=== PATIENT | male | born 1960 | race Caucasian/White ===

== ENCOUNTER 2017-09-26 13:12 | Inpatient (IN) | payer OTHER ==
--- NOTE | 2017-09-26 13:35 | PDOC ---
History of Present Illness - General Chief Complaint: Weakness Stated Complaint: WEAKNESS Time Seen by Provider: 09/26/17 13:23 - History of Present Illness Initial Comments: 09/26/17 14:32 57 year old male with pmh of recurrent aspiration pneumonitis, history of VATS at [facility] (?) about 7 years ago. S/P VATS here at [facility] In 2012 due to empyema, also pmh of HTN, COPD, essential tremors, severe ataxia, frequent falls sent by clinical nursing coordinator for vomiting and diarrhea this morning after breakfast. Patient claims he lost consciousness as well but homeland security program specialist nurse denies. Patient on narcotic and anticonvulsants daily (Tramadol and primidone) EXPERIENCE PLANNING STRATEGIST: Elizabeth Carvalho Called aide who denies finding any alcohol in patient's home. Patient states history of Parkinson's and Stroke but no evidence of that in chart. 09/26/17 14:37 Past History - Past Medical History Allergies/Adverse Reactions: Allergies Allergy/AdvReac Type Severity Reaction Status Date / Time No Known Allergies Allergy Verified 09/26/17 13:37 Home Medications: Ambulatory Orders Metoprolol Succinate [Toprol XL -] 50 mg PO DAILY #0 tab.sr.24h 09/23/15 Folic Acid 1 mg PO DAILY 06/22/16 Primidone 50 mg PO BID 06/22/16 Ranitidine HCl [Zantac] 150 mg PO DAILY 06/22/16 Thiamine HCl [Vitamin B1 -] 100 mg PO DAILY 06/22/16 Amox-Tr/K Cl [Augmentin 875-125mg Tablet -] 1 tab PO BID #14 tablet 06/29/16 Anemia: Yes Asthma: Yes Cancer: (RT ADRENAL MASS) Cardiac Disorders: No CVA: Yes (11/2013) COPD: Yes CHF: No Dementia: No Diabetes: No GI Disorders: No Disorders: No HTN: Yes Hypercholesterolemia: Yes Liver Disease: No Seizures: No Thyroid Disease: Yes - Surgical History Abdominal Surgery: Yes Appendectomy: Yes Cardiac Surgery: No Cholecystectomy: Yes Lung Surgery: Yes (S/P THRORACOTOMY) Neurologic Surgery: No Orthopedic Surgery: Yes (Hip fx) - Immunization History Td Vaccination: Yes TDAP Vaccination: Yes Immunization Up to Date: Yes - Suicide/Smoking/Psychosocial Hx Smoking Status: Yes Smoking History: Unknown if ever smoked Years of Tobacco Use: 0 Have you smoked in the past 12 months: Yes Number of Cigarettes Smoked Daily: 20 Cigars Per Day: 1 'Breaking Loose' booklet given: 05/30/16 Hx Alcohol Use: Yes Drug/Substance Use Hx: Yes Substance Use Type: Alcohol Hx Substance Use Treatment: No Review of Systems - Review of Systems Able to Perform ROS?: Yes Constitutional: Yes: Weakness HEENTM: No: Symptoms Reported Respiratory: No: Symptoms reported Cardiac (ROS): No: Symptoms Reported ABD/GI: Yes: Diarrhea, Vomiting : No: Symptoms Reported Musculoskeletal: No: Symptoms Reported Integumentary: No: Symptoms Reported Neurological: Yes: Pre-Existing Deficit, Weakness, Unsteady Gait Endocrine: No: Symptoms Reported Hematologic/Lymphatic: No: Symptoms Reported All Other Systems: Reviewed and Negative *Physical Exam - Physical Exam General Appearance: Yes: Disheveled, Alcohol on Breath, Thin HEENT: positive: EOMI, RICKEY Neck: positive: Trachea midline, Normal Thyroid. negative: Tender Respiratory/Chest: positive: Lungs Clear, Normal Breath Sounds. negative: Chest Tender Cardiovascular: positive: Regular Rhythm, Regular Rate, S1, S2 Gastrointestinal/Abdominal: positive: Normal Bowel Sounds, Flat. negative: Tender Neurologic: positive: Confused, Other (positive asterixis) ED Treatment Course - LABORATORY CBC & Chemistry Diagram: 09/26/17 13:39 09/26/17 13:39 Medical Decision Making - Medical Decision Making 09/26/17 17:25 57M with history of etoh abuse and severe ataxia presents with nausea, vomiting and questionable loc. Blood level + for 179 etoh despite patient claiming he hasn't had a drink in 4 days. 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 +asterixis, clonus Tried to determine ataxia baseline by talking to clinical nursing coordinator and PCP. This sounds worse than the patient's baseline Started patient on librium and admitted to observation in case this is alcohol withdrawal. *DC/Admit/Observation/Transfer Diagnosis at time of Disposition: Rib pain - Discharge Dispostion Admit: Yes - Referrals Referrals: Eleni Carvalho MD [Primary Care Provider] - Gualberto Serrato MD [Staff Physician] - - Patient Instructions - Post Discharge Activity
--- NOTE | 2017-09-26 14:01 | PDOC ---
Attending Attestation - Resident Resident Name: Rene Raphael - ED Attending Attestation I have performed the following: I have examined & evaluated the patient, The case was reviewed & discussed with the resident, I agree w/resident's findings & plan, Exceptions are as noted - HPI HPI: The patient is a 57 year old male, with a significant past medical history of recurrent aspiration/pneumonia, alcoholism, hypertension, renal insufficiency, right adrenal mass, empyema s/p VATs procedure who presents to the emergency department via ems for nausea, diarrhea, and vomiting this morning. The patient states he thinks he passed out, however, as per the home health aide, the patient did not pass out. He denies chest pain, shortness of breath, headache and dizziness. He denies fever, chills, diarrhea and constipation. He denies dysuria, frequency, urgency and hematuria. Allergies: NKA Social history: tobacco use (1ppd). Alcohol consumption (daily). No Drugs. Surgical Hx: Cholecystectomy, Thoracotomy - Physicial Exam PE: 09/26/17 14:50 GENERAL: Awake, alert, in no acute distress. +AOB HEAD: No signs of trauma EYES: PERRLA, EOMI, sclera anicteric, conjunctiva clear ENT: Auricles normal inspection, hearing grossly normal, nares patent, oropharynx clear without exudates. Moist mucosa NECK: Normal ROM, supple, no lymphadenopathy, JVD, or masses LUNGS: Breath sounds equal, clear to auscultation bilaterally. No wheezes, and no crackles HEART: Regular rate and rhythm, normal S1 and S2, no murmurs, rubs or gallops ABDOMEN: Soft, nontender, normoactive bowel sounds. No guarding, no rebound. No masses EXTREMITIES: Normal range of motion, no edema. No clubbing or cyanosis. No cords, erythema, or tenderness NEUROLOGICAL: Normal speech, cranial nerves intact, negative pronator drift, 5/ 5 strength in all 4 extremities, normal sensation to light touch in all 4 extremities, normal cerebellar exam, normal reflexes and tone. Gait deferred SKIN: Warm, Dry, normal turgor, no rashes or lesions noted. - Medical Decision Making 09/26/17 16:46 57-year-old male with a history of alcohol abuse presents with an unwitnessed syncopal episode today. History is very limited as patient does not recall the circumstances around his syncopal episode. Will obtain a CT scan of his head as unknown head strike. We'll also check lab work for blood counts, metabolic disarray, and cardiac ischemia. -labs -cth -cxr -admit Heart Score/ECG Review #1 09/26/17 14:00 Twelve-lead EKG was performed and reviewed by me. Normal sinus rhythm, rate 80. Normal axis and intervals. No ST elevations.
[2017-09-26 14:11] LABS: BASOPHIL 0.6 % (0-2.0); EOSINOPHIL 0.2 % (0-4.5); MCH 30.1 pg (25.7-33.7); MCHC 33.2 g/dl (32.0-35.9); MEAN CELL VOLUME 90.6 fl (80-96); MEAN PLT VOLUME 7.5 fl (7.5-11.1); NEUTROPHILS 84.5 % (42.8-82.8); PLATELET COUNT 145 K/MM3 (134-434); RDW 15.4 % (11.9-15.9)
--- NOTE | 2017-09-26 14:38 | EKG ---
Test Reason : Blood Pressure : / mmHG Vent. Rate : 080 BPM Atrial Rate : 080 BPM P-R Int : 154 ms QRS Dur : 080 ms QT Int : 374 ms P-R-T Axes : 075 065 067 degrees QTc Int : 431 ms BASELINE ARTIFACT NORMAL SINUS RHYTHM POSSIBLE LEFT ATRIAL ENLARGEMENT BORDERLINE ECG WHEN COMPARED WITH ECG OF 22-JUN-2016 12:41, T WAVES ARE UPRIGHT IN V3 REPEAT EKG IF CLINICALLY INDICATED Confirmed by KALYANI GREER MD ([id number]) on 09/26/2017 2:38:35 PM Referred By: Confirmed By:KALYANI GREER MD
[2017-09-26 14:44] LABS: ALBUMIN 3.4 g/dl (3.4-5.0); ANION GAP 18 (8-16); CO2 22 mmol/L (21-32); CREATININE 0.6 mg/dL (0.7-1.3); GLUCOSE,RANDOM 99 mg/dL (74-106); PHOSPHOROUS 2.9 mg/dL (2.5-4.9); SGPT/ALT 86 U/L (12-78)
[2017-09-26 14:45] LABS: SGOT/AST 95 U/L (15-37)
[2017-09-26 14:46] LABS: ALK PHOS 110 U/L (45-117); BILIRUBIN,TOTAL 0.7 mg/dL (0.2-1.0); TROPONIN I < 0.02 ng/ml (0.00-0.05)
[2017-09-26 14:47] LABS: MAGNESIUM 1.8 mg/dL (1.8-2.4)
[2017-09-26 14:48] LABS: CPK 163 IU/L (39-308)
[2017-09-26] MEDS ORDERED: FOLIC ACID INJECTION - 1 MG, THIAMINE HCL 100 MG, MULTIVIT INJECTION ADULT 10 ML in SOD... IVPB ONE (14:57)
[2017-09-26] MEDS ORDERED: chlordiazePOXIDE HCL 25 MG CAPSULE PO ONE (15:15)
[2017-09-26] MEDS ORDERED: chlordiazePOXIDE HCL 25 MG CAPSULE ONE (15:25)
--- NOTE | 2017-09-26 16:29 | HP ---
Admitting History and Physical - Primary Care Physician PCP: Eleni Carvalho - Admission Chief Complaint: nausea, vomiting, passing out History of Present Illness: HPI This is a 57 year old male with PMHx of chronic alcohol abuse, HTN, aspiration/ pneumonia, renal insufficiency, right adrenal mass, empyema s/p VATs procedure( at [facility], ~7years ago?) who presents to the emergency department via ems for nausea, diarrhea, and vomiting this morning. The patient states he thinks he passed out, however, as per the home health aide, the patient did not. He smokes a pack of cigarettes/day, he has been drinking for a long time but today he feels something is wrong. He says his upper extremity tremors are new and he cant even hold urinal to urinate. Denies chest pain, sob, abdominal pain, head ache, blurry vision. Patient on narcotic and anticonvulsants daily (Tramadol and primidone) History Source: Patient, Medical Record Limitations to Obtaining History: No Limitations - Past Medical History ADMINISTRATION SPECIALIST: Yes: CVA, Other (ataxia) Cardiovascular: Yes: HTN, Hyperlipdemia Pulmonary: Yes: COPD Renal/: Yes: Renal Inusuff Heme/Onc: Yes: Anemia (RESOLVED) - Past Surgical History Past Surgical History: Yes: Cholecystectomy, Thoracotomy - Smoking History Smoking history: Current every day smoker Have you smoked in the past 12 months: Yes Aproximately how many cigarettes per day: 20 - Alcohol/Substance Use Hx Alcohol Use: Yes (beer is drink of choice ) Number of Drinks Daily: 6 History of Substance Use: reports: None - Social History ADL: Support Services History of Recent Travel: No Home Medications - Allergies Allergies/Adverse Reactions: Allergies Allergy/AdvReac Type Severity Reaction Status Date / Time No Known Allergies Allergy Verified 09/26/17 13:37 - Home Medications Home Medications: Ambulatory Orders Metoprolol Succinate [Toprol XL -] 50 mg PO DAILY #0 tab.sr.24h 09/23/15 Folic Acid 1 mg PO DAILY 06/22/16 Primidone 50 mg PO BID 06/22/16 Ranitidine HCl [Zantac] 150 mg PO DAILY 06/22/16 Thiamine HCl [Vitamin B1 -] 100 mg PO DAILY 06/22/16 Amox-Tr/K Cl [Augmentin 875-125mg Tablet -] 1 tab PO BID #14 tablet 06/29/16 Family Disease History - Family Disease History Family Disease History: Heart Disease: Father (colon cancer), Mother (colon cancer) Review of Systems - Review of Systems Constitutional: reports: No Symptoms Eyes: reports: No Symptoms HENT: reports: No Symptoms Neck: reports: No Symptoms Cardiovascular: reports: No Symptoms Respiratory: reports: No Symptoms Gastrointestinal: reports: Nausea, Vomiting Genitourinary: reports: No Symptoms Musculoskeletal: reports: Muscle Weakness Integumentary: reports: No Symptoms Neurological: reports: Incoordination (severe ataxia), Pre-Existing Deficit, Unsteady Gait, Other Endocrine: reports: No Symptoms Hematology/Lymphatic: reports: No Symptoms Psychiatric: reports: No Symptoms Physical Examination Vital Signs: Vital Signs Temperature 97.3 F L 09/26/17 13:15 Pulse Rate 86 09/26/17 15:07 Respiratory Rate 18 09/26/17 15:07 Blood Pressure 136/84 09/26/17 13:15 O2 Sat by Pulse Oximetry (%) 100 09/26/17 15:07 Constitutional: Yes: Poor Hygeine Eyes: Yes: Conjunctiva Clear HENT: Yes: Atraumatic Neck: Yes: Supple Cardiovascular: Yes: Regular Rate and Rhythm, S1, S2 Respiratory: Yes: Regular, CTA Bilaterally Gastrointestinal: Yes: Normal Bowel Sounds, Soft Renal/: Yes: WNL Extremities: Yes: WNL Edema: No Neurological: Yes: Alert, Oriented, Cran Nerves II-XII Intact, Tremors (severe upper extemity b/l) ...Motor Strength: WNL Psychiatric: Yes: Alert, Oriented Labs: CBC, BMP 09/26/17 13:39 09/26/17 13:39 Imaging - Results Chest X-ray: Image Reviewed Cat Scan: Report Reviewed (No acute intracranial hemorrhage, age related volume loss w/ secondary prominence of the csf spaces) Problem List - Problems (1) Nausea & vomiting Code(s): R11.2 - NAUSEA WITH VOMITING, UNSPECIFIED (2) Alcohol abuse Code(s): F10.10 - ALCOHOL ABUSE, UNCOMPLICATED (3) Alcohol dependence Code(s): F10.20 - ALCOHOL DEPENDENCE, UNCOMPLICATED (4) Alcohol withdrawal Code(s): F10.239 - ALCOHOL DEPENDENCE WITH WITHDRAWAL, UNSPECIFIED Qualifiers: Complication of substance-induced condition: uncomplicated Qualified Code(s ): F10.230 - Alcohol dependence with withdrawal, uncomplicated (5) Cerebellar ataxia Code(s): G11.9 - HEREDITARY ATAXIA, UNSPECIFIED (6) Essential tremor Code(s): G25.0 - ESSENTIAL TREMOR (7) Syncope Code(s): R55 - SYNCOPE AND COLLAPSE Qualifiers: Syncope type: unspecified Qualified Code(s): R55 - Syncope and collapse (8) Hyperlipidemia Code(s): E78.5 - HYPERLIPIDEMIA, UNSPECIFIED Qualifiers: Hyperlipidemia type: Pure hypercholesterolemia (9) Hypertension Code(s): I10 - ESSENTIAL (PRIMARY) HYPERTENSION Qualifiers: Hypertension type: essential hypertension Qualified Code(s): I10 - Essential (primary) hypertension (10) Nicotine dependence Code(s): F17.200 - NICOTINE DEPENDENCE, UNSPECIFIED, UNCOMPLICATED Qualifiers: Nicotine product type: cigarettes Substance use status: uncomplicated Qualified Code(s): F17.210 - Nicotine dependence, cigarettes, uncomplicated Assessment/Plan Assessment: This is a 57 year old male admitted with possible syncope 2/2 nausea , vomiting and ETOH withdrawal Plan: 1. Possible unwitnessed syncope vs ETOH abuse - Likely due to ETOH abuse, volume loss - CT head negative - MRI 06/2016 indicates mod vol loss and ventricular dilation - Echo ordered - Neurology consulted 2. Severe ataxia - Per patient this is new for him, however tremors noted during previous admission - Possible worsening ataxia vs ?machiafava-bingami syndrome as noted per neuro in 06/2016 - Takes primidone BID at home - Neuro evaluation requested 3. ETOH abuse/withdrawal - Start librium detox - Banana bag in ED - Start NS @83cc/hr after bb - Daily folic acid and thiamine - Possible transfer to [facility] to complete detox if NTD per neuro standpoint 4. HTN - Controlled - Continue toprol xl 50mg daily Visit type - Emergency Visit Emergency Visit: Yes Care time: The patient presented to the Emergency Department on the above date and was hospitalized for further evaluation of their emergent condition. - New Patient This patient is new to me today: Yes Date on this admission: 09/26/17 - Critical Care Critical Care patient: No
[2017-09-26] MEDS: SODIUM CHLORIDE 1,000 ML IV SCH ×2 (16:30→20:11)
[2017-09-26] MEDS ORDERED: chlordiazePOXIDE HCL 25 MG CAPSULE PO PRN (16:34)
[2017-09-26 18:37] VITALS: BMI 21.7
[2017-09-26] MEDS: PRIMIDONE 50 MG TABLET PO SCH (21:54)
[2017-09-26] MEDS ORDERED: PRIMIDONE 50 MG PO SCH (22:00)
[2017-09-26 22:45] LABS: URINE APPEARANCE CLEAR; URINE BILIRUBIN NEGATIVE (NEGATIVE); URINE BLOOD NEGATIVE (NEGATIVE); URINE COLOR YELLOW; URINE GLUCOSE (UA) NEGATIVE (NEGATIVE); URINE KETONE 1+ (NEGATIVE); URINE NITRITE NEGATIVE (NEGATIVE); URINE UROBILINOGEN NEGATIVE mg/dL (0.2-1.0)
[2017-09-26 22:55] LABS: URINE PROTEIN 1+ (NEGATIVE)
[2017-09-26 22:56] LABS: URINE MARIJUANA THC NEGATIVE ng/ml (CUTOFF=50)
[2017-09-26 22:58] LABS: URINE MUCUS RARE; URINE RBC 1; URINE WBC 0
[2017-09-26] MEDS: chlordiazePOXIDE HCL 25 MG CAPSULE PO SCH (23:14)
[2017-09-27] MEDS: chlordiazePOXIDE HCL 25 MG CAPSULE PO SCH ×4 (05:37→22:43)
[2017-09-27] MEDS: SODIUM CHLORIDE 1,000 ML IV SCH ×3 (05:39→22:46)
[2017-09-27 07:19] LABS: BASOPHIL 0.5 % (0-2.0); EOSINOPHIL 0.4 % (0-4.5); MCH 30.3 pg (25.7-33.7); MCHC 33.4 g/dl (32.0-35.9); MEAN CELL VOLUME 90.7 fl (80-96); MEAN PLT VOLUME 7.8 fl (7.5-11.1); NEUTROPHILS 72.4 % (42.8-82.8); PLATELET COUNT 107 K/MM3 (134-434); RDW 15.3 % (11.9-15.9); WHITE BLOOD COUNT 5.4 K/mm3 (4.0-10.0)
[2017-09-27 07:39] LABS: INR 1.05 (0.82-1.09); PROTHROMBIN TIME (PATIENT) 11.9 SEC (9.98-11.88)
[2017-09-27 08:00] LABS: CALCIUM 7.7 mg/dL (8.5-10.1)
[2017-09-27 08:09] LABS: ALBUMIN 2.9 g/dl (3.4-5.0); ALK PHOS 95 U/L (45-117); ANION GAP 13 (8-16); BILIRUBIN,TOTAL 1.3 mg/dL (0.2-1.0); CO2 23 mmol/L (21-32); CREATININE 0.5 mg/dL (0.7-1.3); GLUCOSE,RANDOM 85 mg/dL (74-106); MAGNESIUM 1.6 mg/dL (1.8-2.4); PHOSPHOROUS 2.4 mg/dL (2.5-4.9); SGOT/AST 56 U/L (15-37); SGPT/ALT 59 U/L (12-78); TOT PROT 5.8 g/dl (6.4-8.2)
--- NOTE | 2017-09-27 09:41 | CONSULT ---
Consult - text type - Consultation Consultation Note: NEUROLOGY CONSULTATION is greatly appreciated: This 57 yo RH recently man lives alone with BATTERY ENGINEER 9-4:30 x 7 days. H/O Essential Tremor (ET) and Alcoholism. On metoprolol, Primidone (50 mg BID), thiamine and ranitidine. Gives H/O "Stroke" 2-3 years ago and has required a walker since that time. Now admitted for nausea and vomiting, but Pt claims it is for sudden worsening of tremor and gait with new cough. CT of head (reviewed): Moderate, diffuse, cerebral and midline cerebellar atrophy. No evidence of CVA or any acute changes. Labs: Sig for moderate transaminitis, Mg++=1.6 mg%, MZD=834.9. Tox + Benzos and Barbiturates. JANINA: Thin, unkempt. Neck supple. No bruits. Frequent cough NEURO: Mild OMS. Ox3. Recalls 1 of 3. Dysarthric speech. CN II-XII: No nystagmus. Decreased tongue ROEL's. Gag OK Motor: No drift. Coarse, rhythmic sustention tremor, No rest tremor. No cogwheeling. Decreased ROLE's. Brisk reflexes except absent AJ's. Downgoing toes. Coord: Mod FTN dystaxia. Severe HTS dystaxia Sensory: Reduced vibration toes. Gait: Stands only with assistance. Wide-based, ataxic, unsteady, retropulsive. IMP: 1. Midline alcoholic cerebellar degeneration. 2. Essential tremor. 3. Peripheral neuropathy (Probably ETOH-related). 4. Reason for subacute worsening is uncertain but would consider Toxic- metabolic encephalopathy (R/O Pneumonia) SUGGEST: Detox protocol. Give thiamine parenterally- 200 mg IVPB q 8 hrs x 5 days. Check B1, B12, TSH, RPR, follow LFT's, Mg++ R/O Wilsons Disease with Cu++, ceruloplasmin levels. MRI of brain (C-). PT for gait with walker. manager services. Thank you very much, Gualberto Serrato MD
[2017-09-27] MEDS ORDERED: THIAMINE HCL 100 MG TABLET (FP) PO SCH (10:00)
[2017-09-27] MEDS ORDERED: THIAMINE HCL 200 MG/2 ML VIAL IVPB SCH (10:00)
[2017-09-27] MEDS ORDERED: MAGNESIUM SULF 50% (8.12 MEQ/2 ML-1 GM VIAL) IVPB ONE (10:45)
[2017-09-27] MEDS: NAPH,MB-DB/K PH,MBDB POWDER PACKET PO SCH ×2 (10:51→22:43)
[2017-09-27] MEDS: ENOXAPARIN NA (PORCINE) 40 MG/0.4 ML DISP.SYRIN SQ SCH (10:51)
[2017-09-27] MEDS: METOPROLOL SUCCINATE 50 MG TAB.SR.24H (FP) PO SCH (10:52)
[2017-09-27] MEDS: PRIMIDONE 50 MG TABLET PO SCH ×2 (10:52→22:43)
[2017-09-27] MEDS: FOLIC ACID 1 MG TABLET (FP) PO SCH (10:52)
[2017-09-27] MEDS: THIAMINE HCL 200 MG/2 ML VIAL IVPB SCH ×2 (10:54→18:16)
[2017-09-27 11:35] LABS: URINE LEUK ESTERASE Negative (NEGATIVE)
--- NOTE | 2017-09-27 13:12 | PN ---
Physical Exam: SUBJECTIVE: Patient seen and examined. He is unable to feed himself due to his tremor, he says this is new, he never had it before and he has been drinking for a long time. Denies withdrawal symptoms. OBJECTIVE: Vital Signs Period Temp Pulse Resp BP Sys/Blair Pulse Ox Last 24 Hr 97.3 F-98.4 F 82-100 18-20 124-159/75-89 96-100 PE Neuro: alert, awake, cn 2-12intact, + upper ext tremor + ataxia when attempts movement, calm at rest Pulm: CTAB CV: s1 s2 rrr no mrg Abd: s nt nd + bs Ext: no le edema Laboratory Results - last 24 hr 09/26/17 09/26/17 09/27/17 22:00 22:00 06:00 WBC 5.4 D RBC 4.61 Hgb 14.0 D Hct 41.8 MCV 90.7 MCH 30.3 MCHC 33.4 RDW 15.3 Plt Count 107 L D MPV 7.8 Neutrophils % 72.4 Lymphocytes % 21.4 D Monocytes % 5.3 Eosinophils % 0.4 D Basophils % 0.5 PT with INR INR Sodium Potassium Chloride Carbon Dioxide Anion Gap BUN Creatinine Creat Clearance w eGFR Random Glucose Calcium Phosphorus Magnesium Total Bilirubin AST ALT Alkaline Phosphatase Creatine Kinase Creatine Kinase Index CK-MB (CK-2) Troponin I Total Protein Albumin Lipase Vitamin B12 Urine Color Yellow Urine Appearance Clear Urine pH 7.0 D Ur Specific [place] 1.019 Urine Protein 1+ H Urine Glucose (UA) Negative Urine Ketones 1+ H Urine Blood Negative Urine Nitrite Negative Urine Bilirubin Negative Urine Urobilinogen Negative Ur Leukocyte Esterase Negative Urine WBC (Auto) 0 Urine RBC (Auto) 1 Ur Epithelial Cells Rare Urine Mucus Rare Opiates Screen Negative Methadone Screen Negative Barbiturate Screen Positive Phencyclidine Screen Negative Ur Amphetamines Screen Negative MDMA (Ecstasy) Screen Negative Benzodiazepines Screen Positive Cocaine Screen Negative U Marijuana (THC) Screen Negative Alcohol, Quantitative 09/27/17 09/27/17 09/27/17 06:00 06:00 06:00 WBC RBC Hgb Hct MCV MCH MCHC RDW Plt Count MPV Neutrophils % Lymphocytes % Monocytes % Eosinophils % Basophils % PT with INR 11.90 H INR 1.05 Sodium 138 Potassium 3.7 D Chloride 102 Carbon Dioxide 23 Anion Gap 13 BUN 8 Creatinine 0.5 L Creat Clearance w eGFR > 60 Random Glucose 85 Calcium 7.7 L Phosphorus 2.4 L Magnesium 1.6 L Total Bilirubin 1.3 H D AST 56 H D ALT 59 D Alkaline Phosphatase 95 Creatine Kinase Creatine Kinase Index CK-MB (CK-2) Troponin I Total Protein 5.8 L Albumin 2.9 L Lipase Vitamin B12 443 D Cancelled Urine Color Urine Appearance Urine pH Ur Specific [place] Urine Protein Urine Glucose (UA) Urine Ketones Urine Blood Urine Nitrite Urine Bilirubin Urine Urobilinogen Ur Leukocyte Esterase Urine WBC (Auto) Urine RBC (Auto) Ur Epithelial Cells Urine Mucus Opiates Screen Methadone Screen Barbiturate Screen Phencyclidine Screen Ur Amphetamines Screen MDMA (Ecstasy) Screen Benzodiazepines Screen Cocaine Screen U Marijuana (THC) Screen Alcohol, Quantitative Active Medications Generic Name Dose Route Start Last Admin Trade Name Freq PRN Reason Stop Dose Admin Chlordiazepoxide HCl 50 mg 09/26/17 23:00 09/27/17 10:51 Librium - PO 09/27/17 17:01 50 mg [id number] RONALDO Administration Chlordiazepoxide HCl 25 mg 09/27/17 23:00 Librium - PO 09/28/17 17:01 [id number] RONALDO Chlordiazepoxide HCl 15 mg 09/28/17 23:00 Librium - PO 09/29/17 17:01 [id number] RONALDO Chlordiazepoxide HCl 25 mg 09/26/17 16:34 09/26/17 20:05 Librium - PO 09/29/17 16:33 25 mg Q4H PRN Administration WITHDRAWAL(CONT SUBST) Enoxaparin Sodium 40 mg 09/27/17 10:00 09/27/17 10:51 Lovenox - SQ 40 mg DAILY RONALDO Administration Folic Acid 1 mg 09/27/17 10:00 09/27/17 10:52 Folic Acid - PO 1 mg DAILY RONALDO Administration Sodium Chloride 1,000 mls @ 83 mls/hr 09/26/17 16:30 09/27/17 05:39 Normal Saline - IV 83 mls/hr ASDIR RONALDO Administration Metoprolol Succinate 50 mg 09/27/17 10:00 09/27/17 10:52 Toprol Xl - PO 50 mg DAILY RONALDO Administration Potassium Phos/Sodium Phos 1 packet 09/27/17 10:45 09/27/17 10:51 Phos-Nak Packet - PO 1 packet BID RONALDO Administration Primidone 50 mg 09/26/17 22:00 09/27/17 10:52 Mysoline - PO 50 mg BID RONALDO Administration Thiamine HCl 200 mg 09/27/17 10:00 09/27/17 10:54 Vitamin B1 Injection - IVPB 10/02/17 09:59 200 mg Q8H-IV RONALDO Administration Imaging: - MRI 06/2016 indicates mod vol loss and ventricular dilation Assessment: 57 year old male with PMHx of chronic alcohol abuse, HTN, aspiration /pneumonia, renal insufficiency, right adrenal mass, empyema s/p VATs procedure( at [facility], ~7years ago?) admitted with possible syncope 2/2 nausea, vomiting and ETOH withdrawal Plan: 1. Midline alcoholic cerebellar degeneration - Worsening presentation, unclear etiology; ?machiafava-bingami syndrome as noted per neuro in 06/2016 - Vit B1 pending - MRI brain ordered - Echo ordered - Neuro on board 2. Severe ataxia, essential tremor - Rule out Elias's disease - Copper and ceruloplasmin levels pending - Maintain home primidone BID 3. ETOH abuse/withdrawal - Continue librium detox - Decrease fluids to 60cc/hr - Thiamine 200mg IVPB q8hr x5days (day 1) 4. HTN - Controlled - Continue toprol xl 50mg daily 5. DVT ppx - SCDs Problem List - Problems (1) Nausea & vomiting Code(s): R11.2 - NAUSEA WITH VOMITING, UNSPECIFIED (2) Alcohol abuse Code(s): F10.10 - ALCOHOL ABUSE, UNCOMPLICATED (3) Alcohol dependence Code(s): F10.20 - ALCOHOL DEPENDENCE, UNCOMPLICATED (4) Alcohol withdrawal Code(s): F10.239 - ALCOHOL DEPENDENCE WITH WITHDRAWAL, UNSPECIFIED Qualifiers: Complication of substance-induced condition: uncomplicated Qualified Code(s ): F10.230 - Alcohol dependence with withdrawal, uncomplicated (5) Cerebellar ataxia Code(s): G11.9 - HEREDITARY ATAXIA, UNSPECIFIED (6) Essential tremor Code(s): G25.0 - ESSENTIAL TREMOR (7) Syncope Code(s): R55 - SYNCOPE AND COLLAPSE Qualifiers: Syncope type: unspecified Qualified Code(s): R55 - Syncope and collapse (8) Hyperlipidemia Code(s): E78.5 - HYPERLIPIDEMIA, UNSPECIFIED Qualifiers: Hyperlipidemia type: Pure hypercholesterolemia (9) Hypertension Code(s): I10 - ESSENTIAL (PRIMARY) HYPERTENSION Qualifiers: Hypertension type: essential hypertension Qualified Code(s): I10 - Essential (primary) hypertension (10) Nicotine dependence Code(s): F17.200 - NICOTINE DEPENDENCE, UNSPECIFIED, UNCOMPLICATED Qualifiers: Nicotine product type: cigarettes Substance use status: uncomplicated Qualified Code(s): F17.210 - Nicotine dependence, cigarettes, uncomplicated Visit type - Emergency Visit Emergency Visit: Yes ED Registration Date: 09/27/17 Care time: The patient presented to the Emergency Department on the above date and was hospitalized for further evaluation of their emergent condition. - New Patient This patient is new to me today: No - Critical Care Critical Care patient: No
[2017-09-27] MEDS ORDERED: FLU VACCINE QUAD 60 MCG/0.5 ML (MDV 17-18) IM ONE (14:33)
[2017-09-28] MEDS: THIAMINE HCL 200 MG/2 ML VIAL IVPB SCH ×3 (01:28→18:09)
[2017-09-28] MEDS: chlordiazePOXIDE HCL 25 MG CAPSULE PO SCH ×3 (05:03→18:10)
[2017-09-28 08:00] LABS: MCH 30.1 pg (25.7-33.7); MCHC 33.1 g/dl (32.0-35.9); MEAN CELL VOLUME 90.7 fl (80-96); MEAN PLT VOLUME 8.1 fl (7.5-11.1); PLATELET COUNT 94 K/MM3 (134-434); RDW 15.5 % (11.9-15.9); WHITE BLOOD COUNT 5.4 K/mm3 (4.0-10.0)
[2017-09-28 08:54] LABS: ALBUMIN 2.9 g/dl (3.4-5.0); ALK PHOS 91 U/L (45-117); ANION GAP 10 (8-16); BILIRUBIN,TOTAL 1.2 mg/dL (0.2-1.0); CALCIUM 7.9 mg/dL (8.5-10.1); CO2 25 mmol/L (21-32); CREATININE 0.5 mg/dL (0.7-1.3); GLUCOSE,RANDOM 83 mg/dL (74-106); MAGNESIUM 1.9 mg/dL (1.8-2.4); SGOT/AST 32 U/L (15-37); SGPT/ALT 45 U/L (12-78); THYROID STIMULATING HORMONE 2.29 uIU/ml (0.358-3.74); TOT PROT 5.9 g/dl (6.4-8.2)
[2017-09-28] MEDS: FOLIC ACID 1 MG TABLET (FP) PO SCH (10:17)
[2017-09-28] MEDS: NAPH,MB-DB/K PH,MBDB POWDER PACKET PO SCH ×2 (10:18→21:12)
[2017-09-28] MEDS: METOPROLOL SUCCINATE 50 MG TAB.SR.24H (FP) PO SCH (10:18)
[2017-09-28] MEDS: ENOXAPARIN NA (PORCINE) 40 MG/0.4 ML DISP.SYRIN SQ SCH (10:18)
[2017-09-28] MEDS: PRIMIDONE 50 MG TABLET PO SCH ×2 (10:25→21:11)
[2017-09-28] MEDS: SODIUM CHLORIDE 1,000 ML IV SCH (12:02)
[2017-09-28] MEDS ORDERED: POTASSIUM CHLORIDE ORAL LIQUID 20 MEQ/15 ML PO ONE (14:59)
[2017-09-28] MEDS ORDERED: NAPH,MB-DB/K PH,MBDB POWDER PACKET PO ONE (14:59)
[2017-09-28] MEDS ORDERED: MAGNESIUM OXIDE 400 MG TABLET (FP) PO ONE (14:59)
--- NOTE | 2017-09-28 15:01 | PN ---
Teaching Attending Note Name of Resident: Richy Nugent ATTENDING PHYSICIAN STATEMENT I saw and evaluated the patient. I reviewed the resident's note and discussed the case with the resident. I agree with the resident's findings and plan as documented. SUBJECTIVE:c/o tremors, states it has been worse for the past 2 weeks. denies CP , SOB< fever, chills, N/V/C/D, weakness worse on one side OBJECTIVE: Last Vital Signs Temp Pulse Resp BP Pulse Ox 97.9 F 98 H 20 116/60 95 09/28/17 10:00 09/28/17 10:00 09/28/17 10:00 09/28/17 10:00 09/28/17 00:00 General NAD A&Ox3 HEENT +lateral gaze nystagmus CV S1 S2 RRR no murmur/rub/gallop Lungs CTA B/L no wheezing/rales/rhonchi extremities +intention tremor Neuro CN grossly intact, +dysmetria B/L +dysdakinesia. negative heel to frey. gait testing deferred ASSESSMENT AND PLAN: 57yo M with PMH continuous ETOH abuse, HTN, CKD, empyema s/p VATS presented to the ER syncope 1. Midline alcoholic cerebellar degeneration- MRI negative. workup so far is negative. on thiamine IV 200mg Q8H x5days. neuro on board. PT assessment 2. Essential tremor 3. peripheral neuropathy- due to chronic ETOH use 4. Hypomagnesemia- Mg 800mg 5. Hypophosphatemia- neutraphos 6. hypokalemia- kcl 40meq 7. continuous ETOH abuse presenting with intoxication- CIWA 2. on librium taper. not interested in inpatient rehab at this time. states he has done it 2x in the past. on thiamine/folate/mvi 8. Severe ataxia- PT assessment 9. DVT ppx- lovenox 10. d/w pt about PRADIP placement. unsure if he is agreeable. has to go home to take care of cat. agreed will determine based on PT recommendations.
--- NOTE | 2017-09-28 15:24 | PN ---
Physical Exam: SUBJECTIVE: Patient seen and examined at bedside. This is a 57 year old male with a past medical history of chronic alcohol use, HTN, aspiration pneumonia, empyema, right adrenal mass, VATS procedure done 7 years ago, baseline tremors who presented to the hospital for 1 day history of nausea, vomiting and diarrhea. Patient states he had 2 week history of worsening tremors in his arms, 4 days of not having an appetite or wanting to drink alcohol. His home health aid stated that he syncopized at home, but patient denies having done that. Patient is a poor historian. Patient is on primidone for his tremors Patient is on metoprolol for hypertension Denies chest pain, shortness of breath, abdominal pain, diarrhea. OBJECTIVE: Vital Signs Period Temp Pulse Resp BP Sys/Blair Pulse Ox Last 24 Hr 97.5 F-98.2 F 76-98 20-20 116-148/60-97 95 GENERAL: The patient is awake, alert, and fully oriented, in no acute distress. HEAD: Normal with no signs of trauma. EYES: PERRL, extraocular movements intact, sclera anicteric, conjunctiva clear. No ptosis. ENT: Ears normal, nares patent, oropharynx clear without exudates, moist mucous membranes. NECK: Trachea midline, full range of motion, supple. LUNGS: Breath sounds equal, clear to auscultation bilaterally, no wheezes, no crackles, no accessory muscle use. HEART: Regular rate and rhythm, S1, S2 without murmur, rub or gallop. ABDOMEN: Soft, nontender, nondistended, normoactive bowel sounds, no guarding, no rebound, no hepatosplenomegaly, no masses. EXTREMITIES: 2+ pulses, warm, well-perfused, no edema. NEUROLOGICAL: Cranial nerves II through XII grossly intact. ataxic gait, dysmetria observed. PSYCH: Normal mood, normal affect. SKIN: Warm, dry, normal turgor, no rashes or lesions noted Laboratory Results - last 24 hr 09/28/17 09/28/17 09/28/17 06:00 06:00 06:00 WBC 5.4 RBC 4.56 Hgb 13.7 Hct 41.4 MCV 90.7 MCH 30.1 MCHC 33.1 RDW 15.5 Plt Count 94 L MPV 8.1 Sodium 137 Potassium 3.4 L Chloride 102 Carbon Dioxide 25 Anion Gap 10 BUN 7 Creatinine 0.5 L Creat Clearance w eGFR > 60 Random Glucose 83 Calcium 7.9 L Magnesium 1.9 Total Bilirubin 1.2 H AST 32 D ALT 45 D Alkaline Phosphatase 91 Ammonia < 10.0 L Total Protein 5.9 L Albumin 2.9 L TSH 2.29 D Active Medications Generic Name Dose Route Start Last Admin Trade Name Freq PRN Reason Stop Dose Admin Chlordiazepoxide HCl 25 mg 09/27/17 23:00 09/28/17 12:01 Librium - PO 09/28/17 17:01 25 mg [id number] RONALDO Administration Chlordiazepoxide HCl 15 mg 09/28/17 23:00 Librium - PO 09/29/17 17:01 [id number] RONALDO Chlordiazepoxide HCl 25 mg 09/26/17 16:34 09/26/17 20:05 Librium - PO 09/29/17 16:33 25 mg Q4H PRN Administration WITHDRAWAL(CONT SUBST) Enoxaparin Sodium 40 mg 09/27/17 10:00 09/28/17 10:18 Lovenox - SQ 40 mg DAILY RONALDO Administration Folic Acid 1 mg 09/27/17 10:00 09/28/17 10:17 Folic Acid - PO 1 mg DAILY RONALDO Administration Magnesium Oxide 800 mg 09/28/17 14:59 Mag-Ox - PO 09/28/17 15:00 ONCE ONE Metoprolol Succinate 50 mg 09/27/17 10:00 09/28/17 10:18 Toprol Xl - PO 50 mg DAILY [facility] Administration Nicotine 14 mg 09/28/17 15:15 Nicoderm Patch - TD DAILY [facility] Potassium Chloride 40 meq 09/28/17 14:59 Potassium Chloride Oral Liquid PO 09/28/17 15:00 ONCE ONE Potassium Phos/Sodium Phos 1 packet 09/27/17 10:45 09/28/17 10:18 Phos-Nak Packet - PO 1 packet BID RONALDO Administration Potassium Phos/Sodium Phos 2 packet 09/28/17 14:59 Phos-Nak Packet - PO 09/28/17 15:00 ONCE ONE Primidone 50 mg 09/26/17 22:00 09/28/17 10:25 Mysoline - PO 50 mg BID [facility] Administration Thiamine HCl 200 mg 09/27/17 10:00 09/28/17 10:19 Vitamin B1 Injection - IVPB 10/02/17 09:59 200 mg Q8H-IV RONALDO Administration Imaging: MRI BRAIN: volume loss, no acute pathology ASSESSMENT/PLAN: 57 year old male with a pmh of chronic alcohol use, HTN, aspiration pneumonia, empyema, right adrenal mass, VATS procedure done 7 years ago, baseline tremors admitted to the hospital for worsening tremors #Midline Alcoholic Cerebellar Degeneration -appreciate neurological consultation -patient is on thiamine 200mg IV Q8 for 5 days (day 1 today) -continue primidone for tremors 50mg PO BID -f/u copper/ceruloplasmin levels -PT for assistance with walking -patient is currently unwilling to go to subacute rehab after detox, states that he wants to be at home -continue librium for alcohol withdrawal #Hypertension -controlled on metoprolol 50mg QD #FEN -Sodium controlled diet -replete magnesium, potassium, phosphorus -repeat BMP in Am -no standing fluids #Proph -lovenox 40mg SQ Dispo Continue to monitor on med-surg subq Visit type - Emergency Visit Emergency Visit: No - New Patient This patient is new to me today: Yes Date on this admission: 09/28/17 - Critical Care Critical Care patient: No
[2017-09-28] MEDS: NICOTINE 14 MG/24 HOURS TOPICAL PATCH TD SCH (16:16)
[2017-09-28] MEDS: chlordiazePOXIDE 5 MG CAPSULE PO SCH (22:42)
[2017-09-29] MEDS: THIAMINE HCL 200 MG/2 ML VIAL IVPB SCH ×3 (01:10→17:48)
[2017-09-29] MEDS: chlordiazePOXIDE 5 MG CAPSULE PO SCH ×3 (05:43→17:03)
[2017-09-29 07:50] LABS: MCH 30.5 pg (25.7-33.7); MCHC 33.3 g/dl (32.0-35.9); MEAN CELL VOLUME 91.5 fl (80-96); MEAN PLT VOLUME 8.4 fl (7.5-11.1); PLATELET COUNT 84 K/MM3 (134-434); RDW 15.5 % (11.9-15.9); WHITE BLOOD COUNT 5.9 K/mm3 (4.0-10.0)
--- NOTE | 2017-09-29 08:05 | PN ---
Physical Exam: SUBJECTIVE: Patient seen and examined at bedside. Patient denies any acute complaints, states that he would like to go home. Patient is agreeable to rehab facility, but is hesitant depending on the length time he has to be there. OBJECTIVE: Vital Signs Period Temp Pulse Resp BP Sys/Blair Pulse Ox Last 24 Hr 97.5 F-98.2 F 81-98 20-20 116-147/60-92 95-96 GENERAL: The patient is awake, alert, and fully oriented, in no acute distress. HEAD: Normal with no signs of trauma. EYES: PERRL, extraocular movements intact, sclera anicteric, conjunctiva clear. No ptosis. ENT: Ears normal, nares patent, oropharynx clear without exudates, moist mucous membranes. NECK: Trachea midline, full range of motion, supple. LUNGS: Breath sounds equal, clear to auscultation bilaterally, no wheezes, no crackles, no accessory muscle use. HEART: Regular rate and rhythm, S1, S2 without murmur, rub or gallop. ABDOMEN: Soft, nontender, nondistended, normoactive bowel sounds, no guarding, no rebound, no hepatosplenomegaly, no masses. EXTREMITIES: 2+ pulses, warm, well-perfused, no edema. NEUROLOGICAL: Cranial nerves II through XII grossly intact. Normal speech, gait ataxic, dysmetria noted bilaterally PSYCH: Normal mood, normal affect. SKIN: Warm, dry, normal turgor, no rashes or lesions noted Laboratory Results - last 24 hr 09/28/17 09/28/17 09/28/17 06:00 06:00 06:00 WBC 5.4 RBC 4.56 Hgb 13.7 Hct 41.4 MCV 90.7 MCH 30.1 MCHC 33.1 RDW 15.5 Plt Count 94 L MPV 8.1 Sodium 137 Potassium 3.4 L Chloride 102 Carbon Dioxide 25 Anion Gap 10 BUN 7 Creatinine 0.5 L Creat Clearance w eGFR > 60 Random Glucose 83 Calcium 7.9 L Magnesium 1.9 Total Bilirubin 1.2 H AST 32 D ALT 45 D Alkaline Phosphatase 91 Ammonia < 10.0 L Total Protein 5.9 L Albumin 2.9 L TSH 2.29 D Active Medications Generic Name Dose Route Start Last Admin Trade Name Freq PRN Reason Stop Dose Admin Chlordiazepoxide HCl 15 mg 09/28/17 23:00 09/29/17 05:43 Librium - PO 09/29/17 17:01 15 mg [id number] RONALDO Administration Chlordiazepoxide HCl 25 mg 09/26/17 16:34 09/26/17 20:05 Librium - PO 09/29/17 16:33 25 mg Q4H PRN Administration WITHDRAWAL(CONT SUBST) Enoxaparin Sodium 40 mg 09/27/17 10:00 09/28/17 10:18 Lovenox - SQ 40 mg DAILY RONALDO Administration Folic Acid 1 mg 09/27/17 10:00 09/28/17 10:17 Folic Acid - PO 1 mg DAILY RONALDO Administration Metoprolol Succinate 50 mg 09/27/17 10:00 09/28/17 10:18 Toprol Xl - PO 50 mg DAILY RONALDO Administration Nicotine 14 mg 09/28/17 15:15 09/28/17 16:16 Nicoderm Patch - TD 14 mg DAILY RONALDO Administration Potassium Phos/Sodium Phos 1 packet 09/27/17 10:45 09/28/17 21:12 Phos-Nak Packet - PO 1 packet BID RONALDO Administration Primidone 50 mg 09/26/17 22:00 09/28/17 21:11 Mysoline - PO 50 mg BID RONALDO Administration Thiamine HCl 200 mg 09/27/17 10:00 09/29/17 01:10 Vitamin B1 Injection - IVPB 10/02/17 09:59 200 mg Q8H-IV RONALDO Administration ASSESSMENT/PLAN: 57 year old male with a pmh of chronic alcohol use, HTN, aspiration pneumonia, empyema, right adrenal mass, VATS procedure done 7 years ago, baseline tremors admitted to the hospital for worsening tremors #Midline Alcoholic Cerebellar Degeneration -appreciate neurological consultation -patient is on thiamine 200mg IV Q8 for 5 days (day 3 today) -reduce primidone for tremors 50mg PO to one daily -f/u copper/ceruloplasmin levels -PT for assistance with walking -patient is currently agreeable to subacute rehab placement -continue final librium dose for alcohol withdrawal day 5 #Thrombocytopenia -potentially due to primidone use, reduce to one daily #Hypertension -controlled on metoprolol 50mg QD #FEN -Sodium controlled diet -replete magnesium, potassium, phosphorus -repeat BMP in Am -no standing fluids #Proph -lovenox 40mg SQ Dispo Continue to monitor on med-surg Potential DC to subacute rehabilitation facility tomorrow Visit type - Emergency Visit Emergency Visit: No - New Patient This patient is new to me today: No - Critical Care Critical Care patient: No
[2017-09-29 08:18] LABS: ANION GAP 8 (8-16); CO2 28 mmol/L (21-32); CREATININE 0.5 mg/dL (0.7-1.3); GLUCOSE,RANDOM 93 mg/dL (74-106)
[2017-09-29] MEDS ORDERED: PT OWN MED DRAWER 7, Y5N ONE ×4 (10:42→21:45)
[2017-09-29] MEDS: FOLIC ACID 1 MG TABLET (FP) PO SCH (10:46)
[2017-09-29] MEDS: ENOXAPARIN NA (PORCINE) 40 MG/0.4 ML DISP.SYRIN SQ SCH (10:47)
[2017-09-29] MEDS: NAPH,MB-DB/K PH,MBDB POWDER PACKET PO SCH ×2 (10:48→21:49)
[2017-09-29] MEDS: METOPROLOL SUCCINATE 50 MG TAB.SR.24H (FP) PO SCH (10:48)
[2017-09-29] MEDS: NICOTINE 14 MG/24 HOURS TOPICAL PATCH TD SCH (10:49)
[2017-09-29] MEDS: PRIMIDONE 50 MG TABLET PO SCH ×2 (10:49→21:48)
--- NOTE | 2017-09-29 12:16 | PN ---
Teaching Attending Note Name of Resident: Richy Nugent ATTENDING PHYSICIAN STATEMENT I saw and evaluated the patient. I reviewed the resident's note and discussed the case with the resident. I agree with the resident's findings and plan as documented. SUBJECTIVE:continues to have tremors. now agreeable to [facility]. denies Cp, SOB, fever, chills, N/v/C/D OBJECTIVE: Last Vital Signs Temp Pulse Resp BP Pulse Ox 98.1 F 82 20 136/83 95 09/29/17 05:55 09/29/17 05:55 09/29/17 05:55 09/29/17 05:55 09/29/17 00:00 General NAD A&Ox3 ASSESSMENT AND PLAN: 57yo M with PMH continuous ETOH abuse, HTN, CKD, empyema s/p VATS presented to the ER syncope 1. Midline alcoholic cerebellar degeneration- MRI negative. workup so far is negative. on thiamine IV 200mg Q8H x5days. neuro on board. PT assessment 2. Essential tremor 3. thrombocytopenia- possible due to primidone. will reduce to 50mg daily. no signs of active bleeding. will d/c pharmacologic anticoagultation. 3. peripheral neuropathy- due to chronic ETOH use 4. Hypomagnesemia-resolved 5. Hypophosphatemia- labs working 6. hypokalemia- resolved 7. continuous ETOH abuse presenting with intoxication- CIWA 2. on librium taper , will complete taper tonight. not interested in inpatient rehab at this time. states he has done it 2x in the past. on thiamine/folate/mvi 8. Severe ataxia- PT assessment 9. DVT ppx-SCD 10. agreeable to [facility]. awaiting placement
[2017-09-30] MEDS ORDERED: PT OWN MED DRAWER 7, Y5N ONE (02:50)
[2017-09-30] MEDS: THIAMINE HCL 200 MG/2 ML VIAL IVPB SCH ×2 (02:51→10:36)
[2017-09-30 05:54] VITALS: TEMP 98
[2017-09-30] MEDS: METOPROLOL SUCCINATE 50 MG TAB.SR.24H (FP) PO SCH (10:36)
[2017-09-30] MEDS: ENOXAPARIN NA (PORCINE) 40 MG/0.4 ML DISP.SYRIN SQ SCH (10:36)
[2017-09-30] MEDS: NAPH,MB-DB/K PH,MBDB POWDER PACKET PO SCH (10:36)
[2017-09-30] MEDS: NICOTINE 14 MG/24 HOURS TOPICAL PATCH TD SCH (10:36)
[2017-09-30] MEDS: FOLIC ACID 1 MG TABLET (FP) PO SCH (10:36)
[2017-09-30] MEDS: PRIMIDONE 50 MG TABLET PO SCH (10:36)
[2017-09-30 11:32] VITALS: BP 130/70; PULSE 84
--- NOTE | 2017-09-30 12:29 | PN ---
Teaching Attending Note Name of Resident: Richy Nugent ATTENDING PHYSICIAN STATEMENT I saw and evaluated the patient. I reviewed the resident's note and discussed the case with the resident. I agree with the resident's findings and plan as documented. SUBJECTIVE:states tremors have improved. denies Cp, SOB, fever, chills, N/V/C/D OBJECTIVE: Last Vital Signs Temp Pulse Resp BP Pulse Ox 98.0 F 84 20 130/70 97 09/30/17 05:53 09/30/17 09:00 09/30/17 09:00 09/30/17 09:00 09/29/17 22:00 General NAD A&Ox3 ASSESSMENT AND PLAN: 57yo M with PMH continuous ETOH abuse, HTN, CKD, empyema s/p VATS presented to the ER syncope 1. Midline alcoholic cerebellar degeneration- MRI negative. workup so far is negative. on thiamine IV 200mg Q8H x5days. neuro on board. PT assessment 2. Essential tremor- on primidone 3. thrombocytopenia- possible due to primidone. now reduced to 50mg daily. no signs of active bleeding. will d/c pharmacologic anticoagultation. 3. peripheral neuropathy- due to chronic ETOH use 4. Hypomagnesemia-resolved 5. Hypophosphatemia- 6. hypokalemia- resolved 7. continuous ETOH abuse presenting with intoxication- CIWA 2. completed librium taper. not interested in inpatient rehab at this time. states he has done it 2x in the past. on thiamine/folate/mvi 8. Severe ataxia- PT assessment 9. DVT ppx-SCD 10. d/c to [facility] for [facility]
--- NOTE | 2017-09-30 13:09 | DS ---
Physical Exam: SUBJECTIVE: Patient seen and examined at bedside. Patient is agreeable to attend short term rehabilitation. Denies any current complaints. OBJECTIVE: Vital Signs Period Temp Pulse Resp BP Sys/Blair Pulse Ox Last 24 Hr 98 F-98.4 F 80-96 18-20 119-140/70-91 95-97 PHYSICAL EXAM GENERAL: The patient is awake, alert, and fully oriented, in no acute distress. HEAD: Normal with no signs of trauma. EYES: PERRL, extraocular movements intact, sclera anicteric, conjunctiva clear. No ptosis. ENT: Ears normal, nares patent, oropharynx clear without exudates, moist mucous membranes. NECK: Trachea midline, full range of motion, supple. LUNGS: Breath sounds equal, clear to auscultation bilaterally, no wheezes, no crackles, no accessory muscle use. HEART: Regular rate and rhythm, S1, S2 without murmur, rub or gallop. ABDOMEN: Soft, nontender, nondistended, normoactive bowel sounds, no guarding, no rebound, no hepatosplenomegaly, no masses. EXTREMITIES: 2+ pulses, warm, well-perfused, no edema. NEUROLOGICAL: Cranial nerves II through XII grossly intact. Normal speech, gait ataxic, dysmetria noted bilaterally PSYCH: Normal mood, normal affect. SKIN: Warm, dry, normal turgor, no rashes or lesions noted LABS Laboratory Results - last 24 hr 09/28/17 06:00 Serum Copper 94 HOSPITAL COURSE: Date of Admission:09/27/17 This is a 57 year old male with a past medical history of chronic alcohol use, HTN, aspiration pneumonia, empyema, right adrenal mass, VATS procedure done 7 years ago, and baseline tremors who presented to the hospital nausea, vomiting and diarrhea. Patient stated that there was a period of 4 days where did not have an appetite or wanting to drink alcohol. Patient stated that his tremors recently became worse. Patient had an MRI performed, which revealed low volume but no acute pathology. Neurology was consulted and diagnosed the patient with midline alcoholic cerebellar degeneration. Patient was started on a librium protocol for 4 days and started on a thiamine regimen to prevent Wernicke Korsakoff syndrome. Because of the patient's tremors, copper and ceruloplasmin levels were drawn to check for Elias Disease. Patient's hypertension was controlled with metoprolol. After the patient's librium taper, it was decided that the patient would be discharged to subacute rehabilitation to help him regain his strength and allow him to safely return home. Patient was agreeable to this plan and was officially discharged on 09/30/17. Date of Discharge: 09/30/17 Minutes to complete discharge: 30 Discharge Summary Reason For Visit: RIB PAIN Condition: Stable - Instructions Diet, Activity, Other Instructions: You were admitted to the hospital for the treatment of chronic alcohol use - induced cerebellar degeneration. Medical Recommendations: Your home medications have been resumed. Please take the following Metoprolol 50mg by mouth once a day Primidone 50mg by mouth once a day Thiamine 100mg by mouth once a day Folic Acid 1mg by mouth once a day Ranitidine 150mg by mouth once a day Please make an appointment to see the neurologist, Dr. Serrato within 2 weeks of discharge. Please make an appointment to see your primary care physician, Dr. Carvalho, within 1 week of discharge. You need to have your platelet counts monitored as they were low during your hospital stay. Your primidone was decreased to once a day due to this. If you feel as though your tremors are getting worse, if you feel fevers or chills, nausea or vomiting that is uncontrolled, please return to the emergency room immediately. Referrals: Gualberto Serrato MD [Staff Physician] - Eleni Carvalho MD [Primary Care Provider] - Disposition: [facility] - Home Medications Comprehensive Discharge Medication List: Ambulatory Orders Folic Acid 1 mg PO DAILY #14 tablet 09/29/17 Metoprolol Succinate [Toprol XL -] 50 mg PO DAILY #14 tablet 09/29/17 Primidone 50 mg PO DAILY #14 tablet 09/29/17 Ranitidine HCl [Zantac] 150 mg PO DAILY #14 tablet 09/29/17 Thiamine HCl [Vitamin B1 -] 100 mg PO DAILY #14 tablet 09/29/17 This patient is new to me today: No Emergency Visit: No Critical Care patient: No - Discharge Referral Referred to [facility] Med P.C.: No
== END 2017-09-30 11:30 | DRG 57 ==
LOC: JER 13:12 → JERBED 17:28 → J7W 18:57 → OBSVTOIN 09-27 12:43 → J6S 09-29 13:54
PROVIDERS: ADMIT Internal Medicine; ATTEND Internal Medicine
PROC: HZ2ZZZZ Detoxification Services for Substance Abuse Treatment (ICD-10-PCS; principal; 2017-09-26)
DX: G31.2 Degeneration of nervous system due to alcohol (principal); F10.230 Alcohol dependence with withdrawal, uncomplicated; I10 Essential (primary) hypertension; G25.0 Essential tremor; E78.00 Pure hypercholesterolemia, unspecified; R26.81 Unsteadiness on feet; F17.210 Nicotine dependence, cigarettes, uncomplicated; Y90.6 Blood alcohol level of 120-199 mg/100 ml; G62.1 Alcoholic polyneuropathy; E83.42 Hypomagnesemia; E83.39 Other disorders of phosphorus metabolism; E87.6 Hypokalemia; R26.0 Ataxic gait; D69.6 Thrombocytopenia, unspecified; E27.8 Other specified disorders of adrenal gland; Z86.73 Personal history of transient ischemic attack (TIA), and cerebral infarction without residual deficits
CPT/HCPCS: 36415; 70450-TC; 70551-TC; 71010-TC; 80048; 80053; 80307; 81003; 81015; 82140; 82525; 82550; 82553; 82607; 83690; 83735; 84100; 84425; 84443; 84484; 85025; 85027; 85610; 86593; 90688; 93005; 93010; 93306-TC; 97116-GP; 97161-GP; 99285-25; G0008; G0378

== ENCOUNTER 2018-12-14 10:17 | Day surgery (SDC) | payer OTHER ==
[2018-12-14 08:00] VITALS: BMI 19.6
--- NOTE | 2018-12-14 10:54 | HP ---
Admitting History and Physical - Primary Care Physician PCP: Nena Batres - Admission Chief Complaint: lung nodule History of Present Illness: 58 year old man with history of hypertension, hyperlipidemia, stroke, Parkinsons disease and active smoker who was found to have a RLL lung nodule. The nodule was first seen on CT chest in October 2017 measuring 1.3 cm. He also has a RLL bulla likely as a consequence from a prior pneumonia. He had a PET scan 08/10/18 which showed increased activity in the nodule with a max SUV 4.95. He denies any shortness of breath or chest pain. No chronic cough or wheezing. He denies any fevers, chills, night sweats or unintentional weight loss. He has smoked 1 PPD since the age of 13, he currently does not have any intention of quitting at this time. Past Medical History: Hypertension, Hyperlipidemia, h/o CVA, Parkinson's Disease, GERD Past Surgical History: Cholecystectomy Medications: Toprol XL 100mg daily, Atorvastatin 10mg daily, Ranitidine 150mg daily, Primidone 50mg BID, Vitamin D3 1000units, daily, Vitamin B1 Allergies: NKDA Denies food or seasonal allergies Family History: Mother with HTN, gastric cancer Father with HTN, prostate cancer No lung cancer, asthma or COPD Social History: Started smoking at age 13, 1 PPD, still smoking Former alcohol use Former [employer] 1 cat History Source: Patient, Medical Record Limitations to Obtaining History: No Limitations - Past Medical History 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, Other (ataxia) Cardiovascular: Yes: HTN, Hyperlipdemia Pulmonary: Yes: COPD Renal/: Yes: Renal Inusuff Heme/Onc: Yes: Anemia (RESOLVED) - Past Surgical History Past Surgical History: Yes: Cholecystectomy, Thoracotomy - Smoking History Smoking history: Current every day smoker Have you smoked in the past 12 months: Yes Aproximately how many cigarettes per day: 20 - Alcohol/Substance Use Hx Alcohol Use: Yes (socially) Number of Drinks Daily: 6 History of Substance Use: reports: None - Social History ADL: Support Services History of Recent Travel: No Home Medications - Allergies Allergies/Adverse Reactions: Allergies Allergy/AdvReac Type Severity Reaction Status Date / Time No Known Allergies Allergy Verified 12/14/18 08:02 - Home Medications Home Medications: Ambulatory Orders Folic Acid 1 mg PO DAILY #14 tablet 09/29/17 Metoprolol Succinate [Toprol XL -] 50 mg PO DAILY #14 tablet 09/29/17 Primidone 50 mg PO DAILY #14 tablet 09/29/17 Ranitidine HCl [Zantac] 150 mg PO DAILY #14 tablet 09/29/17 Thiamine HCl [Vitamin B1 -] 100 mg PO DAILY #14 tablet 09/29/17 Family Disease History - Family Disease History Family Disease History: Heart Disease: Father (colon cancer), Mother (colon cancer) Review of Systems - Review of Systems Constitutional: denies: Chills, Fever, Night Sweats Eyes: denies: Recent Change in Vision HENT: denies: Nasal Congestion, Throat Pain Neck: denies: Stiffness, Tenderness Cardiovascular: denies: Chest Pain, Shortness of Breath Respiratory: denies: Cough, Wheezing Gastrointestinal: denies: Abdominal Pain, Nausea, Vomiting Genitourinary: denies: Dysuria, Hematuria Neurological: denies: Dizziness, Headache Endocrine: denies: Unexplained Weight Loss Physical Examination Constitutional: Yes: Calm Eyes: Yes: Conjunctiva Clear, EOM Intact HENT: Yes: Atraumatic, Normocephalic Neck: Yes: Supple, Trachea Midline Cardiovascular: Yes: Regular Rate and Rhythm Respiratory: Yes: Regular, CTA Bilaterally Gastrointestinal: Yes: Normal Bowel Sounds, Soft. No: Tenderness Edema: No Neurological: Yes: Alert, Oriented Imaging - Results Cat Scan: Report Reviewed, Image Reviewed (RLL nodule, large bulla) Assessment/Plan Lung Nodule suspicious for malignancy COPD Smoker HTN Hyperlipidemia h/o CVA Parkinsons Disease - for CT guided needle biopsy - encouraged him to stop smoking but currently does not have any intention to stop at this time - he will follow up with me after his biopsy for results
[2018-12-14 11:18] LABS: BASO % 0.4 % (0-2.0); EOS % 1.9 % (0-4.5); HEMATOCRIT 45.9 % (35.4-49); HEMOGLOBIN 15.8 GM/dL (11.7-16.9); LYMPH % 18.3 % (8-40); MCH 32.6 pg (25.7-33.7); MCHC 34.4 g/dl (32.0-35.9); MEAN CELL VOLUME 94.9 fl (80-96); MEAN PLT VOLUME 8.3 fl (7.5-11.1); MONO % 6.7 % (3.8-10.2); NEUT % 72.7 % (42.8-82.8); PLATELET COUNT 173 K/MM3 (134-434); RBC 4.84 M/mm3 (4.00-5.60); WHITE BLOOD COUNT 7.8 K/mm3 (4.0-10.0)
[2018-12-14 11:24] LABS: INR 1.04 (0.83-1.09); PROTHROMBIN TIME (PATIENT) 12.3 SEC (9.7-13.0)
[2018-12-14 15:33] VITALS: TEMP 97.3
[2018-12-14 16:26] VITALS: BP 149/84; PULSE 74
--- NOTE | 2018-12-19 14:35 | PATH ---
Surgical Pathology Report Patient Name: CHRISTIAN VASQUEZ [facility]. Rec. #: [id number] /Age/Gender: 1960 (Age: 58) / M Account: [id number] Location: RADIOLOGY INTER Taken: 12/14/2018 Received: 12/15/2018 Reported: 12/19/2018 Physicians: Marline Tse M.D. Specimen(s) Received RIGHT LUNG BIOPSY Clinical History 58-year-old male with right lower lobe pleural band PET positive mass Final Diagnosis LUNG, RIGHT, CT GUIDED CORE BIOPSY: INVASIVE ADENOCARCINOMA, POORLY DIFFERENTIATED, WITH PAPILLARY FEATURES. SEE COMMENT. Comment: Histologic sections show malignant cells dispersed as papillary fragments, clusters and single cells. Immunohistochemical stains performed and interpreted at [facility] show the tumor is positive for AE1/3, TTF-1, and CK7, while negative for p63. Additional immunohistochemical stains performed at [place], [place] ([id number]) and interpreted at [facility] show the tumor is positive for MATTHIEU and Napsin-A, focally positive for synaptophysin, while negative for p40, CD56, and D2-40. Few mesothelial cells are highlighted with calretinin stain. Proliferative marker, Ki-67, is high. Case seen interdepartmentally. Electronically Signed Dede Montes M.D. Gross Description Received in formalin labeled "right lung biopsy," is a 0.5 x 0.4 x 0.1 cm aggregate of pollock, irregular to cylindrical soft tissue fragments. The formalin is filtered and the specimen is entirely submitted in one cassette. 12/15/2018 saudi12/15/2018
== END 2018-12-14 16:15 | disposition home or self-care (01) ==
LOC: JRADIR 10:17
PROVIDERS: ATTEND Internal Medicine
PROC: 0BBF3ZX Excision of Right Lower Lung Lobe, Percutaneous Approach, Diagnostic (ICD-10-PCS; principal; 2018-12-14)
DX: C34.31 Malignant neoplasm of lower lobe, right bronchus or lung (principal)
CPT/HCPCS: 32405; 36415; 71045-TC-FY; 77012-TC; 85025; 85610; 88305-TC; 88341-TC; 88342-TC

== ENCOUNTER 2019-05-01 10:24 | Emergency (ER) | payer OTHER ==
[2019-05-01 10:30] VITALS: BP 114/70; PULSE 95; TEMP 97.8; BMI 19.6
--- NOTE | 2019-05-01 10:52 | PDOC ---
History of Present Illness - General Chief Complaint: Injury Stated Complaint: FALL Time Seen by Provider: 05/01/19 10:36 - History of Present Illness Initial Comments: The pt is a 59M w/ a history of EtOH abuse, HTN, HLD who presents for evaluation of a forehead laceration s/p fall from standing just prior to arrival. The pt reports that he walks with a walker, attempted to use his, his hand missed the handle, and he fell forward. His head struck his dresser, and then he fell to the floor. He denies LOC or preceding lightheadedness/dizziness. Currently he denies pain, changes in sensation, or other injuries or complaints. Denies recent illness, fevers/chills, vision changes, chest pain, SOB, abdominal pain, N/V/C/D, dysuria 05/01/19 10:44 Past History - Past Medical History Allergies/Adverse Reactions: Allergies Allergy/AdvReac Type Severity Reaction Status Date / Time No Known Allergies Allergy Verified 05/01/19 10:25 Home Medications: Ambulatory Orders Folic Acid 1 mg PO DAILY #14 tablet 09/29/17 Metoprolol Succinate [Toprol XL -] 50 mg PO DAILY #14 tablet 09/29/17 Primidone 50 mg PO DAILY #14 tablet 09/29/17 Ranitidine HCl [Zantac] 150 mg PO DAILY #14 tablet 09/29/17 Thiamine HCl [Vitamin B1 -] 100 mg PO DAILY #14 tablet 09/29/17 Atorvastatin Ca [Lipitor] 10 mg PO 12/14/18 Cholecalciferol (Vitamin D3) [Vitamin D -] 1,000 mg PO DAILY 12/14/18 Ezetimibe [Zetia] 10 mg PO QID 12/14/18 Tramadol HCl 50 mg PO QID 12/14/18 Anemia: Yes Asthma: Yes Cancer: No Cardiac Disorders: No CVA: Yes (11/2013-balance issues-uses a walker) COPD: Yes CHF: No Dementia: No Diabetes: No GI Disorders: No Disorders: No HTN: Yes Hypercholesterolemia: Yes Liver Disease: No Seizures: No Thyroid Disease: Yes - Surgical History Abdominal Surgery: Yes Appendectomy: Yes Cardiac Surgery: No Cholecystectomy: Yes Lung Surgery: Yes (S/P THRORACOTOMY) Neurologic Surgery: No Orthopedic Surgery: Yes (Hip fx-bilateral) - Immunization History Td Vaccination: Yes TDAP Vaccination: Yes Immunization Up to Date: Yes - Suicide/Smoking/Psychosocial Hx Smoking Status: Yes Smoking History: Never smoked Years of Tobacco Use: 0 Have you smoked in the past 12 months: Yes Number of Cigarettes Smoked Daily: 20 Cigars Per Day: 1 'Breaking Loose' booklet given: 12/14/18 Hx Alcohol Use: Yes (socially) Drug/Substance Use Hx: Yes Substance Use Type: Alcohol Hx Substance Use Treatment: No Review of Systems - Review of Systems Able to Perform ROS?: Yes Comments:: GENERAL/CONSTITUTIONAL: No fever or chills HEAD, EYES, EARS, NOSE AND THROAT: No change in vision. No ear pain or discharge. No sore throat CARDIOVASCULAR: No chest pain or shortness of breath RESPIRATORY: Denies cough, hemoptysis GASTROINTESTINAL: No nausea, vomiting, diarrhea or constipation GENITOURINARY: No dysuria, frequency, or change in urination MUSCULOSKELETAL: +baseline walker use 2/2 ataxia SKIN: No rash NEUROLOGIC: No headache, vertigo, loss of consciousness, or change in strength/ sensation ENDOCRINE: No increased thirst. No abnormal weight change HEMATOLOGIC/LYMPHATIC: No anemia, easy bleeding, or history of blood clots ALLERGIC/IMMUNOLOGIC: No hives or skin allergy 05/01/19 10:43 Is the patient limited Turkmen proficient: No *Physical Exam - Vital Signs Last Vital Signs Temp Pulse Resp BP Pulse Ox 97.8 F 95 H 18 114/70 98 05/01/19 10:26 05/01/19 10:26 05/01/19 10:26 05/01/19 10:26 05/01/19 10:26 - Physical Exam Comments: GENERAL: Awake, alert, and oriented to person/place/time, in no acute distress HEAD: Approximately 3cm laceration superior to the left eyebrow w/o active hemorrhage EYES: PERRLA, EOMI, sclera anicteric, conjunctiva clear ENT: Hearing grossly normal, nares patent, oropharynx clear without exudates. Moist mucosa NECK: No c-spine midline TTP LUNGS: No distress, speaks full sentences, clear to auscultation bilaterally HEART: Regular rate and rhythm, normal S1 and S2, no murmurs appreciated, peripheral pulses normal and equal bilaterally ABDOMEN: Soft, nontender, normoactive bowel sounds. No guarding, no rebound. No masses EXTREMITIES: Moves all extremities independently, no wounds or obvious deformities NEUROLOGICAL: Cranial nerves II through XII grossly intact. Normal speech, upper extremity ataxia (reported as baseline) SKIN: Approximately 3cm laceration superior to the left eyebrow w/o active hemorrhage, otherwise warm and dry 05/01/19 10:44 Procedures - Laceration/Wound Repair Left Upper Face Wound Length: 2.6 to 5.0 cm Wound's Depth, Shape: superficial Irrigated w/ Saline: Yes Anesthesia: 1% Lidocaine Amount of Anesthetic (ccs): 6 Wound Debrided: minimal Wound Repaired With: Sutures Suture Size/Type: 5:0, nylon Number of Sutures: 16 Layer Closure: No Sterile Dressing Applied: Yes ED Treatment Course - RADIOLOGY Radiology Studies Ordered: Category Date Time Status CERVICAL SPINE CT W/O CONTR [CT] Stat CT Scan 05/01/19 10:[address] WITHOUT CONTRAST [CT] Stat CT Scan 05/01/19 10:33 Ordered Medical Decision Making - Medical Decision Making The pt is a 59M w/ a history of EtOH abuse, HTN, HLD who presents for evaluation of a forehead laceration s/p fall from standing just prior to arrival. CT head and c-spine neg for acute pathology Tetanus updated Laceration closed with 16, 5-0 Nylon sutures Pt given wound care instructions, discharge instructions, and return precautions Pt in agreement and verbalized understanding Dispo: home *DC/Admit/Observation/Transfer Diagnosis at time of Disposition: Laceration - Discharge Dispostion Disposition: HOME Condition at time of disposition: Stable Decision to Admit order: No - Referrals Referrals: [facility] [place] [facility] [place] [Provider Group] - Patient Instructions Printed Discharge Instructions: DI for Laceration Repair Additional Instructions: You were seen in the Emergency Department for evaluation of a facial laceration. You wound was closed with 16 sutures that will need to be removed in 5-7 days. Wash the wound daily with soap and water. Pat dry. You may place neosporin on the wound for the first 2 days and afterwards your may leave it open to air. Return to the Emergency Department if you develop fevers, chills, chest pain, vision changes, worsening swelling, pain, redness around the wound, persistent drainage, or any new/concerning symptoms. For pain, you may take Tylenol up to 650mg every 6 hours and Ibuprofen 600mg every 6 hours alternating each one every 6 hours. - Post Discharge Activity
--- NOTE | 2019-05-01 11:11 | PDOC ---
Attending Attestation - Resident Resident Name: Terell Vines - ED Attending Attestation I have performed the following: I have examined & evaluated the patient, The case was reviewed & discussed with the resident, I agree w/resident's findings & plan, Exceptions are as noted - HPI HPI: 05/01/19 10:56 59yo M hx parkinsons disease, HTN, HL, alcohol abuse, COPD, CVA 3 years ago with residual gait instability (uses walker at all times to ambulate) presents to the ED with fall when he missed handle on walker. Pt states he was reaching towards his dresser with his walker out of reach and lost his balance. He began to reach of the handle of his walker when he missed it and instead hit his head on the dresser on the way down. Denies LOC. Denies other injuries. Was able to reach phone to call 911. He drinks 1-2 beers almost every evening, last drank 8pm last night. Denies shaking or withdrawal sxs at this time. Denies recent fevers, chills, dizziness, weakness, CP, SOB, abd pain, N/V/D, urinary sxs. - Physicial Exam PE: 05/01/19 14:22 GENERAL: Awake, alert, and fully oriented, in no acute distress. Clinically sober. HEAD: No signs of trauma EYES: PERRLA, EOMI, sclera anicteric, conjunctiva clear ENT: Auricles normal inspection, hearing grossly normal, nares patent, oropharynx clear without exudates. Moist mucosa NECK: Normal ROM, supple, no lymphadenopathy, JVD, or masses LUNGS: Breath sounds equal, clear to auscultation bilaterally. No wheezes, and no crackles HEART: Regular rate and rhythm, normal S1 and S2, no murmurs, rubs or gallops ABDOMEN: Soft, nontender, normoactive bowel sounds. No guarding, no rebound. No masses EXTREMITIES: Normal range of motion, no edema. No clubbing or cyanosis. No cords, erythema, or tenderness BACK: no midline cervical, thoracic, or lumbar ttp NEUROLOGICAL: Normal speech, cranial nerves intact, equal strength and sensation b/l, no tremors. SKIN: laceration as per Dr. Vines's note - Medical Decision Making 05/01/19 14:25 59yo M hx etoh abuse, parkinsons disease, CVA presents to the ED with mechanical fall after his walker was out of reach and he lost his balance CTH, CT c-spine pending Laceration repaired Tdap updated Pt ambulating with assistance at his baseline (family member confirms)
[2019-05-01] MEDS ORDERED: DIPHTH,PERTUSS(ACELL),TET 0.5 ML DISP.SYRIN IM ONE (14:28)
== END 2019-05-01 16:10 | disposition home or self-care (01) ==
LOC: JER 10:24
PROC: 3E0234Z Introduction of Serum, Toxoid and Vaccine into Muscle, Percutaneous Approach (ICD-10-PCS; principal; 2019-05-01)
PROC: 0HQ1XZZ Repair Face Skin, External Approach (ICD-10-PCS; 2019-05-01)
DX: S01.81XA Laceration without foreign body of other part of head, initial encounter (principal); W01.190A Fall on same level from slipping, tripping and stumbling with subsequent striking against furniture, initial encounter; Y93.89 Activity, other specified; Y92.032 Bedroom in apartment as the place of occurrence of the external cause; Y99.8 Other external cause status; I10 Essential (primary) hypertension; E78.5 Hyperlipidemia, unspecified; G20 Parkinson's disease; F10.10 Alcohol abuse, uncomplicated; I69.893 Ataxia following other cerebrovascular disease; Z99.89 Dependence on other enabling machines and devices
CPT/HCPCS: 12013; 70450-TC; 72125-TC; 90471; 99281-25

== ENCOUNTER 2019-05-08 10:49 | Emergency (ER) | payer OTHER ==
[2019-05-08 11:25] VITALS: BP 116/79; PULSE 104; TEMP 98; BMI 19.6
--- NOTE | 2019-05-08 12:22 | PDOC ---
Suture Removal/Wound Check HPI - History of Present Illness Chief Complaint: Suture/Staple Removal(Here) Stated Complaint: REMOVE STITCHES Time Seen by Provider: 05/08/19 12:13 History Source: Yes: Patient, Care Provider Exam Limitations: Yes: No Limitations Treated at: [facility] ED - Previous ED Treatment Type of procedure performed on last visit: Yes: Laceration Repair Tetanus Immunization: Yes: Up to Date Antibiotics Prescribed: No Past History - Travel Traveled outside of the country in the last 30 days: No Close contact w/someone who was outside of country & ill: No - Past Medical History Allergies/Adverse Reactions: Allergies Allergy/AdvReac Type Severity Reaction Status Date / Time No Known Allergies Allergy Verified 05/08/19 11:21 Home Medications: Ambulatory Orders Folic Acid 1 mg PO DAILY #14 tablet 09/29/17 Metoprolol Succinate [Toprol XL -] 50 mg PO DAILY #14 tablet 09/29/17 Primidone 50 mg PO DAILY #14 tablet 09/29/17 Ranitidine HCl [Zantac] 150 mg PO DAILY #14 tablet 09/29/17 Thiamine HCl [Vitamin B1 -] 100 mg PO DAILY #14 tablet 09/29/17 Atorvastatin Ca [Lipitor] 10 mg PO 12/14/18 Cholecalciferol (Vitamin D3) [Vitamin D -] 1,000 mg PO DAILY 12/14/18 Ezetimibe [Zetia] 10 mg PO QID 12/14/18 Tramadol HCl 50 mg PO QID 12/14/18 Anemia: Yes Asthma: Yes Cancer: No Cardiac Disorders: No CVA: Yes (11/2013-balance issues-uses a walker) COPD: Yes CHF: No Dementia: No Diabetes: No GI Disorders: No Disorders: No HTN: Yes Hypercholesterolemia: Yes Liver Disease: No Seizures: No Thyroid Disease: Yes - Surgical History Abdominal Surgery: Yes Appendectomy: Yes Cardiac Surgery: No Cholecystectomy: Yes Lung Surgery: Yes (S/P THRORACOTOMY) Neurologic Surgery: No Orthopedic Surgery: Yes (Hip fx-bilateral) - Immunization History Td Vaccination: Yes TDAP Vaccination: Yes Immunization Up to Date: Yes - Suicide/Smoking/Psychosocial Hx Smoking Status: Yes Smoking History: Never smoked Years of Tobacco Use: 0 Have you smoked in the past 12 months: Yes Number of Cigarettes Smoked Daily: 20 Cigars Per Day: 1 'Breaking Loose' booklet given: 12/14/18 Hx Alcohol Use: No Drug/Substance Use Hx: No Substance Use Type: Alcohol Hx Substance Use Treatment: No *Physical Exam - Vital Signs Last Vital Signs Temp Pulse Resp BP Pulse Ox 98.0 F 104 H 18 116/79 95 05/08/19 11:22 05/08/19 11:22 05/08/19 11:22 05/08/19 11:22 05/08/19 11:22 - Physical Exam General Appearance: Yes: Appropriately Dressed, Apparent Distress (well approximated wound to left brow with 16 sutures- removed with no incident. Bacitracin applioed ) HEENT: positive: RICKEY, TMs Normal Neck: positive: Supple Respiratory/Chest: positive: Lungs Clear *DC/Admit/Observation/Transfer Diagnosis at time of Disposition: Visit for suture removal - Discharge Dispostion Disposition: HOME Condition at time of disposition: Stable Decision to Admit order: No - Referrals Referrals: Eleni Carvalho MD [Primary Care Provider] - - Patient Instructions Printed Discharge Instructions: DI for Suture Removal Additional Instructions: Rest, avoid strenuous activity or exercise until scabbing is completely resolved May use bacitracin ointment until scabbing is gone After may use vitamin E oil, poke hole in vitamin E capsule and use oil from the capsule on wound- may help resolve some of the discoloration of the scar Keep wound out of the sun for at least one year to avoid darkening of scar tissue - Post Discharge Activity
== END 2019-05-08 12:27 | disposition home or self-care (01) ==
LOC: JERFT 10:49
DX: Z48.817 Encounter for surgical aftercare following surgery on the skin and subcutaneous tissue (principal); Z48.02 Encounter for removal of sutures
CPT/HCPCS: 99281-25

== ENCOUNTER 2019-05-20 09:18 | Inpatient (IN) | payer OTHER ==
--- NOTE | 2019-05-20 09:33 | PDOC ---
History of Present Illness - General Stated Complaint: ABD PAIN Time Seen by Provider: 05/20/19 09:30 History Source: Patient Exam Limitations: No Limitations - History of Present Illness Initial Comments: Prakash Dhaliwal is a 59 yo m w a hx of recently diagnosed Lung cancer 6 months ago receiving radiation treatment, Parkinson's disease, CVA, chronic alcohol abuse, HTN, HLD, COPD, aspiration/pneumonia, renal insufficiency, right adrenal mass, empyema s/p VATs procedure(at [facility], ~7years ago?) who presents to the [facility] ER BIBEMS w the CC of abdominal pain. The patient reports that he woke up this morning with extreme upper abdominal pain and mid-back pain. The patient states he has never felt this type of pain in the past and he reports that his pain is 10/10 in intensity. He describes his pain as a burning and sharp type of pain. The pain has been getting worse since this morning. He denies any nausea, vomiting, or hx of pancreatitis. Last bowel movement was yesterday and it was normal without diarrhea or constipation. Patient also endorses significant SOB. He states that when he takes a deep breath his abdominal pain hurts. PCP: Eleni Carvalho Onc: Dr. Tompkins PSH:Cholecystectomy, Thoracotomy Allergies: NKA, NKDA Social Hx: Lives at home alone. Has an aid for help with daily activities 7 days a week for 8 hours each day. Smokes 1 PPD, drinks around 6 beers a day, Denies other substance usage. Past History - Past Medical History Allergies/Adverse Reactions: Allergies Allergy/AdvReac Type Severity Reaction Status Date / Time No Known Allergies Allergy Verified 05/20/19 09:32 Home Medications: Ambulatory Orders Folic Acid 1 mg PO DAILY #14 tablet 09/29/17 Metoprolol Succinate [Toprol XL -] 50 mg PO DAILY #14 tablet 09/29/17 Primidone 50 mg PO DAILY #14 tablet 09/29/17 Ranitidine HCl [Zantac] 150 mg PO DAILY #14 tablet 09/29/17 Thiamine HCl [Vitamin B1 -] 100 mg PO DAILY #14 tablet 09/29/17 Atorvastatin Ca [Lipitor] 10 mg PO 12/14/18 Cholecalciferol (Vitamin D3) [Vitamin D -] 1,000 mg PO DAILY 12/14/18 Ezetimibe [Zetia] 10 mg PO QID 12/14/18 Tramadol HCl 50 mg PO QID 12/14/18 Anemia: Yes Asthma: Yes Cancer: No Cardiac Disorders: No CVA: Yes (11/2013-balance issues-uses a walker) COPD: Yes CHF: No Dementia: No Diabetes: No GI Disorders: No Disorders: No HTN: Yes Hypercholesterolemia: Yes Liver Disease: No Seizures: No Thyroid Disease: Yes - Surgical History Abdominal Surgery: Yes Appendectomy: Yes Cardiac Surgery: No Cholecystectomy: Yes Lung Surgery: Yes (S/P THRORACOTOMY) Neurologic Surgery: No Orthopedic Surgery: Yes (Hip fx-bilateral) - Immunization History Td Vaccination: Yes TDAP Vaccination: Yes Immunization Up to Date: Yes - Suicide/Smoking/Psychosocial Hx Smoking Status: Yes Smoking History: Never smoked Years of Tobacco Use: 0 Have you smoked in the past 12 months: Yes Number of Cigarettes Smoked Daily: 20 Cigars Per Day: 1 'Breaking Loose' booklet given: 12/14/18 Hx Alcohol Use: No Drug/Substance Use Hx: No Substance Use Type: Alcohol Hx Substance Use Treatment: No Review of Systems - Review of Systems Able to Perform ROS?: Yes Comments:: CONSTITUTIONAL: Absent: fever, no chills, no fatigue EYES: Absent: visual changes ENT: Absent: ear pain, no sore throat CARDIOVASCULAR: Absent: chest pain, no palpitations RESPIRATORY: Present: SOB Absent: cough GI: Present: Abdominal pain Absent: no nausea, no vomiting, no constipation, no diarrhea GENITOURINARY: Absent: dysuria, no frequency, no hematuria MUSKULOSKELETAL: Present: Back pain Absent: no arthralgia, no myalgia SKIN: Absent: rash NEURO: Absent: headache *Physical Exam - Physical Exam Comments: GENERAL: Patient appears like he is in significant distress from pain. HEENT: Normocephalic, atraumatic. PERRL, EOM intact. CARDIOVASCULAR: Tachycardic rate. Normal S1, S2. Regular rhythm. PULMONARY: No evidence of respiratory distress. Lungs clear to auscultation bilaterally. No wheezing, rales or rhonchi. ABDOMEN: There is epigastric TTP as well as diffuse upper abdominal tenderness. The abdomen is tense. No guarding or rebound tenderness. EXTREMITIES: Normal ROM in all four extremities. No gross deformities. SKIN: Warm, dry. No rash NEUROLOGICAL: No focal neurological deficits. ED Treatment Course - LABORATORY CBC & Chemistry Diagram: 05/20/19 09:44 05/20/19 09:44 - RADIOLOGY Radiograph Interpretation: CXR: AP portable chest: Cough. A single AP view the chest has been submitted. Since the prior study of 01/11/2019, the atelectatic changes/increased density at the right base has resolved. The heart is not enlarged. Some plaque in the aorta is noted. There is slight hilar prominence. The angles are sharp with no sign of infiltrate or failure. There is though a new density which is ovoid seen between the anterior left first and second ribs. This was not present on the prior study of 01/11/2019. Exact nature of this is unclear. The angles are sharp. Soft tissues are intact. There are degenerative changes. Impression: Better aeration right base. New density left upper lobe. Correlation recommended. Chest/Abdomen/Pelvis CTA: IMPRESSION: Left adrenal low-attenuation mass measuring 4 x 2.8 cm and a smaller one on the right measuring 2.9 x 2 cm for which further evaluation with MRI could be obtained to rule out metastasis. ORIGINAL REPORT History: Rule out dissection CT angiogram of the chest and abdomen without and following intravenous contrast. Departmental dissection protocol was utilized. Axial images were obtained from the thoracic inlet down to the distal abdominal aorta bifurcation. Coronal and sagittal reformatted images were submitted. 96 cc of Omnipaque 350 was intravenously injected. Compared to prior low dose CT scan of the chest dated 11/04/2017 Evaluation of the lung demonstrates multiple bilateral pulmonary nodules with the largest in the left posterior costophrenic angle measuring 1.4 cm. There is consolidation/atelectasis in the right lung base with a subpleural cyst/bullous measuring 2.9 cm and a small right pleural effusion There is a short segment of aneurysmal dilatation in the distal abdominal aorta just prior to its bifurcation where it measures approximately 2.8 x 1.8 cm in transverse and AP dimension with the enhancing lumen measuring 1.3 x 1.5 cm in transverse and AP dimension. Just proximal to this level the abdominal aorta measures 2.5 cm in AP dimension. Extensive atheromatous plaques are present in the thoracic and abdominal aorta down through its bifurcation. There is no evidence of dissection. Normal size and enhancement of the main pulmonary artery and its proximal bifurcations, bilaterally. Included lower neck appears unremarkable except for an approximately 1 cm right thyroid lobe hypodense nodule present. No enlarged mediastinal or hilar lymph nodes are identified. In the abdomen and pelvis, postcholecystectomy surgical metallic clips are present. There is mild dilatation of the intrahepatic bile ducts. Common hepatic and common bile duct are within normal limits in size. The liver is within normal limits in size and enhancement. The stomach is partially distended without gross wall thickening. The spleen and pancreas appear unremarkable. There is a large low-attenuation left adrenal mass measuring 4 x 2.8 cm and a smaller one on the right measuring 2.9 x 2 cm. Both kidneys are within normal limits in size and enhancement without evidence of hydronephrosis. There is no evidence of small bowel obstruction. Normal- appearing terminal ileum. The appendix was not grossly identified. There is a moderate amount of fecal residue in the colon without wall thickening. Multiple diverticula are present mainly in the sigmoid colon without evidence of acute diverticulitis. Partially distended urinary bladder without wall thickening. Patient is status post right hip replacement in satisfactory position. Metallic hardware is transfixing the left femoral neck in satisfactory alignment. There is moderate anterior wedging/compression of L4 vertebral body likely chronic. There is also mild to moderate compression of L2 superior endplate, moderate compression of T12 and mild compression/anterior wedging of T10 vertebral body, likely chronic. Multilevel degenerative disc disease with anterior spondylosis in the thoracic and lumbar spine. T8- T9 moderate posterior spur formation. Bilateral chronic rib fractures and chronic/healing fracture in the left scapula. No gross focal lytic lesions identified. IMPRESSION: There is no evidence of dissection in the thoracic and abdominal aorta. Short segment of aneurysmal dilatation of the distal abdominal aorta just prior to its bifurcation where it measures approximately 2.8 x 1.8 cm in transverse and AP dimension. The true enhancing lumen measures 1.5 x 1.3 cm. Just proximal to this level, the abdominal aorta measures 2.5 cm in AP dimension. Extensive atheromatous plaques in the thoracic and abdominal aorta down through its bifurcation. Small calcified plaques at the origin of the superior mesenteric artery, celiac artery and inferior mesenteric artery without evidence of hemodynamically significant stenosis. There is normal enhancement of the celiac artery, superior mesenteric artery, both renal and the and inferior mesenteric artery. Consolidation/atelectasis in the right lung base, posteriorly suggestive of pneumonia with a small right pleural effusion. Subpleural bulla on the right lung base, posteriorly and left upper lobe, medially. There are multiple bilateral pulmonary nodules with the largest seen in the left posterior costophrenic angle measuring 1.4 cm. No gross enlarged mediastinal or hilar lymph nodes are identified. In the abdomen and pelvis, postcholecystectomy surgical metallic clips are present with mild to moderate dilatation of the intrahepatic bile duct and normal appearing common hepatic and common bile duct. There is no evidence of small bowel obstruction. Diverticulosis coli mainly in the sigmoid colon without evidence of acute diverticulitis. Medical Decision Making - Medical Decision Making Prakash Dhaliwal is a 59 yo m w a hx of Parkinson's disease, CVA, chronic alcohol abuse, HTN, HLD, COPD, aspiration/pneumonia, renal insufficiency, right adrenal mass, empyema s/p VATs procedure(at [facility], ~7years ago?) who presents to the [facility] ER BIBEMS w the CC of abdominal pain. The patient reports that he woke up this morning with extreme upper abdominal pain and mid-back pain. The patient states he has never felt this type of pain in the past and he reports that his pain is 10/10 in intensity. He describes his pain as a burning and sharp type of pain. The pain has been getting worse since this morning. He denies any nausea, vomiting, or hx of pancreatitis. Last bowel movement was yesterday and it was normal without diarrhea or constipation. Patient also endorses significant SOB. He states that when he takes a deep breath his abdominal pain hurts. Vital Signs Temp Pulse Resp BP Pulse Ox 97.8 F 91 H 18 137/82 96 05/20/19 09:27 05/20/19 09:27 05/20/19 09:27 05/20/19 09:27 05/20/19 09:27 DDx IBNLT: Pancreatitis, Aortic dissection, [place], ACS/DC, PNA, pneumothorax , PE, electrolyte/metabolic disturbance, Mesenteric ischemia, colitis, cholecystitis, gastritis, GERD, PUD Plan: Labs, Urine, CXR, EKG, CTAP, analgesia, IV hydration, GI cocktail, re- assess. EKG: NS rate of 87, T wave flattening in aVL - similar to prior EKG, no other TWI, No ST elevations or depression. OH - 152. QTc - 438. Labs: Remarkable for leukocytosis with a left shift. Also elevated lactic acid at 3 Urine: Ketonuria CXR: RLL increased markings. CTAP: Yovana nodule metastatic lesions, chronic rib fractures. No evidence of dissection, PE, pancreatitis, or mesenteric ischemia. Disposition: Will admit the patient to the hospital for intractable pain. He has been given multiple doses of dilaudid and still has severe pain. *DC/Admit/Observation/Transfer Diagnosis at time of Disposition: Intractable abdominal pain, Lung nodules, Lung cancer - Discharge Dispostion Condition at time of disposition: Stable Decision to Admit order: Yes - Referrals - Patient Instructions - Post Discharge Activity
[2019-05-20] MEDS ORDERED: SODIUM CHLORIDE 1,000 ML IV STA ×2 (09:42→20:14)
[2019-05-20] MEDS ORDERED: FAMOTIDINE 20 MG/50 ML IVPB 20 MG/50 ML MG IVPB ONE (09:42)
[2019-05-20] MEDS ORDERED: morphine CARPU-JECT 4 MG/1 ML DISP.SYRIN IVPUSH ONE (09:42)
[2019-05-20] MEDS ORDERED: MAG HYDROX/AL HYDROX/SIMETH -MYLANTA- ORAL SUSPENSION PO ONE (09:43)
[2019-05-20] MEDS ORDERED: morphine SULFATE 4 MG/ML VIAL ONE (09:51)
[2019-05-20] MEDS ORDERED: MAG HYDROX/AL HYDROX/SIMETH 30 ML UNIT-DOSE CUP ONE (09:52)
--- NOTE | 2019-05-20 10:04 | PDOC ---
Attending Attestation - Resident Resident Name: Michael Ruano - ED Attending Attestation I have performed the following: I have examined & evaluated the patient, The case was reviewed & discussed with the resident, I agree w/resident's findings & plan, Exceptions are as noted - HPI HPI: 05/20/19 09:59 Mr Dhaliwal is a 59 yo M h/o CVA, chronic alcohol abuse, HTN, HLD, COPD, aspiration/pneumonia, renal insufficiency, RLL lung cancer, right adrenal mass, empyema s/p VATs procedure, Parkinsons disease who presents to ER with a complaint of abdominal pain Pt went to bed in his usual state of health He awoke with severe back pain which radiates circumfrentially around the abdomen Pain is described as pressure, rated 10/10, constant, no alleviating factors No fevers or chills No diarrhea Pt thought this was due to gas, attempted to have a bowel movement but could not No dysuria PCP: Eleni Carvalho PSH:Cholecystectomy, Thoracotomy Allergies: NKA, NKDA Social Hx: Smokes 1 PPD, drinks around 6 beers a day, Denies other substance usage. 05/22/19 07:19 - Physicial Exam PE: 05/20/19 10:03 GENERAL: The patient is in no acute distress, appears uncomfortable, tremulous. ENT: Ears normal, nares patent, oropharynx clear without exudates. Dry mucous membranes. NECK: Normal range of motion, supple LUNGS: Breath sounds equal, clear to auscultation bilaterally. No wheezes, and no crackles. HEART:Regular rate and rhythm, normal S1 and S2 without murmur, rub or gallop. ABDOMEN: Soft, epigastric tenderness, no involuntary guarding or rebound, no distention No midline back tenderness EXTREMITIES: Normal range of motion, no edema. NEUROLOGICAL: Cranial nerves II through XII grossly intact. Normal speech. No focal neurological deficits. SKIN: Warm, Dry, normal turgor, no rashes or lesions noted. - Medical Decision Making 05/20/19 10:04 59 yo M presenting with back pain radiating to the stomach DD includes but is not limited to: Pancreatitis, Cholangitis 2/2 retained stone, gastritis, gastric ulcer, duodenal ulcer, sbo Doubt ACS ? Spinal pathology Will do: Labs EKG IVF Pepcid, Maalox CT abd and pelvis 05/20/19 10:05 05/20/19 10:44 Laboratory Tests 05/20/19 09:44 WBC 12.8 H Hgb 15.5 Hct 45.8 Plt Count 311 D 05/20/19 11:39 Laboratory Tests 05/20/19 05/20/19 05/20/19 09:44 09:44 09:56 INR 0.94 Sodium 135 L Potassium 4.6 Chloride 103 Carbon Dioxide 29 BUN 6.8 L Creatinine 0.7 Random Glucose 85 Lactic Acid 3.0 H* Creatine Kinase 47 Troponin I < 0.02 CT pending 05/20/19 15:07 CT - evidence of metastatic disease, no dissection, no mesenteric ischemia Pain is still 06/24 PT still having significant pain, though he is more comfortable (08/24 -->05/24) but this required both morphine and dilaudid Will admit to the hospitalist service
[2019-05-20 10:27] LABS: BASO % 0.2 % (0-2.0); HEMATOCRIT 45.8 % (35.4-49); HEMOGLOBIN 15.5 GM/dL (11.7-16.9); LYMPH % 6.9 % (8-40); MCH 32.2 pg (25.7-33.7); MCHC 33.9 g/dl (32.0-35.9); MEAN PLT VOLUME 7.8 fl (7.5-11.1); MONO % 8.1 % (3.8-10.2); NEUT % 84.8 % (42.8-82.8); PLATELET COUNT 311 K/MM3 (134-434); RBC 4.82 M/mm3 (4.00-5.60); RDW 14.4 % (11.9-15.9); WHITE BLOOD COUNT 12.8 K/mm3 (4.0-10.0)
[2019-05-20 10:45] LABS: EPI CELLS 1.4 /HPF (0-5/HPF); HYALINE CASTS 9 /lpf (0-8); PH,URINE 8.5 (5.0-8.0); URINE APPEARANCE CLEAR; URINE BACTERIA 1.4 /hpf (NEGATIVE); URINE BILIRUBIN 1+ (NEGATIVE); URINE COLOR DK YELLOW; URINE GLUCOSE (UA) NEGATIVE (NEGATIVE); URINE KETONE TRACE (NEGATIVE); URINE LEUK ESTERASE TRACE (NEGATIVE); URINE NITRITE NEGATIVE (NEGATIVE); URINE PROTEIN TRACE (NEGATIVE); URINE RBC 2 /hpf (0-4); URINE WBC 1 /hpf (0-5)
[2019-05-20 10:54] LABS: INR 0.94 (0.83-1.09); PROTHROMBIN TIME (PATIENT) 11.1 SEC (9.7-13.0)
[2019-05-20] MEDS ORDERED: HYDROmorphone HCL CARPU-JECT 2 MG/1 ML DISP.SYRIN IVPUSH ONE ×2 (10:59→15:14)
[2019-05-20 11:09] LABS: ALBUMIN 3.3 g/dl (3.4-5.0); ALK PHOS 77 U/L (45-117); AMYLASE 53 U/L (25-115); ANION GAP 3 MMOL/L (8-16); BILIRUBIN,TOTAL 0.3 mg/dL (0.2-1); BLOOD UREA NITROGEN 6.8 mg/dL (7-18); CALCIUM 8.8 mg/dL (8.5-10.1); CHLORIDE 103 mmol/L (98-107); CO2 29 mmol/L (21-32); CREATININE 0.7 mg/dL (0.55-1.3); GLUCOSE,RANDOM 85 mg/dL (74-106); LIPASE 101 U/L (73-393); PHOSPHOROUS 2.9 mg/dL (2.5-4.9); POTASSIUM 4.6 mmol/L (3.5-5.1); SGOT/AST 21 U/L (15-37); SGPT/ALT 20 U/L (13-61); SODIUM 135 mmol/L (136-145); TOT PROT 6.8 g/dl (6.4-8.2)
[2019-05-20] MEDS ORDERED: HYDROmorphone HCl 2 MG/ML VIAL ONE ×2 (11:26→15:22)
--- NOTE | 2019-05-20 16:50 | HP ---
CHIEF COMPLAINT: Abdominal pain that radiates to back PCP: Dr. Eleni Carvalho Oncologist: Dr. Tompkins HISTORY OF PRESENT ILLNESS: 59 year-old male with a PMH significant for HTN, HLD, CVA with residual gait instability, Parkinsons Disease, ETOH abuse, s/p VATS for empyema x 7 years, hypothyroidism, and lung cancer diagnosed 6 months ago receiving radiation treatment. Patient presented to the ED for evaluation of abdominal pain. Patient reports he went to bed in his usual state of health. He awoke this morning with extreme abdominal pain and mid-back pain. The pain has a belt-like distribution, it encircles him at the level of the umbilicus. It is a pressure- type pain, 10/10. It is constant and waxes and wanes in intensity. Certain movements exacerbate the pain. He denies nausea, vomiting, diarrhea. Denies fever, sweats, chills. Denies any type of bleeding episode. Denies loss in appetite. Denies weight loss. His had four radiation treatments for lung cancer , no chemotherapy. His last radiation treatment was about a month ago. ER course was notable for: (1) WBC 12.8k, afebrile (2) Lactic acid 3.0-->2.9 (3) NS x 2; morphine x 4mg; dilaudid x 2 mg Recent Travel: No PAST MEDICAL HISTORY: Hypertension Hyperlipidemia CVA 2014 residual gait instability Parkinson's Disease ETOH abuse VATS Hypothyroidism Empyema x 7 years PAST SURGICAL HISTORY: Appendectomy Cholecystectomy VATS x 7 years Bilateral hip fracture repair Social History: Lives at home alone. Has an aid for help with daily activities 7 days a week for 8 hours each day. Smoking: current smoker Alcohol: yes - 1-2 beers per day, last beer last night Drugs: denies Family History: Allergies No Known Allergies Allergy (Verified 05/20/19 09:32) HOME MEDICATIONS: Home Medications Medication Instructions Recorded Folic Acid 1 mg PO DAILY #14 tablet 09/29/17 Metoprolol Succinate [Toprol XL -] 50 mg PO DAILY #14 tablet 09/29/17 Primidone 50 mg PO DAILY #14 tablet 09/29/17 Ranitidine HCl [Zantac] 150 mg PO DAILY #14 tablet 09/29/17 Thiamine HCl [Vitamin B1 -] 100 mg PO DAILY #14 tablet 09/29/17 Atorvastatin Ca [Lipitor] 10 mg PO 12/14/18 Cholecalciferol (Vitamin D3) 1,000 mg PO DAILY 12/14/18 [Vitamin D -] Ezetimibe [Zetia] 10 mg PO QID 12/14/18 Tramadol HCl 50 mg PO QID 12/14/18 REVIEW OF SYSTEMS: see HPI, rest of systems negative PHYSICAL EXAMINATION Vital Signs - 24 hr 05/20/19 05/20/19 09:27 14:17 Temperature 97.8 F 97.7 F Pulse Rate 91 H Pulse Rate [ 80 Left] Respiratory 18 18 Rate Blood Pressure 137/82 Blood Pressure 163/95 [Left] O2 Sat by Pulse 96 93 L Oximetry (%) GENERAL: Awake, alert, and fully oriented, in no acute distress. Thin. Pale. HEAD: Normal with no signs of trauma. LUNGS: Breath sounds equal, clear to auscultation bilaterally. No wheezes, and no crackles. No accessory muscle use. HEART: Regular rate and rhythm, S1 and S2 ABDOMEN: Soft, nontender, not distended, no guarding, no rebound tenderness; no masses appreciated MUSCULOSKELETAL: Normal range of motion at all joints. No bony deformities or tenderness. No CVA tenderness. UPPER EXTREMITIES: 2+ pulses, warm, well-perfused. No cyanosis. No clubbing. No peripheral edema. LOWER EXTREMITIES: 2+ pulses, warm, well-perfused. No calf tenderness. No peripheral edema. NEUROLOGICAL: Cranial nerves II-XII intact. Normal speech. Laboratory Results - last 24 hr 05/20/19 05/20/19 05/20/19 09:44 09:44 09:44 WBC 12.8 H RBC 4.82 Hgb 15.5 Hct 45.8 MCV 95.0 MCH 32.2 MCHC 33.9 RDW 14.4 Plt Count 311 D MPV 7.8 Absolute Neuts (auto) 10.8 H Neutrophils % 84.8 H Lymphocytes % 6.9 L D Monocytes % 8.1 Eosinophils % 0.0 D Basophils % 0.2 Nucleated RBC % 0 PT with INR 11.10 INR 0.94 Sodium 135 L Potassium 4.6 Chloride 103 Carbon Dioxide 29 Anion Gap 3 L BUN 6.8 L Creatinine 0.7 Est GFR (CKD-EPI)AfAm 118.05 Est GFR (CKD-EPI)NonAf 101.85 Random Glucose 85 Lactic Acid Calcium 8.8 Phosphorus 2.9 Magnesium 2.0 Total Bilirubin 0.3 AST 21 ALT 20 Alkaline Phosphatase 77 Creatine Kinase 47 Troponin I < 0.02 Total Protein 6.8 Albumin 3.3 L Total Amylase 53 Lipase 101 Urine Color Urine Appearance Urine pH Ur Specific [place] Urine Protein Urine Glucose (UA) Urine Ketones Urine Blood Urine Nitrite Urine Bilirubin Urine Urobilinogen Ur Leukocyte Esterase Urine WBC (Auto) Urine RBC (Auto) Urine Casts (Auto) U Epithel Cells (Auto) Urine Bacteria (Auto) 05/20/19 05/20/19 09:56 09:56 WBC RBC Hgb Hct MCV MCH MCHC RDW Plt Count MPV Absolute Neuts (auto) Neutrophils % Lymphocytes % Monocytes % Eosinophils % Basophils % Nucleated RBC % PT with INR INR Sodium Potassium Chloride Carbon Dioxide Anion Gap BUN Creatinine Est GFR (CKD-EPI)AfAm Est GFR (CKD-EPI)NonAf Random Glucose Lactic Acid 3.0 H* Calcium Phosphorus Magnesium Total Bilirubin AST ALT Alkaline Phosphatase Creatine Kinase Troponin I Total Protein Albumin Total Amylase Lipase Urine Color Dk yellow Urine Appearance Clear Urine pH 8.5 H D Ur Specific [place] 1.022 Urine Protein Trace Urine Glucose (UA) Negative Urine Ketones Trace H Urine Blood Negative Urine Nitrite Negative Urine Bilirubin 1+ H Urine Urobilinogen 1.0 Ur Leukocyte Esterase Trace Urine WBC (Auto) 1 Urine RBC (Auto) 2 Urine Casts (Auto) 9 U Epithel Cells (Auto) 1.4 Urine Bacteria (Auto) 1.4 Imaging 05/20 CXR: New density CLAUDIO since 01/11/1905/20 CTA chest: (1) multiple bilateral pulmonary nodules; (2) consolidation/ atelectasis in right lung base suggestive of pneumonia with small right pleural effusion 05/20 CTA AP: (1) aneurysmal dilitation in distal abdominal aorta, 2.8 x 1.8cm; (2 ) no evidence of dissection; (3) negative for PE; (4) mild to moderate dilitation of the intrahepatic bile duct and normal common hepatic and common bile duct s/p cholecystectomy (measurements not given); (5) left adrenal mass 4cm and right adrenal mass 2.9cm need further evaluation with MRI to r/o metastases ASSESSMENT/PLAN 59 year-old male with a PMH significant for HTN, HLD, CVA with residual gait instability, Parkinson's disease, ETOH abuse, s/p VATS for empyema x 7 years, hypothyroidism, and lung cancer diagnosed 6 months ago receiving radiation treatment. Presented with abdominal pain. Possible right lung base pneumonia. Right lung base pneumonia Small right pleural effusion --afebrile, mild leukocytosis --start ceftriaxone and azithromycin Lung cancer --CT shows multiple bilateral pulmonary nodules and CXR shows new density in CLAUDIO --had 4 radiation treatments, last one month ago, follows with Dr. Tompkins --oncology consult requested Abdominal pain --described as belt-distribution going around to the back --CT AP: bilateral adrenal masses, possibly metastatic disease --defer further imaging pending oncology consult --oxycodone provided no relief; morphine and Tylenol PRN for pain --start protonix Lactic acidosis --continue IV fluids, repeat at 2am Hypertension --BP stable --continue ToprolXL Hyperlipidemia --continue ezetimible h/o CVA with residual gait instability --PT evaluation ETOH abuse --last drink was one beer last night --will give multi-vitamin/banana bag in case non-compliant with daily thiamine, folic acid --monitor for s/s of withdrawal Hypothyroidism --not on medication --TSH ordered FEN Fluids: NS@100mL/hr Electrolytes: replete as indicated Nutrition: low sodium DVT prophylaxis: subq heparin Physical therapy Dispo: continues to require inpatient care. Full code. Visit type - Emergency Visit Emergency Visit: Yes ED Registration Date: 05/20/19 Care time: The patient presented to the Emergency Department on the above date and was hospitalized for further evaluation of their emergent condition. - New Patient This patient is new to me today: Yes Date on this admission: 05/21/19 - Critical Care Critical Care patient: No
[2019-05-20] MEDS ORDERED: SODIUM CHLORIDE 1,000 ML IV SCH (21:30)
[2019-05-20] MEDS: SODIUM CHLORIDE 1,000 ML IV SCH (22:02)
[2019-05-20] MEDS ORDERED: AZITHROMYCIN IVPB 500 MG/250 ML BAG IVPB ONE (23:00)
[2019-05-20] MEDS ORDERED: oxyCODONE HCL 5 MG TABLET PO PRN (23:10)
[2019-05-20] MEDS ORDERED: FOLIC ACID INJECTION - 1 MG, THIAMINE HCL 100 MG, MULTIVIT INJECTION ADULT 10 ML in SOD... IVPB ONE (23:30)
[2019-05-21] MEDS ORDERED: PANTOPRAZOLE 40 MG TABLET (FP) PO ONE (01:00)
[2019-05-21] MEDS ORDERED: PANTOPRAZOLE SOD 40 MG SUSPENSION PACKET PO SCH (01:00)
[2019-05-21] MEDS: MORPHINE SULFATE 2 MG/ML VIAL IVPUSH PRN ×2 (01:42→20:39)
[2019-05-21] MEDS: HEPARIN NA (PORCINE) 5,000 UNITS/ML 1ML VIAL SQ SCH ×3 (06:36→21:21)
[2019-05-21 06:38] LABS: BASO % 0.4 % (0-2.0); EOS % 2.7 % (0-4.5); HEMATOCRIT 42.3 % (35.4-49); HEMOGLOBIN 14.2 GM/dL (11.7-16.9); LYMPH % 14.3 % (8-40); MCH 32.4 pg (25.7-33.7); MCHC 33.6 g/dl (32.0-35.9); MEAN CELL VOLUME 96.4 fl (80-96); MEAN PLT VOLUME 7.6 fl (7.5-11.1); MONO % 8.5 % (3.8-10.2); NEUT % 74.1 % (42.8-82.8); PLATELET COUNT 161 K/MM3 (134-434); RBC 4.39 M/mm3 (4.00-5.60); RDW 14.4 % (11.9-15.9); WHITE BLOOD COUNT 9.1 K/mm3 (4.0-10.0)
[2019-05-21] MEDS: oxyCODONE HCL 5 MG TABLET PO PRN ×2 (06:42→15:06)
[2019-05-21 07:10] LABS: ALBUMIN 2.7 g/dl (3.4-5.0); BILIRUBIN,TOTAL 0.5 mg/dL (0.2-1); BLOOD UREA NITROGEN 7.9 mg/dL (7-18); CALCIUM 7.9 mg/dL (8.5-10.1); CREATININE 0.6 mg/dL (0.55-1.3); MAGNESIUM 2.2 mg/dL (1.8-2.4); POTASSIUM 4.5 mmol/L (3.5-5.1); TOT PROT 5.5 g/dl (6.4-8.2)
[2019-05-21] MEDS ORDERED: DEXTROSE 5%-WATER - 50 ML IVPB ONE (08:55)
[2019-05-21] MEDS ORDERED: cefTRIAXone SODIUM 1 GM VIAL ONE (08:55)
[2019-05-21] MEDS ORDERED: PT OWN MED DRAWER 7, Y5N ONE (08:55)
[2019-05-21] MEDS: RANITIDINE HCL 150 MG TABLET (FP) PO SCH ×2 (09:05→09:45)
[2019-05-21] MEDS: CEFTRIAXONE 1 GM in DEXTROSE 5%-WATER - 50 ML IVPB SCH (09:05)
[2019-05-21] MEDS: FOLIC ACID 1 MG TABLET (FP) PO SCH (09:05)
[2019-05-21] MEDS: PANTOPRAZOLE 40 MG TABLET (FP) PO SCH (09:05)
[2019-05-21] MEDS: PRIMIDONE 50 MG TABLET PO SCH (09:05)
[2019-05-21] MEDS: THIAMINE HCL 100 MG TABLET (FP) PO SCH ×2 (09:06→09:46)
[2019-05-21] MEDS: EZETIMIBE 10 MG TABLET (FP) PO SCH (09:06)
--- NOTE | 2019-05-21 09:23 | PN ---
Physical Exam: HISTORY OF PRESENT ILLNESS: 59 year-old male with a PMH significant for HTN, HLD, CVA with residual gait instability, Parkinsons Disease, ETOH abuse, s/p VATS for empyema x 7 years, hypothyroidism, and lung cancer diagnosed 6 months ago receiving radiation treatment. Patient presented to the ED for evaluation of abdominal pain. Patient reports he went to bed in his usual state of health. He awoke this morning with extreme abdominal pain and mid-back pain. The pain has a belt-like distribution, it encircles him at the level of the umbilicus. It is a pressure- type pain, 10/10. It is constant and waxes and wanes in intensity. Certain movements exacerbate the pain. He denies nausea, vomiting, diarrhea. Denies fever, sweats, chills. Denies any type of bleeding episode. Denies loss in appetite. Denies weight loss. His had four radiation treatments for lung cancer , no chemotherapy. His last radiation treatment was about a month ago. SUBJECTIVE: Patient seen and examined. Still complaining of 7/10 circumferential back/abd pressure like pain. Pt denies any shob n/v/d fever or chills. Pt wants to use the walker to ambulate to the bathroom and refuses to use the bed baptiste. Will consult PT. OBJECTIVE: Vital Signs Period Temp Pulse Resp BP Sys/Blair Pulse Ox Last 24 Hr 97.7 F-98.9 F 70-93 17-18 124-163/75-97 93-96 GENERAL: Awake, alert, and fully oriented, in no acute distress. Thin. Pale. HEAD: Normal with no signs of trauma. LUNGS: wheezes in bilateral lobes, and no crackles. No accessory muscle use. HEART: Regular rate and rhythm, S1 and S2 ABDOMEN: Soft, nontender, not distended, no guarding, no rebound tenderness; no masses appreciated MUSCULOSKELETAL: Normal range of motion at all joints. No bony deformities or tenderness. No CVA tenderness. UPPER EXTREMITIES: 2+ pulses, warm, well-perfused. No cyanosis. No clubbing. No peripheral edema. LOWER EXTREMITIES: 2+ pulses, warm, well-perfused. No calf tenderness. No peripheral edema. NEUROLOGICAL: Cranial nerves II-XII intact. Normal speech. Laboratory Results - last 24 hr 05/20/19 05/20/19 05/20/19 09:44 09:44 09:44 WBC 12.8 H RBC 4.82 Hgb 15.5 Hct 45.8 MCV 95.0 MCH 32.2 MCHC 33.9 RDW 14.4 Plt Count 311 D MPV 7.8 Absolute Neuts (auto) 10.8 H Neutrophils % 84.8 H Lymphocytes % 6.9 L D Monocytes % 8.1 Eosinophils % 0.0 D Basophils % 0.2 Nucleated RBC % 0 PT with INR 11.10 INR 0.94 PTT (Actin FS) Sodium 135 L Potassium 4.6 Chloride 103 Carbon Dioxide 29 Anion Gap 3 L BUN 6.8 L Creatinine 0.7 Est GFR (CKD-EPI)AfAm 118.05 Est GFR (CKD-EPI)NonAf 101.85 Random Glucose 85 Lactic Acid Calcium 8.8 Phosphorus 2.9 Magnesium 2.0 Total Bilirubin 0.3 AST 21 ALT 20 Alkaline Phosphatase 77 Creatine Kinase 47 Troponin I < 0.02 Total Protein 6.8 Albumin 3.3 L Total Amylase 53 Lipase 101 TSH Urine Color Urine Appearance Urine pH Ur Specific [place] Urine Protein Urine Glucose (UA) Urine Ketones Urine Blood Urine Nitrite Urine Bilirubin Urine Urobilinogen Ur Leukocyte Esterase Urine WBC (Auto) Urine RBC (Auto) Urine Casts (Auto) U Epithel Cells (Auto) Urine Bacteria (Auto) 05/20/19 05/20/19 05/20/19 09:56 09:56 20:19 WBC RBC Hgb Hct MCV MCH MCHC RDW Plt Count MPV Absolute Neuts (auto) Neutrophils % Lymphocytes % Monocytes % Eosinophils % Basophils % Nucleated RBC % PT with INR INR PTT (Actin FS) Sodium Potassium Chloride Carbon Dioxide Anion Gap BUN Creatinine Est GFR (CKD-EPI)AfAm Est GFR (CKD-EPI)NonAf Random Glucose Lactic Acid 3.0 H* 2.9 H* Calcium Phosphorus Magnesium Total Bilirubin AST ALT Alkaline Phosphatase Creatine Kinase Troponin I Total Protein Albumin Total Amylase Lipase TSH Urine Color Dk yellow Urine Appearance Clear Urine pH 8.5 H D Ur Specific [place] 1.022 Urine Protein Trace Urine Glucose (UA) Negative Urine Ketones Trace H Urine Blood Negative Urine Nitrite Negative Urine Bilirubin 1+ H Urine Urobilinogen 1.0 Ur Leukocyte Esterase Trace Urine WBC (Auto) 1 Urine RBC (Auto) 2 Urine Casts (Auto) 9 U Epithel Cells (Auto) 1.4 Urine Bacteria (Auto) 1.4 05/21/19 05/21/19 05/21/19 02:00 06:15 06:15 WBC 9.1 RBC 4.39 Hgb 14.2 Hct 42.3 MCV 96.4 H MCH 32.4 MCHC 33.6 RDW 14.4 Plt Count 161 D MPV 7.6 Absolute Neuts (auto) 6.8 Neutrophils % 74.1 Lymphocytes % 14.3 D Monocytes % 8.5 Eosinophils % 2.7 D Basophils % 0.4 Nucleated RBC % 0 PT with INR INR PTT (Actin FS) 32.8 Sodium Potassium Chloride Carbon Dioxide Anion Gap BUN Creatinine Est GFR (CKD-EPI)AfAm Est GFR (CKD-EPI)NonAf Random Glucose Lactic Acid 1.6 Calcium Phosphorus Magnesium Total Bilirubin AST ALT Alkaline Phosphatase Creatine Kinase Troponin I Total Protein Albumin Total Amylase Lipase TSH Urine Color Urine Appearance Urine pH Ur Specific [place] Urine Protein Urine Glucose (UA) Urine Ketones Urine Blood Urine Nitrite Urine Bilirubin Urine Urobilinogen Ur Leukocyte Esterase Urine WBC (Auto) Urine RBC (Auto) Urine Casts (Auto) U Epithel Cells (Auto) Urine Bacteria (Auto) 05/21/19 06:15 WBC RBC Hgb Hct MCV MCH MCHC RDW Plt Count MPV Absolute Neuts (auto) Neutrophils % Lymphocytes % Monocytes % Eosinophils % Basophils % Nucleated RBC % PT with INR INR PTT (Actin FS) Sodium 137 Potassium 4.5 Chloride 103 Carbon Dioxide 29 Anion Gap 5 L BUN 7.9 Creatinine 0.6 Est GFR (CKD-EPI)AfAm 125.77 Est GFR (CKD-EPI)NonAf 108.52 Random Glucose 92 Lactic Acid Calcium 7.9 L Phosphorus Magnesium 2.2 Total Bilirubin 0.5 AST 11 L ALT 14 Alkaline Phosphatase 70 Creatine Kinase Troponin I Total Protein 5.5 L Albumin 2.7 L Total Amylase Lipase TSH 2.71 D Urine Color Urine Appearance Urine pH Ur Specific [place] Urine Protein Urine Glucose (UA) Urine Ketones Urine Blood Urine Nitrite Urine Bilirubin Urine Urobilinogen Ur Leukocyte Esterase Urine WBC (Auto) Urine RBC (Auto) Urine Casts (Auto) U Epithel Cells (Auto) Urine Bacteria (Auto) Active Medications Generic Name Dose Route Start Last Admin Trade Name Freq PRN Reason Stop Dose Admin Atorvastatin Calcium 10 mg 05/21/19 22:00 Lipitor - PO HS [facility] Docusate Sodium 300 mg 05/21/19 22:00 Colace - PO HS RONALDO Ezetimibe 10 mg 05/21/19 10:00 Zetia - PO DAILY [facility] Folic Acid 1 mg 05/21/19 10:00 Folic Acid - PO DAILY [facility] Heparin Sodium (Porcine) 5,000 unit 05/21/19 06:00 05/21/19 06:36 Heparin - SQ 5,000 unit TID RONALDO Administration Sodium Chloride 1,000 mls @ 100 mls/hr 05/20/19 21:46 05/20/19 22:02 Normal Saline - IV 05/21/19 20:20 Not Given ASDIR [facility] Ceftriaxone Sodium 1 gm/ 50 mls @ 100 mls/hr 05/21/19 10:00 Dextrose IVPB DAILY [facility] Protocol Azithromycin 250 mg/ Dextrose 250 mls @ 250 mls/hr 05/21/19 10:00 IVPB 05/24/19 10:59 DAILY [facility] Metoprolol Succinate 50 mg 05/21/19 10:00 Toprol Xl - PO DAILY [facility] Morphine Sulfate 2 mg 05/21/19 00:55 05/21/19 01:42 Morphine Sulfate IVPUSH 2 mg Q4H PRN Administration PAIN LEVEL 7 - 10 Oxycodone HCl 5 mg 05/21/19 00:56 05/21/19 06:42 Roxicodone - PO 5 mg Q6H PRN Administration PAIN LEVEL 1-5 Pantoprazole Sodium 40 mg 05/21/19 10:00 Protonix - PO DAILY [facility] Primidone 50 mg 05/21/19 10:00 Mysoline - PO DAILY [facility] Ranitidine HCl 150 mg 05/21/19 10:00 Zantac - PO DAILY [facility] Thiamine HCl 100 mg 05/21/19 10:00 Vitamin B1 - PO DAILY [facility] ASSESSMENT/PLAN: Right lung base pneumonia Small right pleural effusion -afebrile, mild leukocytosis - on ceftriaxone and azithromycin Lung cancer -CT shows multiple bilateral pulmonary nodules and CXR shows new density in CLAUDIO -had 4 radiation treatments, last one month ago, follows with Dr. Tompkins -oncology consult requested Abdominal pain -described as belt-distribution going around to the back -CT AP: bilateral adrenal masses, possibly metastatic disease -defer further imaging pending oncology consult -oxycodone, and morphine PRN for pain -on protonix Lactic acidosis -continue IV fluids, repeat in Am Hypertension -BP stable -continue ToprolXL Hyperlipidemia -continue ezetimible h/o CVA with residual gait instability -PT evaluation ETOH abuse -last drink was one beer last night -will give multi-vitamin/banana bag in case non-compliant with daily thiamine , folic acid -monitor for s/s of withdrawal Hypothyroidism -not on medication -TSH 2.71 FEN Fluids: NS@100mL/hr Electrolytes: replete as indicated Nutrition: low sodium DVT prophylaxis: subq heparin Physical therapy Dispo: continues to require inpatient care. Full code. Visit type - Emergency Visit Emergency Visit: Yes ED Registration Date: 05/20/19 Care time: The patient presented to the Emergency Department on the above date and was hospitalized for further evaluation of their emergent condition. - New Patient This patient is new to me today: Yes Date on this admission: 05/21/19 - Critical Care Critical Care patient: No
[2019-05-21] MEDS ORDERED: EZETIMIBE 10 MG TABLET (FP) PO SCH (10:00)
[2019-05-21] MEDS ORDERED: traMADol HCL 50 MG TABLET PO SCH (10:00)
[2019-05-21] MEDS: AZITHROMYCIN IVPB 250 MG in DEXTROSE 5%-WATER - 250 ML IVPB SCH (10:26)
[2019-05-21] MEDS ORDERED: ALBUTEROL SO4 2.5/IPRATROPIUM 0.5 INH SOL 3 ML VIAL.NEB. NEB PRN (11:34)
--- NOTE | 2019-05-21 12:19 | CONSULT ---
Consult Consult Specialty:: Oncology Referred by:: Dr. Storm Reason for Consultation:: lung ca - History of Present Illness Chief Complaint: Abdominal/back pain History of Present Illness: 59M, smoker, with Parkinsons and hx of CVA, RLL adenoca s/p SBRT in 01/2019 but with POD on 04/17/19 PET scan (multiple pulmonary nodules, bilateral adrenal lesions, C7/T9 lesions, scalp lesion and a new soft tissue lesion in region of right hemidiaphragm). PET had also shown possible penetratng ulcer in distal abdominal aorta. Pt follows with Dr. Tompkins and is being planned Keytruda (PDL1 100%) after RT to spine and scalp nodule. MRI of thoracic spine on 05/14/19 showed pathologic marrow replacement c/w metastatic disease to C7 and T9 vertebral bodies (large metastatic large focus with minimal extension to epidural space and no e/o cord compression). He is now admitted with acute onset of circumferential mid-back/abdomen pain. Denies leg weakness, parasthesias, urinary/bowel incontinence. Ambulates with walker after CVA with no recent change in ability to walk. No fever or cough. Feels a little better now. CTA chest/abdomen: no evidence of dissection in thoracic and abdominal aorta; normal size and enhancement of main pulmonary artery and its proximal bifurcations; widespread atherosclerosis; consolidation/atelectasis in right lung base with a small right pleural effusion, multiple bilateral pumonary nodules; 4 x 2.8 cm left adrenal nodule and 2.9 x 2 cm right adrenal nodule. - Past Medical History [employer]: Yes: CVA, Other (ataxia) Cardio/Vascular: Yes: HTN, Hyperlipdemia Pulmonary: Yes: COPD Renal/: Yes: Renal Inusuff - Past Surgical History Past Surgical History: Yes: Cholecystectomy, Thoracotomy - Alcohol/Substance Use Hx Alcohol Use: Yes (occasional) Number of Drinks Daily: 6 History of Substance Use: reports: None - Smoking History Smoking history: Current every day smoker Have you smoked in the past 12 months: Yes Aproximately how many cigarettes per day: 10 - Social History Usual Living Arrangement: With Spouse ADL: Support Services History of Recent Travel: No Home Medications - Allergies Allergies/Adverse Reactions: Allergies Allergy/AdvReac Type Severity Reaction Status Date / Time No Known Allergies Allergy Verified 05/20/19 09:32 - Home Medications Home Medications: Ambulatory Orders Folic Acid 1 mg PO DAILY #14 tablet 09/29/17 Metoprolol Succinate [Toprol XL -] 50 mg PO DAILY #14 tablet 09/29/17 Primidone 50 mg PO DAILY #14 tablet 09/29/17 Ranitidine HCl [Zantac] 150 mg PO DAILY #14 tablet 09/29/17 Thiamine HCl [Vitamin B1 -] 100 mg PO DAILY #14 tablet 09/29/17 Atorvastatin Ca [Lipitor] 10 mg PO 12/14/18 Cholecalciferol (Vitamin D3) [Vitamin D -] 1,000 mg PO DAILY 12/14/18 Ezetimibe [Zetia] 10 mg PO QID 12/14/18 Tramadol HCl 50 mg PO QID 12/14/18 Family Disease History - Family Disease History Family Disease History: Heart Disease: Father (colon cancer), Mother (colon cancer) Review of Systems - Review of Systems Constitutional: denies: Chills, Fever Cardiovascular: denies: Chest Pain Respiratory: reports: SOB Gastrointestinal: reports: Abdominal Pain Musculoskeletal: reports: Back Pain Neurological: denies: Numbness, Parasthesia, Unsteady Gait, Weakness Hematology/Lymphatic: reports: No Symptoms Physical Exam Vital Signs: Vital Signs Temperature 98.9 F 05/21/19 09:06 Pulse Rate 89 05/21/19 09:06 Respiratory Rate 18 05/21/19 09:06 Blood Pressure 156/89 05/21/19 09:06 O2 Sat by Pulse Oximetry (%) 95 05/20/19 22:00 Constitutional: Yes: No Distress, Calm Neck: Yes: Supple. No: Lymphadenopathy Cardiovascular: Yes: Regular Rate and Rhythm Respiratory: Yes: Regular, Wheezes (expiratory and inspiratory) Gastrointestinal: Yes: Soft. No: Distention, Tenderness Edema: No Neurological: Yes: Alert, Oriented, Other (5/5 strength BLE, BUE). No: Numbness , Paresthesia, Weakness Labs: CBC, BMP 05/21/19 06:15 05/21/19 06:15 Imaging - Results Chest X-ray: Report Reviewed X-ray: Report Reviewed Cat Scan: Report Reviewed MRI: Report Reviewed Assessment/Plan 59M with RLL adenoca s/p SBRT in 01/2019 but with POD on 04/17/19 PET scan ( multiple pulmonary nodules, bilateral adrenal lesions, C7/T9 lesions, scalp lesion and a new soft tissue lesion in region of right hemidiaphragm) presents with back/abdominal pain. No GI sx. Does not appear to have focal neurologic deficits. Ruled out for aortic dissection and no e/o central PE on CTA. Most likely this is pain related to spine involvement, c/w referred pain from T9 lesion. Diaphragm lesion may also be contributing as there is some worsening with deep breaths. - c/w pain control, patient reports relief - Rad onc consultation for possible RT to spine - Plan for Keytruda as outpatient by Dr. Tompkins - MRI brain (was planned outpatient) - Will follow
--- NOTE | 2019-05-21 13:18 | EKG ---
Test Reason : Blood Pressure : / mmHG Vent. Rate : 087 BPM Atrial Rate : 087 BPM P-R Int : 152 ms QRS Dur : 078 ms QT Int : 364 ms P-R-T Axes : 070 059 067 degrees QTc Int : 438 ms NORMAL SINUS RHYTHM LEFT ATRIAL ENLARGEMENT BORDERLINE ECG WHEN COMPARED WITH ECG OF 26-SEP-2017 13:47, NO SIGNIFICANT CHANGE WAS FOUND Confirmed by MD FAM, ZACKERY ([id number]) on 05/21/2019 1:17:51 PM Referred By: Confirmed By:ZACKERY OTTO MD
[2019-05-21] MEDS: SODIUM CHLORIDE 1,000 ML IV SCH (13:52)
[2019-05-21] MEDS: ATORVASTATIN CA 10 MG TABLET (FP) PO SCH (21:20)
[2019-05-21] MEDS: DOCUSATE SODIUM 100 MG CAPSULE (FP) PO SCH (21:21)
[2019-05-22] MEDS: HEPARIN NA (PORCINE) 5,000 UNITS/ML 1ML VIAL SQ SCH ×3 (06:52→21:52)
[2019-05-22] MEDS ORDERED: DEXTROSE 5%-WATER - 50 ML IVPB ONE (09:18)
[2019-05-22] MEDS ORDERED: cefTRIAXone SODIUM 1 GM VIAL ONE (09:18)
[2019-05-22] MEDS ORDERED: PT OWN MED DRAWER 7, Y5N ONE ×5 (09:18→17:59)
[2019-05-22] MEDS: CEFTRIAXONE 1 GM in DEXTROSE 5%-WATER - 50 ML IVPB SCH (09:23)
[2019-05-22] MEDS: THIAMINE HCL 100 MG TABLET (FP) PO SCH (09:23)
[2019-05-22] MEDS: PANTOPRAZOLE 40 MG TABLET (FP) PO SCH (09:24)
[2019-05-22] MEDS: EZETIMIBE 10 MG TABLET (FP) PO SCH (09:24)
[2019-05-22] MEDS: FOLIC ACID 1 MG TABLET (FP) PO SCH (09:24)
[2019-05-22] MEDS: RANITIDINE HCL 150 MG TABLET (FP) PO SCH (09:24)
[2019-05-22] MEDS: PRIMIDONE 50 MG TABLET PO SCH (09:36)
[2019-05-22] MEDS ORDERED: MAGNESIUM CITRATE 300 ML BOTTLE PO ONE ×2 (09:36→14:00)
[2019-05-22] MEDS: AZITHROMYCIN IVPB 250 MG in DEXTROSE 5%-WATER - 250 ML IVPB SCH (10:28)
[2019-05-22 15:24] VITALS: BMI 19.3
--- NOTE | 2019-05-22 15:57 | PN ---
Physical Exam: SUBJECTIVE: Patient seen and examined. Says abdominal pain/back pain has improved. Wants to go home. OBJECTIVE: Vital Signs Period Temp Pulse Resp BP Sys/Blair Pulse Ox Last 24 Hr 98.2 F-99.3 F 70-76 18-20 134-150/70-95 95-96 GENERAL: Awake, alert, and fully oriented, in no acute distress. Thin. Pale. HEAD: Normal with no signs of trauma. LUNGS: mild wheezing HEART: Regular rate and rhythm, S1 and S2 ABDOMEN: Soft, nontender, not distended, no guarding, no rebound tenderness; no masses appreciated MUSCULOSKELETAL: No bony deformities or tenderness. No CVA tenderness. UPPER EXTREMITIES: 2+ pulses, warm, well-perfused.No peripheral edema. LOWER EXTREMITIES: 2+ pulses, No peripheral edema. NEUROLOGICAL: Cranial nerves II-XII intact. Normal speech. Active Medications Generic Name Dose Route Start Last Admin Trade Name Freq PRN Reason Stop Dose Admin Albuterol/Ipratropium 1 amp 05/21/19 11:34 Duoneb - NEB Q6H PRN WHEEZING Atorvastatin Calcium 10 mg 05/21/19 22:00 05/21/19 21:20 Lipitor - PO 10 mg HS RONALDO Administration Docusate Sodium 300 mg 05/21/19 22:00 05/21/19 21:21 Colace - PO 300 mg HS RONALDO Administration Ezetimibe 10 mg 05/21/19 10:00 05/22/19 09:24 Zetia - PO 10 mg DAILY RONALDO Administration Folic Acid 1 mg 05/21/19 10:00 05/22/19 09:24 Folic Acid - PO 1 mg DAILY RONALDO Administration Heparin Sodium (Porcine) 5,000 unit 05/21/19 06:00 05/22/19 14:03 Heparin - SQ 5,000 unit TID RONALDO Administration Ceftriaxone Sodium 1 gm/ 50 mls @ 100 mls/hr 05/21/19 10:00 05/22/19 09:23 Dextrose IVPB 100 mls/hr DAILY RONALDO Administration Protocol Azithromycin 250 mg/ Dextrose 250 mls @ 250 mls/hr 05/21/19 10:00 05/22/19 10 :28 IVPB 05/24/19 10:59 250 mls/hr DAILY RONALDO Administration Metoprolol Succinate 50 mg 05/21/19 10:00 05/22/19 09:24 Toprol Xl - PO 50 mg DAILY RONALDO Administration Morphine Sulfate 2 mg 05/21/19 00:55 05/21/19 20:39 Morphine Sulfate IVPUSH 2 mg Q4H PRN Administration PAIN LEVEL 7 - 10 Nicotine 21 mg 05/22/19 10:00 Nicoderm Patch - TD DAILY RONALDO Oxycodone HCl 5 mg 05/21/19 00:56 05/21/19 15:06 Roxicodone - PO 5 mg Q6H PRN Administration PAIN LEVEL 1-5 Pantoprazole Sodium 40 mg 05/21/19 10:00 05/22/19 09:24 Protonix - PO 40 mg DAILY RONALDO Administration Primidone 50 mg 05/21/19 10:00 05/22/19 09:36 Mysoline - PO 50 mg DAILY RONALDO Administration Ranitidine HCl 150 mg 05/21/19 10:00 05/22/19 09:24 Zantac - PO 150 mg DAILY RONALDO Administration Thiamine HCl 100 mg 05/21/19 10:00 05/22/19 09:23 Vitamin B1 - PO 100 mg DAILY RONALDO Administration ASSESSMENT/PLAN: #Lung cancer- RLL Adenocarcinoma s/p SBRT #Right lung base pneumonia #Small right pleural effusion #Parkinsons #Abdominal pain #Lactic acidosis #Hypertension -cont. current pain control regimen -abd pain likely from metastatic disease -had 4 radiation treatments, last one month ago, follows with Dr. Tompkins - MRI brain -Rad onc consultation for possible RT to spine. -GI consult for possible penetrating ulcer on recent PET. -Vascular consult for abnormal CTA read for distal abdominal aortic aneurysm -Plan for Keytruda as outpatient by Dr. Tompkins Visit type - Emergency Visit Emergency Visit: Yes ED Registration Date: 05/20/19 Care time: The patient presented to the Emergency Department on the above date and was hospitalized for further evaluation of their emergent condition. - New Patient This patient is new to me today: Yes Date on this admission: 05/23/19 - Critical Care Critical Care patient: No ATTENDING PHYSICIAN STATEMENT I saw and evaluated the patient. I reviewed the resident's note and discussed the case with the resident. I agree with the resident's findings and plan as documented. SUBJECTIVE: OBJECTIVE: ASSESSMENT AND PLAN:
[2019-05-22] MEDS: oxyCODONE HCL 5 MG TABLET PO PRN (16:50)
[2019-05-22] MEDS: MORPHINE SULFATE 2 MG/ML VIAL IVPUSH PRN (16:51)
[2019-05-22] MEDS: NICOTINE 21 MG/24 HOURS TOPICAL PATCH TD SCH (18:02)
--- NOTE | 2019-05-22 18:49 | PN ---
Progress Note, Physician Chief Complaint: feeling much better, abdominal pain subsided History of Present Illness: 59 year-old male with a PMH significant for HTN, HLD, CVA with residual gait instability, Parkinsons Disease, ETOH abuse, s/p VATS for empyema x 7 years, hypothyroidism, and lung cancer diagnosed 6 months ago receiving radiation treatment. Patient presented to the ED for evaluation of abdominal pain. Patient reports he went to bed in his usual state of health. He awoke this morning with extreme abdominal pain and mid-back pain. The pain has a belt-like distribution, it encircles him at the level of the umbilicus. It is a pressure- type pain, 10/10. It is constant and waxes and wanes in intensity. Certain movements exacerbate the pain. He denies nausea, vomiting, diarrhea. Denies fever, sweats, chills. Denies any type of bleeding episode. Denies loss in appetite. Denies weight loss. His had four radiation treatments for lung cancer , no chemotherapy. His last radiation treatment was about a month ago. - Current Medication List Current Medications: Active Medications Albuterol/Ipratropium (Duoneb -) 1 amp NEB Q6H PRN PRN Reason: WHEEZING Atorvastatin Calcium (Lipitor -) 10 mg PO HS [facility] Last Admin: 05/21/19 21:20 Dose: 10 mg Docusate Sodium (Colace -) 300 mg PO HS [facility] Last Admin: 05/21/19 21:21 Dose: 300 mg Ezetimibe (Zetia -) 10 mg PO DAILY [facility] Last Admin: 05/22/19 09:24 Dose: 10 mg Folic Acid (Folic Acid -) 1 mg PO DAILY [facility] Last Admin: 05/22/19 09:24 Dose: 1 mg Heparin Sodium (Porcine) (Heparin -) 5,000 unit SQ TID [facility] Last Admin: 05/22/19 14:03 Dose: 5,000 unit Ceftriaxone Sodium 1 gm/ (Dextrose) 50 mls @ 100 mls/hr IVPB DAILY [facility]; Protocol Last Admin: 05/22/19 09:23 Dose: 100 mls/hr Azithromycin 250 mg/ Dextrose 250 mls @ 250 mls/hr IVPB DAILY [facility] Stop: 05/24/19 10:59 Last Admin: 05/22/19 10:28 Dose: 250 mls/hr Metoprolol Succinate (Toprol Xl -) 50 mg PO DAILY [facility] Last Admin: 05/22/19 09:24 Dose: 50 mg Morphine Sulfate (Morphine Sulfate) 2 mg IVPUSH Q4H PRN PRN Reason: PAIN LEVEL 7 - 10 Last Admin: 05/22/19 16:51 Dose: 2 mg Nicotine (Nicoderm Patch -) 21 mg TD DAILY [facility] Last Admin: 05/22/19 18:02 Dose: 21 mg Oxycodone HCl (Roxicodone -) 5 mg PO Q6H PRN PRN Reason: PAIN LEVEL 1-5 Last Admin: 05/22/19 16:50 Dose: 5 mg Pantoprazole Sodium (Protonix -) 40 mg PO DAILY [facility] Last Admin: 05/22/19 09:24 Dose: 40 mg Primidone (Mysoline -) 50 mg PO DAILY [facility] Last Admin: 05/22/19 09:36 Dose: 50 mg Ranitidine HCl (Zantac -) 150 mg PO DAILY [facility] Last Admin: 05/22/19 09:24 Dose: 150 mg Thiamine HCl (Vitamin B1 -) 100 mg PO DAILY [facility] Last Admin: 05/22/19 09:23 Dose: 100 mg - Objective Vital Signs: Vital Signs Temperature 98.6 F 05/22/19 17:48 Pulse Rate 73 05/22/19 17:48 Respiratory Rate 18 05/22/19 17:48 Blood Pressure 144/85 05/22/19 17:48 O2 Sat by Pulse Oximetry (%) 96 05/22/19 09:00 Constitutional: Yes: Well Nourished, No Distress, Calm Eyes: Yes: WNL, Conjunctiva Clear, EOM Intact HENT: Yes: WNL, Atraumatic, Normocephalic Neck: Yes: WNL, Supple, Trachea Midline Cardiovascular: Yes: WNL, Regular Rate and Rhythm Respiratory: Yes: WNL, Regular, CTA Bilaterally Gastrointestinal: Yes: WNL, Normal Bowel Sounds, Soft Genitourinary: Yes: WNL Musculoskeletal: Yes: WNL Edema: No Peripheral Pulses WNL: Yes Integumentary: Yes: WNL Neurological: Yes: WNL, Alert, Oriented, Ataxia (prior gait instability) ...Motor Strength: WNL Psychiatric: Yes: WNL, Alert, Oriented Labs: CBC, BMP 05/21/19 06:15 05/21/19 06:15 INR, PTT INR 0.94 (0.83-1.09) 05/20/19 09:44 - ....Imaging MRI: Pending (brain) Problem List - Problems (1) CVA (cerebral vascular accident) Assessment/Plan: gait instability PT for gait training Code(s): I63.9 - CEREBRAL INFARCTION, UNSPECIFIED (2) Gait instability Code(s): R26.81 - UNSTEADINESS ON FEET (3) Empyema Assessment/Plan: S/p VATS procedure Code(s): J86.9 - PYOTHORAX WITHOUT FISTULA (4) Alcohol dependence Assessment/Plan: ETOH abuse -drinking until rught before admission - daily thiamine, folic acid, MVI -monitor for s/s of withdrawal -offered patient treament options for ETOH dependency & pt declined Hypothyroidism --not on medication --TSH ordered FEN Fluids: NS@100mL/hr Electrolytes: replete as indicated Nutrition: low sodium Code(s): F10.20 - ALCOHOL DEPENDENCE, UNCOMPLICATED (5) Cerebellar ataxia Code(s): G11.9 - HEREDITARY ATAXIA, UNSPECIFIED (6) Hyperlipidemia Assessment/Plan: c/w statin Code(s): E78.5 - HYPERLIPIDEMIA, UNSPECIFIED Qualifiers: Hyperlipidemia type: Pure hypercholesterolemia (7) Hypertension Assessment/Plan: c/w normotensive c/w metoprolol Code(s): I10 - ESSENTIAL (PRIMARY) HYPERTENSION Qualifiers: Hypertension type: essential hypertension Qualified Code(s): I10 - Essential (primary) hypertension (8) Nicotine dependence Assessment/Plan: smoke 1ppd nicotine ptach 21mg TD offered patient smoking cessation and patient declined Code(s): F17.200 - NICOTINE DEPENDENCE, UNSPECIFIED, UNCOMPLICATED Qualifiers: Nicotine product type: cigarettes Substance use status: uncomplicated Qualified Code(s): F17.210 - Nicotine dependence, cigarettes, uncomplicated (9) Lung cancer Assessment/Plan: Oncology consultation appreciated Rad onc consultation for possible RT to spine as per oncology c/w Cristina as outpatient by Dr. Tompkins MRI brain (was planned outpatient) pending Code(s): C34.90 - MALIGNANT NEOPLASM OF UNSP PART OF UNSP BRONCHUS OR LUNG (10) Prophylactic measure Assessment/Plan: FEN Low Sodium diet monitor electrolytes no need for IVF, N/V sunsided DVT heparin sq early ambulation Dispo Maintain as in patient discharge planning full code Code(s): Z29.9 - ENCOUNTER FOR PROPHYLACTIC MEASURES, UNSPECIFIED (11) Abdominal pain Assessment/Plan: abd pain likely from metastatic disease pain managment Code(s): R10.9 - UNSPECIFIED ABDOMINAL PAIN (12) Pleural effusion Assessment/Plan: small right pleural effusion on CXR ceftriaxone & Azithromycin start BCx NGTD if remains AF and BCx remain negative can de-escelate abx tomorrow Code(s): J90 - PLEURAL EFFUSION, NOT ELSEWHERE CLASSIFIED Visit type - Emergency Visit Emergency Visit: Yes ED Registration Date: 05/20/19 Care time: The patient presented to the Emergency Department on the above date and was hospitalized for further evaluation of their emergent condition. - New Patient This patient is new to me today: Yes Date on this admission: 05/22/19 - Critical Care Critical Care patient: No - Discharge Referral Referred to [facility] Med P.C.: No
--- NOTE | 2019-05-22 21:05 | PN ---
Progress Note (short form) - Note Progress Note: Patient seen and examined Anxious to go home AFVSS Cor: RSR, No murmurs, No gallops Lungs: Clear to P&A Abd: Soft, Normal bowel sounds, No organomegaly Ext:No significant edema Labs/Meds reviewed A/P 59M with RLL adenoca s/p SBRT in 01/2019 but with POD on 04/17/19 PET scan ( multiple pulmonary nodules, bilateral adrenal lesions, C7/T9 lesions, scalp lesion and a new soft tissue lesion in region of right hemidiaphragm) presents with back/abdominal pain. No GI sx. Does not appear to have focal neurologic deficits. Ruled out for aortic dissection and no e/o central PE on CTA. Most likely this is pain related to spine involvement, c/w referred pain from T9 lesion. f/u MRI brain f/u rad-onc c nsult-- T9 lesion wih sligh epidural extension on PET/ recen MRI f/u vascular /gi consult---noed penetrating ulcer on PET scan
[2019-05-22] MEDS: DOCUSATE SODIUM 100 MG CAPSULE (FP) PO SCH (21:49)
[2019-05-22] MEDS: ATORVASTATIN CA 10 MG TABLET (FP) PO SCH (21:52)
[2019-05-23] MEDS: HEPARIN NA (PORCINE) 5,000 UNITS/ML 1ML VIAL SQ SCH ×3 (06:35→21:51)
[2019-05-23] MEDS ORDERED: PT OWN MED DRAWER 7, Y5N ONE ×2 (09:06→20:05)
[2019-05-23] MEDS ORDERED: cefTRIAXone SODIUM 1 GM VIAL ONE (09:06)
[2019-05-23] MEDS ORDERED: DEXTROSE 5%-WATER - 50 ML IVPB ONE (09:07)
--- NOTE | 2019-05-23 09:10 | PN ---
Progress Note, Physician Chief Complaint: offers no complaints, no abdominal pain, no nausea or vomiting History of Present Illness: Patient is a 59 year-old male with a PMH significant for HTN, HLD, CVA with residual gait instability (ambulates with RW), parkinsons disease, ETOH abuse, s /p VATS for empyema x 7 years, hypothyroidism, and lung cancer diagnosed 6 months ago receiving radiation treatment. Patient presented to the ED on 2018 for evaluation of abdominal pain.He denies nausea, vomiting, diarrhea. Denies fever, sweats, chills. Denies any type of bleeding episode. Denies loss in appetite. Denies weight loss. His had four radiation treatments for lung cancer, no chemotherapy. His last radiation treatment was about a month ago. A brain MRI done 05/22/19 shows vasogenic edema on posterior aspect of the left coronoa that radiates with a ring enhancing lesion measuring 7.3mm in diameter and metatastic brain lesion. Patient was informed of this finding of the brain mri. Defer to staring decadron per oncology as patient also has a gastric ulcer and is awaiting GI consultation. - Current Medication List Current Medications: Active Medications Albuterol/Ipratropium (Duoneb -) 1 amp NEB Q6H PRN PRN Reason: WHEEZING Atorvastatin Calcium (Lipitor -) 10 mg PO HS [facility] Last Admin: 05/22/19 21:52 Dose: 10 mg Docusate Sodium (Colace -) 300 mg PO HS [facility] Last Admin: 05/22/19 21:49 Dose: 300 mg Ezetimibe (Zetia -) 10 mg PO DAILY [facility] Last Admin: 05/22/19 09:24 Dose: 10 mg Folic Acid (Folic Acid -) 1 mg PO DAILY [facility] Last Admin: 05/22/19 09:24 Dose: 1 mg Heparin Sodium (Porcine) (Heparin -) 5,000 unit SQ TID [facility] Last Admin: 05/23/19 06:35 Dose: 5,000 unit Ceftriaxone Sodium 1 gm/ (Dextrose) 50 mls @ 100 mls/hr IVPB DAILY [facility]; Protocol Last Admin: 05/22/19 09:23 Dose: 100 mls/hr Azithromycin 250 mg/ Dextrose 250 mls @ 250 mls/hr IVPB DAILY [facility] Stop: 05/24/19 10:59 Last Admin: 05/22/19 10:28 Dose: 250 mls/hr Metoprolol Succinate (Toprol Xl -) 50 mg PO DAILY [facility] Last Admin: 05/22/19 09:24 Dose: 50 mg Morphine Sulfate (Morphine Sulfate) 2 mg IVPUSH Q4H PRN PRN Reason: PAIN LEVEL 7 - 10 Last Admin: 05/22/19 16:51 Dose: 2 mg Nicotine (Nicoderm Patch -) 21 mg TD DAILY [facility] Last Admin: 05/22/19 18:02 Dose: 21 mg Oxycodone HCl (Roxicodone -) 5 mg PO Q6H PRN PRN Reason: PAIN LEVEL 1-5 Last Admin: 05/22/19 16:50 Dose: 5 mg Pantoprazole Sodium (Protonix -) 40 mg PO DAILY [facility] Last Admin: 05/22/19 09:24 Dose: 40 mg Primidone (Mysoline -) 50 mg PO DAILY [facility] Last Admin: 05/22/19 09:36 Dose: 50 mg Ranitidine HCl (Zantac -) 150 mg PO DAILY [facility] Last Admin: 05/22/19 09:24 Dose: 150 mg Thiamine HCl (Vitamin B1 -) 100 mg PO DAILY [facility] Last Admin: 05/22/19 09:23 Dose: 100 mg - Objective Vital Signs: Vital Signs Temperature 97.6 F 05/23/19 06:00 Pulse Rate 77 05/23/19 06:00 Respiratory Rate 18 05/23/19 06:00 Blood Pressure 135/84 05/23/19 06:00 O2 Sat by Pulse Oximetry (%) 95 05/23/19 08:15 Constitutional: Yes: No Distress, Cachectic Eyes: Yes: WNL HENT: Yes: WNL Neck: Yes: WNL Cardiovascular: Yes: Regular Rate and Rhythm Respiratory: Yes: Diminished Gastrointestinal: Yes: WNL, Soft ...Rectal Exam: Yes: Deferred Genitourinary: Yes: WNL Breast(s): Yes: WNL Musculoskeletal: Yes: Joint Stiffness Extremities: Yes: Other (ambulates with RW) Integumentary: Yes: WNL Neurological: Yes: Alert, Oriented, Weakness Labs: CBC, BMP 05/21/19 06:15 05/21/19 06:15 INR, PTT INR 0.94 (0.83-1.09) 05/20/19 09:44 - ....Imaging MRI: Image Reviewed Problem List - Problems (1) Abdominal pain Assessment/Plan: abdominal pain resolved. Code(s): R10.9 - UNSPECIFIED ABDOMINAL PAIN (2) CVA (cerebral vascular accident) Assessment/Plan: gait instability, uses RW with ambulation PT to be offered while inpatient. Code(s): I63.9 - CEREBRAL INFARCTION, UNSPECIFIED (3) Empyema Assessment/Plan: s/p VATS procedure Code(s): J86.9 - PYOTHORAX WITHOUT FISTULA (4) Lung cancer Assessment/Plan: Oncology consultation appreciated Rad onc consultation for possible RT to spine as per oncology c/w Cristina as outpatient by Dr. Tompkins MRI brain shows metastatic lesion and vasogenic edema. Code(s): C34.90 - MALIGNANT NEOPLASM OF UNSP PART OF UNSP BRONCHUS OR LUNG (5) Alcohol withdrawal Code(s): F10.239 - ALCOHOL DEPENDENCE WITH WITHDRAWAL, UNSPECIFIED Qualifiers: Complication of substance-induced condition: uncomplicated Qualified Code(s ): F10.230 - Alcohol dependence with withdrawal, uncomplicated (6) Lactic acidosis Code(s): E87.2 - ACIDOSIS (7) Parkinson disease Code(s): G20 - PARKINSON'S DISEASE (8) Pneumonia Code(s): J18.9 - PNEUMONIA, UNSPECIFIED ORGANISM Qualifiers: Pneumonia type: due to unspecified organism Laterality: left Lung location: lower lobe of lung Qualified Code(s): J18.1 - Lobar pneumonia, unspecified organism (9) COPD (chronic obstructive pulmonary disease) Code(s): J44.9 - CHRONIC OBSTRUCTIVE PULMONARY DISEASE, UNSPECIFIED Qualifiers: COPD type: COPD with acute exacerbation Qualified Code(s): J44.1 - Chronic obstructive pulmonary disease with (acute) exacerbation (10) Hyperlipidemia Assessment/Plan: continue statin therapy Code(s): E78.5 - HYPERLIPIDEMIA, UNSPECIFIED Qualifiers: Hyperlipidemia type: Pure hypercholesterolemia (11) Hypertension Code(s): I10 - ESSENTIAL (PRIMARY) HYPERTENSION Qualifiers: Hypertension type: essential hypertension Qualified Code(s): I10 - Essential (primary) hypertension (12) Nicotine dependence Assessment/Plan: nicotine patch Code(s): F17.200 - NICOTINE DEPENDENCE, UNSPECIFIED, UNCOMPLICATED Qualifiers: Nicotine product type: cigarettes Substance use status: uncomplicated Qualified Code(s): F17.210 - Nicotine dependence, cigarettes, uncomplicated (13) Pleural effusion Assessment/Plan: small right pleural effusion on CXR ceftriaxone & Azithromycin start BCx NGTD, will descalate antibiotics in a.m. if remains afebrile. Code(s): J90 - PLEURAL EFFUSION, NOT ELSEWHERE CLASSIFIED (14) Prophylactic measure Assessment/Plan: fen tolerating po monitor electrolytes low salt diet prophy heparin Code(s): Z29.9 - ENCOUNTER FOR PROPHYLACTIC MEASURES, UNSPECIFIED Visit type - Emergency Visit Emergency Visit: Yes ED Registration Date: 05/20/19 Care time: The patient presented to the Emergency Department on the above date and was hospitalized for further evaluation of their emergent condition. - New Patient This patient is new to me today: Yes Date on this admission: 05/23/19 - Critical Care Critical Care patient: No - Discharge Referral Referred to [facility] Med P.C.: No
[2019-05-23] MEDS: CEFTRIAXONE 1 GM in DEXTROSE 5%-WATER - 50 ML IVPB SCH (09:22)
[2019-05-23] MEDS: NICOTINE 21 MG/24 HOURS TOPICAL PATCH TD SCH (09:22)
[2019-05-23] MEDS: FOLIC ACID 1 MG TABLET (FP) PO SCH (09:22)
[2019-05-23] MEDS: RANITIDINE HCL 150 MG TABLET (FP) PO SCH (09:22)
[2019-05-23] MEDS: THIAMINE HCL 100 MG TABLET (FP) PO SCH (09:22)
[2019-05-23] MEDS: PANTOPRAZOLE 40 MG TABLET (FP) PO SCH (09:22)
[2019-05-23] MEDS: EZETIMIBE 10 MG TABLET (FP) PO SCH (09:23)
[2019-05-23] MEDS: PRIMIDONE 50 MG TABLET PO SCH (09:24)
[2019-05-23] MEDS: AZITHROMYCIN IVPB 250 MG in DEXTROSE 5%-WATER - 250 ML IVPB SCH (10:12)
[2019-05-23 10:51] LABS: BASO % 0.6 % (0-2.0); EOS % 2.8 % (0-4.5); HEMATOCRIT 40.7 % (35.4-49); HEMOGLOBIN 13.9 GM/dL (11.7-16.9); LYMPH % 9.4 % (8-40); MCH 32.4 pg (25.7-33.7); MCHC 34.2 g/dl (32.0-35.9); MEAN CELL VOLUME 94.8 fl (80-96); MEAN PLT VOLUME 7.9 fl (7.5-11.1); MONO % 7.6 % (3.8-10.2); NEUT % 79.6 % (42.8-82.8); PLATELET COUNT 175 K/MM3 (134-434); RBC 4.29 M/mm3 (4.00-5.60); RDW 14.3 % (11.9-15.9); WHITE BLOOD COUNT 8.7 K/mm3 (4.0-10.0)
[2019-05-23 11:22] LABS: ALBUMIN 2.8 g/dl (3.4-5.0); BILIRUBIN,TOTAL 0.3 mg/dL (0.2-1); BLOOD UREA NITROGEN 10.6 mg/dL (7-18); CALCIUM 8.5 mg/dL (8.5-10.1); CREATININE 0.5 mg/dL (0.55-1.3); MAGNESIUM 2.4 mg/dL (1.8-2.4); POTASSIUM 4.6 mmol/L (3.5-5.1); TOT PROT 5.9 g/dl (6.4-8.2)
[2019-05-23] MEDS: MORPHINE SULFATE 2 MG/ML VIAL IVPUSH PRN (16:34)
--- NOTE | 2019-05-23 20:33 | PN ---
Progress Note (short form) - Note Progress Note: Patient seen and examined ECOTHERAPIST mets bone mets, skull mets, spine mets. Needs to be seen by RT before discharge. Needs to placed on decadron for ECOTHERAPIST mets with edema. Will need RT to ECOTHERAPIST ??SRS and to spine and skull . Has high PDL-1 so will be a candidate for immunotherapy.
[2019-05-23] MEDS: DEXAMETHASONE 4 MG TABLET (FP) PO SCH (21:51)
[2019-05-23] MEDS: DOCUSATE SODIUM 100 MG CAPSULE (FP) PO SCH (21:51)
[2019-05-23] MEDS: ATORVASTATIN CA 10 MG TABLET (FP) PO SCH (21:51)
[2019-05-24] MEDS: HEPARIN NA (PORCINE) 5,000 UNITS/ML 1ML VIAL SQ SCH ×2 (06:07→14:05)
[2019-05-24] MEDS: DEXAMETHASONE 4 MG TABLET (FP) PO SCH ×2 (06:07→14:05)
[2019-05-24 08:23] LABS: BASO % 0.2 % (0-2.0); EOS % 0.2 % (0-4.5); HEMATOCRIT 46.3 % (35.4-49); HEMOGLOBIN 15.6 GM/dL (11.7-16.9); LYMPH % 6.2 % (8-40); MCH 32.4 pg (25.7-33.7); MCHC 33.7 g/dl (32.0-35.9); MEAN CELL VOLUME 96.1 fl (80-96); MONO % 5.2 % (3.8-10.2); NEUT % 88.2 % (42.8-82.8); PLATELET COUNT 206 K/MM3 (134-434); RBC 4.82 M/mm3 (4.00-5.60); RDW 14.6 % (11.9-15.9); WHITE BLOOD COUNT 7.8 K/mm3 (4.0-10.0)
[2019-05-24 08:52] LABS: ALBUMIN 3.3 g/dl (3.4-5.0); BILIRUBIN,TOTAL 0.4 mg/dL (0.2-1); BLOOD UREA NITROGEN 13.1 mg/dL (7-18); CALCIUM 9.4 mg/dL (8.5-10.1); CREATININE 0.7 mg/dL (0.55-1.3); MAGNESIUM 2.5 mg/dL (1.8-2.4); POTASSIUM 5.2 mmol/L (3.5-5.1); TOT PROT 7.1 g/dl (6.4-8.2)
[2019-05-24] MEDS ORDERED: DEXTROSE 5%-WATER - 50 ML IVPB ONE (08:57)
[2019-05-24] MEDS ORDERED: cefTRIAXone SODIUM 1 GM VIAL ONE (08:57)
[2019-05-24] MEDS ORDERED: PT OWN MED DRAWER 7, Y5N ONE ×2 (08:58→16:45)
[2019-05-24] MEDS: PANTOPRAZOLE 40 MG TABLET (FP) PO SCH (09:10)
[2019-05-24] MEDS: FOLIC ACID 1 MG TABLET (FP) PO SCH (09:10)
[2019-05-24] MEDS: THIAMINE HCL 100 MG TABLET (FP) PO SCH (09:11)
[2019-05-24] MEDS: PRIMIDONE 50 MG TABLET PO SCH (09:11)
[2019-05-24] MEDS: RANITIDINE HCL 150 MG TABLET (FP) PO SCH (09:11)
[2019-05-24] MEDS: CEFTRIAXONE 1 GM in DEXTROSE 5%-WATER - 50 ML IVPB SCH (09:11)
[2019-05-24] MEDS: NICOTINE 21 MG/24 HOURS TOPICAL PATCH TD SCH (09:11)
[2019-05-24] MEDS: EZETIMIBE 10 MG TABLET (FP) PO SCH (09:12)
--- NOTE | 2019-05-24 09:48 | CONSULT ---
- Consultation REQUESTING PROVIDER: VASCULAR SURGERY - Fabian Diaz CONSULT REQUEST: We have been asked to surgically evaluate this patient for abnormal abd cta reading PCP: Dr. Eleni Carvalho Oncologist: Dr. Tompkins Hospitalist: Maria D Jorge NP HPI: Called to vinod 59 yo male w/ PMHx as noted below. Patient presented to the ED for evaluation of abdominal pain. All medical documentation and imaging tests reviewed. Currently being managed by Oncology/Dr. Tompkins for RLL adenocarcinoma. Patient has had multiple imaging studies of which, the ABD CTA identified distal portion of aorta just above bifurcation measures 2.8 cm x 1.8 cm (true enhancing lumen 1.5 cm x 1.3 cm). NO EVIDENCE OF THORACIC OR ABD DISSECTION. Extensive atheromatous plaques from thoracic --> distal abd aorta Patient is sitting up in bed. resting comfortably w/o complaint. Denies n/v/d/c. Denies fever or chills. Denies CP, SOB, [place], palpitations, lightheadedness or syncope. Denies pulsatile mass in his bad. Social History: Lives at home alone. Has an aid for help with daily activities 7 days a week for 8 hours each day. Smoking: current smoker Alcohol: yes - 1-2 beers per day, last beer last night Drugs: denies PMHx: RLL Adenocarcinoma, HTN, HLD, CVA 2013 w/ residual gait instability, Parkinson's Disease, ETOH abuse, Hypothyroidism, Empyema. Sigmoid diverticulosis PSHx: Appendectomy, Cholecystectomy, VATS x 7 years ago (Empyema), Bilateral hip fracture repair Home Medications Folic Acid 1 mg PO DAILY #14 tablet 09/29/17 Metoprolol Succinate [Toprol XL -] 50 mg PO DAILY #14 tablet 09/29/17 Primidone 50 mg PO DAILY #14 tablet 09/29/17 Ranitidine HCl [Zantac] 150 mg PO DAILY #14 tablet 09/29/17 Thiamine HCl [Vitamin B1 -] 100 mg PO DAILY #14 tablet 09/29/17 Atorvastatin Ca [Lipitor] 10 mg PO 12/14/18 Cholecalciferol (Vitamin D3) [Vitamin D -] 1,000 mg PO DAILY 12/14/18 Ezetimibe [Zetia] 10 mg PO QID 12/14/18 Tramadol HCl 50 mg PO QID 12/14/18 Allergies: NKDA ROS: CONSTITUTIONAL: Absent: generalized weakness, malaise, loss of appetite, weight change CARDIOVASCULAR: Absent: irregular heart rate, peripheral edema RESPIRATORY: Absent: cough, wheezing, stridor, hemoptysis GASTROINTESTINAL:see hpi. GENITOURINARY: Absent: dysuria, frequency, urgency, hesitancy, hematuria, flank pain, genital pain MUSCULOSKELETAL: Absent: myalgia, arthralgia, joint swelling, back pain, neck pain SKIN: Absent: rash, itching, pallor HEMATOLOGIC/IMMUNOLOGIC: Absent: easy bleeding, easy bruising, lymphadenopathy NEUROLOGIC: Absent: headache, focal weakness, paresthesias, dizziness, mental status changes, bladder or bowel incontinence PSYCHIATRIC: Absent: anxiety, depression, suicidal or homicidal ideation, hallucinations. PE: GENERAL: Awake, alert, and fully oriented, in no acute distress. HEAD: Normal with no signs of trauma. EYES: PERRL, sclera anicteric, conjunctiva clear. NECK: Normal ROM, supple without lymphadenopathy, JVD, or masses. LUNGS: Clear to auscultation bilat anteriorly. No wheezes, and no crackles. No accessory muscle use. HEART: RRR ABDOMEN: Soft, nontender, not distended, normoactive bowel sounds, no guarding, no rebound, no palpable pulseatile mass. MUSCULOSKELETAL: No CVA tenderness. UE: 2+ pulses, warm, well-perfused. No cyanosis. Cap refill <2 seconds. No peripheral edema. LE: 2+ pulses, warm, well-perfused. No calf tenderness. No peripheral edema. PSYCH: Cooperative. Good eye contact. Appropriate mood and affect. SKIN: Warm, dry, normal turgor, no rashes or lesions noted. Last Vital Signs Temp Pulse Resp BP Pulse Ox 97.4 F L 95 H 20 146/87 95 05/24/19 08:00 05/24/19 08:00 05/24/19 08:00 05/24/19 08:00 05/23/19 08:15 CBC, BMP 05/24/19 07:37 05/24/19 07:37 INR, PTT INR 0.94 (0.83-1.09) 05/20/19 09:44 Hepatic Panel Total Bilirubin 0.4 mg/dL (0.2-1) 05/24/19 07:37 AST 10 U/L (15-37) L 05/24/19 07:37 ALT 19 U/L (13-61) 05/24/19 07:37 Alkaline Phosphatase 80 U/L (45-117) 05/24/19 07:37 Albumin 3.3 g/dl (3.4-5.0) L 05/24/19 07:37 Problem List - Problems (1) Abdominal pain Assessment/Plan: 59 yo male admitted with ABD pain...most likely 2/2 to his C7/T9 mets lesions. Patient is hemodynamically stable. Last recorded H/H is 15.6/46.3 and no evidence of bleeding. Recommend routine surveillance to measure growth of distal portion of AA. Currently measures at 2.8 cm x 1.8 cm (true enhancing lumen 1.5 cm x 1.3 cm) Cont medical management. No vascular intervention needed. Above plan discussed with my attending and agrees. On behalf of Dr. Diaz, thank you for the opportunity to participate in your patient's care. Code(s): R10.9 - UNSPECIFIED ABDOMINAL PAIN (2) CVA (cerebral vascular accident) Code(s): I63.9 - CEREBRAL INFARCTION, UNSPECIFIED (3) Gait instability Code(s): R26.81 - UNSTEADINESS ON FEET (4) Lung cancer Code(s): C34.90 - MALIGNANT NEOPLASM OF UNSP PART OF UNSP BRONCHUS OR LUNG (5) Frequent falls Code(s): R29.6 - REPEATED FALLS Visit type - Case Type Case Type: ED Admission - Emergency Emergency Visit: Yes ED Registration Date: 05/20/19 Care time: The patient presented to the Emergency Department on the above date and was hospitalized for further evaluation of their emergent condition. - New patient This patient is new to me today: Yes Date on this admission: 05/24/19
[2019-05-24] MEDS: AZITHROMYCIN IVPB 250 MG in DEXTROSE 5%-WATER - 250 ML IVPB SCH (10:00)
--- NOTE | 2019-05-24 14:37 | DS ---
Physical Exam: SUBJECTIVE: Patient seen and examined at the bedside. wants to go home and will follow up with RT on Wednesday as he has an appointment. OBJECTIVE: Patient is a 59 year-old male with a PMH significant for HTN, HLD, CVA with residual gait instability (ambulates with RW), parkinsons disease, ETOH abuse, s /p VATS for empyema x 7 years, hypothyroidism, and lung cancer diagnosed 6 months ago receiving radiation treatment. Patient presented to the ED on 2018 for evaluation of abdominal pain.He denies nausea, vomiting, diarrhea. Denies fever, sweats, chills. Denies any type of bleeding episode. Denies loss in appetite. Denies weight loss. His had four radiation treatments for lung cancer, no chemotherapy. His last radiation treatment was about a month ago. A brain MRI done 05/22/19 shows vasogenic edema on posterior aspect of the left coronoa that radiates with a ring enhancing lesion measuring 7.3mm in diameter and metatastic brain lesion. Patient was informed of this finding of the brain mri. He has been started on Decadron 4mg FOUR times per day per oncology. Vital Signs Period Temp Pulse Resp BP Sys/Blair Pulse Ox Last 24 Hr 97.4 F-99.0 F 83-103 18-20 122-146/61-87 98 PHYSICAL EXAM GENERAL: The patient is awake, alert, and fully oriented, in no acute distress. HEAD: Normal with no signs of trauma. EYES: PERRL, extraocular movements intact, sclera anicteric, conjunctiva clear. ENT: Ears normal, nares patent, oropharynx clear without exudates, moist mucous membranes. NECK: Trachea midline, full range of motion, supple. LUNGS: diminished bilaterally. HEART: Regular rate and rhythm ABDOMEN: Soft, nontender, nondistended, normoactive bowel sounds, no guarding EXTREMITIES: 2+ pulses, warm, well-perfused, no edema. NEUROLOGICAL: Normal speech, gait not observed. PSYCH: Normal mood, normal affect. SKIN: Warm, dry, normal turgor, no rashes or lesions noted. LABS Laboratory Results - last 24 hr 05/24/19 05/24/19 07:37 07:37 WBC 7.8 RBC 4.82 Hgb 15.6 Hct 46.3 MCV 96.1 H MCH 32.4 MCHC 33.7 RDW 14.6 Plt Count 206 MPV 8.0 Absolute Neuts (auto) 6.8 Neutrophils % 88.2 H Lymphocytes % 6.2 L D Monocytes % 5.2 Eosinophils % 0.2 D Basophils % 0.2 Nucleated RBC % 0 Sodium 134 L Potassium 5.2 H Chloride 99 Carbon Dioxide 28 Anion Gap 7 L BUN 13.1 Creatinine 0.7 Est GFR (CKD-EPI)AfAm 118.05 Est GFR (CKD-EPI)NonAf 101.85 Random Glucose 125 H Calcium 9.4 Magnesium 2.5 H Total Bilirubin 0.4 AST 10 L ALT 19 Alkaline Phosphatase 80 Total Protein 7.1 Albumin 3.3 L HOSPITAL COURSE: Date of Admission:05/20/19 Date of Discharge: 05/24/19 Patient is a 59 year-old male with a PMH significant for HTN, HLD, CVA with residual gait instability (ambulates with RW), parkinsons disease, ETOH abuse, s /p VATS for empyema x 7 years, hypothyroidism, and lung cancer diagnosed 6 months ago receiving radiation treatment. Patient presented to the ED on 2018 for evaluation of abdominal pain.He denies nausea, vomiting, diarrhea. Denies fever, sweats, chills. Denies any type of bleeding episode. Denies loss in appetite. Denies weight loss. His had four radiation treatments for lung cancer, no chemotherapy. His last radiation treatment was about a month ago. imaging: A brain MRI done 05/22/19 shows vasogenic edema on posterior aspect of the left coronoa that radiates with a ring enhancing lesion measuring 7.3mm in diameter and metastatic brain lesion. HOSPITAL COURSE BY PROBLEM LIST: Abdominal pain abdominal pain resolved. Code(s): R10.9 - UNSPECIFIED ABDOMINAL PAIN CVA (cerebral vascular accident) gait instability, uses RW at home with ambulation PT to be offered while inpatient. Code(s): I63.9 - CEREBRAL INFARCTION, UNSPECIFIED Empyema s/p VATS procedure Code(s): J86.9 - PYOTHORAX WITHOUT FISTULA Lung cancer Oncology consultation appreciated Rad onc consultation for possible RT to spine (T9 lesion) as per oncology c/w Cristina as outpatient by Dr. Tompkins MRI brain shows metastatic lesion and vasogenic edema - patient started on Decadron 4mg QID. Code(s): C34.90 - MALIGNANT NEOPLASM OF UNSP PART OF UNSP BRONCHUS OR LUNG Pleural effusion Assessment/Plan: small right pleural effusion on CXR. treated with ceftriaxone & azithromycin. blood cultures negative. Code(s): J90 - PLEURAL EFFUSION, NOT ELSEWHERE CLASSIFIED Discharge home. Minutes to complete discharge: 60 Discharge Summary Reason For Visit: INTRACTABLE ABDOMINAL PAIN, MALIGNANT NEOPLASM OF Current Active Problems Abdominal pain (Acute) CVA (cerebral vascular accident) (Acute) Empyema (Acute) Gait instability (Acute) Intractable abdominal pain (Acute) Lung cancer (Acute) Lung nodules (Acute) Pleural effusion (Acute) Prophylactic measure (Acute) Condition: Stable - Instructions Diet, Activity, Other Instructions: Mr. Dhaliwal You were admitted for abdominal pain/back pain and were found to have a new lesion of your T9 spine. You also had a brain MRI which shows vasogenic edema and you were started on Decadron 4mg THREE TIMES PER DAY. What is vasogenic edema? Vasogenic edema occurs when there is cerebral edema in the brain. We are treating you with Decadron 4mg FOUR TIMES PER DAY (6AM, 12PM, 6PM, 12AM) to decrease the swelling. Decadron is a steriod and should be taken as directed without skipping doses. Please continue taking the Protonix while you are on the steriods (a prescription for both decadron and protonix has been sent to your pharmacy). What is a lesion of T9 spine? A lesion of the spine can be due to spinal metatastic disease. You will follow up with radiation oncology for further plans and treatment of this lesion. Continue your home medications as you have been doing at home. Follow ups: Please follow up with the radiation oncologist team (Dr. Pippa Fernandez). You have an appointment this WednesdayMay 26. Please follow up with Dr. Tompkins and also with our primary care doctor. Thank you for allowing us to care for you Referrals: Eleni Carvalho MD [Primary Care Provider] - (call for an appointment for post hospital follow up.) Jim Vasquez MD [Staff Physician] - Disposition: HOME - Home Medications Comprehensive Discharge Medication List: Ambulatory Orders Folic Acid 1 mg PO DAILY #14 tablet 09/29/17 Metoprolol Succinate [Toprol XL -] 50 mg PO DAILY #14 tablet 09/29/17 Primidone 50 mg PO DAILY #14 tablet 09/29/17 Ranitidine HCl [Zantac] 150 mg PO DAILY #14 tablet 09/29/17 Thiamine HCl [Vitamin B1 -] 100 mg PO DAILY #14 tablet 09/29/17 Atorvastatin Ca [Lipitor] 10 mg PO HS 12/14/18 Cholecalciferol (Vitamin D3) [Vitamin D -] 1,000 mg PO DAILY 12/14/18 Tramadol HCl 50 mg PO QID 12/14/18 Dexamethasone [Decadron -] 4 mg PO TID #180 tablet 05/24/19 Docusate Sodium [Colace -] 300 mg PO HS capsule 05/24/19 Ezetimibe [Zetia -] 10 mg PO DAILY tablet 05/24/19 Pantoprazole Sodium [Protonix -] 40 mg PO DAILY #120 tablet.ec 05/24/19 Problem List - Problems (1) Abdominal pain Code(s): R10.9 - UNSPECIFIED ABDOMINAL PAIN (2) CVA (cerebral vascular accident) Code(s): I63.9 - CEREBRAL INFARCTION, UNSPECIFIED (3) Empyema Code(s): J86.9 - PYOTHORAX WITHOUT FISTULA (4) Lung cancer Code(s): C34.90 - MALIGNANT NEOPLASM OF UNSP PART OF UNSP BRONCHUS OR LUNG (5) Alcohol withdrawal Code(s): F10.239 - ALCOHOL DEPENDENCE WITH WITHDRAWAL, UNSPECIFIED Qualifiers: Complication of substance-induced condition: uncomplicated Qualified Code(s ): F10.230 - Alcohol dependence with withdrawal, uncomplicated (6) Lactic acidosis Code(s): E87.2 - ACIDOSIS (7) Parkinson disease Code(s): G20 - PARKINSON'S DISEASE (8) Pneumonia Code(s): J18.9 - PNEUMONIA, UNSPECIFIED ORGANISM Qualifiers: Pneumonia type: due to unspecified organism Laterality: left Lung location: lower lobe of lung Qualified Code(s): J18.1 - Lobar pneumonia, unspecified organism (9) COPD (chronic obstructive pulmonary disease) Code(s): J44.9 - CHRONIC OBSTRUCTIVE PULMONARY DISEASE, UNSPECIFIED Qualifiers: COPD type: COPD with acute exacerbation Qualified Code(s): J44.1 - Chronic obstructive pulmonary disease with (acute) exacerbation (10) Hyperlipidemia Code(s): E78.5 - HYPERLIPIDEMIA, UNSPECIFIED Qualifiers: Hyperlipidemia type: Pure hypercholesterolemia (11) Hypertension Code(s): I10 - ESSENTIAL (PRIMARY) HYPERTENSION Qualifiers: Hypertension type: essential hypertension Qualified Code(s): I10 - Essential (primary) hypertension (12) Nicotine dependence Code(s): F17.200 - NICOTINE DEPENDENCE, UNSPECIFIED, UNCOMPLICATED Qualifiers: Nicotine product type: cigarettes Substance use status: uncomplicated Qualified Code(s): F17.210 - Nicotine dependence, cigarettes, uncomplicated (13) Pleural effusion Code(s): J90 - PLEURAL EFFUSION, NOT ELSEWHERE CLASSIFIED (14) Prophylactic measure Code(s): Z29.9 - ENCOUNTER FOR PROPHYLACTIC MEASURES, UNSPECIFIED This patient is new to me today: No Emergency Visit: Yes ED Registration Date: 05/20/19 Care time: The patient presented to the Emergency Department on the above date and was hospitalized for further evaluation of their emergent condition. Critical Care patient: No - Discharge Referral Referred to [facility] No
--- NOTE | 2019-05-24 16:41 | PN ---
Progress Note (short form) - Note Progress Note: Radiation Oncology (full consult to follow) Pt seen and examined, chart/films reviewed. Pt will follow up with me in the office this week to start RT planning. He was given our office number. He agrees.
--- NOTE | 2019-05-24 18:14 | PN ---
Progress Note (short form) - Note Progress Note: Patient seen and examined Seen by RT Follow up to begin RT to REROLLER HAND, spine, scalp Thereafter--> immunotherapy Denies significant pains or SOB Last Vital Signs Temp Pulse Resp BP Pulse Ox 98.5 F 95 H 18 110/83 98 05/24/19 14:00 05/24/19 14:00 05/24/19 14:00 05/24/19 14:00 05/24/19 09:00 HEENT: LEOLA, EOM Intact Oropharynx: No thrush, No mucositis Cor: RSR, No murmurs, No gallops Lungs: Clear to P&A Abd: Soft, Normal bowel sounds, No organomegaly Ext:No significant edema Skin: No rashes, Integument intact CBC, BMP 05/24/19 07:37 05/24/19 07:37 Current Medications Generic Name Dose Route Start Last Admin Trade Name Freq PRN Reason Stop Dose Admin Albuterol/Ipratropium 1 amp 05/21/19 11:34 Duoneb - NEB Q6H PRN WHEEZING Atorvastatin Calcium 10 mg 05/21/19 22:00 05/23/19 21:51 Lipitor - PO 10 mg HS RONALDO Administration Dexamethasone 4 mg 05/23/19 22:00 05/24/19 14:05 Decadron - PO 4 mg TID RONALDO Administration Docusate Sodium 300 mg 05/21/19 22:00 05/23/19 21:51 Colace - PO 300 mg HS RONALDO Administration Ezetimibe 10 mg 05/21/19 10:00 05/24/19 09:12 Zetia - PO 10 mg DAILY RONALDO Administration Folic Acid 1 mg 05/21/19 10:00 05/24/19 09:10 Folic Acid - PO 1 mg DAILY RONALDO Administration Heparin Sodium (Porcine) 5,000 unit 05/21/19 06:00 05/24/19 14:05 Heparin - SQ 5,000 unit TID RONALDO Administration Ceftriaxone Sodium 1 gm/ 50 mls @ 100 mls/hr 05/21/19 10:00 05/24/19 09:11 Dextrose IVPB 100 mls/hr DAILY RONALDO Administration Protocol Metoprolol Succinate 50 mg 05/21/19 10:00 05/24/19 09:12 Toprol Xl - PO 50 mg DAILY RONALDO Administration Nicotine 21 mg 05/22/19 10:05/24/19 09:11 Nicoderm Patch - TD 21 mg DAILY RONALDO Administration Pantoprazole Sodium 40 mg 05/21/19 10:00 05/24/19 09:10 Protonix - PO 40 mg DAILY RONALDO Administration Primidone 50 mg 05/21/19 10:00 05/24/19 09:11 Mysoline - PO 50 mg DAILY RONALDO Administration Ranitidine HCl 150 mg 05/21/19 10:00 05/24/19 09:11 Zantac - PO 150 mg DAILY RONALDO Administration Thiamine HCl 100 mg 05/21/19 10:00 05/24/19 09:11 Vitamin B1 - PO 100 mg DAILY RONALDO Administration Impression: Non small cell lung ca Metastatic disease Outpatient follow up for RT/ immunotherapy.
[2019-05-24 18:36] VITALS: BP 113/74; PULSE 85; TEMP 97.7
--- NOTE | 2019-05-25 16:42 | CONS ---
DATE OF CONSULTATION: 05/24/2019 REFERRING PHYSICIAN: Alireza Tompkins MD REASON FOR CONSULTATION: Lung cancer with metastatic recurrence. 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 He received stereotactic body radiotherapy in January 2019. A followup PET CT scan in April showed stable right lower lobe cavitary mass without abnormal FDG uptake, but unfortunately, there is evidence of metastatic in the bilateral lung, a soft tissue mass adjacent to the right diaphragm, bilateral adrenal masses, and T9 vertebra. An MRI of the thoracic spine which demonstrated a left T9 vertebral metastasis extending to the epidural space with no evidence of cord compression, and there is enhancement of a metastatic focus in the C7 vertebral body. He presents with acute onset of mid back pain radiating to the chest and abdomen. CT scans showed no evidence of aortic dissection. MRI of the brain demonstrated a 7.3-mm enhancing lesion with surrounding vasogenic edema in the posterior aspect of the left cole radiata, centrum semiovale (periventricular location). Since admission, his back pain has improved with analgesics. He denies headache, dizziness, nausea, visual changes. He has his usual Parkinson- related gait imbalance and tremors. He denies abdominal pain, diarrhea, rectal bleeding, or changes in urinary habits. He is bothered by progressive scalp lesion consistent with metastatic disease. PAST MEDICAL HISTORY: COPD, hypercholesterolemia, hypertension, Parkinson's disease, right pneumonia status post chest tube drainage, skin cancer status post eyelid excision, CVA in 2016, prior radiotherapy as mentioned previously. PAST SURGICAL HISTORY: Chest tube as mentioned previously, cholecystectomy. ALLERGIES: No known drug allergies. SOCIAL HISTORY: He is . He smoked 1 pack per day for 40 years. He does not consume alcohol. FAMILY HISTORY: Noncontributory. REVIEW OF SYSTEMS: As noted above. PHYSICAL EXAMINATION: General: male appearing his stated age, in no acute distress. Vital Signs: Stable, afebrile. HEENT: Ulcerating left scalp lesion. Moist mucous membranes. Anicteric sclera. Clear oral cavity. Neck: No adenopathy. Chest: Clear without wheezes, rales, or rhonchi. Nodes: No axillary adenopathy. Skin: No residual skin changes from SBRT. Cardiovascular: Regular. Abdomen: Nontender, nondistended, without mass. No inguinal adenopathy. Extremities: No edema. Musculoskeletal: Point tenderness in the mid-thoracic spine. No paraspinal mass. Neurologic: Alert and oriented x3. Cranial nerves 2-12 are intact. Resting tremor right greater than left. Sensation to light touch is intact. No pronator drift. Equal strength bilaterally, lower extremities 5/5. Coordination: Wide-based gait. Mild shuffling. RADIOLOGIC DATA: See HPI. PATHOLOGIC DATA: See HPI. IMPRESSION: Progressive lung cancer with scalp, spine, lung, and solitary brain metastases. He is a candidate for palliative radiation therapy. We will consider treatment of the scalp and spine where there is epidural disease extension at T9, likely contributing to his recent symptoms. We will also consider stereotactic radiosurgery for the small deep brain metastasis which can be coordinated at the [facility]. The patient agrees to proceed with outpatient treatment and was given an appointment for simulation this Wednesday. Office contact information was provided. Thank you for the courtesy of this consultation. PEDRITO WILLIAMSON M.D. [id number] MTDD
== END 2019-05-24 19:10 | disposition home or self-care (01) | DRG 843 ==
LOC: JER 09:18 → JERBED 15:32 → J5S 21:41
PROVIDERS: ATTEND Nurse Practitioner Family
DX: C79.89 Secondary malignant neoplasm of other specified sites (principal); J18.8 Other pneumonia, unspecified organism; J90 Pleural effusion, not elsewhere classified; E87.2 Acidosis; C34.12 Malignant neoplasm of upper lobe, left bronchus or lung; C79.51 Secondary malignant neoplasm of bone; C79.31 Secondary malignant neoplasm of brain; R29.6 Repeated falls; G20 Parkinson's disease; I10 Essential (primary) hypertension; D72.829 Elevated white blood cell count, unspecified; E78.5 Hyperlipidemia, unspecified; I69.398 Other sequelae of cerebral infarction; R26.9 Unspecified abnormalities of gait and mobility; E03.9 Hypothyroidism, unspecified; F17.210 Nicotine dependence, cigarettes, uncomplicated; R91.8 Other nonspecific abnormal finding of lung field; E27.8 Other specified disorders of adrenal gland; F10.20 Alcohol dependence, uncomplicated; K25.9 Gastric ulcer, unspecified as acute or chronic, without hemorrhage or perforation; I70.0 Atherosclerosis of aorta; K57.30 Diverticulosis of large intestine without perforation or abscess without bleeding
CPT/HCPCS: 36415; 70553-TC; 71045-TC-FY; 71275-TC; 74174-TC; 80053; 81003; 82150; 82550; 83605; 83690; 83735; 84100; 84443; 84484; 85025; 85610; 85730; 87040; 93005; 93010; 97116-GP; 97161-GP; 99283-25; A9579; J1644; J7030

== ENCOUNTER 2019-07-06 11:40 | Emergency (ER) | payer OTHER ==
[2019-07-06 12:02] VITALS: TEMP 98.2; BMI 19.0
[2019-07-06] MEDS ORDERED: DEXAMETHASONE SOD PHOSPHATE 10 MG/1 ML VIAL IVPUSH ONE (13:25)
[2019-07-06] MEDS ORDERED: ACETAMINOPHEN 1000 MG/100 ML VIAL (NON FORMULARY) IVPB ONE (13:26)
--- NOTE | 2019-07-06 13:28 | PDOC ---
History of Present Illness <Ruthie Ford - Last Filed: 07/06/19 14:44> - General History Source: Patient Exam Limitations: No Limitations <BernieEli torres - Last Filed: 07/07/19 07:25> - General Chief Complaint: Back Pain Stated Complaint: BACK PAIN Time Seen by Provider: 07/06/19 12:18 Past History <Ruthie Ford - Last Filed: 07/06/19 14:44> - Travel Traveled outside of the country in the last 30 days: No Close contact w/someone who was outside of country & ill: No - Past Medical History Anemia: Yes Asthma: Yes Cancer: Yes (LUNG) Cardiac Disorders: No CVA: Yes (11/2013-balance issues-uses a walker) COPD: No CHF: No Dementia: No Diabetes: No GI Disorders: No Disorders: No HTN: Yes Hypercholesterolemia: Yes Liver Disease: No Seizures: No Thyroid Disease: Yes - Surgical History Abdominal Surgery: Yes Appendectomy: Yes Cardiac Surgery: No Cholecystectomy: Yes Lung Surgery: Yes (S/P THRORACOTOMY) Neurologic Surgery: No Orthopedic Surgery: Yes (Hip fx-bilateral) - Immunization History Td Vaccination: Yes TDAP Vaccination: Yes Immunization Up to Date: Yes - Suicide/Smoking/Psychosocial Hx Smoking Status: Yes Smoking History: Current every day smoker Years of Tobacco Use: 0 Have you smoked in the past 12 months: No Number of Cigarettes Smoked Daily: 10 Cigars Per Day: 1 Information on smoking cessation initiated: No 'Breaking Loose' booklet given: 12/14/18 Hx Alcohol Use: No Drug/Substance Use Hx: No Substance Use Type: Alcohol Hx Substance Use Treatment: No <Eli Culp - Last Filed: 07/07/19 07:25> - Past Medical History Allergies/Adverse Reactions: Allergies Allergy/AdvReac Type Severity Reaction Status Date / Time No Known Allergies Allergy Verified 07/06/19 11:57 Home Medications: Ambulatory Orders Folic Acid 1 mg PO DAILY #14 tablet 09/29/17 Primidone 50 mg PO DAILY #14 tablet 09/29/17 Ranitidine HCl [Zantac] 150 mg PO DAILY #14 tablet 09/29/17 Thiamine HCl [Vitamin B1 -] 100 mg PO DAILY #14 tablet 09/29/17 Atorvastatin Ca [Lipitor] 10 mg PO HS 12/14/18 Cholecalciferol (Vitamin D3) [Vitamin D -] 1,000 mg PO DAILY 12/14/18 Dexamethasone [Decadron -] 4 mg PO TID #180 tablet 05/24/19 Pantoprazole Sodium [Protonix -] 40 mg PO DAILY #120 tablet.ec 05/24/19 Acetaminophen [Tylenol] 650 mg PO Q4H #30 capsule 07/06/19 Cyclobenzaprine HCl 5 mg PO HS #10 tablet 07/06/19 Donepezil HCl 5 mg PO DAILY 07/06/19 Methylprednisolone [Medrol Dose Kenny] 4 mg PO ASDIR #21 tablet 07/06/19 Metoprolol Succinate [Toprol XL -] 100 mg PO DAILY 07/06/19 Prednisolone Acetate/Pf [Prednisolone Acet 1% Eye Drop] 0 ml OP ASDIR 07/06/19 Review of Systems - Review of Systems Able to Perform ROS?: Yes Comments:: 07/06/19 13:22 CONSTITUTIONAL: Absent: fever, chills, diaphoresis, generalized weakness, malaise, loss of appetite GASTROINTESTINAL: Absent: abdominal pain, abdominal distension, nausea, vomiting, diarrhea, constipation, melena, hematochezia GENITOURINARY: Absent: dysuria, frequency, urgency, hesitancy, hematuria, flank pain, genital pain MUSCULOSKELETAL: Present: R low back pain Absent: arthralgia, joint swelling SKIN: Absent: rash, itching, pallor NEUROLOGIC: Absent: headache, focal weakness or paresthesias, dizziness, unsteady gait, seizure, mental status changes, bladder or bowel incontinence PSYCHIATRIC: Absent: anxiety, depression, suicidal or homicidal ideation, hallucinations. Is the patient limited Sami proficient: No <Eli Culp - Last Filed: 07/07/19 07:25> *Physical Exam - Vital Signs Last Vital Signs Temp Pulse Resp BP Pulse Ox 98.2 F 114 H 18 97/67 95 07/06/19 11:57 07/06/19 11:57 07/06/19 11:57 07/06/19 11:57 07/06/19 11:57 <Ruthie Ford - Last Filed: 07/06/19 14:44> - Vital Signs Last Vital Signs Temp Pulse Resp BP Pulse Ox 98.2 F 114 H 18 97/67 95 07/06/19 11:57 07/06/19 11:57 07/06/19 11:57 07/06/19 11:57 07/06/19 11:57 - Physical Exam Comments: 07/06/19 13:22 GENERAL: Well developed, well nourished. Awake and alert. No acute distress. HEENT: Normocephalic, atraumatic. PERRLA, EOMI. No conjunctival pallor. Sclera are non- icteric. Moist mucous membranes. Oropharynx is clear. NECK: Supple. Full ROM. No JVD. Carotid pulses 2+ and symmetric, without bruits. No thyromegaly. No lymphadenopathy. CARDIOVASCULAR: Regular rate and rhythm. No murmurs, rubs, or gallops. Distal pulses are 2+ and symmetric. PULMONARY: No evidence of respiratory distress. Lungs clear to auscultation bilaterally. No wheezing, rales or rhonchi. ABDOMINAL: Soft. Non-tender. Non-distended. No rebound or guarding. No organomegaly. Normoactive bowel sounds. MUSCULOSKELETAL TTP of the R paraspinous muscles, L1-L2, with palpable knot consistent with muscle spasm. However, there is some tenderness over the 12th Rib. No midline tenderness. (-) straight leg raise testing b/l. Strength is 5/5 of the b/l lower extremities. Normal range of motion at all joints. No bony deformities or tenderness. No CVA tenderness. EXTREMITIES: No cyanosis. No clubbing. No edema. No calf tenderness. SKIN: Warm and dry. Normal capillary refill. No rashes. No jaundice. NEUROLOGICAL: Alert, awake, appropriate. Cranial nerves 2-12 intact. No deficits to light touch and temperature in face, upper extremities and lower extremities. No motor deficits in the in face, upper extremities and lower extremities. Normoreflexic in the upper and lower extremities. Normal speech. Toes are down- going bilaterally. Gait is normal without ataxia. PSYCHIATRIC: Cooperative. Good eye contact. Appropriate mood and affect. <Eli Culp - Last Filed: 07/07/19 07:25> ED Treatment Course - LABORATORY CBC & Chemistry Diagram: 07/06/19 13:00 07/06/19 13:00 - ADDITIONAL ORDERS Additional order review: Laboratory Results 07/06/19 13:00 Sodium 139 Potassium 4.5 Chloride 100 Carbon Dioxide 33 H Anion Gap 6 L BUN 12.0 Creatinine 0.7 Est GFR (CKD-EPI)AfAm 118.05 Est GFR (CKD-EPI)NonAf 101.85 Random Glucose 107 H Calcium 8.3 L Total Bilirubin 0.4 AST 12 L ALT 31 Alkaline Phosphatase 81 Total Protein 5.5 L Albumin 2.2 L 07/06/19 13:00 RBC 4.52 MCV 95.8 MCHC 33.8 RDW 14.7 MPV 7.1 L D Neutrophils % 89.1 H Lymphocytes % 5.8 L Monocytes % 3.0 L Eosinophils % 2.0 D Basophils % 0.1 - Medications Given in the ED: ED Medications Discontinued Medications Generic Name Dose Route Start Last Admin Trade Name Jo PRN Reason Stop Dose Admin Acetaminophen 1,000 mg 07/06/19 13:26 07/06/19 13:50 Ofirmev Injection - IVPB 07/06/19 13:27 1,000 mg ONCE ONE Administration Dexamethasone Sodium Phosphate 10 mg 07/06/19 13:25 07/06/19 13:45 Decadron Injection - IVPUSH 07/06/19 13:26 10 mg ONCE ONE Administration <Ruthie Ford - Last Filed: 07/06/19 14:44> - LABORATORY CBC & Chemistry Diagram: 07/06/19 13:00 07/06/19 13:00 <Eli Culp - Last Filed: 07/07/19 07:25> Medical Decision Making - Medical Decision Making 07/06/19 14:44 The patient was seen and evaluated in conjunction with midlevel provider under my direct supervision, ancillary studies were reviewed. I agree with the plan as outlined ANDRÉS Culp. HPI, workup/dispo as outlined. VS reviewed, +tachy, likely from pain <Ruthie Ford - Last Filed: 07/06/19 14:44> - Medical Decision Making 07/06/19 15:14 The patient is a 59 y/o M w/ PMH of lung CA with mets to the brain undergoing radiation (not on chemo), who presents to the ED with low back pain for 3 days. He states the pain is on the right side and has gradually gotten worse over the past 3 days. He states that he was unable to sleep comfortably last night d/t pain, so he presents to the ER for evaluation. He states that the pain is on the R side and worse with movement. Denies fevers, chills, urinary discomfort, difficulty breathing, dysuria, hematuria, numbness/tingling to the lower extremities, saddle anesthesia, bladder/bowel incontinence. A/P: low back pain -Pt with TTP of the R paraspinous muscles, L1-L2, with palpable knot consistent with muscle spasm. However, there is some tenderness over the 12th Rib. No midline tenderness. (-) straight leg raise testing b/l. Strength is 5/5 of the b /l lower extremities. -No trauma, or fever. No saddle anesthesia or bladder/bowel incontinence. No CVA tenderness. -Pt is neurologically intact on exam with no focal findings. -Given pt has active cancer and new low back pain, CT lumbar spine and R rib series obtained -No new fractures seen on CT. No lesions or mets noted -Rib series negative for mets as well -Ofirmev, decadron and lidocaine patch given with relief of symptoms -DC home. Pt to f/u with both his PCP and oncologist -I discussed the physical exam findings, ancillary test results and final diagnoses with the patient. I answered all of the patient's questions. The patient was satisfied with the care received and felt comfortable with the discharge plan and treatment plan. The Patient agrees to follow up with the primary care physician/specialist within 24-72 hours. Return precautions were given. <Eli Culp - Last Filed: 07/07/19 07:25> *DC/Admit/Observation/Transfer <Ruthie Ford - Last Filed: 07/06/19 14:44> - Discharge Dispostion Decision to Admit order: No <Eli Culp - Last Filed: 07/07/19 07:25> Diagnosis at time of Disposition: Back pain Qualifiers: Back pain location: low back pain Chronicity: acute Back pain laterality: right Sciatica presence: without sciatica Qualified Code(s): M54.5 - Low back pain - Discharge Dispostion Disposition: HOME Condition at time of disposition: Stable - Prescriptions Prescriptions: Acetaminophen [Tylenol] 650 mg PO Q4H #30 capsule Cyclobenzaprine HCl 5 mg PO HS #10 tablet Methylprednisolone [Medrol Dose Kenny] 4 mg PO ASDIR #21 tablet - Referrals Referrals: Eleni Carvalho MD [Primary Care Provider] - - Patient Instructions Printed Discharge Instructions: DI for Low Back Pain Additional Instructions: You have low back pain due to a muscle spasm. Please take Tyelnol 650mg every 4 hours. Take the steroids as directed starting tomorrow. You were also prescribed Flexeril. Please take this medication every 8 hours for the first day. Then take the medication before you go to bed. Do not drive after taking this medication as it may make you sleepy. You may use warm compresses on your back to help with her symptoms. Please follow-up with your oncologist tomorrow. Your CT of your back and Ribs x-ray are normal and do not show any broken bones or new lesions. Return to the emergency department if you have worsening back pain, bladder or bowel incontinence, numbness and tingling in her legs, changes in the way you walk, or any new or worsening symptoms.
[2019-07-06 13:51] LABS: BASO % 0.1 % (0-2.0); HEMATOCRIT 43.2 % (35.4-49); HEMOGLOBIN 14.6 GM/dL (11.7-16.9); LYMPH % 5.8 % (8-40); MCH 32.4 pg (25.7-33.7); MCHC 33.8 g/dl (32.0-35.9); MEAN CELL VOLUME 95.8 fl (80-96); MEAN PLT VOLUME 7.1 fl (7.5-11.1); NEUT % 89.1 % (42.8-82.8); PLATELET COUNT 166 K/MM3 (134-434); RBC 4.52 M/mm3 (4.00-5.60); RDW 14.7 % (11.9-15.9); WHITE BLOOD COUNT 12.4 K/mm3 (4.0-10.0)
[2019-07-06] MEDS ORDERED: DEXAMETHASONE SOD PHOSPHATE 10 MG/1 ML VIAL ONE (13:52)
[2019-07-06] MEDS ORDERED: ACETAMINOPHEN INJECTION 100 ML IVPB ONE (13:52)
[2019-07-06 14:14] LABS: ALBUMIN 2.2 g/dl (3.4-5.0); BILIRUBIN,TOTAL 0.4 mg/dL (0.2-1); CALCIUM 8.3 mg/dL (8.5-10.1); CREATININE 0.7 mg/dL (0.55-1.3); POTASSIUM 4.5 mmol/L (3.5-5.1); TOT PROT 5.5 g/dl (6.4-8.2)
[2019-07-06 14:51] LABS: URINE APPEARANCE CLEAR; URINE BILIRUBIN 1+ (NEGATIVE); URINE COLOR DK YELLOW; URINE GLUCOSE (UA) NEGATIVE (NEGATIVE); URINE KETONE TRACE (NEGATIVE); URINE LEUK ESTERASE NEGATIVE (NEGATIVE); URINE NITRITE NEGATIVE (NEGATIVE); URINE PROTEIN NEGATIVE (NEGATIVE)
[2019-07-06 16:12] LABS: ANISOCYTOSIS 0; MACROCYTOSIS 0; PLATELET ESTIMATE DECREASED
[2019-07-06 19:42] VITALS: BP 104/75; PULSE 90
== END 2019-07-06 19:52 | disposition home or self-care (01) ==
LOC: JER 11:40
PROC: 3E033GC Introduction of Other Therapeutic Substance into Peripheral Vein, Percutaneous Approach (ICD-10-PCS; principal; 2019-07-06)
DX: M54.5 Low back pain (principal); I10 Essential (primary) hypertension; E78.00 Pure hypercholesterolemia, unspecified; F17.210 Nicotine dependence, cigarettes, uncomplicated; I69.398 Other sequelae of cerebral infarction; C34.90 Malignant neoplasm of unspecified part of unspecified bronchus or lung; C79.31 Secondary malignant neoplasm of brain; Z92.3 Personal history of irradiation; R26.2 Difficulty in walking, not elsewhere classified; Z99.89 Dependence on other enabling machines and devices
CPT/HCPCS: 36415; 71101-TC-RT-FY; 72131-TC; 80053; 81003; 85025; 87086; 99283-25; J0131; J1100

== ENCOUNTER 2019-07-17 02:59 | Emergency (ER) | payer OTHER | END 2019-07-17 06:08 | disposition home or self-care (01) | LOC: JER 02:59 ==

== ENCOUNTER 2019-07-18 00:43 | Inpatient (IN) | payer OTHER ==
--- NOTE | 2019-07-18 00:54 | PDOC ---
History of Present Illness - General Stated Complaint: BACK AND ABDOMINAL PAIN Time Seen by Provider: 07/18/19 00:53 Past History - Past Medical History Allergies/Adverse Reactions: Allergies Allergy/AdvReac Type Severity Reaction Status Date / Time No Known Allergies Allergy Verified 07/21/19 12:14 Home Medications: Ambulatory Orders Folic Acid 1 mg PO DAILY #14 tablet 09/29/17 Ranitidine HCl [Zantac] 150 mg PO DAILY #14 tablet 09/29/17 Thiamine HCl [Vitamin B1 -] 100 mg PO DAILY #14 tablet 09/29/17 Atorvastatin Ca [Lipitor] 10 mg PO HS 12/14/18 Cholecalciferol (Vitamin D3) [Vitamin D -] 1,000 mg PO DAILY 12/14/18 Pantoprazole Sodium [Protonix -] 40 mg PO DAILY #120 tablet.ec 05/24/19 Acetaminophen [Tylenol] 650 mg PO Q4H #30 capsule 07/06/19 Cyclobenzaprine HCl 5 mg PO HS #10 tablet 07/06/19 Donepezil HCl 5 mg PO DAILY 07/06/19 Metoprolol Succinate [Toprol XL -] 100 mg PO DAILY 07/06/19 Aspirin [ASA -] 81 mg PO DAILY tab.chew 07/20/19 Azithromycin 500 mg PO DAILY 3 Days #3 tablet 07/20/19 Cefuroxime Axetil [Ceftin -] 500 mg PO Q12H 3 Days #6 tablet 07/20/19 Dexamethasone [Decadron -] See Taper PO Q6H 8 Days #64 tablet 07/20/19 Levothyroxine [Synthroid -] 25 mcg PO DAILY 30 Days #30 tablet 07/20/19 Anemia: Yes Asthma: Yes Cancer: Yes (LUNG) Cardiac Disorders: No CVA: Yes (11/2013-balance issues-uses a walker) COPD: No CHF: No Dementia: No Diabetes: No GI Disorders: No Disorders: No HTN: Yes Hypercholesterolemia: Yes Liver Disease: No Seizures: No Thyroid Disease: Yes - Surgical History Abdominal Surgery: Yes Appendectomy: Yes Cardiac Surgery: No Cholecystectomy: Yes Lung Surgery: Yes (S/P THRORACOTOMY) Neurologic Surgery: No Orthopedic Surgery: Yes (Hip fx-bilateral) - Immunization History Td Vaccination: Yes TDAP Vaccination: Yes Immunization Up to Date: Yes - Suicide/Smoking/Psychosocial Hx Smoking Status: Yes Smoking History: Current every day smoker Years of Tobacco Use: 0 Have you smoked in the past 12 months: No Number of Cigarettes Smoked Daily: 10 Cigars Per Day: 1 'Breaking Loose' booklet given: 12/14/18 Hx Alcohol Use: No Drug/Substance Use Hx: No Substance Use Type: Alcohol Hx Substance Use Treatment: No ED Treatment Course - LABORATORY CBC & Chemistry Diagram: 07/20/19 05:30 07/20/19 05:30 Medical Decision Making - Medical Decision Making HPI: 59yo M with PMH of recently diagnosed Lung cancer 8 months ago receiving radiation treatment with LLL resection with known metastatic disease, Parkinson' s disease, CVA, chronic alcohol abuse, HTN, HLD, COPD, aspiration/pneumonia, renal insufficiency, right adrenal mass, empyema s/p VATs procedure (at [facility], ~7years ago?) who presents to via EMS for abdominal pain and back pain. Patient's back pain is at its baseline. He reports the 06/24 abdominal pain started about two or three hours ago. Never had pain like this before. Last bowel movement was yesterday and was a normal formed brown stool without blood. Has passed flatulence today and during history-taking. No nausea or vomiting. Has had normal po intake today. History of abdominal surgeries include cholecystectomy. Had a colonoscopy >5 years ago which was "normal." Does not take anything for pain. Denies fevers, chills, chest pain, or shortness of breath. PCP: Eleni Carvalho ROS: Constitutional: no fever, no chills HEENT: no throat pain, no dysphagia Cardiovascular: no chest pain, no palpitations Respiratory: no cough, no shortness of breath Gastrointestinal: +abdominal pain, no nausea Genitourinary: no dysuria, no hematuria Musculoskeletal: +back pain, no leg pain Skin: no rash, no itching Neurologic: no headache, no weakness PE: General: Awake, alert, and fully oriented, anxious Head: No signs of trauma Eyes: EOMI, sclera anicteric ENT: Moist mucus membranes Neck: Normal ROM, supple Lungs: Lungs clear, Normal breath sounds Cardio: Regular rhythm, S1 and S2 present Abdomen: Soft. Tender to palpation most focal to lower abdomen. No rebound, no masses. +guarding. No CVA tenderness Extremities: Normal range of motion, Distal pulses present SKIN: Warm, Dry, normal turgor Neurologic: Cranial nerves II through XII grossly intact. Normal speech ED Course/MDM: DDX including but not limited to pain related to malignancy, UTI, urinary retention, metastasis, mesenteric ischemia, constipation, gastritis, gastroenteritis, diverticulitis, pancreatitis, ACS VS significant for tachycardia and hypoxia (92 on room air; 95 on 3 L NC) Concern for PE as patient has active malignancy with tachycardia, tachypnea, and hypoxia Labs, EKG, CXR Morphine Fluids Patient with active cancer with known metastasis. It is more likely he has cancer-related pain. 07/18/19 01:22 Patient signed out to Dr. Gonzalez and night team 07/18/19 02:45 *DC/Admit/Observation/Transfer Diagnosis at time of Disposition: Intractable abdominal pain Abdominal pain Qualifiers: Abdominal location: unspecified location Qualified Code(s): R10.9 - Unspecified abdominal pain - Discharge Dispostion Disposition: HOME HEALTH CARE Condition at time of disposition: Improved - Referrals - Patient Instructions - Post Discharge Activity
--- NOTE | 2019-07-18 01:05 | PDOC ---
Attending Attestation - Resident Resident Name: MaricruzJasminaRita - ED Attending Attestation I have performed the following: I have examined & evaluated the patient, The case was reviewed & discussed with the resident, I agree w/resident's findings & plan, Exceptions are as noted - HPI HPI: 07/18/19 01:04 59-year-old male with a history of lung cancer presents with abdominal pelvic pain. History of present illness he was seen here yesterday by Dr. Parham for chest pain and had a chest x-ray that revealed bilateral lung masses with a normal heart, normal aorta and prominent santos. There was new pleural fluid at the posterior base and in the major major fissure 07/18/19 01:31 - Physicial Exam PE: 07/18/19 02:02 59 yo male who presents with mid abdominal pain head ncat Neck supple Lungs no crackles CVS tachycardia Abdomen diffuse mid abdominal pain. Neuro alert and oriented 3. Skin warm and dry 07/18/19 02:08 - Medical Decision Making 07/18/19 02:10 59-year-old male with progressive non small cell lung CA with mets He is receiving palliative radiation therapy. -he is not a surgical candidate due to comorbidities including Parkinson's disease. He receives stereotactic body radiation January 2019. Follow-up PET scan in April showed stable right lower lobe cavitary mass, but there was evidence of metastases in the bilateral lung, soft tissue mass adjacent to the right diaphragm, bilateral adrenal masses and also T9 vertebral involvement Reviewing his imaging reports from May 2019 : MRI of the thoracic spine This demonstrated a left T9 vertebral metastases, extending to the epidural space with no evidence of cord compression, and there was enhancement of a metastatic focus in this C7 vertebral body plan: labs,ct scan ,pain meds pt is tachypnic and tachycardic,afebrile, will r/o PE case signed out to Dr Pope
[2019-07-18] MEDS ORDERED: morphine CARPU-JECT 4 MG/1 ML DISP.SYRIN IVPUSH ONE (01:18)
[2019-07-18] MEDS ORDERED: morphine SULFATE 4 MG/ML VIAL ONE ×2 (01:23→06:52)
[2019-07-18] MEDS ORDERED: SODIUM CHLORIDE 1,000 ML IV STA (01:55)
[2019-07-18 01:57] LABS: BASO % 0.3 % (0-2.0); EOS % 3.3 % (0-4.5); HEMATOCRIT 40.7 % (35.4-49); HEMOGLOBIN 13.8 GM/dL (11.7-16.9); LYMPH % 3.7 % (8-40); MCHC 33.8 g/dl (32.0-35.9); MEAN CELL VOLUME 94.7 fl (80-96); MEAN PLT VOLUME 7.9 fl (7.5-11.1); MONO % 2.2 % (3.8-10.2); NEUT % 90.5 % (42.8-82.8); PLATELET COUNT 156 K/MM3 (134-434); RDW 15.4 % (11.9-15.9)
[2019-07-18 02:05] LABS: INR 1.23 (0.83-1.09); PROTHROMBIN TIME (PATIENT) 14.6 SEC (9.7-13.0)
[2019-07-18 02:22] LABS: ALBUMIN 1.9 g/dl (3.4-5.0); ALK PHOS 96 U/L (45-117); ANION GAP 7 MMOL/L (8-16); BILIRUBIN,TOTAL 0.7 mg/dL (0.2-1); BLOOD UREA NITROGEN 12.4 mg/dL (7-18); CHLORIDE 103 mmol/L (98-107); CO2 29 mmol/L (21-32); CREATININE 0.4 mg/dL (0.55-1.3); GLUCOSE,RANDOM 97 mg/dL (74-106); LIPASE 73 U/L (73-393); SGOT/AST 22 U/L (15-37); SGPT/ALT 57 U/L (13-61); SODIUM 139 mmol/L (136-145); TOT PROT 5.6 g/dl (6.4-8.2)
[2019-07-18 02:33] LABS: URINE APPEARANCE CLEAR; URINE BILIRUBIN NEGATIVE (NEGATIVE); URINE COLOR YELLOW; URINE GLUCOSE (UA) NEGATIVE (NEGATIVE); URINE KETONE NEGATIVE (NEGATIVE); URINE LEUK ESTERASE NEGATIVE (NEGATIVE); URINE NITRITE NEGATIVE (NEGATIVE); URINE PROTEIN NEGATIVE (NEGATIVE)
--- NOTE | 2019-07-18 04:50 | PDOC ---
*Physical Exam - Vital Signs Last Vital Signs Temp Pulse Resp BP Pulse Ox 98.3 F 141 H 26 H 147/86 93 L 07/18/19 00:56 07/18/19 00:56 07/18/19 00:56 07/18/19 00:56 07/18/19 00:56 - Physical Exam Comments: Patient was signed out to me by Dr. Alcantara. 59 yo m with a hx of metastatic lung cancer diagnosed 8 months ago s/p radiation treatment (incomplete) and LLL resection, CVA, parkinson's disease, chronic alcohol abuse, HTN, HLD, COPD, and right adrenal mass presents to the emergency department with abdominal pain and back pain. At the time of sign out , the patient had a pending CTA of the chest and CT abdomen and pelvis with IV contrast. ED Treatment Course - LABORATORY CBC & Chemistry Diagram: 07/20/19 05:30 07/20/19 05:30 - ADDITIONAL ORDERS Additional order review: Laboratory Results 07/18/19 07/18/19 07/18/19 01:29 01:29 01:20 PT with INR 14.60 H INR 1.23 H Sodium Potassium Chloride Carbon Dioxide Anion Gap BUN Creatinine Est GFR (CKD-EPI)AfAm Est GFR (CKD-EPI)NonAf Random Glucose Lactic Acid 1.6 Calcium Total Bilirubin AST ALT Alkaline Phosphatase Troponin I Total Protein Albumin Lipase Urine Color Yellow Urine Appearance Clear Urine pH 5.0 Ur Specific [place] 1.022 Urine Protein Negative Urine Glucose (UA) Negative Urine Ketones Negative Urine Blood Negative Urine Nitrite Negative Urine Bilirubin Negative Urine Urobilinogen 1.0 Ur Leukocyte Esterase Negative 07/18/19 01:20 PT with INR INR Sodium 139 Potassium 4.0 Chloride 103 Carbon Dioxide 29 Anion Gap 7 L BUN 12.4 Creatinine 0.4 L Est GFR (CKD-EPI)AfAm 148.58 Est GFR (CKD-EPI)NonAf 128.19 Random Glucose 97 Lactic Acid Calcium 8.0 L Total Bilirubin 0.7 AST 22 ALT 57 Alkaline Phosphatase 96 Troponin I < 0.02 Total Protein 5.6 L Albumin 1.9 L Lipase 73 Urine Color Urine Appearance Urine pH Ur Specific [place] Urine Protein Urine Glucose (UA) Urine Ketones Urine Blood Urine Nitrite Urine Bilirubin Urine Urobilinogen Ur Leukocyte Esterase 07/18/19 01:20 RBC 4.30 MCV 94.7 MCHC 33.8 RDW 15.4 MPV 7.9 D Neutrophils % 90.5 H Lymphocytes % 3.7 L D Monocytes % 2.2 L Eosinophils % 3.3 Basophils % 0.3 - Medications Given in the ED: ED Medications Discontinued Medications Generic Name Dose Route Start Last Admin Trade Name Ljq PRN Reason Stop Dose Admin Sodium Chloride 1,000 mls @ 1,000 mls/hr 07/18/19 01:55 07/18/19 02:58 Normal Saline - IV 07/18/19 02:54 1,000 mls/hr ASDIR STA Administration Morphine Sulfate 4 mg 07/18/19 01:18 07/18/19 01:48 Morphine Injection - IVPUSH 07/18/19 01:19 4 mg ONCE ONE Administration Medical Decision Making - Medical Decision Making CT of the chest shows significant increase in size and number of previously visualized bilateral metastatic couple minor nodules with the larges pleural based nodule present in the left lung apex anteriorly measuring 3 cm. Interval left lung base consolidation with moderate left pleural effusion. The liver has a 3.4 cm low attenuation mass lesion in the right hepatic lobe. Large right suprarenal/adrenal mass with a lobulated contour measuring 7.6 cm craniocaudal dimension and 6.3 cm in width. Patient to be admitted for increase masses in the chest causing significant pain that is intractable. Dispo: Admit *DC/Admit/Observation/Transfer Diagnosis at time of Disposition: Intractable abdominal pain Abdominal pain Qualifiers: Abdominal location: unspecified location Qualified Code(s): R10.9 - Unspecified abdominal pain - Discharge Dispostion Disposition: HOME HEALTH CARE - Referrals - Patient Instructions - Post Discharge Activity
--- NOTE | 2019-07-18 06:01 | HP ---
Admitting History and Physical - Primary Care Physician PCP: Eleni Carvalho - Admission Chief Complaint: Chest Pain, Abdominal Pain History of Present Illness: This is a 59 y/o man with a PMhx of Lung Ca with Mets s/p Lower Lobe resection, RT (was scheduled has not started, recently diagnosed 8 months ago), HTN, CVA, Renal Insufficiency. Who presents to the ED with chest and abdominal pain x am. Patient was in the ED last night for SOB treated with Duonebs- resolved and d/c to home. Patient reports having sharp like diffuse pressure throughout his abdomen, radiating to his chest and back. 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: CVA, Other (ataxia) Cardiovascular: Yes: HTN, Hyperlipdemia Pulmonary: Yes: Cancer (with mets), COPD Renal/: Yes: Renal Inusuff Heme/Onc: Yes: Anemia (RESOLVED) - Past Surgical History Past Surgical History: Yes: Cholecystectomy, Thoracotomy Additional Past Surgical History: Lower Lobe Resection - Advance Directives Advance Directives: Yes: DNR - Smoking History Smoking history: Current every day smoker Have you smoked in the past 12 months: No Aproximately how many cigarettes per day: 10 - Alcohol/Substance Use Hx Alcohol Use: No Number of Drinks Daily: 6 History of Substance Use: reports: None - Social History ADL: Support Services History of Recent Travel: No Home Medications - Allergies Allergies/Adverse Reactions: Allergies Allergy/AdvReac Type Severity Reaction Status Date / Time No Known Allergies Allergy Verified 07/18/19 00:56 - Home Medications Home Medications: Ambulatory Orders Folic Acid 1 mg PO DAILY #14 tablet 09/29/17 Ranitidine HCl [Zantac] 150 mg PO DAILY #14 tablet 09/29/17 Thiamine HCl [Vitamin B1 -] 100 mg PO DAILY #14 tablet 09/29/17 Atorvastatin Ca [Lipitor] 10 mg PO HS 12/14/18 Cholecalciferol (Vitamin D3) [Vitamin D -] 1,000 mg PO DAILY 12/14/18 Pantoprazole Sodium [Protonix -] 40 mg PO DAILY #120 tablet.ec 05/24/19 Acetaminophen [Tylenol] 650 mg PO Q4H #30 capsule 07/06/19 Cyclobenzaprine HCl 5 mg PO HS #10 tablet 07/06/19 Donepezil HCl 5 mg PO DAILY 07/06/19 Methylprednisolone [Medrol Dose Kenny] 4 mg PO ASDIR #21 tablet 07/06/19 Metoprolol Succinate [Toprol XL -] 100 mg PO DAILY 07/06/19 Prednisolone Acetate/Pf [Prednisolone Acet 1% Eye Drop] 0 ml OP ASDIR 07/06/19 Spirometers and Accessories [Mistassist] 1 each MC DAILY #1 each 07/17/19 Family Disease History - Family Disease History Family Disease History: Heart Disease: Father (colon cancer), Mother (colon cancer) Review of Systems - Review of Systems Constitutional: reports: No Symptoms Eyes: reports: No Symptoms HENT: reports: No Symptoms Neck: reports: No Symptoms Cardiovascular: reports: Chest Pain Respiratory: reports: No Symptoms Gastrointestinal: reports: Abdominal Pain, Bloating Genitourinary: reports: No Symptoms Breasts: reports: No Symptoms Reported Musculoskeletal: reports: Back Pain Integumentary: reports: No Symptoms Neurological: reports: No Symptoms Endocrine: reports: No Symptoms Hematology/Lymphatic: reports: No Symptoms Psychiatric: reports: No Symptoms Pain Intensity: 7 Physical Examination Vital Signs: Vital Signs Temperature 98.3 F 07/18/19 00:56 Pulse Rate 141 H 07/18/19 00:56 Respiratory Rate 26 H 07/18/19 00:56 Blood Pressure 147/86 07/18/19 00:56 O2 Sat by Pulse Oximetry (%) 93 L 07/18/19 00:56 Constitutional: Yes: Diaphoresis, Mild Distress, Thin Eyes: Yes: WNL, Conjunctiva Clear, EOM Intact, PERRL HENT: Yes: WNL, Atraumatic, Normocephalic Neck: Yes: WNL, Supple, Trachea Midline Cardiovascular: Yes: Regular Rate and Rhythm, S1, S2 Respiratory: Yes: Diminished (Left lobe), On Nasal O2, Rhonchi, Wheezes. No: Accessory Muscle Use Gastrointestinal: Yes: Hypoactive Bowel Sounds, Tenderness (generalized), Other (firm) ...Rectal Exam: Yes: Deferred Renal/: Yes: WNL Breast(s): Yes: WNL Musculoskeletal: Yes: Back Pain Extremities: Yes: WNL Edema: No Peripheral Pulses WNL: Yes Integumentary: Yes: WNL Neurological: Yes: WNL, Alert, Oriented, Cran Nerves II-XII Intact ...Motor Strength: WNL Psychiatric: Yes: WNL, Alert, Oriented Labs: CBC, BMP 07/18/19 01:20 07/18/19 01:20 Laboratory Results - last 24 hr 07/18/19 07/18/19 07/18/19 01:20 01:20 01:20 WBC 15.0 H RBC 4.30 Hgb 13.8 Hct 40.7 MCV 94.7 MCH 32.0 MCHC 33.8 RDW 15.4 Plt Count 156 MPV 7.9 D Absolute Neuts (auto) 13.6 H Neutrophils % 90.5 H Lymphocytes % 3.7 L D Monocytes % 2.2 L Eosinophils % 3.3 Basophils % 0.3 Nucleated RBC % 0 PT with INR 14.60 H INR 1.23 H Sodium 139 Potassium 4.0 Chloride 103 Carbon Dioxide 29 Anion Gap 7 L BUN 12.4 Creatinine 0.4 L Est GFR (CKD-EPI)AfAm 148.58 Est GFR (CKD-EPI)NonAf 128.19 Random Glucose 97 Lactic Acid Calcium 8.0 L Total Bilirubin 0.7 AST 22 ALT 57 Alkaline Phosphatase 96 Troponin I < 0.02 Total Protein 5.6 L Albumin 1.9 L Lipase 73 Urine Color Urine Appearance Urine pH Ur Specific [place] Urine Protein Urine Glucose (UA) Urine Ketones Urine Blood Urine Nitrite Urine Bilirubin Urine Urobilinogen Ur Leukocyte Esterase 07/18/19 07/18/19 01:29 01:29 WBC RBC Hgb Hct MCV MCH MCHC RDW Plt Count MPV Absolute Neuts (auto) Neutrophils % Lymphocytes % Monocytes % Eosinophils % Basophils % Nucleated RBC % PT with INR INR Sodium Potassium Chloride Carbon Dioxide Anion Gap BUN Creatinine Est GFR (CKD-EPI)AfAm Est GFR (CKD-EPI)NonAf Random Glucose Lactic Acid 1.6 Calcium Total Bilirubin AST ALT Alkaline Phosphatase Troponin I Total Protein Albumin Lipase Urine Color Yellow Urine Appearance Clear Urine pH 5.0 Ur Specific [place] 1.022 Urine Protein Negative Urine Glucose (UA) Negative Urine Ketones Negative Urine Blood Negative Urine Nitrite Negative Urine Bilirubin Negative Urine Urobilinogen 1.0 Ur Leukocyte Esterase Negative Imaging - Results Chest X-ray: Image Reviewed Cat Scan: Report Reviewed, Image Reviewed EKG: Image Reviewed Problem List - Problems (1) Chest pain Code(s): R07.9 - CHEST PAIN, UNSPECIFIED (2) Abdominal pain Code(s): R10.9 - UNSPECIFIED ABDOMINAL PAIN (3) CVA (cerebral vascular accident) Code(s): I63.9 - CEREBRAL INFARCTION, UNSPECIFIED (4) Hypoxia Code(s): R09.02 - HYPOXEMIA (5) Lung cancer Code(s): C34.90 - MALIGNANT NEOPLASM OF UNSP PART OF UNSP BRONCHUS OR LUNG (6) Lung nodules Code(s): R91.8 - OTHER NONSPECIFIC ABNORMAL FINDING OF LUNG FIELD (7) Cerebellar ataxia Code(s): G11.9 - HEREDITARY ATAXIA, UNSPECIFIED (8) Parkinson disease Code(s): G20 - PARKINSON'S DISEASE (9) COPD (chronic obstructive pulmonary disease) Code(s): J44.9 - CHRONIC OBSTRUCTIVE PULMONARY DISEASE, UNSPECIFIED Qualifiers: (10) Hyperlipidemia Code(s): E78.5 - HYPERLIPIDEMIA, UNSPECIFIED (11) Hypertension Code(s): I10 - ESSENTIAL (PRIMARY) HYPERTENSION Qualifiers: (12) Nicotine dependence Code(s): F17.200 - NICOTINE DEPENDENCE, UNSPECIFIED, UNCOMPLICATED Qualifiers: Assessment/Plan This is a 59 y/o man with Lung Ca with Mets s/p Lower Lobe Resection, RT (8 months ago), CVA, HTN, Parkinson's Disease, Renal Insufficiency. Admitted to Telemetry for Chest Pain, Intractable Abdominal Pain, Acute on Chronic Respiratory Failure with Hypoxia for further evaluation of their emergent condition. Plan: Admit HEART score 4 Cardiac Monitoring Serial enzymes neg x1, trend Appreciate Cardiology consult Appreciate Oncology consult Consider Pulm, IR consult- CT chest- air fluid pocket ? infectious vs neoplasm Lipid Panel in am Echo today Asa Continue home meds Pain Management- Morphine Sulfate prn Duonebs O2 Peakflow Smoking Cessation discussed Nicoderm Patch Fall precautions Monitor CBC, BMP FEN Replete Lytes prn NPO for now, advance ad patrick DVT ppx OOB SCDs Heparin SQ Code Status: DNR Dispo: Requires Inpatient Care Visit type - Emergency Visit Emergency Visit: Yes ED Registration Date: 07/18/19 Care time: The patient presented to the Emergency Department on the above date and was hospitalized for further evaluation of their emergent condition. - New Patient This patient is new to me today: Yes Date on this admission: 07/18/19 - Critical Care Critical Care patient: No
[2019-07-18 06:16] LABS: ANISOCYTOSIS 0; HELMET CELLS 0; HOWELL-JOLLY BODIES 0; MACROCYTOSIS 0; OVALOCYTE 0; PLATELET ESTIMATE DECREASED; ROULEAU 0; SICKELED CELLS 0; TARGET CELLS 0; TEAR DROP CELLS 0; TOXIC GRANULATION 0
[2019-07-18] MEDS ORDERED: ALBUTEROL SO4 2.5/IPRATROPIUM 0.5 INH SOL 3 ML VIAL.NEB. NEB PRN (06:41)
[2019-07-18] MEDS ORDERED: morphine SULFATE 4 MG/ML VIAL IVPUSH PRN (06:41)
[2019-07-18] MEDS ORDERED: DEXTROSE 5%-0.45% SALINE 1,000 ML IV SCH (07:00)
--- NOTE | 2019-07-18 09:42 | CONSULT ---
Consultation: Hematology/Oncology Consultation REQUESTING PROVIDER: Tori Shen CONSULT REQUEST: We have been asked to medically evaluate this patient for lung cancer HISTORY OF PRESENT ILLNESS: 59 year old male with a past medical history of metastatic non-small cell lung cancer (adenocarcinoma, metastasis to contralateral lung, brain, adrenals and bone), COPD, hypertension, hyperlipidemia, CVA, coronary artery disease, Parkinson's disease presented to the hospital for 1-2 days of progressive shortness of breath, chest pain and abdominal pain. Stated that he feels like he is wheezing and endorses mild, nonproductive cough. Notably, he was in the ED last night for the same symptoms, was given a duoneb treatment and patient was sent home. He reports that his symptoms did not improve, prompting his presentation again. He Denies fevers or chills, nausea, vomiting, diarrhea. Denies recent travel or sick contacts. Currently reports that he feels slightly improved compared to when he presented today. Allergies: no known drug allergies Surgeries: cholecystectomy 4 years ago, appendectomy, VATS x 7 years ago ( Empyema), Bilateral hip fracture repair Smoking: current every day smoker (1ppd since age 13, 46 pack-years) Alcohol: denies Drug use: denies Family History: both mother and father have a family history of cancer, however patient is unclear to which types. Has 4 sisters and 1 brother who are healthy without cancers or bleeding disorders. Patient was previously , . No children. 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 chemicals and fumes Oncologic History 10/2017: Lung nodule noted in the right lower lobe on a low dose CT chest, measuring 1.3cm 07/2018: PET scan was done showed increased activity in the nodule 11/2018: CT guided lung biopsy revealed poorly differentiated, invasive adenocarcinoma, poorly differentiated, with papillary features; biomarkers positive for PD-L1 (93%), CD8 (82%)::::negative for KRAS mutation, EGFR mutation , EGFR exon 20 insertion, EGFR exon 19 deletion, BRAF V600, HER2 mutation, RET fusion, MET amplification 01/2019: Patient received stereotactic body radiation therapy s/p several treatments, was planned for outpatient treatment to scalp and spinal lesion 04/2019: PET scan showed progression of disease (multiple pulmonary nodules, bilateral adrenal lesions, C7/T9 lesions, scalp lesion and sift tissue lesion in right hemidiaphragm) 05/2019: MRI brain revealed vasogenic edema in posterior aspect of cole radiata, centrum semiovale ([id number]) with ring enhancing lesion measuring 7.3mm in diameter, representing a metastatic lesion 07/2019: Admitted for shortness of breath and chest pain, CTA C/A/P showed new 3cm R hepatic lobe lesion, large bilateral adrenal lesions, 3x3.4 cm cavitary lesion in right lower lobe of lung, aortopulmonary window lymph node, and pleural effusions 07/2019: Patient has appointment to discuss beginning Keytruda therapy (PD-1 inhibitor) REVIEW OF SYSTEMS: CONSTITUTIONAL: Absent: fever, chills, diaphoresis, generalized weakness, malaise, loss of appetite, weight change HEENT: Absent: rhinorrhea, nasal congestion, throat pain, throat swelling, difficulty swallowing, mouth swelling, ear pain, eye pain, visual changes CARDIOVASCULAR: chest pain Absent: syncope, palpitations, irregular heart rate, lightheadedness, peripheral edema RESPIRATORY: shortness of breath, wheezing Absent: cough, dyspnea with exertion, orthopnea, stridor, hemoptysis GASTROINTESTINAL:abdominal pain Absent: abdominal distension, nausea, vomiting, diarrhea, constipation, melena , hematochezia GENITOURINARY: Absent: dysuria, frequency, urgency, hesitancy, hematuria, flank pain, genital pain MUSCULOSKELETAL: Absent: myalgia, arthralgia, joint swelling, back pain, neck pain SKIN: Absent: rash, itching, pallor HEMATOLOGIC/IMMUNOLOGIC: Absent: easy bleeding, easy bruising, lymphadenopathy, frequent infections ENDOCRINE: Absent: unexplained weight gain, unexplained weight loss, heat intolerance, cold intolerance NEUROLOGIC: Absent: headache, focal weakness or paresthesias, dizziness, unsteady gait, seizure, mental status changes, bladder or bowel incontinence PSYCHIATRIC: Absent: anxiety, depression, suicidal or homicidal ideation, hallucinations. PHYSICAL EXAMINATION Vital Signs - 24 hr 07/18/19 07/18/19 07/18/19 00:56 08:12 08:14 Temperature 98.3 F Pulse Rate 141 H 99 H Respiratory 26 H 18 Rate Blood Pressure 147/86 O2 Sat by Pulse 93 L 99 Oximetry (%) GENERAL: A&Ox3, mild distress HEAD: nodule noted on nasal bridge, medial to eyes EYES: PERRLA, EOMI ENT: Moist mucus membranes NECK: No JVD, no lymphadenopathy palpated CHEST: small, hard chest wall nodule noted just lateral to midline around 2nd L intercostal space, nontender. Breast exam without nodularity. LUNGS: Diffuse bilateral wheezing, no rales or rhonchi HEART: mildly tachycardic, no murmurs auscultated ABDOMEN: Soft, nontender, bs present EXTREMITIES: 2+ pulses, no edema. GENITOURINARY: normal testes without nodules or tenderness NEUROLOGICAL: Cranial nerves II-XII intact. mild diffuse weakness noted - 4/5 muscle strength throughout, sensation intact Laboratory Results - last 24 hr 07/18/19 07/18/19 07/18/19 01:20 01:20 01:20 WBC 15.0 H RBC 4.30 Hgb 13.8 Hct 40.7 MCV 94.7 MCH 32.0 MCHC 33.8 RDW 15.4 Plt Count 156 MPV 7.9 D Absolute Neuts (auto) 13.6 H Neutrophils % 90.5 H Neutrophils % (Manual) 82.8 Band Neutrophils % 4.1 Lymphocytes % 3.7 L D Lymphocytes % (Manual) 6.1 L Monocytes % 2.2 L Monocytes % (Manual) 1 L Eosinophils % 3.3 Eosinophils % (Manual) 2.0 Basophils % 0.3 Basophils % (Manual) 0.0 Myelocytes % (Man) 4 H D Promyelocytes % (Man) 0 Blast Cells % (Manual) 0 Nucleated RBC % 0 Metamyelocytes 0 Hypochromia 0 Toxic Granulation 0 Dohle Bodies 0 Platelet Estimate Decreased Polychromasia 0 Poikilocytosis 0 Basophilic Stippling 0 Anisocytosis 0 Microcytosis 0 Macrocytosis 0 Spherocytes 0 Sickle Cells 0 Target Cells 0 Tear Drop Cells 0 Ovalocytes 0 Stomatocytes 0 Helmet Cells 0 Roberto-Mcgaffey Bodies 0 [place] Rings 0 [place] Cells 0 Acanthocytes (Spur) 0 Rouleaux 0 Fragmented RBCs 0 Schistocytes 0 PT with INR 14.60 H INR 1.23 H Sodium 139 Potassium 4.0 Chloride 103 Carbon Dioxide 29 Anion Gap 7 L BUN 12.4 Creatinine 0.4 L Est GFR (CKD-EPI)AfAm 148.58 Est GFR (CKD-EPI)NonAf 128.19 Random Glucose 97 Lactic Acid Calcium 8.0 L Total Bilirubin 0.7 AST 22 ALT 57 Alkaline Phosphatase 96 Troponin I < 0.02 Total Protein 5.6 L Albumin 1.9 L Lipase 73 Urine Color Urine Appearance Urine pH Ur Specific [place] Urine Protein Urine Glucose (UA) Urine Ketones Urine Blood Urine Nitrite Urine Bilirubin Urine Urobilinogen Ur Leukocyte Esterase 07/18/19 07/18/19 01:29 01:29 WBC RBC Hgb Hct MCV MCH MCHC RDW Plt Count MPV Absolute Neuts (auto) Neutrophils % Neutrophils % (Manual) Band Neutrophils % Lymphocytes % Lymphocytes % (Manual) Monocytes % Monocytes % (Manual) Eosinophils % Eosinophils % (Manual) Basophils % Basophils % (Manual) Myelocytes % (Man) Promyelocytes % (Man) Blast Cells % (Manual) Nucleated RBC % Metamyelocytes Hypochromia Toxic Granulation Dohle Bodies Platelet Estimate Polychromasia Poikilocytosis Basophilic Stippling Anisocytosis Microcytosis Macrocytosis Spherocytes Sickle Cells Target Cells Tear Drop Cells Ovalocytes Stomatocytes Helmet Cells Roberto-Mcgaffey Bodies [place] Rings Ben Cells Acanthocytes (Spur) Rouleaux Fragmented RBCs Schistocytes PT with INR INR Sodium Potassium Chloride Carbon Dioxide Anion Gap BUN Creatinine Est GFR (CKD-EPI)AfAm Est GFR (CKD-EPI)NonAf Random Glucose Lactic Acid 1.6 Calcium Total Bilirubin AST ALT Alkaline Phosphatase Troponin I Total Protein Albumin Lipase Urine Color Yellow Urine Appearance Clear Urine pH 5.0 Ur Specific [place] 1.022 Urine Protein Negative Urine Glucose (UA) Negative Urine Ketones Negative Urine Blood Negative Urine Nitrite Negative Urine Bilirubin Negative Urine Urobilinogen 1.0 Ur Leukocyte Esterase Negative Active Medications Generic Name Dose Route Start Last Admin Trade Name Freq PRN Reason Stop Dose Admin Albuterol/Ipratropium 1 amp 07/18/19 06:41 Duoneb - NEB Q6H PRN SHORTNESS OF BREATH Aspirin 81 mg 07/18/19 10:00 Asa - PO DAILY RONALDO Heparin Sodium (Porcine) 5,000 unit 07/18/19 10:00 Heparin - SQ BID RONALDO Dextrose/Sodium Chloride 1,000 mls @ 60 mls/hr 07/18/19 07:00 07/18/19 07:05 D5-1/2ns - IV 60 mls/hr ASDIR RONALDO Administration Morphine Sulfate 4 mg 07/18/19 06:41 Morphine Sulfate IVPUSH Q4H PRN PAIN LEVEL 7 - 10 Nicotine 14 mg 07/18/19 10:00 Nicoderm Patch - TD DAILY RONALDO ASSESSMENT/PLAN: 59 year old male with a past medical history of metastatic non-small cell lung cancer (adenocarcinoma, metastasis to contralateral lung, brain, adrenals and bone), COPD, hypertension, hyperlipidemia, CVA, coronary artery disease, Parkinson's disease presented to the hospital for 1-2 days of progressive shortness of breath, chest pain and abdominal pain #Metastatic Adenocarcinoma of the Lung -CTA chest preliminary read showed multiple bilateral lung metastatic lesions with aortopulmonary window lymph node, small to moderate R pleural effusion with compressive atelectasis in the right lower lobe, a 3x3.4 cm cavitary lesion is noted in the right lower lobe with an air fluid level, enlarged right thyroid lobe; large bilateral adrenal masses, a 3 cm low density right hepatic lobe nodule is noted -patient had not yet started immunotherapy with Keytruda (PD-1) immune checkpoint inhibitor, but is a good candidate given the PD-L1 positivity found on biopsy. Side effect profile is much more benign than standard chemotherapy regimens and this could represent a good first-line agent for this patient -will f/u in the outpatient setting once acute condition has improved -pain control -duonebs -decadron -consider pulm/ID consults #Chest Pain -rule out cardiac etiology, but suspect this is pulmonary given poor pulmonary exam and no changes on EKG/cardiac enzyme levels -EKG NSR with L atrial enlargement, normal QTc -troponins normal -CTA chest noted, no evidence of PE or aortic dissection -pleural effusions could represent neoplastic vs infectious etiology, patient has a leukocytosis with a left shift (however he is on decadron); less suspicious for infectious etiology Richy Nugent D.O., PGY-[address] Tompkins Visit type - Emergency Visit Emergency Visit: Yes ED Registration Date: 07/18/19 Care time: The patient presented to the Emergency Department on the above date and was hospitalized for further evaluation of their emergent condition. - New Patient This patient is new to me today: Yes Date on this admission: 07/18/19 - Critical Care Critical Care patient: No ATTENDING PHYSICIAN STATEMENT I saw and evaluated the patient. I reviewed the resident's note and discussed the case with the resident. I agree with the resident's findings and plan as documented. SUBJECTIVE: OBJECTIVE: ASSESSMENT AND PLAN:
[2019-07-18 10:47] LABS: MAGNESIUM 1.9 mg/dL (1.8-2.4); PHOSPHOROUS 2.9 mg/dL (2.5-4.9)
[2019-07-18] MEDS: ASPIRIN 81 MG CHEWABLE TABLETS PO SCH (11:43)
[2019-07-18] MEDS: NICOTINE 14 MG/24 HOURS TOPICAL PATCH TD SCH (11:44)
[2019-07-18] MEDS: HEPARIN NA (PORCINE) 5,000 UNITS/ML 1ML VIAL SQ SCH ×2 (11:44→22:47)
--- NOTE | 2019-07-18 12:43 | EKG ---
Test Reason : Blood Pressure : / mmHG Vent. Rate : 112 BPM Atrial Rate : 112 BPM P-R Int : 140 ms QRS Dur : 084 ms QT Int : 304 ms P-R-T Axes : 062 041 061 degrees QTc Int : 414 ms SINUS TACHYCARDIA POSSIBLE LEFT ATRIAL ENLARGEMENT BORDERLINE ECG WHEN COMPARED WITH ECG OF 17-JUL-2019 03:39, NO SIGNIFICANT CHANGE WAS FOUND Confirmed by Cory Ferris MD ([id number]) on 07/18/2019 12:42:46 PM Referred By: Confirmed By:Cory Ferris MD
--- NOTE | 2019-07-18 13:03 | CON.CARD ---
Consult Consult Specialty:: Cardiology Referred by:: Hospitalist Reason for Consultation:: Cardiac evaluation - History of Present Illness Chief Complaint: Shortness of breath History of Present Illness: Patient is a 59 year old male with underlying history of lung CA with metastasis , s/p lower lobe resection and RT, in addition, HTN, hypercholesterolemia, history of CVA, renal insufficiency and ETON use who presents with chest discomfort and shortness of breath. He also complains of abdominal discomfort. He denies paroxysmal nocturnal dyspnea or orthopnea. He denies fever or chills. He denies nausea, vomiting, diarrhea or abdominal pain. He denies headache or lightheadedness. He denies palpitations. - History Source History Provided By: Patient, Medical Record Limitations to Obtaining History: Clinical Condition - Past Medical History [employer]ESPERSON PET[employer] AND PET SUPPLIES: Yes: CVA, Other (ataxia) Cardio/Vascular: Yes: HTN, Hyperlipdemia Pulmonary: Yes: Cancer (with metastatasis), COPD Renal/: Yes: Renal Inusuff - Past Surgical History Past Surgical History: Yes: Cholecystectomy, Thoracotomy - Alcohol/Substance Use Hx Alcohol Use: No Number of Drinks Daily: 6 History of Substance Use: reports: None - Smoking History Smoking history: Current every day smoker Have you smoked in the past 12 months: No Aproximately how many cigarettes per day: 10 - Social History Usual Living Arrangement: With Spouse ADL: Support Services History of Recent Travel: No Home Medications - Allergies Allergies/Adverse Reactions: Allergies Allergy/AdvReac Type Severity Reaction Status Date / Time No Known Allergies Allergy Verified 07/18/19 00:56 - Home Medications Home Medications: Ambulatory Orders Folic Acid 1 mg PO DAILY #14 tablet 09/29/17 Ranitidine HCl [Zantac] 150 mg PO DAILY #14 tablet 09/29/17 Thiamine HCl [Vitamin B1 -] 100 mg PO DAILY #14 tablet 09/29/17 Atorvastatin Ca [Lipitor] 10 mg PO HS 12/14/18 Cholecalciferol (Vitamin D3) [Vitamin D -] 1,000 mg PO DAILY 12/14/18 Pantoprazole Sodium [Protonix -] 40 mg PO DAILY #120 tablet.ec 05/24/19 Acetaminophen [Tylenol] 650 mg PO Q4H #30 capsule 07/06/19 Cyclobenzaprine HCl 5 mg PO HS #10 tablet 07/06/19 Donepezil HCl 5 mg PO DAILY 07/06/19 Metoprolol Succinate [Toprol XL -] 100 mg PO DAILY 07/06/19 Dexamethasone [Decadron] 4 mg PO QID 07/18/19 Family Disease History - Family Disease History Family Disease History: Heart Disease: Father (colon cancer), Mother (colon cancer) Review of Systems - Review of Systems Constitutional: denies: Chills, Fever Cardiovascular: reports: Chest Pain, Shortness of Breath. denies: Palpitations Respiratory: reports: SOB, SOB on Exertion, Wheezing. denies: Cough, Hemoptysis , Orthopnea, PND Gastrointestinal: denies: Abdominal Pain, Constipation, Diarrhea, Melena, Nausea , Rectal Bleeding, Vomiting Genitourinary: denies: Dysuria, Hematuria Musculoskeletal: reports: Back Pain. denies: Joint Pain Neurological: denies: Dizziness, Headache, Seizure, Syncope Vital Signs: Vital Signs Temperature 97.9 F 07/18/19 09:42 Pulse Rate 98 H 07/18/19 09:42 Respiratory Rate 20 07/18/19 09:42 Blood Pressure 131/85 07/18/19 09:42 O2 Sat by Pulse Oximetry (%) 99 07/18/19 08:12 Eyes: Yes: PERRL HENT: Yes: Atraumatic Neck: Yes: Supple Respiratory: Yes: Diminished, Wheezes Gastrointestinal: Yes: Normal Bowel Sounds, Soft. No: Tenderness Cardiovascular: Yes: Regular Rate and Rhythm JVD: No PMI: Non-Displaced Heart Sounds: Yes: S1, S2 Edema: No - Other Data Labs, Other Data: CBC, BMP 07/18/19 01:20 07/18/19 01:20 INR, PTT INR 1.23 (0.83-1.09) H 07/18/19 01:20 Troponin, BNP 07/18/19 07/18/19 07/18/19 01:20 09:40 09:40 Troponin I < 0.02 < 0.02 B-Natriuretic Peptide 360.0 H Sinus tachycardia Imaging - Results Chest X-ray: Report Reviewed (Unremarkable) Cat Scan: Report Reviewed (Chest and abdomen CT: metastatic nodule, pleural based nodule in the apex, left lung base consolidation with moderate left pleural effusion, mediastinal lymph node, lesion in right hepatic lobe suggestive of metastasis, compression fracture) EKG: Report Reviewed Problem List - Problems (1) Chest pain Code(s): R07.9 - CHEST PAIN, UNSPECIFIED (2) Alcohol dependence Code(s): F10.20 - ALCOHOL DEPENDENCE, UNCOMPLICATED (3) Alcoholic hepatitis Code(s): K70.10 - ALCOHOLIC HEPATITIS WITHOUT ASCITES Qualifiers: Ascites presence: without ascites Qualified Code(s): K70.10 - Alcoholic hepatitis without ascites (4) CVA (cerebral vascular accident) Code(s): I63.9 - CEREBRAL INFARCTION, UNSPECIFIED (5) Generalized weakness Code(s): R53.1 - WEAKNESS (6) Lung cancer Code(s): C34.90 - MALIGNANT NEOPLASM OF UNSP PART OF UNSP BRONCHUS OR LUNG (7) Lung nodules Code(s): R91.8 - OTHER NONSPECIFIC ABNORMAL FINDING OF LUNG FIELD (8) Parkinson disease Code(s): G20 - PARKINSON'S DISEASE (9) Pleural effusion Code(s): J90 - PLEURAL EFFUSION, NOT ELSEWHERE CLASSIFIED (10) SOB (shortness of breath) Code(s): R06.02 - SHORTNESS OF BREATH (11) COPD (chronic obstructive pulmonary disease) Code(s): J44.9 - CHRONIC OBSTRUCTIVE PULMONARY DISEASE, UNSPECIFIED Qualifiers: (12) Hyperlipidemia Code(s): E78.5 - HYPERLIPIDEMIA, UNSPECIFIED (13) Hypertension Code(s): I10 - ESSENTIAL (PRIMARY) HYPERTENSION Qualifiers: Assessment/Plan 1. Dyspnea with wheezing 2. Underlying lung CA with metastasis 3. HTN 4. Hypercholesterolemia 5. History of ETOH induced liver disease PLAN: 1. Serial cardiac enzymes are negative 2. CT chest and abdomen noted 3. Await Pulmonary input 4. Echocardiography report noted 5. Continue statin therapy as LFT normal 6. Bronchodilator/nebulizer 7. DVT prophylaxis Further plans are to follow Mango Ellis MD
--- NOTE | 2019-07-18 13:32 | ECHO ---
Version: 1 Name: CHRISTIAN VASQUEZ Exam: Adult Echocardiogram Study Date: 07/18/2019, 12:10 PM Age: 59 Years MMode/2D Measurements & Calculations IVSd: 0.95 cm LVIDs: 2.5 cm LVIDd: 3.6 cm LVPWd: 1.11 cm Ao root diam: 2.5 cm LA dimension: 3.0 cm Doppler Measurements & Calculations MV E max jacky: 57.2 cm/sec Med E/e': 7.4 MV A max jacky: 90.7 cm/sec Med Peak E' Jacky: 7.7 cm/sec MV E/A: 0.63 Lat E/e': 6.2 Lat Peak E' Jacky: 9.2 cm/sec Ao max P.0 mmHg Ao mean P.45 mmHg Ao V2 max: 111.8 cm/sec TR max jacky: 285.8 cm/sec TR max P.7 mmHg Procedure A limited two-dimensional transthoracic echocardiogram was performed (2D). Left Ventricle The left ventricle is grossly normal size. Left ventricular systolic function is normal. Ejection Fr action = 60-65. Right Ventricle The right ventricle is not well visualized. The right ventricular systolic function is grossly abby l. Atria Normal left and right atrial size and function. Mitral Valve The mitral valve is not well visualized. Tricuspid Valve The tricuspid valve is not well visualized. Aortic Valve The aortic valve is not well visualized. Pulmonic Valve The pulmonic valve is not well visualized. Great Vessels The aortic root is not well visualized. Pericardium/Pleura There is no pericardial effusion. Summary Statements A limited two-dimensional transthoracic echocardiogram was performed (2D). The left ventricle is grossly normal size. Left ventricular systolic function is normal. Ejection Fr action = 60-65. The right ventricle is not well visualized. The right ventricular systolic function is grossly abby l. MD Tatum Peng07/18/2019, 12:31 PM Ordering Physician: Indra Shen Referring Physician: INDRA SHEN Performed By: Saima Simmons
--- NOTE | 2019-07-18 15:49 | PN ---
Physical Exam: SUBJECTIVE: 59 y/o M w PMH metastatic non-small cell lung cancer (adenocarcinoma , metastasis to contralateral lung, brain, adrenals and bone), COPD, hypertension, hyperlipidemia, CVA, coronary artery disease, Parkinson's Disease presented to the hospital for 1-2 days of progressive shortness of breath, chest pain and abdominal pain. Pt seen at bedside today. He c/o nonproductive cough, persistent, no blood. He has chest pain in a band like pattern in the t2- t6 region that is accompanied by SOB. Denies recent travel or sick contacts. Currently reports that he feels slightly improved compared to when he presented today. He Denies NVFCD. OBJECTIVE: Vital Signs Period Temp Pulse Resp BP Sys/Blair Pulse Ox Last 24 Hr 97.9 F-98.9 F 98-141 18-26 126-147/74-86 93-99 GENERAL: A&Ox3, mild distress HEAD: NCAT Nodule on nasal bridge, medial to eyes EYES: LEOLA, EOMI ENT: Moist mucus membranes NECK: No JVD, no lymphadenopathy palpated CHEST: Small, hard chest wall nodule noted just lateral to midline around 2nd L intercostal space, nontender. Breast exam without nodularity. LUNGS: Diffuse bilateral wheezing, no rales or rhonchi HEART: Mildly tachycardic, no murmurs auscultated ABDOMEN: Soft, nontender, bs present EXTREMITIES: 2+ pulses, no edema. NEUROLOGICAL: Cranial nerves II-XII grossly intact. mild diffuse weakness noted - 4/5 muscle strength throughout, sensation intact Laboratory Results - last 24 hr 07/18/19 07/18/19 07/18/19 01:20 01:20 01:20 WBC 15.0 H RBC 4.30 Hgb 13.8 Hct 40.7 MCV 94.7 MCH 32.0 MCHC 33.8 RDW 15.4 Plt Count 156 MPV 7.9 D Absolute Neuts (auto) 13.6 H Neutrophils % 90.5 H Neutrophils % (Manual) 82.8 Band Neutrophils % 4.1 Lymphocytes % 3.7 L D Lymphocytes % (Manual) 6.1 L Monocytes % 2.2 L Monocytes % (Manual) 1 L Eosinophils % 3.3 Eosinophils % (Manual) 2.0 Basophils % 0.3 Basophils % (Manual) 0.0 Myelocytes % (Man) 4 H D Promyelocytes % (Man) 0 Blast Cells % (Manual) 0 Nucleated RBC % 0 Metamyelocytes 0 Hypochromia 0 Toxic Granulation 0 Dohle Bodies 0 Platelet Estimate Decreased Polychromasia 0 Poikilocytosis 0 Basophilic Stippling 0 Anisocytosis 0 Microcytosis 0 Macrocytosis 0 Spherocytes 0 Sickle Cells 0 Target Cells 0 Tear Drop Cells 0 Ovalocytes 0 Stomatocytes 0 Helmet Cells 0 [place] Bodies 0 [place] Rings 0 [place]light Cells 0 Acanthocytes (Spur) 0 Rouleaux 0 Fragmented RBCs 0 Schistocytes 0 PT with INR 14.60 H INR 1.23 H Sodium 139 Potassium 4.0 Chloride 103 Carbon Dioxide 29 Anion Gap 7 L BUN 12.4 Creatinine 0.4 L Est GFR (CKD-EPI)AfAm 148.58 Est GFR (CKD-EPI)NonAf 128.19 Random Glucose 97 Lactic Acid Calcium 8.0 L Phosphorus Magnesium Total Bilirubin 0.7 AST 22 ALT 57 Alkaline Phosphatase 96 Troponin I < 0.02 B-Natriuretic Peptide Total Protein 5.6 L Albumin 1.9 L Triglycerides Cholesterol Total LDL Cholesterol HDL Cholesterol Lipase 73 TSH Urine Color Urine Appearance Urine pH Ur Specific [place] Urine Protein Urine Glucose (UA) Urine Ketones Urine Blood Urine Nitrite Urine Bilirubin Urine Urobilinogen Ur Leukocyte Esterase 07/18/19 07/18/19 07/18/19 01:29 01:29 09:40 WBC RBC Hgb Hct MCV MCH MCHC RDW Plt Count MPV Absolute Neuts (auto) Neutrophils % Neutrophils % (Manual) Band Neutrophils % Lymphocytes % Lymphocytes % (Manual) Monocytes % Monocytes % (Manual) Eosinophils % Eosinophils % (Manual) Basophils % Basophils % (Manual) Myelocytes % (Man) Promyelocytes % (Man) Blast Cells % (Manual) Nucleated RBC % Metamyelocytes Hypochromia Toxic Granulation Dohle Bodies Platelet Estimate Polychromasia Poikilocytosis Basophilic Stippling Anisocytosis Microcytosis Macrocytosis Spherocytes Sickle Cells Target Cells Tear Drop Cells Ovalocytes Stomatocytes Helmet Cells [place] Bodies [place] Rings Ben Cells Acanthocytes (Spur) Rouleaux Fragmented RBCs Schistocytes PT with INR INR Sodium Potassium Chloride Carbon Dioxide Anion Gap BUN Creatinine Est GFR (CKD-EPI)AfAm Est GFR (CKD-EPI)NonAf Random Glucose Lactic Acid 1.6 Calcium Phosphorus 2.9 Magnesium 1.9 Total Bilirubin AST ALT Alkaline Phosphatase Troponin I < 0.02 B-Natriuretic Peptide Total Protein Albumin Triglycerides Cholesterol Total LDL Cholesterol HDL Cholesterol Lipase TSH 0.02 L D Urine Color Yellow Urine Appearance Clear Urine pH 5.0 Ur Specific [place] 1.022 Urine Protein Negative Urine Glucose (UA) Negative Urine Ketones Negative Urine Blood Negative Urine Nitrite Negative Urine Bilirubin Negative Urine Urobilinogen 1.0 Ur Leukocyte Esterase Negative 07/18/19 09:40 WBC RBC Hgb Hct MCV MCH MCHC RDW Plt Count MPV Absolute Neuts (auto) Neutrophils % Neutrophils % (Manual) Band Neutrophils % Lymphocytes % Lymphocytes % (Manual) Monocytes % Monocytes % (Manual) Eosinophils % Eosinophils % (Manual) Basophils % Basophils % (Manual) Myelocytes % (Man) Promyelocytes % (Man) Blast Cells % (Manual) Nucleated RBC % Metamyelocytes Hypochromia Toxic Granulation Dohle Bodies Platelet Estimate Polychromasia Poikilocytosis Basophilic Stippling Anisocytosis Microcytosis Macrocytosis Spherocytes Sickle Cells Target Cells Tear Drop Cells Ovalocytes Stomatocytes Helmet Cells [place] Bodies [place] Rings Ben Cells Acanthocytes (Spur) Rouleaux Fragmented RBCs Schistocytes PT with INR INR Sodium Potassium Chloride Carbon Dioxide Anion Gap BUN Creatinine Est GFR (CKD-EPI)AfAm Est GFR (CKD-EPI)NonAf Random Glucose Lactic Acid Calcium Phosphorus Magnesium Total Bilirubin AST ALT Alkaline Phosphatase Troponin I B-Natriuretic Peptide 360.0 H Total Protein Albumin Triglycerides 96 Cholesterol 133 Total LDL Cholesterol 63 HDL Cholesterol 52 Lipase TSH Urine Color Urine Appearance Urine pH Ur Specific [place] Urine Protein Urine Glucose (UA) Urine Ketones Urine Blood Urine Nitrite Urine Bilirubin Urine Urobilinogen Ur Leukocyte Esterase Active Medications Acetaminophen (Tylenol -) 650 mg PO Q6HPO [facility] Albuterol/Ipratropium (Duoneb -) 1 amp NEB Q6H PRN PRN Reason: SHORTNESS OF BREATH Aspirin (Asa -) 81 mg PO DAILY [facility] Last Admin: 07/18/19 11:43 Dose: 81 mg Atorvastatin Calcium (Lipitor -) 10 mg PO HS [facility] Cholecalciferol (Vitamin D3 -) 400 unit PO DAILY [facility] Cyclobenzaprine HCl (Cyclobenzaprine Hcl) 5 mg PO HS [facility] Dexamethasone (Decadron -) 4 mg PO QID [facility] Donepezil HCl (Aricept -) 5 mg PO HS [facility] Folic Acid (Folic Acid -) 1 mg PO DAILY [facility] Heparin Sodium (Porcine) (Heparin -) 5,000 unit SQ BID [facility] Last Admin: 07/18/19 11:44 Dose: 5,000 unit Azithromycin 500 mg/ Dextrose 250 mls @ 250 mls/hr IVPB Q24H [facility] Ceftriaxone Sodium 1 gm/ (Dextrose) 50 mls @ 100 mls/hr IVPB Q24H [facility]; Protocol Levothyroxine Sodium (Synthroid -) 25 mcg PO DAILY@0700 [facility] Metoprolol Succinate (Toprol Xl -) 100 mg PO DAILY [facility] Morphine Sulfate (Morphine Sulfate) 4 mg IVPUSH Q4H PRN PRN Reason: PAIN LEVEL 7 - 10 Nicotine (Nicoderm Patch -) 14 mg TD DAILY [facility] Last Admin: 07/18/19 11:44 Dose: 14 mg Pantoprazole Sodium (Protonix -) 40 mg PO DAILY@0700 [facility] Ranitidine HCl (Zantac -) 150 mg PO DAILY [facility] Thiamine HCl (Vitamin B1 -) 100 mg PO DAILY [facility] ASSESSMENT/PLAN: 59 y/o M w PMH metastatic non-small cell lung cancer (adenocarcinoma, metastasis to contralateral lung, brain, adrenals and bone), COPD, hypertension , hyperlipidemia, CVA, coronary artery disease, Parkinson's Disease. Pt here for CP # Acute hypoxic respiratory failure due to PNA and effusion - Tachycardic with leukocytosis; poss 2/2 steroid - Empiric treatment 2/2 immunocompromise: azithro and ceftriaxone - Lasix 40mg IVP x1 for effusion which could be from PNA vs malignancy - Cont. supplemental oxygen to maintain spO2 >90% # CP - Pleuritic - Trop neg x2 - Cardiology consulted # Low TSH - Start LT4 - Repeat TFT in 6 weeks # Lung cancer with mets - Noted to LN, bone, and liver - Radiation naive - Dex for bone mets - Hem/onc consulted # AAA - 3x2.1 cm aneurysm - Out-pt f/u # Nicotine dependence - Counselled on need for abstinence as contributing to symptoms - Nicotine patch # CVA - Cont. home meds # CKD - Cont. home meds # Parkinsons - Cont. home meds # F/E/N - No standing fluids - Cont. to monitor electrolytes - Low sodium diet # DVT prophylaxis - Heparin Earl Delacruz MD Visit type - Emergency Visit Emergency Visit: Yes ED Registration Date: 07/18/19 Care time: The patient presented to the Emergency Department on the above date and was hospitalized for further evaluation of their emergent condition. - New Patient This patient is new to me today: Yes Date on this admission: 07/18/19 - Critical Care Critical Care patient: No - Discharge Referral Referred to [facility] Yes ATTENDING PHYSICIAN STATEMENT I saw and evaluated the patient. I reviewed the resident's note and discussed the case with the resident. I agree with the resident's findings and plan as documented. SUBJECTIVE: OBJECTIVE: ASSESSMENT AND PLAN:
[2019-07-18] MEDS ORDERED: AZITHROMYCIN IVPB 500 MG in DEXTROSE 5%-WATER - 250 ML IVPB SCH (16:45)
--- NOTE | 2019-07-18 17:00 | PN ---
Teaching Attending Note Name of Resident: Earl Delacruz ATTENDING PHYSICIAN STATEMENT I saw and evaluated the patient. I reviewed the resident's note and discussed the case with the resident. I agree with the resident's findings and plan as documented. SUBJECTIVE:continues to have band like CP and shortness of breath. denies fevr, chills, cough, N/V/C/D OBJECTIVE: Last Vital Signs Temp Pulse Resp BP Pulse Ox 98.9 F 101 H 20 126/74 97 07/18/19 15:12 07/18/19 15:12 07/18/19 09:42 07/18/19 15:12 07/18/19 15:12 General flat affect CV S1 S2 tachy Lungs coarse breath sounds, scattered wheezes, decrease L base Abdomen soft NT/ND Extremities no pedal edema ASSESSMENT AND PLAN: 59yo M wtih pmh HTN, CVA, CKD, parkinson, lung malignancy with mets presented to the ER with CP and SOB and found to be hypoxic with PNA with pleural effusion 1. Acute hypoxic respiratory failure due to PNA and effusion- tachycardic with leukocytosis which could be from steroids as well. would empirically treat as pt is immunocompromised. start azithro and ceftriaxone. will give lasix 40mg IVP x1 for effusion which could be from PNA vs malignancy. cont with supplemental oxygen to maintain spO2 >90%. titrate down as tolerated. 2. CP- seems pleuritic in nature. trop neg x2. cardio consulted. does not recall when last cardiac workup was done. 3. Low TSH- start LT4. will need repeat TFT in 6 weeks 4. Lung cancer with mets- noted to LN, bone and liver. pt is not compliant with radiation treatment and states hes missed several appointments. on dex for bone mets. oncology follow up 5. AAA- 3x2.1cm aneurysm. will need outpatient follow up 6. Continuous nicotine dependence- counselled on need for abstinence as contributing to symptoms. nicotine patch 7. CVA 8. CKD 9. Parkinsons 10. DVT ppx- hep sq
[2019-07-18] MEDS: FOLIC ACID 1 MG TABLET (FP) PO SCH (18:45)
[2019-07-18] MEDS: PANTOPRAZOLE 40 MG TABLET (FP) PO SCH (18:46)
[2019-07-18] MEDS: CEFTRIAXONE 1 GM in DEXTROSE 5%-WATER - 50 ML IVPB SCH (18:46)
[2019-07-18] MEDS: CHOLECALCIFEROL (VIT D3) 400 UNIT (10 MCG) TABLET PO SCH (18:48)
[2019-07-18] MEDS: THIAMINE HCL 100 MG TABLET (FP) PO SCH (18:48)
[2019-07-18] MEDS: RANITIDINE HCL 150 MG TABLET (FP) PO SCH (18:49)
[2019-07-18] MEDS: DEXAMETHASONE 4 MG TABLET (FP) PO SCH ×2 (18:49→22:47)
[2019-07-18] MEDS: ACETAMINOPHEN 325 MG TABLET (FP) PO SCH (18:50)
[2019-07-18] MEDS ORDERED: HEPARIN NA (PORCINE) 5,000 UNITS/ML 1ML VIAL ONE (22:29)
[2019-07-18] MEDS: CYCLOBENZAPRINE HCL 5 MG TABLET PO SCH (22:47)
[2019-07-18] MEDS: DONEPEZIL HCL 5 MG TABLET (FP) PO SCH (22:47)
[2019-07-18] MEDS: ATORVASTATIN CA 10 MG TABLET (FP) PO SCH (22:47)
[2019-07-18 23:13] VITALS: BMI 19.2
[2019-07-19] MEDS: ACETAMINOPHEN 325 MG TABLET (FP) PO SCH ×3 (05:02→22:03)
[2019-07-19] MEDS: LEVOTHYROXINE NA 25 MCG TABLET (FP) PO SCH (06:50)
[2019-07-19] MEDS: PANTOPRAZOLE 40 MG TABLET (FP) PO SCH (06:50)
[2019-07-19 07:57] LABS: BASO % 0.3 % (0-2.0); EOS % 0.2 % (0-4.5); HEMATOCRIT 34.1 % (35.4-49); HEMOGLOBIN 11.6 GM/dL (11.7-16.9); LYMPH % 1.5 % (8-40); MCH 32.1 pg (25.7-33.7); MCHC 34.1 g/dl (32.0-35.9); MEAN CELL VOLUME 94.3 fl (80-96); MONO % 3.4 % (3.8-10.2); NEUT % 94.6 % (42.8-82.8); PLATELET COUNT 138 K/MM3 (134-434); RBC 3.62 M/mm3 (4.00-5.60); RDW 15.3 % (11.9-15.9); WHITE BLOOD COUNT 12.5 K/mm3 (4.0-10.0)
[2019-07-19] MEDS ORDERED: ALBUTEROL SO4 2.5/IPRATROPIUM 0.5 INH SOL 3 ML VIAL.NEB. NEB ONE (07:59)
[2019-07-19 08:22] LABS: ALBUMIN 1.6 g/dl (3.4-5.0); BILIRUBIN,TOTAL 0.6 mg/dL (0.2-1); BLOOD UREA NITROGEN 9.3 mg/dL (7-18); CALCIUM 8.4 mg/dL (8.5-10.1); CREATININE 0.5 mg/dL (0.55-1.3); MAGNESIUM 2.1 mg/dL (1.8-2.4); PHOSPHOROUS 3.8 mg/dL (2.5-4.9); POTASSIUM 4.2 mmol/L (3.5-5.1); TOT PROT 4.6 g/dl (6.4-8.2)
--- NOTE | 2019-07-19 09:27 | PN ---
Progress Note, Physician History of Present Illness: Dyspnea, cough and wheeze slowly improving. - Current Medication List Current Medications: Active Medications Acetaminophen (Tylenol -) 650 mg PO Q6HPO [facility] Last Admin: 07/19/19 05:02 Dose: 650 mg Albuterol/Ipratropium (Duoneb -) 1 amp NEB Q6H PRN PRN Reason: SHORTNESS OF BREATH Aspirin (Asa -) 81 mg PO DAILY [facility] Last Admin: 07/18/19 11:43 Dose: 81 mg Atorvastatin Calcium (Lipitor -) 10 mg PO HS [facility] Last Admin: 07/18/19 22:47 Dose: 10 mg Cholecalciferol (Vitamin D3 -) 400 unit PO DAILY [facility] Last Admin: 07/18/19 18:48 Dose: 400 unit Cyclobenzaprine HCl (Cyclobenzaprine Hcl) 5 mg PO HS [facility] Last Admin: 07/18/19 22:47 Dose: 5 mg Dexamethasone (Decadron -) 4 mg PO QID [facility] Last Admin: 07/18/19 22:47 Dose: 4 mg Donepezil HCl (Aricept -) 5 mg PO [facility] Last Admin: 07/18/19 22:47 Dose: 5 mg Folic Acid (Folic Acid -) 1 mg PO DAILY [facility] Last Admin: 07/18/19 18:45 Dose: 1 mg Heparin Sodium (Porcine) (Heparin -) 5,000 unit SQ BID [facility] Last Admin: 07/18/19 22:47 Dose: 5,000 unit Ceftriaxone Sodium 1 gm/ (Dextrose) 50 mls @ 100 mls/hr IVPB Q24H [facility]; Protocol Last Admin: 07/18/19 18:46 Dose: 100 mls/hr Azithromycin (Zithromax 500mg Ivpb (Pre-Docked)) 500 mg in 250 mls @ 250 mls/ hr IVPB Q24H [facility] Stop: 07/24/19 09:44 Levothyroxine Sodium (Synthroid -) 25 mcg PO DAILY@0700 [facility] Last Admin: 07/19/19 06:50 Dose: 25 mcg Metoprolol Succinate (Toprol Xl -) 100 mg PO DAILY [facility] Last Admin: 07/18/19 18:47 Dose: 100 mg Morphine Sulfate (Morphine Sulfate) 4 mg IVPUSH Q4H PRN PRN Reason: PAIN LEVEL 7 - 10 Nicotine (Nicoderm Patch -) 14 mg TD DAILY [facility] Last Admin: 07/18/19 11:44 Dose: 14 mg Pantoprazole Sodium (Protonix -) 40 mg PO DAILY@0700 [facility] Last Admin: 07/19/19 06:50 Dose: 40 mg Ranitidine HCl (Zantac -) 150 mg PO DAILY [facility] Last Admin: 07/18/19 18:49 Dose: 150 mg Thiamine HCl (Vitamin B1 -) 100 mg PO DAILY [facility] Last Admin: 07/18/19 18:48 Dose: 100 mg - Objective Vital Signs: Vital Signs Temperature 98.0 F 07/19/19 07:51 Pulse Rate 93 H 07/19/19 07:51 Respiratory Rate 21 H 07/19/19 07:51 Blood Pressure 124/73 07/19/19 07:51 O2 Sat by Pulse Oximetry (%) 96 07/19/19 07:48 Constitutional: Yes: No Distress, Calm Neck: Yes: Supple Cardiovascular: Yes: Regular Rate and Rhythm Respiratory: Yes: Regular, Cough, Diminished, On Nasal O2, Wheezes Gastrointestinal: Yes: Soft, Hypoactive Bowel Sounds Edema: No Labs: CBC, BMP 07/19/19 06:10 07/19/19 06:10 INR, PTT INR 1.23 (0.83-1.09) H 07/18/19 01:20 - ....Imaging EKG: Report Reviewed (Tele: NSR) Assessment/Plan 07/18/2019 Echo: TLS, normal LV and RV size and fxn LVEF 60-65%, unable to assess valve pathology 07/18/[address]: Left base consolidation with mod left effusion, increased bilateral pulm mets, increased hepatic and adrenal mets Problem List - Problems (1) Chest pain Code(s): R07.9 - CHEST PAIN, UNSPECIFIED (2) Alcohol dependence Code(s): F10.20 - ALCOHOL DEPENDENCE, UNCOMPLICATED (3) Alcoholic hepatitis Code(s): K70.10 - ALCOHOLIC HEPATITIS WITHOUT ASCITES Qualifiers: Ascites presence: without ascites Qualified Code(s): K70.10 - Alcoholic hepatitis without ascites (4) CVA (cerebral vascular accident) Code(s): I63.9 - CEREBRAL INFARCTION, UNSPECIFIED (5) Generalized weakness Code(s): R53.1 - WEAKNESS (6) Lung cancer Code(s): C34.90 - MALIGNANT NEOPLASM OF UNSP PART OF UNSP BRONCHUS OR LUNG (7) Lung nodules Code(s): R91.8 - OTHER NONSPECIFIC ABNORMAL FINDING OF LUNG FIELD (8) Parkinson disease Code(s): G20 - PARKINSON'S DISEASE (9) Pleural effusion Code(s): J90 - PLEURAL EFFUSION, NOT ELSEWHERE CLASSIFIED (10) SOB (shortness of breath) Code(s): R06.02 - SHORTNESS OF BREATH (11) COPD (chronic obstructive pulmonary disease) Code(s): J44.9 - CHRONIC OBSTRUCTIVE PULMONARY DISEASE, UNSPECIFIED Qualifiers: (12) Hyperlipidemia Code(s): E78.5 - HYPERLIPIDEMIA, UNSPECIFIED (13) Hypertension Code(s): I10 - ESSENTIAL (PRIMARY) HYPERTENSION Qualifiers: Assessment/Plan 1. Acute hypoxic respiratory failure due to PNA and effusion 2. Underlying lung CA with metastasis 3. HTN 4. Hypercholesterolemia 5. History of ETOH induced liver disease PLAN: 1. Ruled out for [place], continue Toprol XL 100 qd 2. Await Pulmonary input 3. Continue Lipitor 10 qd as LFT normal 4. Bronchodilator/nebulizer, O2 to maintain spO2 >90%, abx course, steroids with GI protection 5. DVT prophylaxis 6. PT with walker assistance as tolerated
[2019-07-19] MEDS: ASPIRIN 81 MG CHEWABLE TABLETS PO SCH (09:53)
[2019-07-19] MEDS: NICOTINE 14 MG/24 HOURS TOPICAL PATCH TD SCH (09:53)
[2019-07-19] MEDS: RANITIDINE HCL 150 MG TABLET (FP) PO SCH (09:53)
[2019-07-19] MEDS: FOLIC ACID 1 MG TABLET (FP) PO SCH (09:54)
[2019-07-19] MEDS: DEXAMETHASONE 4 MG TABLET (FP) PO SCH (09:54)
[2019-07-19] MEDS: THIAMINE HCL 100 MG TABLET (FP) PO SCH (09:54)
[2019-07-19] MEDS: CHOLECALCIFEROL (VIT D3) 400 UNIT (10 MCG) TABLET PO SCH (09:54)
[2019-07-19] MEDS: HEPARIN NA (PORCINE) 5,000 UNITS/ML 1ML VIAL SQ SCH ×2 (09:55→22:01)
[2019-07-19] MEDS: AZITHROMYCIN IVPB 500 MG/250 ML BAG IVPB SCH (10:03)
[2019-07-19] MEDS: ALBUTEROL SO4 2.5/IPRATROPIUM 0.5 INH SOL 3 ML VIAL.NEB. NEB SCH ×3 (11:25→20:41)
--- NOTE | 2019-07-19 11:37 | PN ---
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 LEFT PLEURAL EFFUSION LIKELY MALIGNANT CHEST PAIN H/O CVA ETOH SMOKER PARKINSONS PLAN IV STEROIDS INHALED BRONCHODILATORS SUPPLEMENTAL O2 ABX F/U CHESTS X-RAY CONSIDER THORACENTESIS ABG DR WEEKS Problem List - Problems (1) Acute hypoxemic respiratory failure Code(s): J96.01 - ACUTE RESPIRATORY FAILURE WITH HYPOXIA (2) Chest pain Code(s): R07.9 - CHEST PAIN, UNSPECIFIED (3) Alcohol dependence Code(s): F10.20 - ALCOHOL DEPENDENCE, UNCOMPLICATED (4) 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 Code(s): G11.9 - HEREDITARY ATAXIA, UNSPECIFIED (5) CVA (cerebral vascular accident) Code(s): I63.9 - CEREBRAL INFARCTION, UNSPECIFIED (6) Gait instability Code(s): R26.81 - UNSTEADINESS ON FEET (7) Lung bullae Code(s): J43.9 - EMPHYSEMA, UNSPECIFIED (8) Lung cancer Code(s): C34.90 - MALIGNANT NEOPLASM OF UNSP PART OF UNSP BRONCHUS OR LUNG (9) Lung nodules Code(s): R91.8 - OTHER NONSPECIFIC ABNORMAL FINDING OF LUNG FIELD (10) Pleural effusion Code(s): J90 - PLEURAL EFFUSION, NOT ELSEWHERE CLASSIFIED (11) SOB (shortness of breath) Code(s): R06.02 - SHORTNESS OF BREATH (12) COPD (chronic obstructive pulmonary disease) Code(s): J44.9 - CHRONIC OBSTRUCTIVE PULMONARY DISEASE, UNSPECIFIED Qualifiers: (13) Hyperlipidemia Code(s): E78.5 - HYPERLIPIDEMIA, UNSPECIFIED (14) Hypertension Code(s): I10 - ESSENTIAL (PRIMARY) HYPERTENSION Qualifiers: (15) Nicotine dependence Code(s): F17.200 - NICOTINE DEPENDENCE, UNSPECIFIED, UNCOMPLICATED Qualifiers:
[2019-07-19 11:45] LABS: ANISOCYTOSIS 1+; MACROCYTOSIS 1+; PLATELET ESTIMATE DECREASED; TOXIC GRANULATION 1+
[2019-07-19] MEDS ORDERED: ALBUTEROL SO4 0.083% IH SOL 2.5 MG/3 ML VIAL.NEB. NEB PRN (11:55)
--- NOTE | 2019-07-19 12:30 | PN ---
Teaching Attending Note Name of Resident: Earl Delacruz ATTENDING PHYSICIAN STATEMENT I saw and evaluated the patient. I reviewed the resident's note and discussed the case with the resident. I agree with the resident's findings and plan as documented. SUBJECTIVE:breathing improved. CP resolved. denies Cp, cough, fever, chills, N / V/C/D OBJECTIVE: Last Vital Signs Temp Pulse Resp BP Pulse Ox 98.0 F 93 H 21 H 124/73 96 07/19/19 07:51 07/19/19 07:51 07/19/19 07:51 07/19/19 07:51 07/19/19 07:48 General NAD CV S1 S2 tachy Lungs scattered wheezes, decrease L base Abdomen soft NT/ND Extremities no pedal edema ASSESSMENT AND PLAN: 59yo M wtih pmh HTN, CVA, CKD, parkinson, lung malignancy with mets presented to the ER with CP and SOB and found to be hypoxic with PNA with pleural effusion 1. Acute hypoxic respiratory failure due to PNA and effusion- clinically improved. on azithro and ceftiraxone day 2. encouraged to use nebs prn. will consult pulm for effusion which is likely malignant. cont with supplemental oxygen to maintain spO2 >90%. titrate down as tolerated. 2. CP- seems pleuritic in nature. trop neg x2. no further workup at this time. cardio on board 3. Low TSH- start LT4. will need repeat TFT in 6 weeks 4. Lung cancer with mets- noted to LN, bone and liver. pt is not compliant with radiation treatment and states hes missed several appointments. on dex for bone mets. oncology follow up 5. AAA- 3x2.1cm aneurysm. will need outpatient follow up 6. Continuous nicotine dependence- counselled on need for abstinence as contributing to symptoms. nicotine patch. not interested in stopping. encouraged cessation 7. CVA 8. CKD 9. Parkinsons 10. DVT ppx- hep sq 11. can d/c cardiac monitoring
--- NOTE | 2019-07-19 13:31 | CONS ---
PULMONARY CONSULTATION DATE OF CONSULTATION: 07/19/2019 REFERRING PHYSICIAN: Ernestine Lares MD HISTORY OF PRESENT ILLNESS: The patient is a 59-year-old white male with an extensive past medical history, which includes metastatic lung CA non-small cell with extensive lung metastasis, HOME VISITOR metastasis, and liver metastasis, status post RT, status post stereotactic RT to the HOME VISITOR to the brain, history of right lower lobe resection secondary to empyema, hypertension, a CVA with right-sided weakness, Parkinson's, cerebellar ataxia, history of EtOH, tobacco abuse, currently still smoking about 3/4 pack per day, COPD, hyperlipidemia, ASHD, admitted to [facility] on July 18 with complaint of a 1-2-day history of increasing shortness of breath, dyspnea on exertion, chest pain, as well as abdominal pain. The patient states that he has a chronic cough which is productive. He states he swallows his sputum. He also had increasing wheezing. He denied any fevers or chills, denied any hemoptysis. The patient presented to the emergency room the night prior to admission, was given a DuoNeb treatment and discharged home. His symptoms got worse; at which time, he presented back to the ER. In the ER, he was found to be in moderate respiratory distress. He was started on IV steroids, inhaled bronchodilators, and transferred up to the unit for further monitoring. Of note is the patient underwent a CTA on the chest on July 18 which revealed extensive bilateral pulmonary nodules, enlarged mediastinal lymph nodes, and large right neck base mass, lymph node measuring 4 x 2 x 3 cm. He was also noted to have interval consolidation and development of left pleural effusion with compressive atelectasis. On the CT of the abdomen, he was noted to have interval lesion in the right hepatic lobe suggestive of metastasis. Patient during hospitalization was evaluated by Oncology, as well as Cardiology who felt that the chest pain was not cardiac in origin. He underwent an echocardiogram which revealed normal RV and left ventricular systolic function was within normal limits. Patient as stated before has a history of smoking since age 13. Currently still smoking. He has previously implied has history of occupational exposure to chemicals, as well as asbestos many years ago. PAST MEDICAL HISTORY: Again includes history of CVA with right-sided weakness; Parkinson disease; COPD; metastatic lung cancer, non-small cell with HOME VISITOR as well as adrenal and bone metastasis; hypertension; hyperlipidemia; coronary artery disease; cerebellar ataxia; tremors. REVIEW OF SYSTEMS: Positive shortness of breath. Positive cough. Positive chest pain. No fever. No chills. No hemoptysis. Positive abdominal discomfort. No nausea. No vomiting. No lower extremity edema. CURRENT MEDICATIONS: Include Tylenol, Zithromax, ceftriaxone, NicoDerm, DuoNeb, metoprolol, cyclobenzaprine, Decadron, Zantac, Lipitor, aspirin, morphine, Aricept, Protonix, Synthroid, folic acid, vitamin , and vitamin D3. PHYSICAL EXAMINATION: General: The patient is a thin, white male, well-developed, well-nourished, awake, alert, dyspneic. Vital Signs: He is currently afebrile, blood pressure is 124/73, respiratory rate is 21, O2 saturation is 96% on 4 L nasal cannula. HEENT: Exam is normocephalic, atraumatic. Neck: Supple. Heart: Regular, tachycardic, S1 and S2. Chest: Bilateral wheezes. Abdomen: Soft. Bowel sounds are positive. Extremities: No cyanosis, edema. LABORATORIES: BUN is 9, creatinine 0.5. BNP is 360. WBC is 12.5, hemoglobin 11.6, hematocrit 34.1, with a platelet count of 138,000. Chest CT as noted earlier. IMPRESSION: 1. Acute hypoxemic respiratory failure. Likely secondary to chronic obstructive pulmonary disease with acute exacerbation. 2. Advanced metastatic lung cancer with diffuse lung metastasis, as well as bone, liver, and central nervous system metastasis. 3. Left pleural effusion likely malignant with compression atelectasis. 4. Chest pain. 5. History of cerebrovascular accident. 6. History of alcohol. 7. History of cerebellar ataxia. 8. Smoker. 9. Parkinson's. PLAN: IV steroids. Inhaled bronchodilators. Supplemental O2. Empiric antibiotics. Follow up chest x-rays. Consider thoracentesis. Check arterial blood gas. MELVIN WEEKS M.D. [id number] MTDD
[2019-07-19 14:07] LABS: ARTERIAL BLD GAS O2 SATURATION 94.7 % (95-98); ARTERIAL BLOOD GAS BASE EXCESS 3.5 meq/l (-2-2); ARTERIAL BLOOD GAS PO2 73.4 mmHg (80-100); ARTERIAL BLOOD GAS pH 7.46 (7.35-7.45)
[2019-07-19 14:11] LABS: ALLENS TEST POSITIVE
[2019-07-19] MEDS: DEXAMETHASONE SOD PHOSPHATE 10 MG/1 ML VIAL IVPUSH SCH ×3 (14:27→22:02)
[2019-07-19] MEDS ORDERED: cefTRIAXone SODIUM 1 GM VIAL ONE (15:43)
[2019-07-19] MEDS ORDERED: DEXTROSE 5%-WATER - 50 ML IVPB ONE (15:43)
[2019-07-19] MEDS: CEFTRIAXONE 1 GM in DEXTROSE 5%-WATER - 50 ML IVPB SCH (15:51)
--- NOTE | 2019-07-19 16:37 | PN ---
Physical Exam: SUBJECTIVE: 59 y/o M w PMH metastatic non-small cell lung cancer (adenocarcinoma, metastasis to contralateral lung, brain, adrenals and bone), COPD, hypertension , hyperlipidemia, CVA, coronary artery disease, Parkinson's Disease presented to the hospital for 1-2 days of progressive shortness of breath, chest pain and abdominal pain. Pt seen at bedside today. He c/o nonproductive cough, persistent, no blood. He has chest pain in a band like pattern in the t2-t6 region that is accompanied by SOB. He feels slightly improved after nebs tx. He Denies NVFCD. OBJECTIVE: Vital Signs Period Temp Pulse Resp BP Sys/Blair Pulse Ox Last 24 Hr 97.6 F-98.5 F 93-116 18-24 108-129/63-79 96-100 GENERAL: A&Ox3, in no acute distress, cachectic HEAD: NCAT Alopecic area over LEFT parietal region of scalp poss EYES: LEOLA, EOMI ENT: Moist mucus membranes NECK: No JVD, no lymphadenopathy palpated CHEST: Small, hard chest wall nodule noted just lateral to midline around 2nd L intercostal space, nontender. Breast exam without nodularity. LUNGS: Decreased air entry to base. Diffuse bilateral wheezing, no rales or rhonchi HEART: Mildly tachycardic, no murmurs auscultated ABDOMEN: Soft, nontender, bs present EXTREMITIES: 2+ pulses, no edema. NEUROLOGICAL: Cranial nerves II-XII grossly intact. mild diffuse weakness noted - 4/5 muscle strength throughout, sensation intact Laboratory Results - last 24 hr 07/19/19 07/19/19 07/19/19 06:10 06:10 13:52 WBC 12.5 H RBC 3.62 L Hgb 11.6 L Hct 34.1 L D MCV 94.3 MCH 32.1 MCHC 34.1 RDW 15.3 Plt Count 138 MPV 8.0 Absolute Neuts (auto) 11.8 H Neutrophils % 94.6 H Neutrophils % (Manual) 93.0 H Band Neutrophils % 2.0 Lymphocytes % 1.5 L D Lymphocytes % (Manual) 1.0 L D Monocytes % 3.4 L Monocytes % (Manual) 3 L D Eosinophils % 0.2 D Eosinophils % (Manual) 0.0 D Basophils % 0.3 Basophils % (Manual) 0.0 Myelocytes % (Man) 0 D Promyelocytes % (Man) 0 Blast Cells % (Manual) 0 Nucleated RBC % 0 Metamyelocytes 0 Hypochromia 0 Toxic Granulation 1+ Platelet Estimate Decreased Polychromasia 0 Poikilocytosis 0 Anisocytosis 1+ Microcytosis 0 Macrocytosis 1+ Anticoagulation Therapy No Result Required. Puncture Site Right radial ABG pH 7.46 H ABG pCO2 at Pt Temp 39.0 ABG pO2 at Pt Temp 73.4 L ABG HCO3 27.1 H ABG O2 Sat (Measured) 94.7 L ABG O2 Content 15.6 ABG Base Excess 3.5 H Aaron Test Positive O2 Delivery Device Nasal Oxygen Flow Rate 2l Vent Mode No Result Required. Vent Rate No Result Required. Mechanical Rate No Result Required. Pressure Support Vent No Result Required. Sodium 139 Potassium 4.2 Chloride 100 Carbon Dioxide 33 H Anion Gap 5 L BUN 9.3 Creatinine 0.5 L Est GFR (CKD-EPI)AfAm 135.56 Est GFR (CKD-EPI)NonAf 116.96 Random Glucose 124 H Calcium 8.4 L Phosphorus 3.8 Magnesium 2.1 Total Bilirubin 0.6 AST 12 L ALT 40 Alkaline Phosphatase 100 Total Protein 4.6 L Albumin 1.6 L Active Medications Acetaminophen (Tylenol -) 650 mg PO Q6HPO [facility] Last Admin: 07/19/19 12:26 Dose: 650 mg Albuterol Sulfate (Ventolin 0.083% Nebulizer Soln -) 1 amp NEB Q4H PRN PRN Reason: SHORT OF BREATH/WHEEZING Albuterol/Ipratropium (Duoneb -) 1 amp NEB RQID [facility] Last Admin: 07/19/19 15:35 Dose: 1 amp Aspirin (Asa -) 81 mg PO DAILY [facility] Last Admin: 07/19/19 09:53 Dose: 81 mg Atorvastatin Calcium (Lipitor -) 10 mg PO HS [facility] Last Admin: 07/18/19 22:47 Dose: 10 mg Cholecalciferol (Vitamin D3 -) 400 unit PO DAILY [facility] Last Admin: 07/19/19 09:54 Dose: 400 unit Cyclobenzaprine HCl (Cyclobenzaprine Hcl) 5 mg PO HS [facility] Last Admin: 07/18/19 22:47 Dose: 5 mg Dexamethasone Sodium Phosphate (Decadron Injection -) 8 mg IVPUSH Q6H-IV [facility] Last Admin: 07/19/19 14:28 Dose: 8 mg Donepezil HCl (Aricept -) 5 mg PO HS [facility] Last Admin: 07/18/19 22:47 Dose: 5 mg Folic Acid (Folic Acid -) 1 mg PO DAILY [facility] Last Admin: 07/19/19 09:54 Dose: 1 mg Heparin Sodium (Porcine) (Heparin -) 5,000 unit SQ BID [facility] Last Admin: 07/19/19 09:55 Dose: 5,000 unit Ceftriaxone Sodium 1 gm/ (Dextrose) 50 mls @ 100 mls/hr IVPB Q24H [facility]; Protocol Last Admin: 07/19/19 15:51 Dose: 100 mls/hr Azithromycin (Zithromax 500mg Ivpb (Pre-Docked)) 500 mg in 250 mls @ 250 mls/ hr IVPB Q24H [facility] Stop: 07/24/19 09:44 Last Admin: 07/19/19 10:03 Dose: 250 mls/hr Levothyroxine Sodium (Synthroid -) 25 mcg PO DAILY@0700 [facility] Last Admin: 07/19/19 06:50 Dose: 25 mcg Metoprolol Succinate (Toprol Xl -) 100 mg PO DAILY [facility] Last Admin: 07/19/19 09:54 Dose: 100 mg Morphine Sulfate (Morphine Sulfate) 4 mg IVPUSH Q4H PRN PRN Reason: PAIN LEVEL 7 - 10 Nicotine (Nicoderm Patch -) 14 mg TD DAILY [facility] Last Admin: 07/19/19 09:53 Dose: 14 mg Pantoprazole Sodium (Protonix -) 40 mg PO DAILY@0700 [facility] Last Admin: 07/19/19 06:50 Dose: 40 mg Ranitidine HCl (Zantac -) 150 mg PO DAILY [facility] Last Admin: 07/19/19 09:53 Dose: 150 mg Thiamine HCl (Vitamin B1 -) 100 mg PO DAILY [facility] Last Admin: 07/19/19 09:54 Dose: 100 mg ASSESSMENT/PLAN: 59 y/o M w PMH metastatic non-small cell lung cancer (adenocarcinoma, metastasis to contralateral lung, brain, adrenals and bone), COPD, hypertension , hyperlipidemia, CVA, coronary artery disease, Parkinson's Disease. Pt here for CP, found to have PNA with pleural effusions. # Acute hypoxic respiratory failure due to PNA and effusion - Cont. supplemental oxygen to maintain spO2 >90% - Cont. duo nebs PRN - Empiric treatment 2/2 immunocompromise: azithro and ceftriaxone - Tachycardic with leukocytosis; poss 2/2 steroid - Lasix 40mg IVP x1 for effusion which could be from PNA vs malignancy - Pulm consulted (Dr. Michel) - Dexamethasone 8 mg IVBP q6h IV - Consider thoracentesis - ABG in AM # CP - Pleuritic - Trop neg x2 - Cardio consulted (Dr. Montoya) - Toprol XL 100 qd - Steroids with GI protection # Low TSH - Start LT4 - Repeat TFT in 6 weeks # Lung cancer with mets - Noted to LN, bone, and liver - Dex for bone mets - Hem/onc consulted # AAA - 3x2.1 cm aneurysm - Out-pt f/u # Nicotine dependence - Counselled on need for abstinence as contributing to symptoms - Nicotine patch # CVA - Cont. home meds # CKD - Cont. home meds # Parkinsons - Cont. home meds # F/E/N - No standing fluids - Cont. to monitor electrolytes - Low sodium diet # DVT prophylaxis - Heparin Earl Delacruz MD Visit type - Emergency Visit Emergency Visit: No - New Patient This patient is new to me today: No - Critical Care Critical Care patient: No - Discharge Referral Referred to [facility] No ATTENDING PHYSICIAN STATEMENT I saw and evaluated the patient. I reviewed the resident's note and discussed the case with the resident. I agree with the resident's findings and plan as documented. SUBJECTIVE: OBJECTIVE: ASSESSMENT AND PLAN:
--- NOTE | 2019-07-19 19:37 | PN ---
Teaching Attending Note Name of Resident: Richy Nugent ATTENDING PHYSICIAN STATEMENT I saw and evaluated the patient. I reviewed the resident's note and discussed the case with the resident. I agree with the resident's findings and plan as documented. SUBJECTIVE: Patient seen and examined Presents with SOB and dyspnea . Multiple medical problems. Metastatic adenoca of lungs with brain, bone, lung, liver, adrenal, likely pleural mets. PMH: Parkinsons, S/P CVA, COPD, CAD, aneurysm, HBP, HPL. ROS lower back pain, SOB, dyspnea, abdominal pains Current Medications Generic Name Dose Route Start Last Admin Trade Name Freq PRN Reason Stop Dose Admin Acetaminophen 650 mg 07/18/19 18:00 07/19/19 12:26 Tylenol - PO 650 mg Q6HPO RONALDO Administration Albuterol Sulfate 1 amp 07/19/19 11:55 Ventolin 0.083% Nebulizer Soln - NEB Q4H PRN SHORT OF BREATH/WHEEZING Albuterol/Ipratropium 1 amp 07/19/19 12:00 07/19/19 15:35 Duoneb - NEB 1 amp RQID [facility]ONALDO Administration Aspirin 81 mg 07/18/19 10:00 07/19/19 09:53 Asa - PO 81 mg DAILY [facility] Administration Atorvastatin Calcium 10 mg 07/18/19 22:00 07/18/19 22:47 Lipitor - PO 10 mg HS [facility]ONALDO Administration Cholecalciferol 400 unit 07/18/19 16:45 07/19/19 09:54 Vitamin D3 - PO 400 unit DAILY [facility] Administration Cyclobenzaprine HCl 5 mg 07/18/19 22:00 07/18/19 22:47 Cyclobenzaprine Hcl PO 5 mg HS [facility]ONALDO Administration Dexamethasone Sodium Phosphate 8 mg 07/19/19 12:00 07/19/19 14:28 Decadron Injection - IVPUSH 8 mg Q6H-IV [facility]ALDO Administration Donepezil HCl 5 mg 07/18/19 22:00 07/18/19 22:47 Aricept - PO 5 mg HS RONALDO Administration Folic Acid 1 mg 07/18/19 16:45 07/19/19 09:54 Folic Acid - PO 1 mg DAILY [facility] Administration Heparin Sodium (Porcine) 5,000 unit 07/18/19 10:00 07/19/19 09:55 Heparin - SQ 5,000 unit BID [facility]ONALDO Administration Ceftriaxone Sodium 1 gm/ 50 mls @ 100 mls/hr 07/18/19 16:45 07/19/19 15:51 Dextrose IVPB 100 mls/hr Q24H [facility]ONAL[facility] Administration Protocol Azithromycin 500 mg in 250 mls @ 250 mls/hr 07/19/19 08:45 07/19/19 10:03 Zithromax 500mg Ivpb (Pre-Docked) IVPB 07/24/19 09:44 250 mls/hr Q24H [facility]ONALDO Administration Levothyroxine Sodium 25 mcg 07/19/19 07:00 07/19/19 06:50 Synthroid - PO 25 mcg DAILY@0700 [facility]ALDO Administration Metoprolol Succinate 100 mg 07/18/19 16:45 07/19/19 09:54 Toprol Xl - PO 100 mg DAILY [facility] Administration Morphine Sulfate 4 mg 07/18/19 06:41 Morphine Sulfate IVPUSH Q4H PRN PAIN LEVEL 7 - 10 Nicotine 14 mg 07/18/19 10:00 07/19/19 09:53 Nicoderm Patch - TD 14 mg DAILY [facility] Administration Pantoprazole Sodium 40 mg 07/18/19 16:45 07/19/19 06:50 Protonix - PO 40 mg DAILY@0700 [facility]ALDO Administration Ranitidine HCl 150 mg 07/18/19 16:45 07/19/19 09:53 Zantac - PO 150 mg DAILY [facility] Administration Thiamine HCl 100 mg 07/18/19 16:45 07/19/19 09:54 Vitamin B1 - PO 100 mg DAILY [facility] Administration Last Vital Signs Temp Pulse Resp BP Pulse Ox 98.3 F 97 H 20 100/67 96 07/19/19 18:52 07/19/19 18:52 07/19/19 18:52 07/19/19 18:52 07/19/19 07:48 HEENT: LEOLA, EOM Intact Oropharynx: No thrush, No mucositis Neck: Supple Nodes: Without adenopathy Cor: RSR, No murmurs, No gallops Lungs: rhonchi, wheezes, diminished breath sounds Abd: Soft, Normal bowel sounds, No organomegaly Ext:No significant edema Skin: No rashes, Integument intact CBC, BMP 07/19/19 06:10 07/19/19 06:10 Impression: Metastatic adenoca of lung with brain, bone, lung, liver ,adrenal, and likely pleural mets Parkinsons HBP HPL S/P CVA COPD CAD Hypothyroid Consider thoracentesis- left RT consult Consider pembrolizumab in future - as PDL-1 level 93% Poor performance status against chemotherapy either as single agent or in combination with immunotherapy. . OBJECTIVE: ASSESSMENT AND PLAN:
[2019-07-19] MEDS: DONEPEZIL HCL 5 MG TABLET (FP) PO SCH (21:59)
[2019-07-19] MEDS: ATORVASTATIN CA 10 MG TABLET (FP) PO SCH (22:00)
[2019-07-19] MEDS: CYCLOBENZAPRINE HCL 5 MG TABLET PO SCH (22:37)
[2019-07-20] MEDS: ACETAMINOPHEN 325 MG TABLET (FP) PO SCH ×5 (03:17→17:17)
[2019-07-20] MEDS: DEXAMETHASONE SOD PHOSPHATE 10 MG/1 ML VIAL IVPUSH SCH ×3 (03:22→14:22)
[2019-07-20] MEDS: LEVOTHYROXINE NA 25 MCG TABLET (FP) PO SCH (06:07)
[2019-07-20] MEDS: PANTOPRAZOLE 40 MG TABLET (FP) PO SCH (06:07)
[2019-07-20 07:39] LABS: BASO % 0.3 % (0-2.0); HEMATOCRIT 32.4 % (35.4-49); LYMPH % 1.8 % (8-40); MCH 32.4 pg (25.7-33.7); MCHC 33.9 g/dl (32.0-35.9); MEAN CELL VOLUME 95.4 fl (80-96); MEAN PLT VOLUME 8.3 fl (7.5-11.1); MONO % 3.6 % (3.8-10.2); NEUT % 94.3 % (42.8-82.8); PLATELET COUNT 145 K/MM3 (134-434); RBC 3.39 M/mm3 (4.00-5.60); RDW 15.1 % (11.9-15.9); WHITE BLOOD COUNT 12.2 K/mm3 (4.0-10.0)
[2019-07-20 07:44] LABS: ALBUMIN 1.5 g/dl (3.4-5.0); BILIRUBIN,TOTAL 0.2 mg/dL (0.2-1); CALCIUM 7.8 mg/dL (8.5-10.1); CREATININE 0.5 mg/dL (0.55-1.3); MAGNESIUM 1.8 mg/dL (1.8-2.4); PHOSPHOROUS 2.5 mg/dL (2.5-4.9); POTASSIUM 3.8 mmol/L (3.5-5.1); TOT PROT 4.5 g/dl (6.4-8.2)
[2019-07-20] MEDS: ALBUTEROL SO4 2.5/IPRATROPIUM 0.5 INH SOL 3 ML VIAL.NEB. NEB SCH ×3 (08:00→15:54)
[2019-07-20] MEDS: AZITHROMYCIN IVPB 500 MG/250 ML BAG IVPB SCH (08:51)
[2019-07-20] MEDS: RANITIDINE HCL 150 MG TABLET (FP) PO SCH (09:04)
[2019-07-20] MEDS: FOLIC ACID 1 MG TABLET (FP) PO SCH (09:05)
[2019-07-20] MEDS: ASPIRIN 81 MG CHEWABLE TABLETS PO SCH (09:05)
[2019-07-20] MEDS: CHOLECALCIFEROL (VIT D3) 400 UNIT (10 MCG) TABLET PO SCH (09:05)
[2019-07-20] MEDS: THIAMINE HCL 100 MG TABLET (FP) PO SCH (09:07)
[2019-07-20] MEDS: NICOTINE 14 MG/24 HOURS TOPICAL PATCH TD SCH (09:15)
--- NOTE | 2019-07-20 09:15 | PN ---
Progress Note, Physician History of Present Illness: Dyspnea, cough and wheeze resolving. - Current Medication List Current Medications: Active Medications Acetaminophen (Tylenol -) 650 mg PO Q6HPO [facility] Last Admin: 07/20/19 06:06 Dose: 650 mg Albuterol Sulfate (Ventolin 0.083% Nebulizer Soln -) 1 amp NEB Q4H PRN PRN Reason: SHORT OF BREATH/WHEEZING Albuterol/Ipratropium (Duoneb -) 1 amp NEB RQID [facility] Last Admin: 07/20/19 08:00 Dose: 1 amp Aspirin (Asa -) 81 mg PO DAILY [facility] Last Admin: 07/19/19 09:53 Dose: 81 mg Atorvastatin Calcium (Lipitor -) 10 mg PO HS [facility] Last Admin: 07/19/19 22:00 Dose: 10 mg Cholecalciferol (Vitamin D3 -) 400 unit PO DAILY [facility] Last Admin: 07/19/19 09:54 Dose: 400 unit Cyclobenzaprine HCl (Cyclobenzaprine Hcl) 5 mg PO HS [facility] Last Admin: 07/19/19 22:37 Dose: 5 mg Dexamethasone Sodium Phosphate (Decadron Injection -) 8 mg IVPUSH Q6H-IV [facility] Last Admin: 07/20/19 03:22 Dose: 8 mg Donepezil HCl (Aricept -) 5 mg PO HS [facility] Last Admin: 07/19/19 21:59 Dose: 5 mg Folic Acid (Folic Acid -) 1 mg PO DAILY [facility] Last Admin: 07/19/19 09:54 Dose: 1 mg Heparin Sodium (Porcine) (Heparin -) 5,000 unit SQ BID [facility] Last Admin: 07/19/19 22:01 Dose: 5,000 unit Ceftriaxone Sodium 1 gm/ (Dextrose) 50 mls @ 100 mls/hr IVPB Q24H [facility]; Protocol Last Admin: 07/19/19 15:51 Dose: 100 mls/hr Azithromycin (Zithromax 500mg Ivpb (Pre-Docked)) 500 mg in 250 mls @ 250 mls/ hr IVPB Q24H [facility] Stop: 07/24/19 09:44 Last Admin: 07/19/19 10:03 Dose: 250 mls/hr Levothyroxine Sodium (Synthroid -) 25 mcg PO DAILY@0700 [facility] Last Admin: 07/20/19 06:07 Dose: 25 mcg Metoprolol Succinate (Toprol Xl -) 100 mg PO DAILY [facility] Last Admin: 07/19/19 09:54 Dose: 100 mg Morphine Sulfate (Morphine Sulfate) 4 mg IVPUSH Q4H PRN PRN Reason: PAIN LEVEL 7 - 10 Nicotine (Nicoderm Patch -) 14 mg TD DAILY [facility] Last Admin: 07/19/19 09:53 Dose: 14 mg Pantoprazole Sodium (Protonix -) 40 mg PO DAILY@0700 [facility] Last Admin: 07/20/19 06:07 Dose: 40 mg Ranitidine HCl (Zantac -) 150 mg PO DAILY [facility] Last Admin: 07/19/19 09:53 Dose: 150 mg Thiamine HCl (Vitamin B1 -) 100 mg PO DAILY [facility] Last Admin: 07/19/19 09:54 Dose: 100 mg - Objective Vital Signs: Vital Signs Temperature 97.7 F 07/20/19 06:00 Pulse Rate 86 07/20/19 06:00 Respiratory Rate 20 07/20/19 06:00 Blood Pressure 130/77 07/20/19 06:00 O2 Sat by Pulse Oximetry (%) 93 L 07/19/19 22:00 Constitutional: Yes: No Distress, Calm, Thin Neck: Yes: Supple Cardiovascular: Yes: Regular Rate and Rhythm Respiratory: Yes: Regular, Diminished, On Nasal O2 Gastrointestinal: Yes: Soft, Hypoactive Bowel Sounds Edema: No Labs: CBC, BMP 07/20/19 05:30 07/20/19 05:30 INR, PTT INR 1.23 (0.83-1.09) H 07/18/19 01:20 - ....Imaging EKG: Report Reviewed (Tele: NSR) Assessment/Plan 07/18/2019 Echo: TLS, normal LV and RV size and fxn LVEF 60-65%, unable to assess valve pathology 07/18/[address]: Left base consolidation with mod left effusion, increased bilateral pulm mets, increased hepatic and adrenal mets Problem List - Problems (1) Chest pain Code(s): R07.9 - CHEST PAIN, UNSPECIFIED (2) Alcohol dependence Code(s): F10.20 - ALCOHOL DEPENDENCE, UNCOMPLICATED (3) Alcoholic hepatitis Code(s): K70.10 - ALCOHOLIC HEPATITIS WITHOUT ASCITES Qualifiers: Ascites presence: without ascites Qualified Code(s): K70.10 - Alcoholic hepatitis without ascites (4) CVA (cerebral vascular accident) Code(s): I63.9 - CEREBRAL INFARCTION, UNSPECIFIED (5) Generalized weakness Code(s): R53.1 - WEAKNESS (6) Lung cancer Code(s): C34.90 - MALIGNANT NEOPLASM OF UNSP PART OF UNSP BRONCHUS OR LUNG (7) Lung nodules Code(s): R91.8 - OTHER NONSPECIFIC ABNORMAL FINDING OF LUNG FIELD (8) Parkinson disease Code(s): G20 - PARKINSON'S DISEASE (9) Pleural effusion Code(s): J90 - PLEURAL EFFUSION, NOT ELSEWHERE CLASSIFIED (10) SOB (shortness of breath) Code(s): R06.02 - SHORTNESS OF BREATH (11) COPD (chronic obstructive pulmonary disease) Code(s): J44.9 - CHRONIC OBSTRUCTIVE PULMONARY DISEASE, UNSPECIFIED Qualifiers: (12) Hyperlipidemia Code(s): E78.5 - HYPERLIPIDEMIA, UNSPECIFIED (13) Hypertension Code(s): I10 - ESSENTIAL (PRIMARY) HYPERTENSION Qualifiers: Assessment/Plan 1. Acute hypoxic respiratory failure due to PNA and left effusion, possible malignant 2. AE COPD improved 3. Non small cell lung CA with metastasis to brain, bone, liver and adrenals 4. HTN 5. Hypercholesterolemia 6. History of ETOH induced liver disease 7. Parkinson's disease 8 Hypothyroidism PLAN: 1. Continue Toprol XL 100 qd 2. Bronchodilator/nebulizer, O2 to maintain spO2 >90%, abx course, oral steroids with GI protection 3. Continue Lipitor 10 qd as LFT normal 4. Left thoracentesis deferred due to clinical improvement 5. DVT prophylaxis 6. PT with walker assistance as tolerated, d/c planning 7. RT consult, consider pembrolizumab in future - as PDL-1 level 93%, poor performance status against chemotherapy either as single agent or in combination with immunotherapy
[2019-07-20] MEDS: HEPARIN NA (PORCINE) 5,000 UNITS/ML 1ML VIAL SQ SCH (09:16)
--- NOTE | 2019-07-20 10:55 | PN ---
Progress Note, Physician History of Present Illness: pulmonary alert,comfortable,dyspnea improved,min cough.pt wants to go home refuses to stay in hosp - Current Medication List Current Medications: Active Medications Acetaminophen (Tylenol -) 650 mg PO Q6HPO [facility] Last Admin: 07/20/19 06:06 Dose: 650 mg Albuterol Sulfate (Ventolin 0.083% Nebulizer Soln -) 1 amp NEB Q4H PRN PRN Reason: SHORT OF BREATH/WHEEZING Albuterol/Ipratropium (Duoneb -) 1 amp NEB RQID [facility] Last Admin: 07/20/19 08:00 Dose: 1 amp Aspirin (Asa -) 81 mg PO DAILY [facility] Last Admin: 07/20/19 09:05 Dose: 81 mg Atorvastatin Calcium (Lipitor -) 10 mg PO HS [facility] Last Admin: 07/19/19 22:00 Dose: 10 mg Cholecalciferol (Vitamin D3 -) 400 unit PO DAILY [facility] Last Admin: 07/20/19 09:05 Dose: 400 unit Cyclobenzaprine HCl (Cyclobenzaprine Hcl) 5 mg PO HS [facility] Last Admin: 07/19/19 22:37 Dose: 5 mg Dexamethasone Sodium Phosphate (Decadron Injection -) 8 mg IVPUSH Q6H-[facility] Last Admin: 07/20/19 08:57 Dose: 8 mg Donepezil HCl (Aricept -) 5 mg PO HS [facility] Last Admin: 07/19/19 21:59 Dose: 5 mg Folic Acid (Folic Acid -) 1 mg PO DAILY [facility] Last Admin: 07/20/19 09:05 Dose: 1 mg Heparin Sodium (Porcine) (Heparin -) 5,000 unit SQ BID [facility] Last Admin: 07/20/19 09:16 Dose: 5,000 unit Ceftriaxone Sodium 1 gm/ (Dextrose) 50 mls @ 100 mls/hr IVPB Q24H [facility]; Protocol Last Admin: 07/19/19 15:51 Dose: 100 mls/hr Azithromycin (Zithromax 500mg Ivpb (Pre-Docked)) 500 mg in 250 mls @ 250 mls/ hr IVPB Q24H [facility] Stop: 07/24/19 09:44 Last Admin: 07/20/19 08:51 Dose: 250 mls/hr Levothyroxine Sodium (Synthroid -) 25 mcg PO DAILY@0700 [facility] Last Admin: 07/20/19 06:07 Dose: 25 mcg Metoprolol Succinate (Toprol Xl -) 100 mg PO DAILY [facility] Last Admin: 07/20/19 09:04 Dose: 100 mg Morphine Sulfate (Morphine Sulfate) 4 mg IVPUSH Q4H PRN PRN Reason: PAIN LEVEL 7 - 10 Nicotine (Nicoderm Patch -) 14 mg TD DAILY [facility] Last Admin: 07/20/19 09:15 Dose: 14 mg Pantoprazole Sodium (Protonix -) 40 mg PO DAILY@0700 [facility] Last Admin: 07/20/19 06:07 Dose: 40 mg Ranitidine HCl (Zantac -) 150 mg PO DAILY [facility] Last Admin: 07/20/19 09:04 Dose: 150 mg Thiamine HCl (Vitamin B1 -) 100 mg PO DAILY [facility] Last Admin: 07/20/19 09:07 Dose: 100 mg - Objective Vital Signs: Vital Signs Temperature 97.7 F 07/20/19 06:00 Pulse Rate 86 07/20/19 06:00 Respiratory Rate 20 07/20/19 06:00 Blood Pressure 130/77 07/20/19 06:00 O2 Sat by Pulse Oximetry (%) 93 L 07/19/19 22:00 Constitutional: Yes: Well Nourished, Calm Eyes: Yes: WNL HENT: Yes: WNL Neck: Yes: WNL Cardiovascular: Yes: Regular Rate and Rhythm, S1, S2 Respiratory: Yes: Wheezes (few wheezes) Gastrointestinal: Yes: Normal Bowel Sounds, Soft Extremities: Yes: WNL Edema: No Labs: CBC, BMP 07/20/19 05:30 07/20/19 05:30 INR, PTT INR 1.23 (0.83-1.09) H 07/18/19 01:20 Laboratory Tests 07/19/19 13:52 ABG pH 7.46 H ABG pCO2 at Pt Temp 39.0 ABG pO2 at Pt Temp 73.4 L ABG HCO3 27.1 H ABG O2 Sat (Measured) 94.7 L Oxygen Flow Rate 2l Problem List - Problems (1) Acute hypoxemic respiratory failure Code(s): J96.01 - ACUTE RESPIRATORY FAILURE WITH HYPOXIA (2) Chest pain Code(s): R07.9 - CHEST PAIN, UNSPECIFIED (3) Alcohol dependence Code(s): F10.20 - ALCOHOL DEPENDENCE, UNCOMPLICATED (4) 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 Code(s): G11.9 - HEREDITARY ATAXIA, UNSPECIFIED (5) CVA (cerebral vascular accident) Code(s): I63.9 - CEREBRAL INFARCTION, UNSPECIFIED (6) Gait instability Code(s): R26.81 - UNSTEADINESS ON FEET (7) Lung bullae Code(s): J43.9 - EMPHYSEMA, UNSPECIFIED (8) Lung cancer Code(s): C34.90 - MALIGNANT NEOPLASM OF UNSP PART OF UNSP BRONCHUS OR LUNG (9) Lung nodules Code(s): R91.8 - OTHER NONSPECIFIC ABNORMAL FINDING OF LUNG FIELD (10) Pleural effusion Code(s): J90 - PLEURAL EFFUSION, NOT ELSEWHERE CLASSIFIED (11) SOB (shortness of breath) Code(s): R06.02 - SHORTNESS OF BREATH (12) COPD (chronic obstructive pulmonary disease) Code(s): J44.9 - CHRONIC OBSTRUCTIVE PULMONARY DISEASE, UNSPECIFIED Qualifiers: (13) Hyperlipidemia Code(s): E78.5 - HYPERLIPIDEMIA, UNSPECIFIED (14) Hypertension Code(s): I10 - ESSENTIAL (PRIMARY) HYPERTENSION Qualifiers: (15) Nicotine dependence Code(s): F17.200 - NICOTINE DEPENDENCE, UNSPECIFIED, UNCOMPLICATED Qualifiers: Assessment/Plan IMP ACUTE HYPOXIC RESPIRATORY FAILURE COPD EXACERBATION METASTATIC LUNG CA NON-SMALL CELL WITH AGRICULTURAL PURCHASING AGENT METS,BONE,LIVER METS LEFT PLEURAL EFFUSION LIKELY MALIGNANT CHEST PAIN H/O CVA ETOH SMOKER PARKINSONS PLAN STEROIDS INHALED BRONCHODILATORS SUPPLEMENTAL O2 ABX F/U CHESTS X-RAY DR WEEKS Problem List - Problems (1) Acute hypoxemic respiratory failure Code(s): J96.01 - ACUTE RESPIRATORY FAILURE WITH HYPOXIA (2) Chest pain Code(s): R07.9 - CHEST PAIN, UNSPECIFIED (3) Alcohol dependence Code(s): F10.20 - ALCOHOL DEPENDENCE, UNCOMPLICATED (4) 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 Code(s): G11.9 - HEREDITARY ATAXIA, UNSPECIFIED (5) CVA (cerebral vascular accident) Code(s): I63.9 - CEREBRAL INFARCTION, UNSPECIFIED (6) Gait instability Code(s): R26.81 - UNSTEADINESS ON FEET (7) Lung bullae Code(s): J43.9 - EMPHYSEMA, UNSPECIFIED (8) Lung cancer Code(s): C34.90 - MALIGNANT NEOPLASM OF UNSP PART OF UNSP BRONCHUS OR LUNG (9) Lung nodules Code(s): R91.8 - OTHER NONSPECIFIC ABNORMAL FINDING OF LUNG FIELD (10) Pleural effusion Code(s): J90 - PLEURAL EFFUSION, NOT ELSEWHERE CLASSIFIED (11) SOB (shortness of breath) Code(s): R06.02 - SHORTNESS OF BREATH (12) COPD (chronic obstructive pulmonary disease) Code(s): J44.9 - CHRONIC OBSTRUCTIVE PULMONARY DISEASE, UNSPECIFIED Qualifiers: (13) Hyperlipidemia Code(s): E78.5 - HYPERLIPIDEMIA, UNSPECIFIED (14) Hypertension Code(s): I10 - ESSENTIAL (PRIMARY) HYPERTENSION Qualifiers: (15) Nicotine dependence Code(s): F17.200 - NICOTINE DEPENDENCE, UNSPECIFIED, UNCOMPLICATED Qualifiers:
[2019-07-20 11:46] LABS: ANISOCYTOSIS 1+; MACROCYTOSIS 1+; PLATELET ESTIMATE DECREASED; TOXIC GRANULATION 1+
[2019-07-20 15:44] VITALS: PULSE 98; TEMP 97.9
--- NOTE | 2019-07-20 16:35 | PN ---
Teaching Attending Note Name of Resident: Jade Saagstume ATTENDING PHYSICIAN STATEMENT I saw and evaluated the patient. I reviewed the resident's note and discussed the case with the resident. I agree with the resident's findings and plan as documented. SUBJECTIVE:asymptomatic. denies Cp, SOB, fever, chills, N/V/C/D OBJECTIVE: Last Vital Signs Temp Pulse Resp BP Pulse Ox 97.9 F 98 H 22 H 131/74 96 07/20/19 14:00 07/20/19 14:00 07/20/19 10:00 07/20/19 14:00 07/20/19 10:00 General NAD CV S1 S2 RRR no wheezing/rales/rhonchi Lungs scattered wheezes, decrease L base Abdomen soft NT/ND Extremities no pedal edema ASSESSMENT AND PLAN: 59yo M wtih pmh HTN, CVA, CKD, parkinson, lung malignancy with mets presented to the ER with CP and SOB and found to be hypoxic with PNA with pleural effusion 1. Acute hypoxic respiratory failure due to PNA and effusion- clinically improved. on azithro and ceftiraxone day 3 and dex IV. as per pulm no indication for thoracentesis at this time. taper given for steroids. will d/c on abx to complete 5 days. pulm follow up as outpatient 2. CP- seems pleuritic in nature. trop neg x2. no further workup at this time. cardio on board 3. Low TSH- start LT4. will need repeat TFT in 6 weeks 4. Lung cancer with mets- noted to LN, bone and liver. pt is not compliant with radiation treatment and states hes missed several appointments. on dex for bone mets. oncology follow up 5. AAA- 3x2.1cm aneurysm. will need outpatient follow up 6. Continuous nicotine dependence- counselled on need for abstinence as contributing to symptoms. nicotine patch. not interested in stopping. encouraged cessation 7. CVA 8. CKD 9. Parkinsons 10. DVT ppx- hep sq 11. d/c home
[2019-07-20 16:39] VITALS: BP 134/77
--- NOTE | 2019-07-20 17:10 | DS ---
Physical Exam: SUBJECTIVE: 59 y/o M w PMH metastatic non-small cell lung cancer (adenocarcinoma, metastasis to contralateral lung, brain, adrenals and bone), COPD, hypertension , hyperlipidemia, CVA, coronary artery disease, Parkinson's Disease presented to the hospital for 1-2 days of progressive shortness of breath, chest pain and abdominal pain. Pt seen at bedside today. Currently reports that he feels improved compared to when he presented and denies SOB and CP. He Denies NVFCD. OBJECTIVE: Vital Signs Period Temp Pulse Resp BP Sys/Blair Pulse Ox Last 24 Hr 97.6 F-98.4 F 86-101 18-22 100-147/62-89 93-96 PHYSICAL EXAM GENERAL: A&Ox3, in no acute distress HEAD: NCAT Nodule on nasal bridge, medial to eyes EYES: LEOLA, EOMI ENT: Moist mucus membranes NECK: No JVD, no lymphadenopathy palpated CHEST: Small, hard chest wall nodule noted just lateral to midline around 2nd L intercostal space, nontender. Breast exam without nodularity. LUNGS: Decreased air entry BL. No wheezing, no rales or rhonchi HEART: RRR s1 s1 no murmurs auscultated ABDOMEN: Soft, nontender, bs present EXTREMITIES: 2+ pulses, no edema. NEUROLOGICAL: Cranial nerves II-XII grossly intact. mild diffuse weakness noted - 4/5 muscle strength throughout, sensation intact LABS Laboratory Results - last 24 hr 07/20/19 07/20/19 05:30 05:30 WBC 12.2 H RBC 3.39 L Hgb 11.0 L Hct 32.4 L MCV 95.4 MCH 32.4 MCHC 33.9 RDW 15.1 Plt Count 145 MPV 8.3 Absolute Neuts (auto) 11.5 H Neutrophils % 94.3 H Neutrophils % (Manual) 90.9 H Band Neutrophils % 3.0 Lymphocytes % 1.8 L Lymphocytes % (Manual) 1.0 L Monocytes % 3.6 L Monocytes % (Manual) 5 Eosinophils % 0.0 D Eosinophils % (Manual) 0.0 Basophils % 0.3 Basophils % (Manual) 0.0 Myelocytes % (Man) 0 Promyelocytes % (Man) 0 Blast Cells % (Manual) 0 Nucleated RBC % 0 Metamyelocytes 0 Hypochromia 0 Toxic Granulation 1+ Platelet Estimate Decreased Platelet Comment Present Polychromasia 0 Poikilocytosis 0 Anisocytosis 1+ Microcytosis 0 Macrocytosis 1+ Sodium 143 Potassium 3.8 Chloride 104 Carbon Dioxide 29 Anion Gap 10 BUN 17.0 Creatinine 0.5 L Est GFR (CKD-EPI)AfAm 135.56 Est GFR (CKD-EPI)NonAf 116.96 Random Glucose 144 H Calcium 7.8 L Phosphorus 2.5 Magnesium 1.8 Total Bilirubin 0.2 AST 11 L ALT 29 Alkaline Phosphatase 86 Total Protein 4.5 L Albumin 1.5 L HOSPITAL COURSE: Date of Admission:07/18/19 59 y/o M w PMH metastatic non-small cell lung cancer (adenocarcinoma, metastasis to contralateral lung, brain, adrenals and bone), COPD, hypertension , hyperlipidemia, CVA, coronary artery disease, Parkinson's Disease. Pt here for CP. Trop neg x2. Acute hypoxic respiratory failure due to PNA and effusion presented w tachycardic and leukocytosis, which is poss 2/2 steroids. Empiric treatment given 2/2 immunocompromise: azithro and ceftriaxone. Lasix 40mg IVP x1 for effusion which could be from PNA vs malignancy. Supplemental oxygen was continued to maintain spO2 >90%. CP is pleuritic. Cardiology was consulted and recommended out pt care. Pt was found to have low TSH and LT4 was stsarted. Pt instructed to re-check TFT in 6 weeks. Heme/onc consulted for lung cancer with mets. It was noted that mets were present in LN, bone, and liver. Pt was given dex for bone mets. RT consult, consider pembrolizumab in future - as PDL-1 level 93%, poor performance status against chemotherapy either as single agent or in combination with immunotherapy. Pt has AAA, 3x2.1 cm aneurysm, and was Remote h/o CVA, CKD, and Parkinsons for which home meds were cont. Pt status improved, educated on necessary f/u and care, and d/c home. Date of Discharge: 07/20/19 Earl Delacruz MD Minutes to complete discharge: 40 Discharge Summary Reason For Visit: CHEST PAIN Current Active Problems Acute hypoxemic respiratory failure (Acute) Chest pain (Acute) Condition: Improved - Instructions Diet, Activity, Other Instructions: YOUR VISIT You came to the hospital because you were experiencing chest pain and shortness of breath. You were admitted to the hospital for care of these symptoms. Imaging showed that you had worsening of your chronic illnesses. You were also seen by a messenger floorperson, distribution field technician, and oncologist. After treatment, you returned to your previous state of health and can continue receiving care outside of the hospital. You may now return home. MEDICATIONS Please continue to take your home medications as prescribed. You have *NEW* mediation. Since you received steroids here to help your lungs, you will need to slowly decrease the dose over the following days as prescribed below: Decadron: Follow the following taper. DO NOT abruptly stop this medication. July 21, 2019 8 mg by mouth every 6 hours July 22, 2019 8 mg by mouth every 6 hours July 23, 2019 8 mg by mouth every 6 hours July 24, 2019 8 mg by mouth every 6 hours July 25, 2019 6 mg by mouth every 6 hours July 26, 2019 6 mg by mouth every 6 hours July 27, 2019 6 mg by mouth every 6 hours July 28, 2019 6 mg by mouth every 6 hours After completing the taper, you may resume your home dose of Decadron 4mg every 6 hours. Continue taking Antibiotics: Ceftin 500mg every 12 hours for the next three days , Azithromycin 500mg daily for the next three days. You were also started on medication for your thyroid: Synthroid 25mcg daily. You will need Thyroid studies within 6 weeks. Discuss further with your primary care physician. ADDITIONAL CARE Please make an appointment to see your primary care provider, Dr. Eleni Carvalho, 1 week from today. Please make an appointment to follow up with your oncologist, Dr. Tompkins, 1 week from today. Please make an appointment to follow up with your distribution field technician, A referral to Dr. Michel has been provided. Please make an appointment to follow up with your cardiologst. A referral to Dr. Montoya has been provided. You were noted to have a dilation of your Aorta which will require outpatient follow up. You are strongly encouraged to quit smoking. Discuss with your primary care physician regarding smoking cessation. ADDITIONAL INFORMATION Please call 911 or come directly to the emergency department if you experience unusual headache, vision change, shortness of breath, chest pain, numbness, tingling, loss of alertness/awareness, loss of function, unusual bleeding or any alarming symptoms. Referrals: Ronak Michel MD [Staff Physician] - Eleni Carvalho MD [Staff Physician] - Alireza Tompkins MD [Staff Physician] - Parveen Montoya MD [Staff Physician] - Disposition: HOME HEALTH CARE - Home Medications Comprehensive Discharge Medication List: Ambulatory Orders Folic Acid 1 mg PO DAILY #14 tablet 09/29/17 Ranitidine HCl [Zantac] 150 mg PO DAILY #14 tablet 09/29/17 Thiamine HCl [Vitamin B1 -] 100 mg PO DAILY #14 tablet 09/29/17 Atorvastatin Ca [Lipitor] 10 mg PO HS 12/14/18 Cholecalciferol (Vitamin D3) [Vitamin D -] 1,000 mg PO DAILY 12/14/18 Pantoprazole Sodium [Protonix -] 40 mg PO DAILY #120 tablet.ec 05/24/19 Acetaminophen [Tylenol] 650 mg PO Q4H #30 capsule 07/06/19 Cyclobenzaprine HCl 5 mg PO HS #10 tablet 07/06/19 Donepezil HCl 5 mg PO DAILY 07/06/19 Metoprolol Succinate [Toprol XL -] 100 mg PO DAILY 07/06/19 Aspirin [ASA -] 81 mg PO DAILY tab.chew 07/20/19 Azithromycin 500 mg PO DAILY 3 Days #3 tablet 07/20/19 Cefuroxime Axetil [Ceftin -] 500 mg PO Q12H 3 Days #6 tablet 07/20/19 Dexamethasone [Decadron -] See Taper PO Q6H 8 Days #64 tablet 07/20/19 Levothyroxine [Synthroid -] 25 mcg PO DAILY 30 Days #30 tablet 07/20/19 This patient is new to me today: No Emergency Visit: No Critical Care patient: No - Discharge Referral Referred to [facility] No ATTENDING PHYSICIAN STATEMENT I saw and evaluated the patient. I reviewed the resident's note and discussed the case with the resident. I agree with the resident's findings and plan as documented. SUBJECTIVE: OBJECTIVE: ASSESSMENT AND PLAN:
== END 2019-07-20 19:08 | disposition home or self-care (01) | DRG 180 ==
LOC: JER 00:43 → JERBED 05:53 → J4W 23:08
PROVIDERS: ADMIT Internal Medicine; ATTEND Internal Medicine
DX: C34.92 Malignant neoplasm of unspecified part of left bronchus or lung (principal); J96.01 Acute respiratory failure with hypoxia; J18.9 Pneumonia, unspecified organism; C79.31 Secondary malignant neoplasm of brain; C79.51 Secondary malignant neoplasm of bone; C79.70 Secondary malignant neoplasm of unspecified adrenal gland; C78.7 Secondary malignant neoplasm of liver and intrahepatic bile duct; J44.1 Chronic obstructive pulmonary disease with (acute) exacerbation; J98.11 Atelectasis; J91.0 Malignant pleural effusion; R64 Cachexia; Z68.1 Body mass index [BMI] 19.9 or less, adult; C34.91 Malignant neoplasm of unspecified part of right bronchus or lung; E78.5 Hyperlipidemia, unspecified; I25.10 Atherosclerotic heart disease of native coronary artery without angina pectoris; Z86.73 Personal history of transient ischemic attack (TIA), and cerebral infarction without residual deficits; G20 Parkinson's disease; F17.210 Nicotine dependence, cigarettes, uncomplicated; R00.0 Tachycardia, unspecified; D72.829 Elevated white blood cell count, unspecified; F10.20 Alcohol dependence, uncomplicated; K70.10 Alcoholic hepatitis without ascites; R91.8 Other nonspecific abnormal finding of lung field; I71.4 Abdominal aortic aneurysm, without rupture; I12.9 Hypertensive chronic kidney disease with stage 1 through stage 4 chronic kidney disease, or unspecified chronic kidney disease; N18.9 Chronic kidney disease, unspecified; G89.3 Neoplasm related pain (acute) (chronic); E03.9 Hypothyroidism, unspecified; R26.81 Unsteadiness on feet
CPT/HCPCS: 36415; 36600; 71045-TC-FY; 71046-TC-FY; 71275-TC; 74177-TC; 80048; 80053; 80061; 81003; 82803; 83605; 83690; 83721; 83735; 83880; 84100; 84443; 84484; 85025; 85610; 87086; 93005; 93010; 93306-TC; 94640; 97116-GP; 97162-GP; 99284-25; J1100; J1644; J7030

== ENCOUNTER 2019-07-21 11:55 | Inpatient (IN) | payer OTHER ==
[2019-07-21 13:17] LABS: BASO % 0.7 % (0-2.0); EOS % 2.6 % (0-4.5); HEMATOCRIT 37.8 % (35.4-49); HEMOGLOBIN 12.6 GM/dL (11.7-16.9); MCH 31.9 pg (25.7-33.7); MCHC 33.2 g/dl (32.0-35.9); NEUT % 91.7 % (42.8-82.8); PLATELET COUNT 180 K/MM3 (134-434); RBC 3.94 M/mm3 (4.00-5.60); RDW 15.5 % (11.9-15.9); WHITE BLOOD COUNT 13.7 K/mm3 (4.0-10.0)
[2019-07-21 13:32] LABS: INR 1.22 (0.83-1.09); PROTHROMBIN TIME (PATIENT) 14.4 SEC (9.7-13.0)
[2019-07-21 13:43] LABS: ALBUMIN 1.8 g/dl (3.4-5.0); BILIRUBIN,TOTAL 0.7 mg/dL (0.2-1); BLOOD UREA NITROGEN 19.1 mg/dL (7-18); CALCIUM 8.5 mg/dL (8.5-10.1); CREATININE 0.5 mg/dL (0.55-1.3); POTASSIUM 4.5 mmol/L (3.5-5.1); TOT PROT 5.3 g/dl (6.4-8.2)
[2019-07-21 13:55] LABS: ARTERIAL BLD GAS O2 SATURATION 94.1 % (95-98); ARTERIAL BLOOD GAS BASE EXCESS 6.3 meq/l (-2-2); ARTERIAL BLOOD GAS PCO2 39.7 mmHg (35-45); ARTERIAL BLOOD GAS PO2 68.3 mmHg (80-100); ARTERIAL BLOOD GAS pH 7.49 (7.35-7.45); CARBOXYHEMOGLOBIN 2.2 % (0-2)
[2019-07-21 14:03] LABS: ALLENS TEST POSITIVE
--- NOTE | 2019-07-21 14:23 | PDOC ---
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 Per the patient, he was discharged last night after admission for SOB and abdominal pain. Per the charts, the patient greatly improved with increased steroid doses. The patient endorses not taking his prescribed medications at discharge. Currently, he is SOB with left lower chest wall pleuritic pain. Denies the following: fever, chills, chest pain, nausea, vomiting, abdominal pain, dysuria, hematuria, diarrhea, and hematochezia. Of note, the patient does not have pain management set up for his metastatic disease. Allergies: NKDA Social: Endorses tobacco smoking currently. Past History - Past Medical History Allergies/Adverse Reactions: Allergies Allergy/AdvReac Type Severity Reaction Status Date / Time No Known Allergies Allergy Verified 07/21/19 12:14 Home Medications: Ambulatory Orders Folic Acid 1 mg PO DAILY #14 tablet 09/29/17 Ranitidine HCl [Zantac] 150 mg PO DAILY #14 tablet 09/29/17 Thiamine HCl [Vitamin B1 -] 100 mg PO DAILY #14 tablet 09/29/17 Atorvastatin Ca [Lipitor] 10 mg PO HS 12/14/18 Cholecalciferol (Vitamin D3) [Vitamin D -] 1,000 mg PO DAILY 12/14/18 Pantoprazole Sodium [Protonix -] 40 mg PO DAILY #120 tablet.ec 05/24/19 Acetaminophen [Tylenol] 650 mg PO Q4H #30 capsule 07/06/19 Cyclobenzaprine HCl 5 mg PO HS #10 tablet 07/06/19 Donepezil HCl 5 mg PO DAILY 07/06/19 Metoprolol Succinate [Toprol XL -] 100 mg PO DAILY 07/06/19 Aspirin [ASA -] 81 mg PO DAILY tab.chew 07/20/19 Azithromycin 500 mg PO DAILY 3 Days #3 tablet 07/20/19 Cefuroxime Axetil [Ceftin -] 500 mg PO Q12H 3 Days #6 tablet 07/20/19 Dexamethasone [Decadron -] See Taper PO Q6H 8 Days #64 tablet 07/20/19 Levothyroxine [Synthroid -] 25 mcg PO DAILY 30 Days #30 tablet 07/20/19 Anemia: Yes Asthma: Yes Cancer: Yes (LUNG) Cardiac Disorders: No CVA: Yes (11/2013-balance issues-uses a walker) COPD: No CHF: No Dementia: No Diabetes: No GI Disorders: No Disorders: No HTN: Yes Hypercholesterolemia: Yes Liver Disease: No Psychiatric Problems: Yes (etoh abuse) Seizures: No Thyroid Disease: Yes - Surgical History Abdominal Surgery: Yes Appendectomy: Yes Cardiac Surgery: No Cholecystectomy: Yes Lung Surgery: Yes (S/P THRORACOTOMY) Neurologic Surgery: No Orthopedic Surgery: Yes (Hip fx-bilateral) - Immunization History Td Vaccination: Yes TDAP Vaccination: Yes Immunization Up to Date: Yes - Suicide/Smoking/Psychosocial Hx Smoking Status: Yes Smoking History: Never smoked Years of Tobacco Use: 0 Have you smoked in the past 12 months: No Number of Cigarettes Smoked Daily: 10 Cigars Per Day: 1 Information on smoking cessation initiated: No 'Breaking Loose' booklet given: 07/18/19 Hx Alcohol Use: No Drug/Substance Use Hx: No Substance Use Type: None Hx Substance Use Treatment: No Review of Systems - Review of Systems Able to Perform ROS?: Yes Is the patient limited Lao proficient: No Constitutional: Yes: Weakness. No: Chills, Diaphoresis, Fever HEENTM: No: Eye Pain, Ear Pain, Nose Pain, Throat Pain, Mouth Pain Respiratory: Yes: Cough, Shortness of Breath. No: Hemoptysis Cardiac (ROS): No: Chest Pain, Lightheadedness, Palpitations, Syncope, Chest Tightness ABD/GI: Yes: Poor Appetite, Poor Fluid Intake. No: Constipated, Diarrhea, Nausea, Rectal Bleeding, Vomiting, Tarry Stools : No: Burning, Dysuria, Hematuria, Incontinence Musculoskeletal: No: Back Pain, Joint Pain, Neck Pain Integumentary: No: Bruising, Erythema, Rash Neurological: No: Headache, Numbness, Tingling, Tremors Psychiatric: No: Change in Appetite Endocrine: No: Unexplained Weight Gain Hematologic/Lymphatic: No: Anemia *Physical Exam - Vital Signs Last Vital Signs Temp Pulse Resp BP Pulse Ox 97.7 F 118 H 24 H 130/79 98 07/21/19 12:00 07/21/19 12:00 07/21/19 12:00 07/21/19 12:00 07/21/19 12:13 - Physical Exam General Appearance: Yes: Nourished, Appropriately Dressed. No: Apparent Distress, Intoxicated HEENT: positive: EOMI, RICKEY, Normal Voice, Symmetrical, Pharynx Normal, Hearing Grossly Normal. negative: Pale Conjunctivae, Scleral Icterus (R), Scleral Icterus (L), Muffled/Hoarse voice, Pharyngeal Erythema, Tonsillar Exudate, Tonsillar Erythema, Nasal Congestion, Rhinorrhea, Excessive drooling Neck: positive: Trachea midline, Supple. negative: Tender, Lymphadenopathy (R) , Lymphadenopathy (L), Tender lateral, Tender midline Respiratory/Chest: positive: Rapid RR, Decreased Breath Sounds, Crackles (left lower chest wall posterior), Rhonchi, Wheezing. negative: Chest Tender, Lungs Clear, Normal Breath Sounds, Accessory Muscle Use Cardiovascular: positive: Regular Rhythm, S1, S2, Tachycardia. negative: Systolic Murmur Gastrointestinal/Abdominal: positive: Normal Bowel Sounds, Flat, Soft. negative : Tender, Distended, Guarding, Rebound Lymphatic: negative: Adenopathy Musculoskeletal: positive: Normal Inspection. negative: CVA Tenderness, Vertebral Tenderness Extremity: positive: Normal Capillary Refill, Normal Inspection, Normal Range of Motion. negative: Tender, Swelling, Calf Tenderness Integumentary: positive: Normal Color, Dry, Warm. negative: Swelling, Ecchymosis Neurologic: positive: song writer II-XII NML intact, Fully Oriented, Alert, Normal Mood/ Affect, Normal Response ED Treatment Course - LABORATORY CBC & Chemistry Diagram: 07/22/19 06:35 07/22/19 06:35 - ADDITIONAL ORDERS Additional order review: Laboratory Results 07/21/19 07/21/19 07/21/19 13:26 13:01 12:56 PT with INR 14.40 H INR 1.22 H Anticoagulation Therapy No Result Required. Puncture Site Right radial ABG pH 7.49 H ABG pCO2 at Pt Temp 39.7 ABG pO2 at Pt Temp 68.3 L ABG HCO3 29.9 H ABG O2 Sat (Measured) 94.1 L ABG O2 Content 15.4 ABG Base Excess 6.3 H Aaron Test Positive Carboxyhemoglobin 2.2 H Methemoglobin < 1.0 O2 Delivery Device No Result Required. Oxygen Flow Rate Yes Vent Mode No Result Required. Vent Rate No Result Required. Mechanical Rate No Result Required. Pressure Support Vent No Result Required. Sodium Potassium Chloride Carbon Dioxide Anion Gap BUN Creatinine Est GFR (CKD-EPI)AfAm Est GFR (CKD-EPI)NonAf Random Glucose Calcium Total Bilirubin AST ALT Alkaline Phosphatase Creatine Kinase 29 Troponin I < 0.02 Total Protein Albumin 07/21/19 12:56 PT with INR INR Anticoagulation Therapy Puncture Site ABG pH ABG pCO2 at Pt Temp ABG pO2 at Pt Temp ABG HCO3 ABG O2 Sat (Measured) ABG O2 Content ABG Base Excess Aaron Test Carboxyhemoglobin Methemoglobin O2 Delivery Device Oxygen Flow Rate Vent Mode Vent Rate Mechanical Rate Pressure Support Vent Sodium 145 Potassium 4.5 Chloride 105 Carbon Dioxide 32 Anion Gap 8 BUN 19.1 H Creatinine 0.5 L Est GFR (CKD-EPI)AfAm 135.56 Est GFR (CKD-EPI)NonAf 116.96 Random Glucose 85 Calcium 8.5 Total Bilirubin 0.7 AST 35 ALT 62 H Alkaline Phosphatase 109 Creatine Kinase Troponin I Total Protein 5.3 L Albumin 1.8 L 07/21/19 12:56 RBC 3.94 L MCV 96.0 MCHC 33.2 RDW 15.5 MPV 8.0 Neutrophils % 91.7 H Lymphocytes % 3.0 L D Monocytes % 2.0 L Eosinophils % 2.6 D Basophils % 0.7 - RADIOLOGY Radiology Studies Ordered: Category Date Time Status CHEST X-RAY PORTABLE* [RAD] Stat Radiology 07/21/19 14:08 Ordered Medical Decision Making - Medical Decision Making 59 yo M with a hx of HTN, CKD, CVA, Parkinson's Disease, and 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 Initial vitals; Initial Vital Signs Temp Pulse Resp BP Pulse Ox 97.7 F 118 H 24 H 130/79 92 L 07/21/19 12:00 07/21/19 12:00 07/21/19 12:00 07/21/19 12:00 07/21/19 12:00 Work up: ddx: COPD vs CHF? exacerbation vs worsening pulmonary status secondary to metastatic lung CA. Will obtain CXR, cbc, cmp, trop, ekg, abg Laboratory Tests 07/21/19 07/21/19 07/21/19 12:56 12:56 12:56 WBC 13.7 H RBC 3.94 L Hgb 12.6 Hct 37.8 D MCV 96.0 MCH 31.9 MCHC 33.2 RDW 15.5 Plt Count 180 D MPV 8.0 Absolute Neuts (auto) 12.6 H Neutrophils % 91.7 H Neutrophils % (Manual) 84.0 H Band Neutrophils % 0.0 Lymphocytes % 3.0 L D Lymphocytes % (Manual) 8.0 D Monocytes % 2.0 L Monocytes % (Manual) 4 Eosinophils % 2.6 D Eosinophils % (Manual) 4.0 D Basophils % 0.7 Basophils % (Manual) 0.0 Myelocytes % (Man) 0 Promyelocytes % (Man) 0 Blast Cells % (Manual) 0 Nucleated RBC % 2 H Metamyelocytes 0 Hypochromia 0 Platelet Estimate Normal Polychromasia 0 Poikilocytosis 0 Anisocytosis 0 Microcytosis 0 Macrocytosis 0 PT with INR 14.40 H INR 1.22 H Anticoagulation Therapy Puncture Site ABG pH ABG pCO2 at Pt Temp ABG pO2 at Pt Temp ABG HCO3 ABG O2 Sat (Measured) ABG O2 Content ABG Base Excess Aaron Test Carboxyhemoglobin Methemoglobin O2 Delivery Device Oxygen Flow Rate Vent Mode Vent Rate Mechanical Rate Pressure Support Vent Sodium 145 Potassium 4.5 Chloride 105 Carbon Dioxide 32 Anion Gap 8 BUN 19.1 H Creatinine 0.5 L Est GFR (CKD-EPI)AfAm 135.56 Est GFR (CKD-EPI)NonAf 116.96 Random Glucose 85 Calcium 8.5 Total Bilirubin 0.7 AST 35 ALT 62 H Alkaline Phosphatase 109 Creatine Kinase Troponin I Total Protein 5.3 L Albumin 1.8 L 07/21/19 07/21/19 13:01 13:26 WBC RBC Hgb Hct MCV MCH MCHC RDW Plt Count MPV Absolute Neuts (auto) Neutrophils % Neutrophils % (Manual) Band Neutrophils % Lymphocytes % Lymphocytes % (Manual) Monocytes % Monocytes % (Manual) Eosinophils % Eosinophils % (Manual) Basophils % Basophils % (Manual) Myelocytes % (Man) Promyelocytes % (Man) Blast Cells % (Manual) Nucleated RBC % Metamyelocytes Hypochromia Platelet Estimate Polychromasia Poikilocytosis Anisocytosis Microcytosis Macrocytosis PT with INR INR Anticoagulation Therapy No Result Required. Puncture Site Right radial ABG pH 7.49 H ABG pCO2 at Pt Temp 39.7 ABG pO2 at Pt Temp 68.3 L ABG HCO3 29.9 H ABG O2 Sat (Measured) 94.1 L ABG O2 Content 15.4 ABG Base Excess 6.3 H Aaron Test Positive Carboxyhemoglobin 2.2 H Methemoglobin < 1.0 O2 Delivery Device No Result Required. Oxygen Flow Rate Yes Vent Mode No Result Required. Vent Rate No Result Required. Mechanical Rate No Result Required. Pressure Support Vent No Result Required. Sodium Potassium Chloride Carbon Dioxide Anion Gap BUN Creatinine Est GFR (CKD-EPI)AfAm Est GFR (CKD-EPI)NonAf Random Glucose Calcium Total Bilirubin AST ALT Alkaline Phosphatase Creatine Kinase 29 Troponin I < 0.02 Total Protein Albumin troponin was negative. patient's abg shows alkalosis likely secondary to increased RR. Patient has leukocytosis persistent from discharge. patient was started on ceftriaxone and azithromycin as he was prescribed ceftin and azithro for pna. Patient was given duoneb x2 and morphine 4 mg x2 without improvement per the patient. the patient agreed to me that he was amendable to rehabilitation for his condition. patient was endorses to hospitalist team and was accepted. Dispo: Admit *DC/Admit/Observation/Transfer Diagnosis at time of Disposition: Lung cancer - Referrals - Patient Instructions - Post Discharge Activity
[2019-07-21 15:41] LABS: ANISOCYTOSIS 0; MACROCYTOSIS 0; PLATELET ESTIMATE NORMAL
[2019-07-21] MEDS ORDERED: morphine CARPU-JECT 4 MG/1 ML DISP.SYRIN IVPUSH ONE ×2 (15:53→17:51)
[2019-07-21] MEDS ORDERED: ALBUTEROL SO4 2.5/IPRATROPIUM 0.5 INH SOL 3 ML VIAL.NEB. NEB ONE ×4 (15:55→19:29)
[2019-07-21] MEDS ORDERED: morphine SULFATE 4 MG/ML VIAL ONE ×3 (16:02→21:43)
--- NOTE | 2019-07-21 16:42 | PDOC ---
Attending Attestation - Resident Resident Name: Rk Gonzalez - ED Attending Attestation I have performed the following: I have examined & evaluated the patient, The case was reviewed & discussed with the resident, I agree w/resident's findings & plan, Exceptions are as noted - HPI HPI: 07/21/19 16:43 Mr. Dhaliwal is a 59 yo M presenting to the ER with a complaint of shortness of breath Pt has a h/o metastatic non-small cell lung cancer (adenocarcinoma, metastasis to contralateral lung, brain, adrenals and bone), COPD, hypertension, hyperlipidemia, CVA, coronary artery disease, Parkinson's Disease. Pt recently admitted for shortness of breath, pt diuresed, given antibiotics Pt has not taken any of his medications today He felt short of breath and came in to the ER to be assessed - Physicial Exam PE: 07/21/19 16:35 Exam GENERAL: The patient is in no acute distress, seated up in bed, speaking with examiner. HEAD: Normal EYES: PERRLA, EOMI, sclera anicteric ENT: Dry mucous membranes. NECK: Normal range of motion, supple LUNGS: Breath sounds equal, clear to auscultation bilaterally. HEART: Regular rate and rhythm, normal S1 and S2 without murmur, rub or gallop. ABDOMEN: Soft, nontender, no guarding, no rebound. EXTREMITIES: No erythema, or tenderness. NEUROLOGICAL: Cranial nerves II through XII grossly intact. Normal speech. No focal neurological deficits. SKIN: Warm, Dry, normal turgor, no rashes or lesions noted. - Medical Decision Making 07/21/19 16:36 Pt seen in the ER by Dr Lares who discharged this patient recently This patient looks well, as he did upon discharge 07/21/19 16:37 Laboratory Tests 07/21/19 07/21/19 07/21/19 12:56 12:56 12:56 WBC 13.7 H Hgb 12.6 Hct 37.8 D Plt Count 180 D INR 1.22 H ABG pH ABG pCO2 at Pt Temp ABG pO2 at Pt Temp ABG HCO3 Sodium 145 Potassium 4.5 Chloride 105 Carbon Dioxide 32 BUN 19.1 H Creatinine 0.5 L Random Glucose 85 Creatine Kinase Troponin I 07/21/19 07/21/19 13:01 13:26 WBC Hgb Hct Plt Count INR ABG pH 7.49 H ABG pCO2 at Pt Temp 39.7 ABG pO2 at Pt Temp 68.3 L ABG HCO3 29.9 H Sodium Potassium Chloride Carbon Dioxide BUN Creatinine Random Glucose Creatine Kinase 29 Troponin I < 0.02 Will initiate treatment that he was supposed to be doing at home (which he was not) Will re assess 07/21/19 19:01 Upon re assessment, the patient does not feel like he is able to manage his pain at home He is hoping to be placed in short term Rehab Reviewed with hospitalist Admit for placement
[2019-07-21] MEDS ORDERED: CEFTRIAXONE 1,000 MG in DEXTROSE 5%-WATER - 50 ML IVPB ONE (17:39)
[2019-07-21] MEDS ORDERED: AZITHROMYCIN IVPB 500 MG in DEXTROSE 5%-WATER - 250 ML IVPB ONE (17:39)
[2019-07-21] MEDS ORDERED: CEFTRIAXONE 1 GM/50 ML BAG ONE (17:59)
[2019-07-21] MEDS ORDERED: AZITHROMYCIN IVPB 500 MG/250 ML BAG IVPB ONE (18:35)
--- NOTE | 2019-07-21 20:38 | HP ---
CHIEF COMPLAINT: shortness of breath PCP: Eleni Muniz HISTORY OF PRESENT ILLNESS: Patient is a 59 year old male with history of metastatic non-small cell lung cancer, COPD, hypertension, hyperlipidemia, CVA, coronary artery disease, Parkinson's disease presents with complaint of shortness of breath. Patient states that he felt well after discharge, up until this morniing when he was awoken due to shortness of breath. Patient admits he did not take any of his prescribed mediations as his aide was not there to administer them. Patient admits shortness of breath associated with minimally productive cough. He denies chest pain upon my encounter admitting only left sided back pain associated with deep breaths. Patient had CTA performed on 07/18 ruling out pulmonary embolism. He denies subjective fevers, chills, shortness of breath, chest pain, palpitations, abdominal pain, nausea, vomiting. Patient admits that he is amenable to rehab placement upon hospital discharge. ER course was notable for: (1) CXR significant for extensive metastatic disease, no pneumonia (2) EKG reveals sinus tachycardia at 114 BPM (3) Recent Travel: Denies PAST MEDICAL HISTORY: metastatic non-small cell lung cancer, COPD, hypertension , hyperlipidemia, CVA, coronary artery disease, Parkinson's disease PAST SURGICAL HISTORY: cholecystectomy, appendectomy, VATS 7 years ago Social History: Smoking: current daily smoker, history of one pack per day for past 45 years Alcohol: denies Drugs: denies Family History: Unknown cancer history in both mother and father. Allergies No Known Allergies Allergy (Verified 07/21/19 12:14) HOME MEDICATIONS: Home Medications Medication Instructions Recorded Folic Acid 1 mg PO DAILY #14 tablet 09/29/17 Ranitidine HCl [Zantac] 150 mg PO DAILY #14 tablet 09/29/17 Thiamine HCl [Vitamin B1 -] 100 mg PO DAILY #14 tablet 09/29/17 Atorvastatin Ca [Lipitor] 10 mg PO HS 12/14/18 Cholecalciferol (Vitamin D3) 1,000 mg PO DAILY 12/14/18 [Vitamin D -] Pantoprazole Sodium [Protonix -] 40 mg PO DAILY #120 tablet.ec 05/24/19 Acetaminophen [Tylenol] 650 mg PO Q4H #30 capsule 07/06/19 Cyclobenzaprine HCl 5 mg PO HS #10 tablet 07/06/19 Donepezil HCl 5 mg PO DAILY 07/06/19 Metoprolol Succinate [Toprol XL -] 100 mg PO DAILY 07/06/19 Aspirin [ASA -] 81 mg PO DAILY tab.chew 07/20/19 Azithromycin 500 mg PO DAILY 3 Days #3 tablet 07/20/19 Cefuroxime Axetil [Ceftin -] 500 mg PO Q12H 3 Days #6 tablet 07/20/19 Dexamethasone [Decadron -] See Taper PO Q6H 8 Days #64 tablet 07/20/19 Levothyroxine [Synthroid -] 25 mcg PO DAILY 30 Days #30 tablet 07/20/19 REVIEW OF SYSTEMS CONSTITUTIONAL: Absent: fever, chills, diaphoresis, generalized weakness, malaise, loss of appetite, weight change HEENT: Absent: rhinorrhea, nasal congestion, throat pain, throat swelling, difficulty swallowing, mouth swelling, ear pain, eye pain, visual changes CARDIOVASCULAR: Absent: chest pain, syncope, palpitations, irregular heart rate, lightheadedness , peripheral edema RESPIRATORY: Admits: shortness of breath, cough, dyspnea with minimal exertion, wheezing. Absent: stridor, hemoptysis GASTROINTESTINAL: Absent: abdominal pain, abdominal distension, nausea, vomiting, diarrhea, constipation, melena, hematochezia GENITOURINARY: Absent: dysuria, frequency, urgency, hesitancy, hematuria, flank pain, genital pain MUSCULOSKELETAL: Absent: myalgia, arthralgia, joint swelling, back pain, neck pain SKIN: Absent: rash, itching, pallor HEMATOLOGIC/IMMUNOLOGIC: Absent: easy bleeding, easy bruising, lymphadenopathy, frequent infections ENDOCRINE: Absent: unexplained weight gain, unexplained weight loss, heat intolerance, cold intolerance NEUROLOGIC: Absent: headache, focal weakness or paresthesias, dizziness, unsteady gait, seizure, mental status changes, bladder or bowel incontinence PSYCHIATRIC: Absent: anxiety, depression, suicidal or homicidal ideation, hallucinations. PHYSICAL EXAMINATION Vital Signs - 24 hr 07/21/19 07/21/19 07/21/19 12:00 12:13 16:00 Temperature 97.7 F Pulse Rate 118 H Pulse Rate [ 110 H Radial] Respiratory 24 H 25 H Rate Blood Pressure 130/79 Blood Pressure 129/74 [Right Arm] O2 Sat by Pulse 92 L 98 97 Oximetry (%) 07/21/19 18:07 Temperature Pulse Rate Pulse Rate [ 135 H Radial] Respiratory 25 H Rate Blood Pressure Blood Pressure 154/91 [Right Arm] O2 Sat by Pulse 94 L Oximetry (%) GENERAL: Awake, alert, and fully oriented, in acute respiratory distress. HEAD: Normal with no signs of trauma. EYES: Pupils equal, round and reactive to light, extraocular movements intact, sclera anicteric, conjunctiva clear. EARS, NOSE, THROAT: Oropharynx clear without exudates. Dry mucous membranes. NECK: Supple, negative stridor. LUNGS: Tachypnic, poor air entry bilaterally. Bilateral rhonchi auscultated with end expiratory wheezing appreciated left > right. Breath sounds equal, clear to auscultation bilaterally. No wheezes, and no crackles. No accessory muscle use. HEART: Regular rate and rhythm, normal S1 and S2 without murmur, rub or gallop. ABDOMEN: Soft, nontender, not distended, normoactive bowel sounds, no guarding, no rebound, no masses. No hepatomegaly or splenomegaly. EXTREMITIES: 2+ radial, dorsalis pedis pulses bilaterally, warm, well-perfused. No peripheral edema bilateral lower extremities. NEUROLOGICAL: Cranial nerves II-XII intact. Normal speech. No gross focal deficits. PSYCHIATRIC: Cooperative. Appropriate mood and affect. SKIN: Warm, dry. Laboratory Results - last 24 hr 07/21/19 07/21/19 07/21/19 12:56 12:56 12:56 WBC 13.7 H RBC 3.94 L Hgb 12.6 Hct 37.8 D MCV 96.0 MCH 31.9 MCHC 33.2 RDW 15.5 Plt Count 180 D MPV 8.0 Absolute Neuts (auto) 12.6 H Neutrophils % 91.7 H Neutrophils % (Manual) 84.0 H Band Neutrophils % 0.0 Lymphocytes % 3.0 L D Lymphocytes % (Manual) 8.0 D Monocytes % 2.0 L Monocytes % (Manual) 4 Eosinophils % 2.6 D Eosinophils % (Manual) 4.0 D Basophils % 0.7 Basophils % (Manual) 0.0 Myelocytes % (Man) 0 Promyelocytes % (Man) 0 Blast Cells % (Manual) 0 Nucleated RBC % 2 H Metamyelocytes 0 Hypochromia 0 Platelet Estimate Normal Polychromasia 0 Poikilocytosis 0 Anisocytosis 0 Microcytosis 0 Macrocytosis 0 PT with INR 14.40 H INR 1.22 H Anticoagulation Therapy Puncture Site ABG pH ABG pCO2 at Pt Temp ABG pO2 at Pt Temp ABG HCO3 ABG O2 Sat (Measured) ABG O2 Content ABG Base Excess Aaron Test Carboxyhemoglobin Methemoglobin O2 Delivery Device Oxygen Flow Rate Vent Mode Vent Rate Mechanical Rate Pressure Support Vent Sodium 145 Potassium 4.5 Chloride 105 Carbon Dioxide 32 Anion Gap 8 BUN 19.1 H Creatinine 0.5 L Est GFR (CKD-EPI)AfAm 135.56 Est GFR (CKD-EPI)NonAf 116.96 Random Glucose 85 Calcium 8.5 Total Bilirubin 0.7 AST 35 ALT 62 H Alkaline Phosphatase 109 Creatine Kinase Troponin I Total Protein 5.3 L Albumin 1.8 L 07/21/19 07/21/19 13:01 13:26 WBC RBC Hgb Hct MCV MCH MCHC RDW Plt Count MPV Absolute Neuts (auto) Neutrophils % Neutrophils % (Manual) Band Neutrophils % Lymphocytes % Lymphocytes % (Manual) Monocytes % Monocytes % (Manual) Eosinophils % Eosinophils % (Manual) Basophils % Basophils % (Manual) Myelocytes % (Man) Promyelocytes % (Man) Blast Cells % (Manual) Nucleated RBC % Metamyelocytes Hypochromia Platelet Estimate Polychromasia Poikilocytosis Anisocytosis Microcytosis Macrocytosis PT with INR INR Anticoagulation Therapy No Result Required. Puncture Site Right radial ABG pH 7.49 H ABG pCO2 at Pt Temp 39.7 ABG pO2 at Pt Temp 68.3 L ABG HCO3 29.9 H ABG O2 Sat (Measured) 94.1 L ABG O2 Content 15.4 ABG Base Excess 6.3 H Aaron Test Positive Carboxyhemoglobin 2.2 H Methemoglobin < 1.0 O2 Delivery Device No Result Required. Oxygen Flow Rate Yes Vent Mode No Result Required. Vent Rate No Result Required. Mechanical Rate No Result Required. Pressure Support Vent No Result Required. Sodium Potassium Chloride Carbon Dioxide Anion Gap BUN Creatinine Est GFR (CKD-EPI)AfAm Est GFR (CKD-EPI)NonAf Random Glucose Calcium Total Bilirubin AST ALT Alkaline Phosphatase Creatine Kinase 29 Troponin I < 0.02 Total Protein Albumin ASSESSMENT/PLAN: Patient is a 59 year old male with history of metastatic non-small cell lung cancer, COPD, hypertension, hyperlipidemia, CVA, coronary artery disease, Parkinson's disease presents with complaint of shortness of breath. Acute hypoxic respiratory failure -Follow ABG -Reinstate Decadron 8mg IV Q6 hours -Azithromycin 500mg IV to complete 5 day course -Rocephin 1 gram daily to complete 5 day course -Duonebs 1 amp Q4 hours PRN -Patient saturating well on Venturi-Mask. Will attempt to wean as tolerated. -Patient remains tachycardic and hypoxic despite receiving home dose of Metoprolol, IV fluid bolus, and Morphine for pain control. Given hypercoaguable state with patient's oncologic history, will order CTA chest to rule out pulmonary embolism. Lovenox 70mg subq therapeutic one time dose, pending CT results. Hypertension -Continue Metoprolol 100mg PO daily Hypothyroidism -Continue Synthroid 25mcg PO daily Metastatic lung cancer -Patient has been noncompliant in past with his treatment. Will continue outpatient follow up. Abdominal aortic aneurysm -Patient will follow up as outpatient. FEN -1 liter IV fluid bolus -Follow CMP, replete as necessary -Sodum conrolled diet Prophylaxis -Lovenox 70mg subq one time dose. If CTA negative for pulmonary embolism, will reinstate Heparin 5000u subq TID Disposition -Admit to medical-surgical floor Visit type - Emergency Visit Emergency Visit: Yes ED Registration Date: 07/21/19 Care time: The patient presented to the Emergency Department on the above date and was hospitalized for further evaluation of their emergent condition. - New Patient This patient is new to me today: Yes Date on this admission: 07/21/19 - Critical Care Critical Care patient: Yes Total Critical Care Time (in minutes): 37 Critical Care Statement: The care of this patient involved high complexity decision making to prevent further life threatening deterioration of the patient 's condition and/or to evaluate & treat vital organ system(s) failure or risk of failure. ATTENDING PHYSICIAN STATEMENT I saw and evaluated the patient. I reviewed the resident's note and discussed the case with the resident. I agree with the resident's findings and plan as documented. SUBJECTIVE: OBJECTIVE: ASSESSMENT AND PLAN:
[2019-07-21] MEDS ORDERED: SODIUM CHLORIDE 0.9% 500 ML INFUS.BAG IV ONE (20:55)
[2019-07-21] MEDS ORDERED: METOPROLOL TARTRATE 5 MG/5 ML VIAL IVPUSH ONE (21:12)
[2019-07-21] MEDS ORDERED: morphine SULFATE 4 MG/ML VIAL IVPUSH ONE (21:36)
--- NOTE | 2019-07-21 22:21 | PN ---
Teaching Attending Note Name of Resident: Korey De ATTENDING PHYSICIAN STATEMENT I saw and evaluated the patient. CHart, data, imaging reviewed. I reviewed the resident's note and discussed the case with the resident. I agree with the resident's findings and plan as documented. SUBJECTIVE: 59yo M with pmh HTN, CVA, CKD, parkinson, lung malignancy, with mets, AAA- recently admitted for shortness of breath, found to have small pleural effusion and treated for CAP, discharged yesterday, presents today with persistent shortness of breath and chest. OBJECTIVE: Last Vital Signs Temp Pulse Resp BP Pulse Ox 97.7 F 135 H 25 H 108/74 94 L 07/21/19 12:00 07/21/19 18:07 07/21/19 18:07 07/21/19 22:20 07/21/19 18:07 general -appears short of breath, cannot speak in full sentences heent- at, nc neck -supple cv -s1+s2+ tachycardia, regular chest - b/l breath sounds, no wheeze, or crackles abdomen -soft ext- no pedal edema or clubbing Abnormal Lab Results 07/21/19 07/21/19 07/21/19 12:56 12:56 12:56 WBC 13.7 H RBC 3.94 L Absolute Neuts (auto) 12.6 H Neutrophils % 91.7 H Neutrophils % (Manual) 84.0 H Lymphocytes % 3.0 L D Monocytes % 2.0 L Nucleated RBC % 2 H PT with INR 14.40 H INR 1.22 H ABG pH ABG pO2 at Pt Temp ABG HCO3 ABG O2 Sat (Measured) ABG Base Excess Carboxyhemoglobin BUN 19.1 H Creatinine 0.5 L ALT 62 H Total Protein 5.3 L Albumin 1.8 L 07/21/19 13:26 WBC RBC Absolute Neuts (auto) Neutrophils % Neutrophils % (Manual) Lymphocytes % Monocytes % Nucleated RBC % PT with INR INR ABG pH 7.49 H ABG pO2 at Pt Temp 68.3 L ABG HCO3 29.9 H ABG O2 Sat (Measured) 94.1 L ABG Base Excess 6.3 H Carboxyhemoglobin 2.2 H BUN Creatinine ALT Total Protein Albumin cxr reviewed - ASSESSMENT AND PLAN: # hypoxic respiratory failure - persistent, likely related to lung ca, no significant pleural effusion seen, although increased haziness in parenchma- pulm edema? finishing course of abx for cap. -chest ct -abg -supplemental oxygen, maintain 02 sat >91% -pulm follow up -one more day ceftriaxone and azithromycin for pna #Lung cancer with mets- noted to LN, bone and liver. pt is not compliant with radiation treatment and states hes missed several appointments. on dex for bone mets. oncology follow up -c/w dexamethasone taper # Parkinsons dz #Low TSH- start LT4. will need repeat TFT in 6 weeks #AAA- 3x2.1cm aneurysm. will need outpatient follow up #Continuous nicotine dependence-smoking cessation #CKD #Dispo- patient will likely need placement in long term acute care registered nurse care facility as he is unlikely to care for himself at home
[2019-07-21] MEDS: HEPARIN NA (PORCINE) 5,000 UNITS/ML 1ML VIAL SQ SCH (23:02)
[2019-07-21] MEDS: ATORVASTATIN CA 10 MG TABLET (FP) PO SCH (23:03)
[2019-07-22] MEDS ORDERED: ENOXAPARIN NA (PORCINE) 80 MG/0.8 ML DISP.SYRIN SQ ONE (01:45)
[2019-07-22] MEDS: DEXAMETHASONE SOD PHOSPHATE 4 MG/1 ML VIAL IVPUSH SCH ×4 (03:08→21:24)
[2019-07-22] MEDS: LEVOTHYROXINE NA 25 MCG TABLET (FP) PO SCH (06:05)
[2019-07-22] MEDS ORDERED: ACETAMINOPHEN 1000 MG/100 ML VIAL (NON FORMULARY) IVPB ONE ×2 (06:35→07:00)
[2019-07-22 07:23] LABS: HEMATOCRIT 33.6 % (35.4-49); HEMOGLOBIN 11.3 GM/dL (11.7-16.9); MCH 31.9 pg (25.7-33.7); MCHC 33.7 g/dl (32.0-35.9); MEAN CELL VOLUME 94.7 fl (80-96); PLATELET COUNT 153 K/MM3 (134-434); RBC 3.55 M/mm3 (4.00-5.60); RDW 15.2 % (11.9-15.9); WHITE BLOOD COUNT 13.5 K/mm3 (4.0-10.0)
[2019-07-22 07:55] LABS: ALBUMIN 1.6 g/dl (3.4-5.0); BILIRUBIN,TOTAL 0.8 mg/dL (0.2-1); BLOOD UREA NITROGEN 12.2 mg/dL (7-18); CREATININE 0.4 mg/dL (0.55-1.3); MAGNESIUM 1.8 mg/dL (1.8-2.4); PHOSPHOROUS 4.1 mg/dL (2.5-4.9); POTASSIUM 4.2 mmol/L (3.5-5.1); TOT PROT 4.6 g/dl (6.4-8.2)
[2019-07-22] MEDS ORDERED: cefTRIAXone SODIUM 1 GM VIAL ONE (09:51)
[2019-07-22] MEDS ORDERED: DEXTROSE 5%-WATER - 50 ML IVPB ONE (09:52)
[2019-07-22] MEDS: PANTOPRAZOLE 40 MG TABLET (FP) PO SCH (09:54)
[2019-07-22] MEDS: ASPIRIN 81 MG CHEWABLE TABLETS PO SCH (09:54)
[2019-07-22] MEDS: DONEPEZIL HCL 5 MG TABLET (FP) PO SCH (09:54)
[2019-07-22] MEDS: RANITIDINE HCL 150 MG TABLET (FP) PO SCH (09:54)
[2019-07-22] MEDS: FOLIC ACID 1 MG TABLET (FP) PO SCH (09:54)
[2019-07-22] MEDS: CEFTRIAXONE 1 GM in DEXTROSE 5%-WATER - 50 ML IVPB SCH (09:55)
[2019-07-22] MEDS ORDERED: AZITHROMYCIN 500 MG TABLET PO SCH (10:00)
[2019-07-22] MEDS: THIAMINE HCL 100 MG TABLET (FP) PO SCH (10:00)
[2019-07-22] MEDS: AZITHROMYCIN IVPB 500 MG/250 ML BAG IVPB SCH (10:00)
[2019-07-22] MEDS: ALBUTEROL SO4 2.5/IPRATROPIUM 0.5 INH SOL 3 ML VIAL.NEB. NEB PRN ×2 (10:16→19:59)
--- NOTE | 2019-07-22 15:55 | PN ---
Progress Note (short form) - Note Progress Note: clinically improved. denies CP, fever, chills, N/V/C/D Current Medications Generic Name Dose Route Start Last Admin Trade Name Jo PRN Reason Stop Dose Admin Albuterol/Ipratropium 1 amp 07/22/19 07:58 07/22/19 10:16 Duoneb - NEB 1 amp Q4H PRN Administration SHORTNESS OF BREATH Aspirin 81 mg 07/22/19 10:00 07/22/19 09:54 Asa - PO 81 mg DAILY RONALDO Administration Atorvastatin Calcium 10 mg 07/21/19 22:00 07/21/19 23:03 Lipitor - PO 10 mg HS RONALDO Administration Dexamethasone Sodium Phosphate 8 mg 07/22/19 03:00 07/22/19 09:59 Decadron Injection - IVPUSH 8 mg Q6H-IV RONALDO Administration Donepezil HCl 5 mg 07/22/19 10:00 07/22/19 09:54 Aricept - PO 5 mg DAILY RONALDO Administration Folic Acid 1 mg 07/22/19 10:00 07/22/19 09:54 Folic Acid - PO 1 mg DAILY RONALDO Administration Heparin Sodium (Porcine) 5,000 unit 07/21/19 22:00 07/21/19 23:02 Heparin - SQ 5,000 unit TID RONALDO Administration Azithromycin 500 mg in 250 mls @ 250 mls/hr 07/22/19 10:00 Zithromax 500mg Ivpb (Pre-Docked) IVPB DAILY RONALDO Ceftriaxone Sodium 1 gm/ 50 mls @ 100 mls/hr 07/22/19 10:00 07/22/19 09:55 Dextrose IVPB 100 mls/hr DAILY RONALDO Administration Protocol Levothyroxine Sodium 25 mcg 07/22/19 07:00 07/22/19 06:05 Synthroid - PO 25 mcg DAILY@0700 RONALDO Administration Metoprolol Succinate 100 mg 07/22/19 10:00 07/22/19 09:55 Toprol Xl - PO 100 mg DAILY RONALDO Administration Pantoprazole Sodium 40 mg 07/22/19 10:00 07/22/19 09:54 Protonix - PO 40 mg DAILY RONALDO Administration Ranitidine HCl 150 mg 07/22/19 10:00 07/22/19 09:54 Zantac - PO 150 mg DAILY RONALDO Administration Thiamine HCl 100 mg 07/22/19 10:00 Vitamin B1 - PO DAILY RONALDO Last Vital Signs Temp Pulse Resp BP Pulse Ox 97.9 F 92 H 20 131/79 86 L 07/22/19 13:52 07/22/19 13:52 07/22/19 13:52 07/22/19 13:52 07/22/19 10:31 General NAD CV S1 S2 RRR no murmur/rub/gallop Lungs scattered rhonchi Abdomen soft NT/ND Extremities no pedal edema CBCD WBC 13.5 K/mm3 (4.0-10.0) H 07/22/19 06:35 RBC 3.55 M/mm3 (4.00-5.60) L 07/22/19 06:35 Hgb 11.3 GM/dL (11.7-16.9) L 07/22/19 06:35 Hct 33.6 % (35.4-49) L 07/22/19 06:35 MCV 94.7 fl (80-96) 07/22/19 06:35 MCHC 33.7 g/dl (32.0-35.9) 07/22/19 06:35 RDW 15.2 % (11.9-15.9) 07/22/19 06:35 Plt Count 153 K/MM3 (134-434) 07/22/19 06:35 MPV 8.0 fl (7.5-11.1) 07/22/19 06:35 CMP Sodium 141 mmol/L (136-145) 07/22/19 06:35 Potassium 4.2 mmol/L (3.5-5.1) 07/22/19 06:35 Chloride 101 mmol/L (98-107) 07/22/19 06:35 Carbon Dioxide 30 mmol/L (21-32) 07/22/19 06:35 Anion Gap 10 MMOL/L (8-16) 07/22/19 06:35 BUN 12.2 mg/dL (7-18) 07/22/19 06:35 Creatinine 0.4 mg/dL (0.55-1.3) L 07/22/19 06:35 Calcium 8.0 mg/dL (8.5-10.1) L 07/22/19 06:35 Total Bilirubin 0.8 mg/dL (0.2-1) 09/07/19 06:35 AST 17 U/L (15-37) 07/22/19 06:35 ALT 44 U/L (13-61) 07/22/19 06:35 Alkaline Phosphatase 106 U/L (45-117) 07/22/19 06:35 Total Protein 4.6 g/dl (6.4-8.2) L 07/22/19 06:35 Albumin 1.6 g/dl (3.4-5.0) L 07/22/19 06:35 ASSESSMENT AND PLAN: 59yo M wtih pmh HTN, CVA, CKD, parkinson, lung malignancy with mets presented to the ER with CP and SOB with recent hospitalization for PNA was discharged on 07/20 and returned due to dyspnea and did not take his medications and found to be hypoxic 1. Acute hypoxic respiratory failure due to progression of disease- was being treated for PNA on recent hospitalization and was not assessed for oxygen as pt is heavy smoker at home and refuses to quit. examined here and does require 6L to maintain spO2 >90%. discussed with patient in detail with family standy the necessity for oxygen and it being unsafe with active smoking. would benefit from [facility] where he will not be able to smoke and would be able to use the oxygen. explained can not do RTx at SNF which pt is stating he now wants to do. explained that if pt was to go home and became severely hypoxic he can from that as well. family asked about life expectancy and if there is still benefit from rtx as patient has missed out on several sessions. will consult oncology and radiation oncology to evaluate the patient and answer these questions. pt is very confident that he will not smoke at home and does not want rehab unless its short term. will cont treatment for pna ceftriaxone/azithro day 5. cont dex for bone pain. cont with supplemental oxygen to maintain spO2 >90%. titrate down as tolerated. 2. Low TSH- LT4. will need repeat TFT in 6 weeks 3. AAA- 3x2.1cm aneurysm. will need outpatient follow up 4. Continuous nicotine dependence- counselled on need for abstinence as contributing to symptoms. nicotine patch. not interested in stopping. encouraged cessation 5. CVA 6. CKD 7. Parkinsons 8. DVT ppx- hep sq 9. spoke with brother in law and niece present at bedside. lengthy conversation about pro/neg of rehab vs home vs hospice. will consult oncology to help assist family in making decisions at this time in which way to proceed. pt has had multiple hospitalization for hypoxia due to noncompliance Visit type - Emergency Visit Emergency Visit: Yes ED Registration Date: 07/21/19 Care time: The patient presented to the Emergency Department on the above date and was hospitalized for further evaluation of their emergent condition. - New Patient This patient is new to me today: No - Critical Care Critical Care patient: No - Discharge Referral Referred to [facility] Med P.C.: No
[2019-07-22] MEDS: HEPARIN NA (PORCINE) 5,000 UNITS/ML 1ML VIAL SQ SCH ×2 (16:00→21:24)
[2019-07-22] MEDS: NICOTINE 21 MG/24 HOURS TOPICAL PATCH TD SCH (17:11)
--- NOTE | 2019-07-22 18:51 | EKG ---
Test Reason : Blood Pressure : / mmHG Vent. Rate : 114 BPM Atrial Rate : 114 BPM P-R Int : 142 ms QRS Dur : 084 ms QT Int : 306 ms P-R-T Axes : 055 039 058 degrees QTc Int : 421 ms SINUS TACHYCARDIA POSSIBLE LEFT ATRIAL ENLARGEMENT T WAVE ABNORMALITY, CONSIDER ANTERIOR ISCHEMIA ABNORMAL ECG WHEN COMPARED WITH ECG OF 18-JUL-2019 02:38, NONSPECIFIC T WAVE CHANGES NOW PRSENT IN V3 WELL Confirmed by LUCERO RENO MD ([id number]) on 07/22/2019 6:51:17 PM Referred By: Confirmed By:LUCERO RENO MD
[2019-07-22] MEDS ORDERED: DEXAMETHASONE SOD PHOSPHATE 4 MG/1 ML VIAL IVPUSH ONE (20:59)
[2019-07-22] MEDS ORDERED: morphine CARPU-JECT 4 MG/1 ML DISP.SYRIN IVPUSH SCH (21:15)
[2019-07-22] MEDS: ATORVASTATIN CA 10 MG TABLET (FP) PO SCH (21:24)
[2019-07-22] MEDS: morphine SULFATE 4 MG/ML VIAL IVPUSH PRN (22:39)
[2019-07-22 22:42] LABS: ARTERIAL BLD GAS O2 SATURATION 94.4 % (95-98); ARTERIAL BLOOD GAS BASE EXCESS 6.9 meq/l (-2-2); ARTERIAL BLOOD GAS PCO2 43.2 mmHg (35-45); ARTERIAL BLOOD GAS PO2 70.9 mmHg (80-100); ARTERIAL BLOOD GAS pH 7.47 (7.35-7.45)
[2019-07-22 22:43] LABS: ALLENS TEST POSITIVE
[2019-07-23] MEDS: DEXAMETHASONE SOD PHOSPHATE 4 MG/1 ML VIAL IVPUSH SCH ×4 (03:23→22:00)
[2019-07-23] MEDS: HEPARIN NA (PORCINE) 5,000 UNITS/ML 1ML VIAL SQ SCH ×3 (06:12→22:52)
[2019-07-23] MEDS: morphine SULFATE 4 MG/ML VIAL IVPUSH PRN ×2 (06:13→22:52)
[2019-07-23] MEDS: LEVOTHYROXINE NA 25 MCG TABLET (FP) PO SCH (06:23)
[2019-07-23] MEDS: ALBUTEROL SO4 2.5/IPRATROPIUM 0.5 INH SOL 3 ML VIAL.NEB. NEB PRN ×3 (09:20→22:07)
--- NOTE | 2019-07-23 09:56 | PN ---
Teaching Attending Note Name of Resident: Korey De ATTENDING PHYSICIAN STATEMENT I saw and evaluated the patient. I reviewed the resident's note and discussed the case with the resident. I agree with the resident's findings and plan as documented. SUBJECTIVE:overall improved. denies Cp, SOB, fever, chills, N/V/c/D OBJECTIVE: Last Vital Signs Temp Pulse Resp BP Pulse Ox 97.5 F L 90 20 148/86 95 07/23/19 04:00 07/23/19 04:00 07/23/19 04:00 07/23/19 04:00 07/22/19 21:00 General NAD Lungs diffuse rhonchi ASSESSMENT AND PLAN: 59yo M wtih pmh HTN, CVA, CKD, parkinson, lung malignancy with mets presented to the ER with CP and SOB with recent hospitalization for PNA was discharged on 07/20 and returned due to dyspnea and did not take his medications and found to be hypoxic 1. Acute hypoxic respiratory failure due to progression of disease- clinially stable. saturating well on NC. on azithro/ceftriaxone day 6. will complete tomorrow. dex IV, nebs prn. awaiting oncology and radiation onc for expert opinion. 2. Low TSH- LT4. will need repeat TFT in 6 weeks 3. AAA- 3x2.1cm aneurysm. will need outpatient follow up 4. Continuous nicotine dependence- counselled on need for abstinence as contributing to symptoms. nicotine patch. not interested in stopping. encouraged cessation 5. CVA 6. CKD 7. Parkinsons 8. DVT ppx- hep sq 9. Code status discussed last night with family, DNR/DNI. next steps in goals of care pending family convo with oncology
[2019-07-23] MEDS ORDERED: cefTRIAXone SODIUM 1 GM VIAL ONE (10:44)
[2019-07-23] MEDS ORDERED: DEXTROSE 5%-WATER - 50 ML IVPB ONE (10:44)
[2019-07-23] MEDS: RANITIDINE HCL 150 MG TABLET (FP) PO SCH (10:49)
[2019-07-23] MEDS: NICOTINE 21 MG/24 HOURS TOPICAL PATCH TD SCH (10:50)
[2019-07-23] MEDS: CEFTRIAXONE 1 GM in DEXTROSE 5%-WATER - 50 ML IVPB SCH (10:50)
[2019-07-23] MEDS: ASPIRIN 81 MG CHEWABLE TABLETS PO SCH (10:50)
[2019-07-23] MEDS: PANTOPRAZOLE 40 MG TABLET (FP) PO SCH (10:50)
[2019-07-23] MEDS: FOLIC ACID 1 MG TABLET (FP) PO SCH (10:50)
[2019-07-23] MEDS: DONEPEZIL HCL 5 MG TABLET (FP) PO SCH (10:50)
[2019-07-23] MEDS: AZITHROMYCIN IVPB 500 MG/250 ML BAG IVPB SCH (10:51)
[2019-07-23] MEDS: THIAMINE HCL 100 MG TABLET (FP) PO SCH (10:51)
--- NOTE | 2019-07-23 12:42 | PN ---
Physical Exam: SUBJECTIVE: 59 y/o M w PMH metastatic non-small cell lung cancer (adenocarcinoma , metastasis to contralateral lung, brain, adrenals and bone), COPD, hypertension, hyperlipidemia, CVA, coronary artery disease, Parkinson's Disease presented to the hospital for progressive shortness of breath, chest pain and abdominal pain. Pt seen at bedside today. Overnight pt desaturated and was provided Venturi mask. Pt signed DNR/DNI. Now on NC 5L o2. He c/o SOB but no cough, chest pain, NVFD. OBJECTIVE: Vital Signs Period Temp Pulse Resp BP Sys/Blair Pulse Ox Last 24 Hr 97.5 F-98.6 F 80-94 20-20 127-148/79-96 95 GENERAL: A&Ox3, in no acute distress, cachectic, on humidified NC 5L o2. HEAD: NCAT Alopecic area over LEFT parietal region of scalp poss EYES: LEOLA, EOMI ENT: Moist mucus membranes NECK: No JVD, no lymphadenopathy palpated CHEST: Small, hard chest wall nodule noted just lateral to midline around 2nd L intercostal space, nontender. Breast exam without nodularity. LUNGS: Decreased air entry to base. Diffuse bilateral wheezing, no rales or rhonchi HEART: Mildly tachycardic, no murmurs auscultated ABDOMEN: Soft, nontender, bs present EXTREMITIES: 2+ pulses, no edema. NEUROLOGICAL: Cranial nerves II-XII grossly intact. mild diffuse weakness noted - 4/5 muscle strength throughout, sensation intact Laboratory Results - last 24 hr 07/22/19 22:30 Anticoagulation Therapy No Result Required. Puncture Site Right radial ABG pH 7.47 H ABG pCO2 at Pt Temp 43.2 ABG pO2 at Pt Temp 70.9 L ABG HCO3 31.0 H ABG O2 Sat (Measured) 94.4 L ABG O2 Content 14.1 ABG Base Excess 6.9 H Aaron Test Positive O2 Delivery Device N/c Oxygen Flow Rate 6 Vent Mode No Result Required. Vent Rate No Result Required. Mechanical Rate No Result Required. Pressure Support Vent No Result Required. Active Medications Albuterol/Ipratropium (Duoneb -) 1 amp NEB Q4H PRN PRN Reason: SHORTNESS OF BREATH Last Admin: 07/23/19 09:20 Dose: 1 amp Aspirin (Asa -) 81 mg PO DAILY ROANLDO Last Admin: 07/23/19 10:50 Dose: 81 mg Atorvastatin Calcium (Lipitor -) 10 mg PO HS [facility] Last Admin: 07/22/19 21:24 Dose: 10 mg Dexamethasone Sodium Phosphate (Decadron Injection -) 8 mg IVPUSH Q6H-IV [facility] Last Admin: 07/23/19 14:12 Dose: 8 mg Donepezil HCl (Aricept -) 5 mg PO DAILY [facility] Last Admin: 07/23/19 10:50 Dose: 5 mg Folic Acid (Folic Acid -) 1 mg PO DAILY [facility] Last Admin: 07/23/19 10:50 Dose: 1 mg Heparin Sodium (Porcine) (Heparin -) 5,000 unit SQ TID [facility] Last Admin: 07/23/19 14:12 Dose: 5,000 unit Azithromycin (Zithromax 500mg Ivpb (Pre-Docked)) 500 mg in 250 mls @ 250 mls/ hr IVPB DAILY [facility] Last Admin: 07/23/19 10:51 Dose: 250 mls/hr Ceftriaxone Sodium 1 gm/ (Dextrose) 50 mls @ 100 mls/hr IVPB DAILY [facility]; Protocol Last Admin: 07/23/19 10:50 Dose: 100 mls/hr Levothyroxine Sodium (Synthroid -) 25 mcg PO DAILY@0700 [facility] Last Admin: 07/23/19 06:23 Dose: 25 mcg Metoprolol Succinate (Toprol Xl -) 100 mg PO DAILY [facility] Last Admin: 07/23/19 10:49 Dose: 100 mg Morphine Sulfate (Morphine Sulfate) 4 mg IVPUSH Q4H PRN PRN Reason: PAIN LEVEL 7 - 10 Last Admin: 07/23/19 06:13 Dose: 4 mg Nicotine (Nicoderm Patch -) 21 mg TD DAILY [facility] Last Admin: 07/23/19 10:50 Dose: 21 mg Pantoprazole Sodium (Protonix -) 40 mg PO DAILY [facility] Last Admin: 07/23/19 10:50 Dose: 40 mg Ranitidine HCl (Zantac -) 150 mg PO DAILY [facility] Last Admin: 07/23/19 10:49 Dose: 150 mg Thiamine HCl (Vitamin B1 -) 100 mg PO DAILY [facility] Last Admin: 07/23/19 10:51 Dose: 100 mg ASSESSMENT/PLAN: 59 y/o M w PMH metastatic non-small cell lung cancer (adenocarcinoma, metastasis to contralateral lung, brain, adrenals and bone), COPD, hypertension , hyperlipidemia, CVA, coronary artery disease, Parkinson's Disease. Recent hospitalization for PNA and was discharged on Jul 20, 2019 and returned due to dyspnea 2/2 nn-compliance with medications. # Acute hypoxic respiratory failure due to PNA and effusion - Awaiting oncology and radiation onc for expert opinion. - Cont. supplemental oxygen to maintain spO2 >90% - Cont. duo nebs PRN - ABG in AM # Low TSH - Start LT4 - Repeat TFT in 6 weeks # Lung cancer with mets - Noted to LN, bone, and liver - Dex for bone mets - Hem/onc consulted # AAA - 3x2.1 cm aneurysm - Out-pt f/u # Nicotine dependence - Counselled on need for abstinence as contributing to symptoms - Nicotine patch # CVA - Cont. home meds # CKD - Cont. home meds # Parkinsons - Cont. home meds # F/E/N - No standing fluids - Cont. to monitor electrolytes - Low sodium diet # DVT prophylaxis - Heparin # Disposition - DNR/DNI. Next steps in goals of care pending family convo with oncology Earl Delacruz MD Visit type - Emergency Visit Emergency Visit: No - New Patient This patient is new to me today: No - Critical Care Critical Care patient: No - Discharge Referral Referred to [facility] Med P.C.: No ATTENDING PHYSICIAN STATEMENT I saw and evaluated the patient. I reviewed the resident's note and discussed the case with the resident. I agree with the resident's findings and plan as documented. SUBJECTIVE: OBJECTIVE: ASSESSMENT AND PLAN:
--- NOTE | 2019-07-23 21:01 | CONSULT ---
Consult Consult Specialty:: Heme/onc Referred by:: Dr. Lares Reason for Consultation:: lung cancer - History of Present Illness Chief Complaint: dyspnea History of Present Illness: 59M with Parkinson disease, COPD, CAD, hx CVA, 3.2 cm AAA, adenoca of lung presented on 07/21 with SOB. Found to be hypoxic. Started on Abx and decadron. CT chest without PE. Showed extensive metastatic lung disease and developing groundglass opacities bilaterally, possible congestion. Pt was dx with localized lung adenocarcinoma on 12/14/18 s/p SBRT to RLL. Found to have recurrent disease in 04/2019 with mets to brain, bone, lung, liver, adrenal, and likely pleural mets. s/p RT to scalp and T-spine for disease control in 05/2019. S/p SRS to solitary brain met on 06/20/2019. Was being planned for pembrolizumab (PDL1 93%), not thought to be a good candidate for chemo due to poor PS. Pt was discharged 07/20 after an admission for acute hypoxic respiratory failure due to PNA and effusion. Treated with Abx. Received decadron for pain 2/2 bone mets, with improvement. 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) Cardio/Vascular: Yes: HTN, Hyperlipdemia Pulmonary: Yes: Cancer (with metastatasis), COPD Renal/: Yes: Renal Inusuff - Past Surgical History Past Surgical History: Yes: Cholecystectomy, Thoracotomy - Alcohol/Substance Use Hx Alcohol Use: No Number of Drinks Daily: 6 History of Substance Use: reports: None - Smoking History Smoking history: Never smoked Have you smoked in the past 12 months: No Aproximately how many cigarettes per day: 10 - Social History Usual Living Arrangement: With Spouse ADL: Support Services History of Recent Travel: No Home Medications - Allergies Allergies/Adverse Reactions: Allergies Allergy/AdvReac Type Severity Reaction Status Date / Time No Known Allergies Allergy Verified 07/21/19 12:14 - Home Medications Home Medications: Ambulatory Orders Folic Acid 1 mg PO DAILY #14 tablet 09/29/17 Ranitidine HCl [Zantac] 150 mg PO DAILY #14 tablet 09/29/17 Thiamine HCl [Vitamin B1 -] 100 mg PO DAILY #14 tablet 09/29/17 Atorvastatin Ca [Lipitor] 10 mg PO HS 12/14/18 Cholecalciferol (Vitamin D3) [Vitamin D -] 1,000 mg PO DAILY 12/14/18 Pantoprazole Sodium [Protonix -] 40 mg PO DAILY #120 tablet.ec 05/24/19 Acetaminophen [Tylenol] 650 mg PO Q4H #30 capsule 07/06/19 Cyclobenzaprine HCl 5 mg PO HS #10 tablet 07/06/19 Donepezil HCl 5 mg PO DAILY 07/06/19 Metoprolol Succinate [Toprol XL -] 100 mg PO DAILY 07/06/19 Aspirin [ASA -] 81 mg PO DAILY tab.chew 07/20/19 Azithromycin 500 mg PO DAILY 3 Days #3 tablet 07/20/19 Cefuroxime Axetil [Ceftin -] 500 mg PO Q12H 3 Days #6 tablet 07/20/19 Dexamethasone [Decadron -] See Taper PO Q6H 8 Days #64 tablet 07/20/19 Levothyroxine [Synthroid -] 25 mcg PO DAILY 30 Days #30 tablet 07/20/19 Family Disease History - Family Disease History Family Disease History: Heart Disease: Father (colon cancer), Mother (colon cancer) Review of Systems - Review of Systems Constitutional: reports: No Symptoms Cardiovascular: reports: Shortness of Breath Respiratory: reports: Exercise Intolerance, SOB, SOB on Exertion Genitourinary: reports: No Symptoms Hematology/Lymphatic: reports: No Symptoms Physical Exam Vital Signs: Vital Signs Temperature 97.5 F L 07/23/19 17:33 Pulse Rate 82 07/23/19 17:33 Respiratory Rate 18 07/23/19 17:33 Blood Pressure 154/88 07/23/19 17:33 O2 Sat by Pulse Oximetry (%) 95 07/22/19 21:00 Constitutional: Yes: No Distress Eyes: Yes: Conjunctiva Clear Cardiovascular: Yes: Regular Rate and Rhythm Respiratory: Yes: Cough, On Nasal O2, Rales, SOB, Wheezes. No: Accessory Muscle Use Gastrointestinal: Yes: Soft Edema: No Labs: CBC, BMP 07/22/19 06:35 07/22/19 06:35 Assessment/Plan 59M with widely metastatic lung adenoca s/p RT to solitary brain met, and palliative rT to scalp and T-spine re-admitted with hypoxic respiratory failure likely 2/2 extensive lung mets. Pt is planned for Keytruda given high PDL1 expression. Pts primary oncologist, Dr. Tompkins, will follow-up re- GOC discussions with family.
[2019-07-23] MEDS: ATORVASTATIN CA 10 MG TABLET (FP) PO SCH (22:00)
[2019-07-24] MEDS: DEXAMETHASONE SOD PHOSPHATE 4 MG/1 ML VIAL IVPUSH SCH ×4 (02:58→21:14)
[2019-07-24] MEDS: morphine SULFATE 4 MG/ML VIAL IVPUSH PRN ×3 (06:15→19:38)
[2019-07-24] MEDS: HEPARIN NA (PORCINE) 5,000 UNITS/ML 1ML VIAL SQ SCH ×3 (06:18→21:14)
[2019-07-24] MEDS: LEVOTHYROXINE NA 25 MCG TABLET (FP) PO SCH (06:18)
[2019-07-24] MEDS: ALBUTEROL SO4 2.5/IPRATROPIUM 0.5 INH SOL 3 ML VIAL.NEB. NEB PRN ×4 (07:44→19:34)
[2019-07-24 08:00] LABS: BASO % 0.2 % (0-2.0); EOS % 0.5 % (0-4.5); HEMATOCRIT 32.2 % (35.4-49); HEMOGLOBIN 10.6 GM/dL (11.7-16.9); LYMPH % 1.7 % (8-40); MCH 31.5 pg (25.7-33.7); MEAN CELL VOLUME 95.5 fl (80-96); MEAN PLT VOLUME 8.5 fl (7.5-11.1); MONO % 3.9 % (3.8-10.2); NEUT % 93.7 % (42.8-82.8); PLATELET COUNT 163 K/MM3 (134-434); RBC 3.38 M/mm3 (4.00-5.60); RDW 15.2 % (11.9-15.9); WHITE BLOOD COUNT 13.2 K/mm3 (4.0-10.0)
[2019-07-24 08:06] LABS: ALBUMIN 1.5 g/dl (3.4-5.0); BILIRUBIN,TOTAL 0.3 mg/dL (0.2-1); BLOOD UREA NITROGEN 20.7 mg/dL (7-18); CALCIUM 8.2 mg/dL (8.5-10.1); CREATININE 0.5 mg/dL (0.55-1.3); MAGNESIUM 1.9 mg/dL (1.8-2.4); PHOSPHOROUS 3.5 mg/dL (2.5-4.9); POTASSIUM 4.3 mmol/L (3.5-5.1); TOT PROT 4.6 g/dl (6.4-8.2)
[2019-07-24] MEDS ORDERED: PT OWN MED DRAWER 7, Y5N ONE (09:56)
[2019-07-24] MEDS ORDERED: cefTRIAXone SODIUM 1 GM VIAL ONE (09:57)
[2019-07-24] MEDS ORDERED: DEXTROSE 5%-WATER - 50 ML IVPB ONE (09:57)
[2019-07-24] MEDS: PANTOPRAZOLE 40 MG TABLET (FP) PO SCH (10:00)
[2019-07-24] MEDS: RANITIDINE HCL 150 MG TABLET (FP) PO SCH (10:00)
[2019-07-24] MEDS: DONEPEZIL HCL 5 MG TABLET (FP) PO SCH (10:00)
[2019-07-24] MEDS: FOLIC ACID 1 MG TABLET (FP) PO SCH (10:00)
[2019-07-24] MEDS: ASPIRIN 81 MG CHEWABLE TABLETS PO SCH (10:00)
[2019-07-24] MEDS: AZITHROMYCIN IVPB 500 MG/250 ML BAG IVPB SCH (10:01)
[2019-07-24] MEDS: CEFTRIAXONE 1 GM in DEXTROSE 5%-WATER - 50 ML IVPB SCH (10:01)
[2019-07-24] MEDS: NICOTINE 21 MG/24 HOURS TOPICAL PATCH TD SCH (10:01)
[2019-07-24] MEDS: THIAMINE HCL 100 MG TABLET (FP) PO SCH (10:22)
[2019-07-24 10:28] LABS: ANISOCYTOSIS 0; MACROCYTOSIS 1+
[2019-07-24 10:54] LABS: PLATELET ESTIMATE ADEQUATE
--- NOTE | 2019-07-24 11:32 | EKG ---
Test Reason : Blood Pressure : / mmHG Vent. Rate : 112 BPM Atrial Rate : 112 BPM P-R Int : 142 ms QRS Dur : 072 ms QT Int : 338 ms P-R-T Axes : 085 073 068 degrees QTc Int : 461 ms SINUS TACHYCARDIA BIATRIAL ENLARGEMENT ABNORMAL ECG WHEN COMPARED WITH ECG OF 21-JUL-2019 11:58, T WAVE VARIATION Confirmed by YANI COSTELLO MD ([id number]) on 07/24/2019 11:31:37 AM Referred By: Confirmed By:YANI COSTELLO MD
--- NOTE | 2019-07-24 13:09 | PN ---
Teaching Attending Note Name of Resident: Earl Delacruz ATTENDING PHYSICIAN STATEMENT I saw and evaluated the patient. I reviewed the resident's note and discussed the case with the resident. I agree with the resident's findings and plan as documented. SUBJECTIVE:had episode of hypoxia last night which resolved with face mask placement. states breathing is the same, difficult but at baseline. denies Cp, fevr, chills, N/V/C/D OBJECTIVE: Last Vital Signs Temp Pulse Resp BP Pulse Ox 97.4 F L 78 19 158/94 96 07/24/19 10:25 07/24/19 10:25 07/24/19 10:25 07/24/19 10:07/23/19 21:00 General NAD Lungs diffuse rhonchi ASSESSMENT AND PLAN: 59yo M wtih pmh HTN, CVA, CKD, parkinson, lung malignancy with mets presented to the ER with CP and SOB with recent hospitalization for PNA was discharged on 07/20 and returned due to dyspnea and did not take his medications and found to be hypoxic 1. Acute hypoxic respiratory failure due to progression of disease- has episodes of hypoxia at bedtime. likely roxana component, can check sleep study overnight. completes abx today and then can d/c will leave dex IV while hospitalized and switch to po for taper when ready to leave. Cpap at bedtime. will see if machine can be ordered for home based on this. will need pulm follow up outpatient. Will need 6L NC at home as qualifies for home O2. concern for patient to be smoking however he claims he is not quit smoking and all tobacco products and lighters has been removed. 2. Low TSH- LT4. will need repeat TFT in 6 weeks 3. AAA- 3x2.1cm aneurysm. will need outpatient follow up 4. Continuous nicotine dependence- nicotine patch. claims he is now quitting and that all his stuff has been removed from the house. 5. CVA 6. CKD 7. Parkinsons 8. DVT ppx- hep sq 9. DNR/DNI. awaiting family discussion with oncology to determine life expectancy with and without radiation treatment. pt wants to go home. will need home O2. risks explained with sister present if he smokes with oxygen in the house can cause explosion which can lead to injury and . verbalized understanding
--- NOTE | 2019-07-24 16:27 | PN ---
Physical Exam: SUBJECTIVE: 59 y/o M w PMH metastatic non-small cell lung cancer (adenocarcinoma , metastasis to contralateral lung, brain, adrenals and bone), COPD, hypertension, hyperlipidemia, CVA, coronary artery disease, Parkinson's Disease presented to the hospital for progressive shortness of breath, chest pain and abdominal pain. Pt seen at bedside today. Overnight pt desaturated and was provided Venturi mask. He c/o SOB but no cough, chest pain, NVFD. OBJECTIVE: Vital Signs Period Temp Pulse Resp BP Sys/Blair Pulse Ox Last 24 Hr 97.4 F-98.2 F 75-95 17-20 145-158/77-94 96 GENERAL: A&Ox3, in no acute distress, cachectic, on humidified NC 5L o2. HEAD: NCAT Alopecic area over LEFT parietal region of scalp poss EYES: LEOLA, EOMI ENT: Moist mucus membranes NECK: No JVD, no lymphadenopathy palpated CHEST: Small, hard chest wall nodule noted just lateral to midline around 2nd L intercostal space, nontender. Breast exam without nodularity. LUNGS: Decreased air entry to base. Diffuse bilateral wheezing, no rales or rhonchi HEART: Mildly tachycardic, no murmurs auscultated ABDOMEN: Soft, nontender, bs present EXTREMITIES: 2+ pulses, no edema. NEUROLOGICAL: Cranial nerves II-XII grossly intact. mild diffuse weakness noted - 4/5 muscle strength throughout, sensation intact Laboratory Results - last 24 hr 07/24/19 07/24/19 06:45 06:45 WBC 13.2 H RBC 3.38 L Hgb 10.6 L Hct 32.2 L MCV 95.5 MCH 31.5 MCHC 33.0 RDW 15.2 Plt Count 163 MPV 8.5 Absolute Neuts (auto) 12.3 H Neutrophils % 93.7 H Neutrophils % (Manual) 92.9 H Band Neutrophils % 3.0 Lymphocytes % 1.7 L D Lymphocytes % (Manual) 3.1 L D Monocytes % 3.9 D Monocytes % (Manual) 1 L Eosinophils % 0.5 D Eosinophils % (Manual) 0.0 D Basophils % 0.2 Basophils % (Manual) 0.0 Myelocytes % (Man) 0 Promyelocytes % (Man) 0 Blast Cells % (Manual) 0 Nucleated RBC % 0 Metamyelocytes 0 Hypochromia 0 Platelet Estimate Adequate Polychromasia 0 Poikilocytosis 0 Anisocytosis 0 Microcytosis 0 Macrocytosis 1+ Sodium 144 Potassium 4.3 Chloride 102 Carbon Dioxide 33 H Anion Gap 9 BUN 20.7 H Creatinine 0.5 L Est GFR (CKD-EPI)AfAm 135.56 Est GFR (CKD-EPI)NonAf 116.96 Random Glucose 155 H Calcium 8.2 L Phosphorus 3.5 Magnesium 1.9 Total Bilirubin 0.3 AST 10 L ALT 29 Alkaline Phosphatase 85 Total Protein 4.6 L Albumin 1.5 L Active Medications Albuterol/Ipratropium (Duoneb -) 1 amp NEB Q4H PRN PRN Reason: SHORTNESS OF BREATH Last Admin: 07/24/19 13:02 Dose: 1 amp Aspirin (Asa -) 81 mg PO DAILY [facility] Last Admin: 07/24/19 10:00 Dose: 81 mg Atorvastatin Calcium (Lipitor -) 10 mg PO HS [facility] Last Admin: 07/23/19 22:00 Dose: 10 mg Dexamethasone Sodium Phosphate (Decadron Injection -) 8 mg IVPUSH Q6H-IV [facility] Last Admin: 07/24/19 15:53 Dose: 8 mg Donepezil HCl (Aricept -) 5 mg PO DAILY [facility] Last Admin: 07/24/19 10:00 Dose: 5 mg Folic Acid (Folic Acid -) 1 mg PO DAILY [facility] Last Admin: 07/24/19 10:00 Dose: 1 mg Heparin Sodium (Porcine) (Heparin -) 5,000 unit SQ TID [facility] Last Admin: 07/24/19 13:42 Dose: 5,000 unit Azithromycin (Zithromax 500mg Ivpb (Pre-Docked)) 500 mg in 250 mls @ 250 mls/ hr IVPB DAILY [facility] Last Admin: 07/24/19 10:01 Dose: 250 mls/hr Ceftriaxone Sodium 1 gm/ (Dextrose) 50 mls @ 100 mls/hr IVPB DAILY [facility]; Protocol Last Admin: 07/24/19 10:01 Dose: 100 mls/hr Levothyroxine Sodium (Synthroid -) 25 mcg PO DAILY@0700 [facility] Last Admin: 07/24/19 06:18 Dose: 25 mcg Melatonin (Melatonin) 3 mg PO [facility] Metoprolol Succinate (Toprol Xl -) 100 mg PO DAILY [facility] Last Admin: 07/24/19 10:00 Dose: 100 mg Morphine Sulfate (Morphine Sulfate) 4 mg IVPUSH Q4H PRN PRN Reason: PAIN LEVEL 7 - 10 Last Admin: 07/24/19 13:42 Dose: 4 mg Nicotine (Nicoderm Patch -) 21 mg TD DAILY [facility] Last Admin: 07/24/19 10:01 Dose: 21 mg Pantoprazole Sodium (Protonix -) 40 mg PO DAILY [facility] Last Admin: 07/24/19 10:00 Dose: 40 mg Ranitidine HCl (Zantac -) 150 mg PO DAILY [facility] Last Admin: 07/24/19 10:00 Dose: 150 mg Thiamine HCl (Vitamin B1 -) 100 mg PO DAILY [facility] Last Admin: 07/24/19 10:22 Dose: 100 mg ASSESSMENT/PLAN: 59 y/o M w PMH metastatic non-small cell lung cancer (adenocarcinoma, metastasis to contralateral lung, brain, adrenals and bone), COPD, hypertension , hyperlipidemia, CVA, coronary artery disease, Parkinson's Disease. Recent hospitalization for PNA and was discharged on Jul 20, 2019 and returned due to dyspnea 2/2 nn-compliance with medications. # Acute hypoxic respiratory failure d/t progression of disease - Episodes of hypoxia at bedtime; likely roxana component, can check sleep study overnight - Completes abx today and then can d/c - Leave dex IV while hospitalized and switch to po for taper when ready to leave. - Cpap at bedtime. Will see if machine can be ordered for home based on this. - Will need pulm follow up outpatient. - Will need 6L NC at home as qualifies for home O2 - Concern for patient to be smoking however he claims he is not quit smoking and all tobacco products and lighters has been removed. # Lung CA - Keytruda given high PDL1 expression - Pts primary oncologist, Dr. Tompkins, will follow-up re- GOC discussions # Low TSH - Start LT4 - Repeat TFT in 6 weeks # Lung cancer with mets - Noted to LN, bone, and liver - Dex for bone mets - Hem/onc consulted # AAA - 3x2.1 cm aneurysm - Out-pt f/u # Nicotine dependence - Counselled on need for abstinence as contributing to symptoms - Pt agrees to quit. He will cont. with patches. # CVA - Cont. home meds # CKD - Cont. home meds # Parkinsons - Cont. home meds # F/E/N - No standing fluids - Cont. to monitor electrolytes - Low sodium diet # DVT prophylaxis - Heparin # Disposition - DNR/DNI. Next steps in goals of care pending family convo with oncology Earl Delacruz MD Visit type - Emergency Visit Emergency Visit: No - New Patient This patient is new to me today: No - Critical Care Critical Care patient: No - Discharge Referral Referred to [facility] Med P.C.: No ATTENDING PHYSICIAN STATEMENT I saw and evaluated the patient. I reviewed the resident's note and discussed the case with the resident. I agree with the resident's findings and plan as documented. SUBJECTIVE: OBJECTIVE: ASSESSMENT AND PLAN:
--- NOTE | 2019-07-24 19:47 | PN ---
Progress Note (short form) - Note Progress Note: Patient seen and examined Undergoing treatment with inhalation therapy Complaining of pain Last Vital Signs Temp Pulse Resp BP Pulse Ox 98.2 F 95 H 18 146/77 98 07/24/19 14:20 07/24/19 14:20 07/24/19 14:20 07/24/19 14:20 07/24/19 09:00 Lungs- diffuse rhonchi, scattered wheezes Cor-RSR Abd- soft CBC, BMP 07/24/19 06:45 07/24/19 06:45 Current Medications Generic Name Dose Route Start Last Admin Trade Name Freq PRN Reason Stop Dose Admin Albuterol/Ipratropium 1 amp 07/22/19 07:58 07/24/19 19:34 Duoneb - NEB 1 amp Q4H PRN Administration SHORTNESS OF BREATH Aspirin 81 mg 07/22/19 10:00 07/24/19 10:00 Asa - PO 81 mg DAILY [facility] Administration Atorvastatin Calcium 10 mg 07/21/19 22:00 07/23/19 22:00 Lipitor - PO 10 mg HS [facility]DO Administration Dexamethasone Sodium Phosphate 8 mg 07/22/19 03:00 07/24/19 15:53 Decadron Injection - IVPUSH 8 mg Q6H-IV [facility] Administration Donepezil HCl 5 mg 07/22/19 10:00 07/24/19 10:00 Aricept - PO 5 mg DAILY [facility] Administration Folic Acid 1 mg 07/22/19 10:00 07/24/19 10:00 Folic Acid - PO 1 mg DAILY [facility] Administration Heparin Sodium (Porcine) 5,000 unit 07/21/19 22:00 07/24/19 13:42 Heparin - SQ 5,000 unit TID [facility] Administration Azithromycin 500 mg in 250 mls @ 250 mls/hr 07/22/19 10:00 07/24/19 10:01 Zithromax 500mg Ivpb (Pre-Docked) IVPB 250 mls/hr DAILY [facility] Administration Ceftriaxone Sodium 1 gm/ 50 mls @ 100 mls/hr 07/22/19 10:00 07/24/19 10:01 Dextrose IVPB 100 mls/hr DAILY [facility] Administration Protocol Levothyroxine Sodium 25 mcg 07/22/19 07:00 07/24/19 06:18 Synthroid - PO 25 mcg DAILY@0700 [facility] Administration Melatonin 3 mg 07/24/19 22:00 Melatonin PO HS [facility] Metoprolol Succinate 100 mg 07/22/19 10:00 07/24/19 10:00 Toprol Xl - PO 100 mg DAILY [facility] Administration Morphine Sulfate 4 mg 07/22/19 21:21 07/24/19 19:38 Morphine Sulfate IVPUSH 4 mg Q4H PRN Administration PAIN LEVEL 7 - 10 Nicotine 21 mg 07/22/19 16:00 07/24/19 10:01 Nicoderm Patch - TD 21 mg DAILY [facility] Administration Pantoprazole Sodium 40 mg 07/22/19 10:00 07/24/19 10:00 Protonix - PO 40 mg DAILY [facility] Administration Ranitidine HCl 150 mg 07/22/19 10:00 07/24/19 10:00 Zantac - PO 150 mg DAILY [facility] Administration Thiamine HCl 100 mg 07/22/19 10:00 07/24/19 10:22 Vitamin B1 - PO 100 mg DAILY [facility] Administration Impression: Widespread metastatic disease Uncertain patient is a suitable candidate for immunotherapy May be better served with hospice. Will need to discuss GOC.
[2019-07-24] MEDS: MELATONIN 1 MG TABLET PO SCH (21:14)
[2019-07-24] MEDS: ATORVASTATIN CA 10 MG TABLET (FP) PO SCH (21:14)
[2019-07-25] MEDS: morphine SULFATE 4 MG/ML VIAL IVPUSH PRN ×3 (01:43→20:41)
[2019-07-25] MEDS: DEXAMETHASONE SOD PHOSPHATE 4 MG/1 ML VIAL IVPUSH SCH ×4 (02:13→20:41)
[2019-07-25] MEDS: ALBUTEROL SO4 2.5/IPRATROPIUM 0.5 INH SOL 3 ML VIAL.NEB. NEB PRN (05:50)
[2019-07-25] MEDS: HEPARIN NA (PORCINE) 5,000 UNITS/ML 1ML VIAL SQ SCH ×3 (05:50→21:35)
[2019-07-25] MEDS: LEVOTHYROXINE NA 25 MCG TABLET (FP) PO SCH (06:09)
[2019-07-25 07:35] LABS: BASO % 0.4 % (0-2.0); EOS % 0.1 % (0-4.5); HEMATOCRIT 34.1 % (35.4-49); HEMOGLOBIN 11.3 GM/dL (11.7-16.9); MCH 31.7 pg (25.7-33.7); MEAN CELL VOLUME 96.1 fl (80-96); MEAN PLT VOLUME 8.4 fl (7.5-11.1); NEUT % 94.5 % (42.8-82.8); PLATELET COUNT 180 K/MM3 (134-434); RBC 3.55 M/mm3 (4.00-5.60); RDW 15.4 % (11.9-15.9); WHITE BLOOD COUNT 15.3 K/mm3 (4.0-10.0)
[2019-07-25 07:47] LABS: ALBUMIN 1.7 g/dl (3.4-5.0); BILIRUBIN,TOTAL 0.2 mg/dL (0.2-1); BLOOD UREA NITROGEN 17.6 mg/dL (7-18); CALCIUM 8.4 mg/dL (8.5-10.1); CREATININE 0.4 mg/dL (0.55-1.3); MAGNESIUM 2.1 mg/dL (1.8-2.4); PHOSPHOROUS 4.1 mg/dL (2.5-4.9); POTASSIUM 4.4 mmol/L (3.5-5.1); TOT PROT 4.9 g/dl (6.4-8.2)
--- NOTE | 2019-07-25 07:56 | PN ---
Progress Note (short form) - Note Progress Note: Patient seen and examined Dyspneic and tchyneic on minimal exertion Last Vital Signs Temp Pulse Resp BP Pulse Ox 97.5 F L 87 20 152/88 97 07/25/19 06:06 07/25/19 06:06 07/25/19 06:06 07/25/19 06:06 07/24/19 21:00 HEENT: LEOLA, EOM Intact Oropharynx: No thrush, No mucositis Cor: RSR, No murmurs, No gallops Lungs: rhonchi, wheezes throughout Abd: Soft, Normal bowel sounds, No organomegaly Ext:No significant edema Skin: No rashes, Integument intact CBC, BMP 07/25/19 06:00 Current Medications Generic Name Dose Route Start Last Admin Trade Name Freq PRN Reason Stop Dose Admin Albuterol/Ipratropium 1 amp 07/22/19 07:58 07/25/19 05:50 Duoneb - NEB 1 amp Q4H PRN Administration SHORTNESS OF BREATH Aspirin 81 mg 07/22/19 10:00 07/24/19 10:00 Asa - PO 81 mg DAILY [facility] Administration Atorvastatin Calcium 10 mg 07/21/19 22:00 07/24/19 21:14 Lipitor - PO 10 mg HS [facility] Administration Dexamethasone Sodium Phosphate 8 mg 07/22/19 03:00 07/25/19 02:13 Decadron Injection - IVPUSH 8 mg Q6H-IV [facility] Administration Docusate Sodium 100 mg 07/25/19 10:00 Colace - PO DAILY [facility] Donepezil HCl 5 mg 07/22/19 10:00 07/24/19 10:00 Aricept - PO 5 mg DAILY [facility] Administration Folic Acid 1 mg 07/22/19 10:00 07/24/19 10:00 Folic Acid - PO 1 mg DAILY [facility] Administration Heparin Sodium (Porcine) 5,000 unit 07/21/19 22:00 07/25/19 05:50 Heparin - SQ 5,000 unit TID [facility] Administration Azithromycin 500 mg in 250 mls @ 250 mls/hr 07/22/19 10:00 07/24/19 10:01 Zithromax 500mg Ivpb (Pre-Docked) IVPB 250 mls/hr DAILY [facility] Administration Ceftriaxone Sodium 1 gm/ 50 mls @ 100 mls/hr 07/22/19 10:00 07/24/19 10:01 Dextrose IVPB 100 mls/hr DAILY [facility] Administration Protocol Levothyroxine Sodium 25 mcg 07/22/19 07:00 07/25/19 06:09 Synthroid - PO 25 mcg DAILY@0700 [facility] Administration Melatonin 3 mg 07/24/19 22:00 07/24/19 21:14 Melatonin PO 3 mg HS [facility] Administration Metoprolol Succinate 100 mg 07/22/19 10:00 07/24/19 10:00 Toprol Xl - PO 100 mg DAILY [facility] Administration Morphine Sulfate 4 mg 07/22/19 21:21 07/25/19 01:43 Morphine Sulfate IVPUSH 4 mg Q4H PRN Administration PAIN LEVEL 7 - 10 Nicotine 21 mg 07/22/19 16:00 07/24/19 10:01 Nicoderm Patch - TD 21 mg DAILY [facility] Administration Pantoprazole Sodium 40 mg 07/22/19 10:00 07/24/19 10:00 Protonix - PO 40 mg DAILY [facility] Administration Ranitidine HCl 150 mg 07/22/19 10:00 07/24/19 10:00 Zantac - PO 150 mg DAILY [facility] Administration Senna 1 tab 07/25/19 10:00 Senna - PO BID [facility] Thiamine HCl 100 mg 07/22/19 10:00 07/24/19 10:22 Vitamin B1 - PO 100 mg DAILY [facility] Administration Impression Widespread lung ca Large loculated effusion on left with smaller effusion on right Hypoxic respiratory failure Currently on IV decadron,antibiotics with ceftriaxone and zithromax. ?? of whether tapping effusion would improve respiratory status Willl ask pulmonary to see Discontinue ASA for possible tap
[2019-07-25] MEDS ORDERED: DEXTROSE 5%-WATER - 50 ML IVPB ONE (09:50)
[2019-07-25] MEDS ORDERED: cefTRIAXone SODIUM 1 GM VIAL ONE (09:50)
[2019-07-25] MEDS: DONEPEZIL HCL 5 MG TABLET (FP) PO SCH (10:31)
[2019-07-25] MEDS: DOCUSATE SODIUM 100 MG CAPSULE (FP) PO SCH (10:31)
[2019-07-25] MEDS: RANITIDINE HCL 150 MG TABLET (FP) PO SCH (10:31)
[2019-07-25] MEDS: NICOTINE 21 MG/24 HOURS TOPICAL PATCH TD SCH (10:32)
[2019-07-25] MEDS: PANTOPRAZOLE 40 MG TABLET (FP) PO SCH (10:32)
[2019-07-25] MEDS: FOLIC ACID 1 MG TABLET (FP) PO SCH (10:32)
[2019-07-25] MEDS: SENNOSIDES 8.6MG TABLET (FP) PO SCH ×2 (10:33→21:35)
[2019-07-25] MEDS: THIAMINE HCL 100 MG TABLET (FP) PO SCH (10:33)
[2019-07-25 10:45] LABS: ANISOCYTOSIS 0; MACROCYTOSIS 0; PLATELET ESTIMATE NORMAL
--- NOTE | 2019-07-25 10:56 | CON.PULM ---
Consult Consult Specialty:: PULMONARY Referred by:: Dr Tompkins Reason for Consultation:: pleural effusion - History of Present Illness Chief Complaint: shortness of breath History of Present Illness: 59yo male with h/o HTN, hyperlipidemia, CAD, metastatic lung cancer s/p RT, COPD , smoker who was admitted with worsening shortness of breath. Denies chest pain or palpitations. + nonproductive cough and wheezing. No sick contacts or recent travel. CTA chest done did not show evidence of VTE but showing bilateral effusions L>R with areas of loculations. - History Source History Provided By: Patient, Medical Record Limitations to Obtaining History: No Limitations - Past Medical History [employer]: Yes: CVA, Other (ataxia) Cardio/Vascular: Yes: HTN, Hyperlipdemia Pulmonary: Yes: Cancer (with metastatasis), COPD Renal/: Yes: Renal Inusuff - Past Surgical History Past Surgical History: Yes: Cholecystectomy, Thoracotomy - Alcohol/Substance Use Hx Alcohol Use: No Number of Drinks Daily: 6 History of Substance Use: reports: None - Smoking History Smoking history: Never smoked Have you smoked in the past 12 months: No Aproximately how many cigarettes per day: 10 - Social History Usual Living Arrangement: With Spouse ADL: Support Services History of Recent Travel: No Home Medications - Allergies Allergies/Adverse Reactions: Allergies Allergy/AdvReac Type Severity Reaction Status Date / Time No Known Allergies Allergy Verified 07/21/19 12:14 - Home Medications Home Medications: Ambulatory Orders Folic Acid 1 mg PO DAILY #14 tablet 09/29/17 Ranitidine HCl [Zantac] 150 mg PO DAILY #14 tablet 09/29/17 Thiamine HCl [Vitamin B1 -] 100 mg PO DAILY #14 tablet 09/29/17 Atorvastatin Ca [Lipitor] 10 mg PO HS 12/14/18 Cholecalciferol (Vitamin D3) [Vitamin D -] 1,000 mg PO DAILY 12/14/18 Pantoprazole Sodium [Protonix -] 40 mg PO DAILY #120 tablet.ec 05/24/19 Acetaminophen [Tylenol] 650 mg PO Q4H #30 capsule 07/06/19 Cyclobenzaprine HCl 5 mg PO HS #10 tablet 07/06/19 Donepezil HCl 5 mg PO DAILY 07/06/19 Metoprolol Succinate [Toprol XL -] 100 mg PO DAILY 07/06/19 Aspirin [ASA -] 81 mg PO DAILY tab.chew 07/20/19 Azithromycin 500 mg PO DAILY 3 Days #3 tablet 07/20/19 Cefuroxime Axetil [Ceftin -] 500 mg PO Q12H 3 Days #6 tablet 07/20/19 Dexamethasone [Decadron -] See Taper PO Q6H 8 Days #64 tablet 07/20/19 Levothyroxine [Synthroid -] 25 mcg PO DAILY 30 Days #30 tablet 07/20/19 Family Disease History - Family Disease History Family Disease History: Heart Disease: Father (colon cancer), Mother (colon cancer) Review of Systems - Review of Systems Constitutional: reports: Weakness. denies: Chills, Fever Eyes: denies: Recent Change in Vision HENT: denies: Nasal Congestion, Throat Pain Neck: denies: Stiffness, Tenderness Cardiovascular: reports: Shortness of Breath. denies: Chest Pain, Edema Respiratory: reports: Cough, SOB, Wheezing. denies: Hemoptysis Gastrointestinal: denies: Abdominal Pain, Nausea, Vomiting Genitourinary: denies: Dysuria, Hematuria Neurological: denies: Dizziness, Headache Endocrine: denies: Unexplained Weight Loss Physical Exam Vital Sings: Vital Signs Temperature 97.5 F L 07/25/19 06:06 Pulse Rate 99 H 07/25/19 09:52 Respiratory Rate 20 07/25/19 06:06 Blood Pressure 152/88 07/25/19 06:06 O2 Sat by Pulse Oximetry (%) 87 L 07/25/19 09:52 Constitutional: Yes: Mild Distress Eyes: Yes: Conjunctiva Clear, EOM Intact HENT: Yes: Atraumatic, Normocephalic Neck: Yes: Supple, Trachea Midline Cardiovascular: Yes: Regular Rate and Rhythm Respiratory: Yes: Rhonchi, Wheezes ...Clubbing: No Gastrointestinal: Yes: Normal Bowel Sounds, Soft. No: Tenderness Edema: No Neurological: Yes: Alert, Oriented Labs: CBC, BMP 07/25/19 06:00 07/25/19 06:00 ABG Results ABG pH 7.47 (7.35-7.45) H 07/22/19 22:30 ABG pCO2 at Pt Temp 43.2 mmHg (35-45) 07/22/19 22:30 ABG pO2 at Pt Temp 70.9 mmHg (80-100) L 07/22/19 22:30 ABG HCO3 31.0 mmol/L (22-27) H 07/22/19 22:30 ABG O2 Sat (Measured) 94.4 % (95-98) L 07/22/19 22:30 ABG O2 Content 14.1 % vol 07/22/19 22:30 ABG Base Excess 6.9 meq/l (-2-2) H 07/22/19 22:30 Imaging - Results Chest X-ray: Report Reviewed, Image Reviewed Cat Scan: Report Reviewed, Image Reviewed (bilateral effusions, patchy ground glass opacities) Problem List - Problems (1) COPD exacerbation Code(s): J44.1 - CHRONIC OBSTRUCTIVE PULMONARY DISEASE W (ACUTE) EXACERBATION (2) Lung cancer Code(s): C34.90 - MALIGNANT NEOPLASM OF UNSP PART OF UNSP BRONCHUS OR LUNG (3) Pleural effusion Code(s): J90 - PLEURAL EFFUSION, NOT ELSEWHERE CLASSIFIED Assessment/Plan Acute COPD Exacerbation Metastatic NSCLC Pleural Effusions likely malignant CAD Parkinsons HTN Hyperlipidemia - current symptoms more likely from COPD exacerbation but pt may benefit from therapeutic thoracentesis as it is likely malignant and not present during imaging in May - agree with IV steroids - inhaled bronchodilators standing and PRN - O2 to keep SpO2 >90% - BiPAP as needed to assist in work of breathing - DVT prophylaxis Thank you for this consult Pablo Lira MD
[2019-07-25] MEDS: ALBUTEROL SO4 2.5/IPRATROPIUM 0.5 INH SOL 3 ML VIAL.NEB. NEB SCH ×3 (11:45→20:35)
--- NOTE | 2019-07-25 12:21 | PN ---
Progress Note (short form) - Note Progress Note: Radiation Oncology Seen last evening, chart reviewed, films reviewed with radiology. Pt known to me, initially presenting with inoperable stage I NSCLC s/p right RLL SBRT on 01/27/19. Unfortunately, had disease recurrence in bilateral lung, adrenal glands, spine, brain, scalp. Completed RT to T9 epidural met, scalp tumor, and SRS to single brain met on 06/20. Immunotherapy was planned. Currently readmitted for hypoxic respiratory failure, recent pneumonia. Clinically, dyspneic at rest with nonproductive cough. Complains of bilateral posterior chest pain. No dysphagia, headache, nausea, hemoptysis. CT scans demonstrate malignant progression in lungs, pleura, new 4.2cm mass in right paratracheal neck, bilateral adrenals, liver as well as loculated pleural effusions. Impression: Widespread malignant progression s/p RT/SRS with respiratory compromise secondary to disease and infection. Not a candidate for RT at this time. May consider neck RT for impending airway/esophageal compression pending medical /respiratory stabilization. Consider loculated effusion drainage. Continue ID management and respiratory support/tx. Prognosis guarded.
[2019-07-25 14:07] LABS: BF WBC & OTHER NUCLEATED CELLS 890 /mm3
--- NOTE | 2019-07-25 15:47 | PN ---
Physical Exam: SUBJECTIVE: 59 y/o M w PMH metastatic non-small cell lung cancer (adenocarcinoma , metastasis to contralateral lung, brain, adrenals and bone), COPD, hypertension, hyperlipidemia, CVA, coronary artery disease, Parkinson's Disease presented to the hospital for progressive shortness of breath, chest pain and abdominal pain. Pt seen at bedside today. Overnight pt slept well. No acute events. Pt desats to 88% when being moved for daily weights a 06:00. He c/o continued SOB but no cough, chest pain, NVFD. OBJECTIVE: Vital Signs Period Temp Pulse Resp BP Sys/Blair Pulse Ox Last 24 Hr 97.5 F-98.2 F 85-99 20-22 150-154/65-94 87-98 GENERAL: A&Ox3, in no acute distress, cachectic, on humidified NC 5L o2. HEAD: NCAT Alopecic area over LEFT parietal region of scalp poss EYES: LEOLA, EOMI ENT: Moist mucus membranes NECK: No JVD, no lymphadenopathy palpated CHEST: Small, hard chest wall nodule noted just lateral to midline around 2nd L intercostal space, nontender. Breast exam without nodularity. LUNGS: Decreased air entry to base. Diffuse bilateral wheezing, no rales or rhonchi HEART: Mildly tachycardic, no murmurs auscultated ABDOMEN: Soft, nontender, bs present EXTREMITIES: 2+ pulses, no edema. NEUROLOGICAL: Cranial nerves II-XII grossly intact. mild diffuse weakness noted - 4/5 muscle strength throughout, sensation intact Laboratory Results - last 24 hr 07/25/19 07/25/19 07/25/19 06:00 06:00 13:30 WBC 15.3 H RBC 3.55 L Hgb 11.3 L Hct 34.1 L MCV 96.1 H MCH 31.7 MCHC 33.0 RDW 15.4 Plt Count 180 MPV 8.4 Absolute Neuts (auto) 14.4 H Neutrophils % 94.5 H Neutrophils % (Manual) 89.9 H Band Neutrophils % 1.0 Lymphocytes % 2.0 L Lymphocytes % (Manual) 1.0 L D Monocytes % 3.0 L Monocytes % (Manual) 8 D Eosinophils % 0.1 Eosinophils % (Manual) 0.0 Basophils % 0.4 Basophils % (Manual) 0.0 Myelocytes % (Man) 0 Promyelocytes % (Man) 0 Blast Cells % (Manual) 0 Nucleated RBC % 0 Metamyelocytes 0 Hypochromia 0 Platelet Estimate Normal Polychromasia 0 Poikilocytosis 0 Anisocytosis 0 Microcytosis 0 Macrocytosis 0 Sodium 139 Potassium 4.4 Chloride 100 Carbon Dioxide 35 H Anion Gap 4 L BUN 17.6 Creatinine 0.4 L Est GFR (CKD-EPI)AfAm 148.58 Est GFR (CKD-EPI)NonAf 128.19 Random Glucose 138 H Calcium 8.4 L Phosphorus 4.1 Magnesium 2.1 Total Bilirubin 0.2 AST 9 L ALT 29 Alkaline Phosphatase 91 Total Protein 4.9 L Albumin 1.7 L Fluid Source Pleural fluid Fluid WBC 890 Fluid RBC 78084 Active Medications Albuterol Sulfate (Ventolin 0.083% Nebulizer Soln -) 1 amp NEB Q4H PRN PRN Reason: SHORT OF BREATH/WHEEZING Albuterol/Ipratropium (Duoneb -) 1 amp NEB RQID [facility] Last Admin: 07/25/19 20:35 Dose: 1 amp Atorvastatin Calcium (Lipitor -) 10 mg PO [facility] Last Admin: 07/24/19 21:14 Dose: 10 mg Dexamethasone Sodium Phosphate (Decadron Injection -) 8 mg IVPUSH Q6H-IV [facility] Last Admin: 07/25/19 20:41 Dose: 8 mg Docusate Sodium (Colace -) 100 mg PO DAILY [facility] Last Admin: 07/25/19 10:31 Dose: 100 mg Donepezil HCl (Aricept -) 5 mg PO DAILY [facility] Last Admin: 07/25/19 10:31 Dose: 5 mg Folic Acid (Folic Acid -) 1 mg PO DAILY [facility] Last Admin: 07/25/19 10:32 Dose: 1 mg Heparin Sodium (Porcine) (Heparin -) 5,000 unit SQ TID [facility] Last Admin: 07/25/19 15:07 Dose: 5,000 unit Levothyroxine Sodium (Synthroid -) 25 mcg PO DAILY@0700 [facility] Last Admin: 07/25/19 06:09 Dose: 25 mcg Melatonin (Melatonin) 3 mg PO HS [facility] Last Admin: 07/24/19 21:14 Dose: 3 mg Metoprolol Succinate (Toprol Xl -) 100 mg PO DAILY [facility] Last Admin: 07/25/19 10:32 Dose: 100 mg Morphine Sulfate (Morphine Sulfate) 4 mg IVPUSH Q4H PRN PRN Reason: PAIN LEVEL 7 - 10 Last Admin: 07/25/19 20:41 Dose: 4 mg Nicotine (Nicoderm Patch -) 21 mg TD DAILY [facility] Last Admin: 07/25/19 10:32 Dose: 21 mg Pantoprazole Sodium (Protonix -) 40 mg PO DAILY [facility] Last Admin: 07/25/19 10:32 Dose: 40 mg Ranitidine HCl (Zantac -) 150 mg PO DAILY [facility] Last Admin: 07/25/19 10:31 Dose: 150 mg Senna (Senna -) 1 tab PO BID [facility] Last Admin: 07/25/19 10:33 Dose: 1 tab Thiamine HCl (Vitamin B1 -) 100 mg PO DAILY [facility] Last Admin: 07/25/19 10:33 Dose: 100 mg ASSESSMENT/PLAN: 59 y/o M w PMH metastatic non-small cell lung cancer (adenocarcinoma, metastasis to contralateral lung, brain, adrenals and bone), COPD, hypertension , hyperlipidemia, CVA, coronary artery disease, Parkinson's Disease. Recent hospitalization for PNA and was discharged on Jul 20, 2019 and returned due to dyspnea 2/2 non-compliance with medications. # Acute hypoxic respiratory failure d/t advancing metastatic lung ca with bilateral pleural effusion L>R - CTA - no PE, extensive metastatic disease, loculated LEFT sided pleural effusion. - S/p RTx - Rad/onc consulted: Not a candidate for further RTx unless there is impending airway compromise. - Pulmonary consulted: recommends thoacentesis/thoracostomy for loculated LEFT pleural effusion. - Declines CPAP at night. Needs Supplemental O2. - On IV decadron for now - will discuss with Pulm/Oncology regarding taper. - Cont. bronchodilator nebs - F/u thoracentesis fluid cx. - Poor prognosis - will consult Palliative Care. - Keytruda given high PDL1 expression - Pts primary oncologist, Dr. Tompkins, will follow-up re- GOC discussions # Low TSH - Start LT4 - Repeat TFT in 6 weeks # Lung cancer with mets - Noted to LN, bone, and liver - Dex for bone mets - Hem/onc consulted # AAA - 3x2.1 cm aneurysm - Out-pt f/u # Nicotine dependence - Counselled on need for abstinence as contributing to symptoms - Pt agrees to quit. He will cont. with patches. # CVA - Cont. home meds # CKD - Cont. home meds # Parkinsons - Cont. home meds # F/E/N - No standing fluids - Cont. to monitor electrolytes - Low sodium diet # DVT prophylaxis - Heparin # Disposition - DNR/DNI. Next steps in goals of care pending family convo with oncology Earl Delacruz MD Visit type - Emergency Visit Emergency Visit: No - New Patient This patient is new to me today: No - Critical Care Critical Care patient: No - Discharge Referral Referred to [facility] No ATTENDING PHYSICIAN STATEMENT I saw and evaluated the patient. I reviewed the resident's note and discussed the case with the resident. I agree with the resident's findings and plan as documented. SUBJECTIVE: OBJECTIVE: ASSESSMENT AND PLAN:
--- NOTE | 2019-07-25 17:40 | PN ---
Teaching Attending Note Name of Resident: Earl Delacruz ATTENDING PHYSICIAN STATEMENT I saw and evaluated the patient. I reviewed the resident's note and discussed the case with the resident. I agree with the resident's findings and plan as documented. SUBJECTIVE: Feels some improvement in SOB. Nursing reports episodes of dyspnea overnight. Does not want BiPAP. No fever/chills. Pain adequately controlled. OBJECTIVE: Afebrile, hemodynamically Stable. Last Vital Signs Temp Pulse Resp BP Pulse Ox 98.1 F 85 20 154/94 97 07/25/19 15:18 07/25/19 15:18 07/25/19 15:18 07/25/19 15:18 07/25/19 16:11 HEENT - Atraumatic, Normocephalic Heart - S1 S2, RRR lungs bilateral crackles/wheeze Abdomen -Soft, non-tender. Bowel Sounds normal. Extremities - no edema, no calf tenderness. Laboratory Results - last 24 hr 07/25/19 07/25/19 07/25/19 06:00 06:00 13:30 WBC 15.3 H RBC 3.55 L Hgb 11.3 L Hct 34.1 L MCV 96.1 H MCH 31.7 MCHC 33.0 RDW 15.4 Plt Count 180 MPV 8.4 Absolute Neuts (auto) 14.4 H Neutrophils % 94.5 H Neutrophils % (Manual) 89.9 H Band Neutrophils % 1.0 Lymphocytes % 2.0 L Lymphocytes % (Manual) 1.0 L D Monocytes % 3.0 L Monocytes % (Manual) 8 D Eosinophils % 0.1 Eosinophils % (Manual) 0.0 Basophils % 0.4 Basophils % (Manual) 0.0 Myelocytes % (Man) 0 Promyelocytes % (Man) 0 Blast Cells % (Manual) 0 Nucleated RBC % 0 Metamyelocytes 0 Hypochromia 0 Platelet Estimate Normal Polychromasia 0 Poikilocytosis 0 Anisocytosis 0 Microcytosis 0 Macrocytosis 0 Sodium 139 Potassium 4.4 Chloride 100 Carbon Dioxide 35 H Anion Gap 4 L BUN 17.6 Creatinine 0.4 L Est GFR (CKD-EPI)AfAm 148.58 Est GFR (CKD-EPI)NonAf 128.19 Random Glucose 138 H Calcium 8.4 L Phosphorus 4.1 Magnesium 2.1 Total Bilirubin 0.2 AST 9 L ALT 29 Alkaline Phosphatase 91 Total Protein 4.9 L Albumin 1.7 L Fluid Source Pleural fluid Fluid WBC 890 Fluid RBC [address] Current Medications Generic Name Dose Route Start Last Admin Trade Name Freq PRN Reason Stop Dose Admin Albuterol Sulfate 1 amp 07/25/19 11:09 Ventolin 0.083% Nebulizer Soln - NEB Q4H PRN SHORT OF BREATH/WHEEZING Albuterol/Ipratropium 1 amp 07/25/19 12:00 07/25/19 16:11 Duoneb - NEB 1 amp RQID [facility] Administration Atorvastatin Calcium 10 mg 07/21/19 22:00 07/24/19 21:14 Lipitor - PO 10 mg HS [facility] Administration Dexamethasone Sodium Phosphate 8 mg 07/22/19 03:00 07/25/19 15:07 Decadron Injection - IVPUSH 8 mg Q6H-IV [facility] Administration Docusate Sodium 100 mg 07/25/19 10:00 07/25/19 10:31 Colace - PO 100 mg DAILY [facility] Administration Donepezil HCl 5 mg 07/22/19 10:00 07/25/19 10:31 Aricept - PO 5 mg DAILY [facility] Administration Folic Acid 1 mg 07/22/19 10:00 07/25/19 10:32 Folic Acid - PO 1 mg DAILY [facility] Administration Heparin Sodium (Porcine) 5,000 unit 07/21/19 22:00 07/25/19 15:07 Heparin - SQ 5,000 unit TID [facility] Administration Levothyroxine Sodium 25 mcg 07/22/19 07:00 07/25/19 06:09 Synthroid - PO 25 mcg DAILY@0700 [facility] Administration Melatonin 3 mg 07/24/19 22:00 07/24/19 21:14 Melatonin PO 3 mg HS [facility] Administration Metoprolol Succinate 100 mg 07/22/19 10:00 07/25/19 10:32 Toprol Xl - PO 100 mg DAILY [facility] Administration Morphine Sulfate 4 mg 07/22/19 21:21 07/25/19 15:52 Morphine Sulfate IVPUSH 4 mg Q4H PRN Administration PAIN LEVEL 7 - 10 Nicotine 21 mg 07/22/19 16:00 07/25/19 10:32 Nicoderm Patch - TD 21 mg DAILY [facility] Administration Pantoprazole Sodium 40 mg 07/22/19 10:00 07/25/19 10:32 Protonix - PO 40 mg DAILY [facility] Administration Ranitidine HCl 150 mg 07/22/19 10:00 07/25/19 10:31 Zantac - PO 150 mg DAILY [facility] Administration Senna 1 tab 07/25/19 10:00 07/25/19 10:33 Senna - PO 1 tab BID [facility] Administration Thiamine HCl 100 mg 07/22/19 10:00 07/25/19 10:33 Vitamin B1 - PO 100 mg DAILY [facility] Administration Home Medications Medication Instructions Recorded Folic Acid 1 mg PO DAILY #14 tablet 09/29/17 Ranitidine HCl [Zantac] 150 mg PO DAILY #14 tablet 09/29/17 Thiamine HCl [Vitamin B1 -] 100 mg PO DAILY #14 tablet 09/29/17 Atorvastatin Ca [Lipitor] 10 mg PO HS 12/14/18 Cholecalciferol (Vitamin D3) 1,000 mg PO DAILY 12/14/18 [Vitamin D -] Pantoprazole Sodium [Protonix -] 40 mg PO DAILY #120 tablet.ec 05/24/19 Acetaminophen [Tylenol] 650 mg PO Q4H #30 capsule 07/06/19 Cyclobenzaprine HCl 5 mg PO HS #10 tablet 07/06/19 Donepezil HCl 5 mg PO DAILY 07/06/19 Metoprolol Succinate [Toprol XL -] 100 mg PO DAILY 07/06/19 Aspirin [ASA -] 81 mg PO DAILY tab.chew 07/20/19 Azithromycin 500 mg PO DAILY 3 Days #3 tablet 07/20/19 Cefuroxime Axetil [Ceftin -] 500 mg PO Q12H 3 Days #6 tablet 07/20/19 Dexamethasone [Decadron -] See Taper PO Q6H 8 Days #64 tablet 07/20/19 Levothyroxine [Synthroid -] 25 mcg PO DAILY 30 Days #30 tablet 07/20/19 ASSESSMENT AND PLAN: 59 year old male with history of HTN, CVA, CKD 3, Parkinson's disease, Lung Ca with mets to bilateral lungs, adrenals, brain, bone, presents with SOB. he had recent hospitalization for PNA, discharged on 07/20 and returned due to dyspnea and hypoxia. 1. Acute Hypoxic respiratry failure due to advancing metastatic Lung Ca with bilateral Pleural effusion L>R Completed Abx course for recently diagnosed Pneumonia with Ceftin and Azithromycin. CTA - no PE, extensive metastatic disease, loculated L sided pleural effusion. s/p RTx - seen by Rad Onc - not a candidate for further RTx unless there is impending airway compromise. Seen by Pulmonary - recommends thoacentesis/thoracostomy for loculated L pleural effusion. Declines CPAP at night. Needs Supplemental O2. On IV Decadron for now - will discuss with Pulm/Oncology re: taper. continue Bronchodilator Nebs Follow Thoracentesis fluid Cx. Oncology following. Poor prognosis - will consult Palliative Care. 2. Smoker - Nicotine patch prescribed. 3. Low TSH - TSH 0.02. Will hold Synthroid. For repeat levels as out-patient. 4. AAA - 3 x 2.1cm - Outpatient follow up 5. CKD 3 - Stable. 6. HTN - Continue Metoprolol 7. Parkinson's Disease - on cyclobenzaprine. 8. dementia - on Donepezil. 9. Hx CVA/HLD - on ASA/Statin. DVT Px - Heparin SQ GI Px - on PPI and H2 sae. Code Status: DNR/DNI. Given advanced disease and poor prognosis, will consult palliative care.
[2019-07-25 18:01] LABS: BODY FLUID MONOCYTE 6 %; BODYL FLD EOSINOPHIL 6 %
[2019-07-25 18:03] LABS: BODY FLUID MACROPHAGES 58 %; BODY FLUID MESOTHELIAL 2 %
[2019-07-25] MEDS: MELATONIN 1 MG TABLET PO SCH (21:35)
[2019-07-25] MEDS: ATORVASTATIN CA 10 MG TABLET (FP) PO SCH (21:35)
[2019-07-26] MEDS: DEXAMETHASONE SOD PHOSPHATE 4 MG/1 ML VIAL IVPUSH SCH ×2 (02:08→09:27)
[2019-07-26] MEDS: HEPARIN NA (PORCINE) 5,000 UNITS/ML 1ML VIAL SQ SCH ×3 (05:40→22:37)
[2019-07-26] MEDS: morphine SULFATE 4 MG/ML VIAL IVPUSH PRN ×4 (05:50→20:28)
[2019-07-26 07:26] LABS: BASO % 0.1 % (0-2.0); EOS % 1.2 % (0-4.5); HEMATOCRIT 31.1 % (35.4-49); HEMOGLOBIN 10.5 GM/dL (11.7-16.9); MCH 31.8 pg (25.7-33.7); MCHC 33.7 g/dl (32.0-35.9); MEAN CELL VOLUME 94.4 fl (80-96); MEAN PLT VOLUME 8.5 fl (7.5-11.1); MONO % 2.7 % (3.8-10.2); PLATELET COUNT 156 K/MM3 (134-434); RDW 15.4 % (11.9-15.9); WHITE BLOOD COUNT 16.8 K/mm3 (4.0-10.0)
[2019-07-26 07:58] LABS: ALBUMIN 1.6 g/dl (3.4-5.0); BILIRUBIN,TOTAL 0.2 mg/dL (0.2-1); CALCIUM 8.4 mg/dL (8.5-10.1); CREATININE 0.4 mg/dL (0.55-1.3); PHOSPHOROUS 3.5 mg/dL (2.5-4.9); POTASSIUM 4.6 mmol/L (3.5-5.1); TOT PROT 4.4 g/dl (6.4-8.2)
[2019-07-26] MEDS: ALBUTEROL SO4 2.5/IPRATROPIUM 0.5 INH SOL 3 ML VIAL.NEB. NEB SCH ×4 (08:13→20:08)
[2019-07-26] MEDS: DONEPEZIL HCL 5 MG TABLET (FP) PO SCH (09:27)
[2019-07-26] MEDS: DOCUSATE SODIUM 100 MG CAPSULE (FP) PO SCH (09:27)
[2019-07-26] MEDS: PANTOPRAZOLE 40 MG TABLET (FP) PO SCH (09:27)
[2019-07-26] MEDS: NICOTINE 21 MG/24 HOURS TOPICAL PATCH TD SCH (09:27)
[2019-07-26] MEDS: SENNOSIDES 8.6MG TABLET (FP) PO SCH ×2 (09:27→22:37)
[2019-07-26] MEDS: RANITIDINE HCL 150 MG TABLET (FP) PO SCH (09:27)
[2019-07-26] MEDS: THIAMINE HCL 100 MG TABLET (FP) PO SCH (09:27)
[2019-07-26] MEDS: FOLIC ACID 1 MG TABLET (FP) PO SCH (09:27)
[2019-07-26 11:23] LABS: ANISOCYTOSIS 0; MACROCYTOSIS 0; PLATELET ESTIMATE DECREASED
[2019-07-26] MEDS: POLYETHYLENE GLYCOL 3350 119 GM BTL PO SCH (11:56)
--- NOTE | 2019-07-26 12:58 | PN ---
Progress Note (short form) - Note Progress Note: PULMONARY s/p chest tube placement with >1300mL drainage so far. Pleural fluid studies consistent with exudate. Breathing better, still with cough and wheezing. Vital Signs Period Temp Pulse Resp BP Sys/Blair Pulse Ox Last 24 Hr 97.4 F-98.3 F 73-95 20-20 145-154/82-94 97-97 Gen: tachypneic at rest Heart: RRR Lung: bilateral rhonchi, wheezes Abd: soft, nontender Ext: no edema CBC, BMP 07/26/19 05:30 07/26/19 05:30 Active Medications Albuterol Sulfate (Ventolin 0.083% Nebulizer Soln -) 1 amp NEB Q4H PRN PRN Reason: SHORT OF BREATH/WHEEZING Albuterol/Ipratropium (Duoneb -) 1 amp NEB RQID [facility] Last Admin: 07/26/19 12:00 Dose: 1 amp Atorvastatin Calcium (Lipitor -) 10 mg PO HS [facility] Last Admin: 07/25/19 21:35 Dose: 10 mg Dexamethasone Sodium Phosphate (Decadron Injection -) 8 mg IVPUSH Q6H-IV [facility] Last Admin: 07/26/19 09:27 Dose: 8 mg Docusate Sodium (Colace -) 100 mg PO DAILY [facility] Last Admin: 07/26/19 09:27 Dose: 100 mg Donepezil HCl (Aricept -) 5 mg PO DAILY [facility] Last Admin: 07/26/19 09:27 Dose: 5 mg Folic Acid (Folic Acid -) 1 mg PO DAILY [facility] Last Admin: 07/26/19 09:27 Dose: 1 mg Heparin Sodium (Porcine) (Heparin -) 5,000 unit SQ TID [facility] Last Admin: 07/26/19 05:40 Dose: 5,000 unit Levothyroxine Sodium (Synthroid -) 25 mcg PO DAILY@0700 [facility] Last Admin: 07/25/19 06:09 Dose: 25 mcg Melatonin (Melatonin) 3 mg PO HS [facility] Last Admin: 07/25/19 21:35 Dose: 3 mg Metoprolol Succinate (Toprol Xl -) 100 mg PO DAILY [facility] Last Admin: 07/26/19 09:27 Dose: 100 mg Morphine Sulfate (Morphine Sulfate) 4 mg IVPUSH Q4H PRN PRN Reason: PAIN LEVEL 7 - 10 Last Admin: 07/26/19 10:14 Dose: 4 mg Nicotine (Nicoderm Patch -) 21 mg TD DAILY [facility] Last Admin: 07/26/19 09:27 Dose: 21 mg Pantoprazole Sodium (Protonix -) 40 mg PO DAILY [facility] Last Admin: 07/26/19 09:27 Dose: 40 mg Polyethylene Glycol (Miralax (For Daily Use) -) 17 gm PO DAILY [facility] Last Admin: 07/26/19 11:56 Dose: Not Given Ranitidine HCl (Zantac -) 150 mg PO DAILY [facility] Last Admin: 07/26/19 09:27 Dose: 150 mg Senna (Senna -) 1 tab PO BID [facility] Last Admin: 07/26/19 09:27 Dose: 1 tab Thiamine HCl (Vitamin B1 -) 100 mg PO DAILY [facility] Last Admin: 07/26/19 09:27 Dose: 100 mg A/P Acute COPD Exacerbation Metastatic NSCLC Pleural Effusions likely malignant CAD Parkinsons HTN Hyperlipidemia - will change steroids to medrol - inhaled bronchodilators standing and PRN - O2 to keep SpO2 >90% - monitor chest tube output - f/u pleural fluid cytology, may need a pleur-x catheter - may need - BiPAP as needed to assist in work of breathing - DVT prophylaxis Problem List - Problems (1) COPD exacerbation Code(s): J44.1 - CHRONIC OBSTRUCTIVE PULMONARY DISEASE W (ACUTE) EXACERBATION (2) Lung cancer Code(s): C34.90 - MALIGNANT NEOPLASM OF UNSP PART OF UNSP BRONCHUS OR LUNG (3) Pleural effusion Code(s): J90 - PLEURAL EFFUSION, NOT ELSEWHERE CLASSIFIED
--- NOTE | 2019-07-26 13:08 | PN ---
Physical Exam: SUBJECTIVE: 59 y/o M w PMH metastatic non-small cell lung cancer ( adenocarcinoma, metastasis to contralateral lung, brain, adrenals and bone), COPD, hypertension, hyperlipidemia, CVA, coronary artery disease, Parkinson's Disease presented to the hospital for progressive shortness of breath, chest pain and abdominal pain. Pt seen at bedside today. s/p thoracostomy. LEFT sided chest tube in place, drained 200cc overnight, 1,300 cc total. Otherwise pt slept well, in pain, but no desat, and no acute events. Pt still not passing stool; adding miralax today. OBJECTIVE: Vital Signs Period Temp Pulse Resp BP Sys/Blair Pulse Ox Last 24 Hr 97.4 F-98.3 F 73-95 20-20 145-154/82-94 97-97 GENERAL: A&Ox3, in no acute distress, cachectic, chest tube in place, on humidified NC 5L o2. HEAD: NCAT Alopecic area over LEFT parietal region of scalp poss EYES: LEOLA, EOMI ENT: Moist mucus membranes NECK: No JVD, no lymphadenopathy palpated CHEST: Small, hard chest wall nodule noted just lateral to midline around 2nd L intercostal space, nontender. Chest tube in place on LEFT LUNGS: Decreased air entry to base. Diffuse bilateral wheezing, no rales or rhonchi HEART: Mildly tachycardic, no murmurs auscultated ABDOMEN: Soft, nontender, bs present EXTREMITIES: 2+ pulses, no edema. NEUROLOGICAL: Cranial nerves II-XII grossly intact. mild diffuse weakness noted - 4/5 muscle strength throughout, sensation intact Laboratory Results - last 24 hr 07/25/19 07/25/19 07/26/19 13:30 13:30 05:30 WBC 16.8 H RBC 3.30 L Hgb 10.5 L Hct 31.1 L MCV 94.4 MCH 31.8 MCHC 33.7 RDW 15.4 Plt Count 156 MPV 8.5 Absolute Neuts (auto) 15.8 H Neutrophils % 94.0 H Neutrophils % (Manual) 81.8 Band Neutrophils % 4.0 Lymphocytes % 2.0 L Lymphocytes % (Manual) 6.1 L D Monocytes % 2.7 L Monocytes % (Manual) 3 L Eosinophils % 1.2 D Eosinophils % (Manual) 0.0 Basophils % 0.1 Basophils % (Manual) 0.0 Myelocytes % (Man) 5 H D Promyelocytes % (Man) 0 Blast Cells % (Manual) 0 Nucleated RBC % 0 Metamyelocytes 0 Hypochromia 0 Platelet Estimate Decreased Polychromasia 0 Poikilocytosis 0 Anisocytosis 0 Microcytosis 0 Macrocytosis 0 Sodium Potassium Chloride Carbon Dioxide Anion Gap BUN Creatinine Est GFR (CKD-EPI)AfAm Est GFR (CKD-EPI)NonAf Random Glucose Calcium Phosphorus Magnesium Total Bilirubin AST ALT Alkaline Phosphatase Total Protein Albumin Fluid Source Pleural fluid Fluid WBC 890 Fluid RBC 21309 Fluid Neutrophils 18 Fluid Lymphocytes 10 Fluid Glucose 99 Fluid Total Protein 1.7 Fluid Albumin 1.0 Body Fluid LDH Source 320 Fluid Amylase 6 Fluid Triglycerides 18 Pleural Monocytes 6 Pleural Eosinophils 6 Pleural Macrophages 58 Pleural Mesothelial 2 Pleural Diff Comment 07/26/19 05:30 WBC RBC Hgb Hct MCV MCH MCHC RDW Plt Count MPV Absolute Neuts (auto) Neutrophils % Neutrophils % (Manual) Band Neutrophils % Lymphocytes % Lymphocytes % (Manual) Monocytes % Monocytes % (Manual) Eosinophils % Eosinophils % (Manual) Basophils % Basophils % (Manual) Myelocytes % (Man) Promyelocytes % (Man) Blast Cells % (Manual) Nucleated RBC % Metamyelocytes Hypochromia Platelet Estimate Polychromasia Poikilocytosis Anisocytosis Microcytosis Macrocytosis Sodium 139 Potassium 4.6 Chloride 98 Carbon Dioxide 35 H Anion Gap 6 L BUN 17.0 Creatinine 0.4 L Est GFR (CKD-EPI)AfAm 148.58 Est GFR (CKD-EPI)NonAf 128.19 Random Glucose 126 H Calcium 8.4 L Phosphorus 3.5 Magnesium 2.0 Total Bilirubin 0.2 AST 9 L ALT 25 Alkaline Phosphatase 76 Total Protein 4.4 L Albumin 1.6 L Fluid Source Fluid WBC Fluid RBC Fluid Neutrophils Fluid Lymphocytes Fluid Glucose Fluid Total Protein Fluid Albumin Body Fluid LDH Source Fluid Amylase Fluid Triglycerides Pleural Monocytes Pleural Eosinophils Pleural Macrophages Pleural Mesothelial Pleural Diff Comment Active Medications Albuterol Sulfate (Ventolin 0.083% Nebulizer Soln -) 1 amp NEB Q4H PRN PRN Reason: SHORT OF BREATH/WHEEZING Albuterol/Ipratropium (Duoneb -) 1 amp NEB RQID [facility] Last Admin: 07/26/19 20:08 Dose: 1 amp Atorvastatin Calcium (Lipitor -) 10 mg PO HS [facility] Last Admin: 07/26/19 22:37 Dose: 10 mg Docusate Sodium (Colace -) 100 mg PO DAILY [facility] Last Admin: 07/26/19 09:27 Dose: 100 mg Donepezil HCl (Aricept -) 5 mg PO DAILY [facility] Last Admin: 07/26/19 09:27 Dose: 5 mg Folic Acid (Folic Acid -) 1 mg PO DAILY [facility] Last Admin: 07/26/19 09:27 Dose: 1 mg Heparin Sodium (Porcine) (Heparin -) 5,000 unit SQ TID [facility] Last Admin: 07/27/19 05:10 Dose: 5,000 unit Melatonin (Melatonin) 3 mg PO HS [facility] Last Admin: 07/26/19 22:37 Dose: 3 mg Methylprednisolone Sodium Succinate (Solu-Medrol -) 60 mg IVPUSH Q8H-IV [facility] Last Admin: 07/27/19 01:04 Dose: 60 mg Metoprolol Succinate (Toprol Xl -) 100 mg PO DAILY [facility] Last Admin: 07/26/19 09:27 Dose: 100 mg Morphine Sulfate (Morphine Sulfate) 4 mg IVPUSH Q4H PRN PRN Reason: PAIN LEVEL 7 - 10 Last Admin: 07/26/19 20:28 Dose: 4 mg Nicotine (Nicoderm Patch -) 21 mg TD DAILY [facility] Last Admin: 07/26/19 09:27 Dose: 21 mg Pantoprazole Sodium (Protonix -) 40 mg PO DAILY [facility] Last Admin: 07/26/19 09:27 Dose: 40 mg Polyethylene Glycol (Miralax (For Daily Use) -) 17 gm PO DAILY [facility] Last Admin: 07/26/19 11:56 Dose: Not Given Ranitidine HCl (Zantac -) 150 mg PO DAILY [facility] Last Admin: 07/26/19 09:27 Dose: 150 mg Senna (Senna -) 1 tab PO BID [facility] Last Admin: 07/26/19 22:37 Dose: 1 tab Thiamine HCl (Vitamin B1 -) 100 mg PO DAILY [facility] Last Admin: 07/26/19 09:27 Dose: 100 mg ASSESSMENT/PLAN: 59 y/o M w PMH metastatic non-small cell lung cancer (adenocarcinoma, metastasis to contralateral lung, brain, adrenals and bone), COPD, hypertension , hyperlipidemia, CVA, coronary artery disease, Parkinson's Disease. Recent hospitalization for PNA and was discharged on Jul 20, 2019 and returned due to dyspnea 2/2 non-compliance with medications. # Acute hypoxic respiratory failure d/t advancing metastatic lung ca with bilateral pleural effusion L>R - CTA - no PE, extensive metastatic disease, loculated LEFT sided pleural effusion. - S/p abx course for recently dx PNA with ceftin and azithromycin. - S/p RTx - Rad/onc consulted: Not a candidate for further RTx unless there is impending airway compromise. - Pulmonary consulted: Thoracostomy tube placed for loculated LEFT pleural effusion, which drained 1,300 cc. - Thoracentesis fluid: Exudative, f/u Cx/Cytology - Declines CPAP at night. Needs Supplemental O2. - On IV decadron for now - will discuss with Pulm/Oncology regarding taper ( leukocytosis secondary to steroid) - Cont. bronchodilator nebs - F/u thoracentesis fluid cx. - Keytruda given high PDL1 expression - Pts primary oncologist, Dr. Tompkins, will follow-up re- GOC discussions: consideration of trial of Pembrolizumab if clinically improved and able to be dc - Palliative Care. consulted - Pulm consulted > Will change steroids to medrol > Monitor chest tube output > f/u pleural fluid cytology, may need a pleur-x catheter # Low TSH - TSH 0.02 - Hold synthroid - Repeat TFT in 6 weeks # AAA - 3x2.1 cm aneurysm - Out-pt f/u # Nicotine dependence - Counselled on need for abstinence as contributing to symptoms - Pt agrees to quit. He will cont. with patches. # CVA - Cont. home meds # CKD - Cont. home meds # Parkinsons - Cont. home meds # F/E/N - No standing fluids - Cont. to monitor electrolytes - Low sodium diet # DVT prophylaxis - Heparin # Disposition - DNR/DNI. Next steps in goals of care pending family convo with oncology Earl Delacruz MD Visit type - Emergency Visit Emergency Visit: No - New Patient This patient is new to me today: No - Critical Care Critical Care patient: No - Discharge Referral Referred to [facility] No ATTENDING PHYSICIAN STATEMENT I saw and evaluated the patient. I reviewed the resident's note and discussed the case with the resident. I agree with the resident's findings and plan as documented. SUBJECTIVE: OBJECTIVE: ASSESSMENT AND PLAN:
[2019-07-26] MEDS: methylPREDNISolone NA SUCC 40 MG/1 ML VIAL IVPUSH SCH ×2 (13:25→17:04)
--- NOTE | 2019-07-26 15:57 | PN ---
Progress Note (short form) - Note Progress Note: Patient seen and examined S/P chest tube drainage More comfortable , Less SOB, less dyspneic P.E. HEENT: LEOLA, EOM Intact Oropharynx: No thrush, No mucositis CBC, BMP 07/26/19 05:30 07/26/19 05:30 Cor: RSR, No murmurs, No gallops Lungs: wheezes; bronchial breath sounds,rhonchi Abd: Soft, Normal bowel sounds, No organomegaly Ext:No significant edema Skin: No rashes, Integument intact Last Vital Signs Temp Pulse Resp BP Pulse Ox 98.8 F 101 H 20 128/78 97 07/26/19 14:59 07/26/19 14:59 07/26/19 14:59 07/26/19 14:59 07/26/19 09:00 Current Medications Generic Name Dose Route Start Last Admin Trade Name Freq PRN Reason Stop Dose Admin Albuterol Sulfate 1 amp 07/25/19 11:09 Ventolin 0.083% Nebulizer Soln - NEB Q4H PRN SHORT OF BREATH/WHEEZING Albuterol/Ipratropium 1 amp 07/25/19 12:00 07/26/19 15:49 Duoneb - NEB 1 amp RQID RONALDO Administration Atorvastatin Calcium 10 mg 07/21/19 22:00 07/25/19 21:35 Lipitor - PO 10 mg HS RONALDO Administration Docusate Sodium 100 mg 07/25/19 10:00 07/26/19 09:27 Colace - PO 100 mg DAILY RONALDO Administration Donepezil HCl 5 mg 07/22/19 10:00 07/26/19 09:27 Aricept - PO 5 mg DAILY RONALDO Administration Folic Acid 1 mg 07/22/19 10:00 07/26/19 09:27 Folic Acid - PO 1 mg DAILY RONALDO Administration Heparin Sodium (Porcine) 5,000 unit 07/21/19 22:00 07/26/19 13:25 Heparin - SQ 5,000 unit TID RONALDO Administration Levothyroxine Sodium 25 mcg 07/22/19 07:00 07/25/19 06:09 Synthroid - PO 25 mcg DAILY@0700 R[facility]DO Administration Melatonin 3 mg 07/24/19 22:00 07/25/19 21:35 Melatonin PO 3 mg HS RONALDO Administration Methylprednisolone Sodium Succinate 60 mg 07/26/19 13:00 07/26/19 13:25 Solu-Medrol - IVPUSH 60 mg Q8H-IV [facility]ONALDO Administration Metoprolol Succinate 100 mg 07/22/19 10:00 07/26/19 09:27 Toprol Xl - PO 100 mg DAILY [facility] Administration Morphine Sulfate 4 mg 07/22/19 21:21 07/26/19 10:14 Morphine Sulfate IVPUSH 4 mg Q4H PRN Administration PAIN LEVEL 7 - 10 Nicotine 21 mg 07/22/19 16:00 07/26/19 09:27 Nicoderm Patch - TD 21 mg DAILY [facility] Administration Pantoprazole Sodium 40 mg 07/22/19 10:00 07/26/19 09:27 Protonix - PO 40 mg DAILY [facility] Administration Polyethylene Glycol 17 gm 07/26/19 11:00 07/26/19 11:56 Miralax (For Daily Use) - PO Not Given DAILY RONALDO Ranitidine HCl 150 mg 07/22/19 10:00 07/26/19 09:27 Zantac - PO 150 mg DAILY [facility] Administration Senna 1 tab 07/25/19 10:00 07/26/19 09:27 Senna - PO 1 tab BID RONALDO Administration Thiamine HCl 100 mg 07/22/19 10:00 07/26/19 09:27 Vitamin B1 - PO 100 mg DAILY [facility]ON[facility]DO Administration Impression: Metastatic lung ca S/P drainage of pleural fluid - please send for cytology , total protein, glucose, LDH, C & S, AFB, Fungus, cell count Met with patient and brother ( brother I spoke with is not HCP however) ; Patient wants to be treated . Aware that treatment is not curative, may not be of benefit, and may have untoward toxicities. Will need Social service input as patient lives alone, needs O-2 etc. If stabilizes and is able to be discharged, would consider pembrolizumab .
--- NOTE | 2019-07-26 18:59 | PN ---
Teaching Attending Note Name of Resident: Earl Delacruz ATTENDING PHYSICIAN STATEMENT I saw and evaluated the patient. I reviewed the resident's note and discussed the case with the resident. I agree with the resident's findings and plan as documented. SUBJECTIVE: Feels some improvement in SOB s/p chest tube. Does not want BiPAP. No fever/chills. Pain adequately controlled. OBJECTIVE: Afebrile, hemodynamically Stable. L chest tube drained 1300ml. Last Vital Signs Temp Pulse Resp BP Pulse Ox 98.8 F 101 H 20 128/78 97 07/26/19 14:59 07/26/19 14:59 07/26/19 14:59 07/26/19 14:59 07/26/19 09:00 Heart - S1 S2, RRR Lungs - bilateral crackles/wheeze. s/p Chest tube L Abdomen -Soft, non-tender. Bowel Sounds normal. Extremities - no edema, no calf tenderness. Laboratory Results - last 24 hr 07/25/19 07/26/19 07/26/19 13:30 05:30 05:30 WBC 16.8 H RBC 3.30 L Hgb 10.5 L Hct 31.1 L MCV 94.4 MCH 31.8 MCHC 33.7 RDW 15.4 Plt Count 156 MPV 8.5 Absolute Neuts (auto) 15.8 H Neutrophils % 94.0 H Neutrophils % (Manual) 81.8 Band Neutrophils % 4.0 Lymphocytes % 2.0 L Lymphocytes % (Manual) 6.1 L D Monocytes % 2.7 L Monocytes % (Manual) 3 L Eosinophils % 1.2 D Eosinophils % (Manual) 0.0 Basophils % 0.1 Basophils % (Manual) 0.0 Myelocytes % (Man) 5 H D Promyelocytes % (Man) 0 Blast Cells % (Manual) 0 Nucleated RBC % 0 Metamyelocytes 0 Hypochromia 0 Platelet Estimate Decreased Polychromasia 0 Poikilocytosis 0 Anisocytosis 0 Microcytosis 0 Macrocytosis 0 Sodium 139 Potassium 4.6 Chloride 98 Carbon Dioxide 35 H Anion Gap 6 L BUN 17.0 Creatinine 0.4 L Est GFR (CKD-EPI)AfAm 148.58 Est GFR (CKD-EPI)NonAf 128.19 Random Glucose 126 H Calcium 8.4 L Phosphorus 3.5 Magnesium 2.0 Total Bilirubin 0.2 AST 9 L ALT 25 Alkaline Phosphatase 76 Total Protein 4.4 L Albumin 1.6 L Fluid Glucose 99 Fluid Total Protein 1.7 Fluid Albumin 1.0 Body Fluid LDH Source 320 Fluid Amylase 6 Fluid Triglycerides 18 Current Medications Generic Name Dose Route Start Last Admin Trade Name Freq PRN Reason Stop Dose Admin Albuterol Sulfate 1 amp 07/25/19 11:09 Ventolin 0.083% Nebulizer Soln - NEB Q4H PRN SHORT OF BREATH/WHEEZING Albuterol/Ipratropium 1 amp 07/25/19 12:00 07/26/19 15:49 Duoneb - NEB 1 amp RQID RONALDO Administration Atorvastatin Calcium 10 mg 07/21/19 22:00 07/25/19 21:35 Lipitor - PO 10 mg HS RONALDO Administration Docusate Sodium 100 mg 07/25/19 10:00 07/26/19 09:27 Colace - PO 100 mg DAILY RONALDO Administration Donepezil HCl 5 mg 07/22/19 10:00 07/26/19 09:27 Aricept - PO 5 mg DAILY RONALDO Administration Folic Acid 1 mg 07/22/19 10:00 07/26/19 09:27 Folic Acid - PO 1 mg DAILY RONALDO Administration Heparin Sodium (Porcine) 5,000 unit 07/21/19 22:00 07/26/19 13:25 Heparin - SQ 5,000 unit TID RONALDO Administration Levothyroxine Sodium 25 mcg 07/22/19 07:00 07/25/19 06:09 Synthroid - PO 25 mcg DAILY@0700 RONALDO Administration Melatonin 3 mg 07/24/19 22:00 07/25/19 21:35 Melatonin PO 3 mg HS RONALDO Administration Methylprednisolone Sodium Succinate 60 mg 07/26/19 13:00 07/26/19 17:04 Solu-Medrol - IVPUSH 60 mg Q8H-IV RONALDO Administration Metoprolol Succinate 100 mg 07/22/19 10:00 07/26/19 09:27 Toprol Xl - PO 100 mg DAILY RONALDO Administration Morphine Sulfate 4 mg 07/22/19 21:21 07/26/19 17:09 Morphine Sulfate IVPUSH 4 mg Q4H PRN Administration PAIN LEVEL 7 - 10 Nicotine 21 mg 07/22/19 16:00 07/26/19 09:27 Nicoderm Patch - TD 21 mg DAILY RONALDO Administration Pantoprazole Sodium 40 mg 07/22/19 10:00 07/26/19 09:27 Protonix - PO 40 mg DAILY RONALDO Administration Polyethylene Glycol 17 gm 07/26/19 11:00 07/26/19 11:56 Miralax (For Daily Use) - PO Not Given DAILY RONALDO Ranitidine HCl 150 mg 07/22/19 10:00 07/26/19 09:27 Zantac - PO 150 mg DAILY RONALDO Administration Senna 1 tab 07/25/19 10:00 07/26/19 09:27 Senna - PO 1 tab BID RONALDO Administration Thiamine HCl 100 mg 07/22/19 10:00 07/26/19 09:27 Vitamin B1 - PO 100 mg DAILY RONALDO Administration Home Medications Medication Instructions Recorded Folic Acid 1 mg PO DAILY #14 tablet 09/29/17 Ranitidine HCl [Zantac] 150 mg PO DAILY #14 tablet 09/29/17 Thiamine HCl [Vitamin B1 -] 100 mg PO DAILY #14 tablet 09/29/17 Atorvastatin Ca [Lipitor] 10 mg PO HS 12/14/18 Cholecalciferol (Vitamin D3) 1,000 mg PO DAILY 12/14/18 [Vitamin D -] Pantoprazole Sodium [Protonix -] 40 mg PO DAILY #120 tablet.ec 05/24/19 Acetaminophen [Tylenol] 650 mg PO Q4H #30 capsule 07/06/19 Cyclobenzaprine HCl 5 mg PO HS #10 tablet 07/06/19 Donepezil HCl 5 mg PO DAILY 07/06/19 Metoprolol Succinate [Toprol XL -] 100 mg PO DAILY 07/06/19 Aspirin [ASA -] 81 mg PO DAILY tab.chew 07/20/19 Azithromycin 500 mg PO DAILY 3 Days #3 tablet 07/20/19 Cefuroxime Axetil [Ceftin -] 500 mg PO Q12H 3 Days #6 tablet 07/20/19 Dexamethasone [Decadron -] See Taper PO Q6H 8 Days #64 tablet 07/20/19 Levothyroxine [Synthroid -] 25 mcg PO DAILY 30 Days #30 tablet 07/20/19 ASSESSMENT AND PLAN: 59 year old male with history of HTN, CVA, CKD 3, Parkinson's disease, Lung Ca with mets to bilateral lungs, adrenals, brain, bone, presents with SOB. he had recent hospitalization for PNA, discharged on 07/20 and returned due to dyspnea and hypoxia. 1. Acute Hypoxic Respiratry failure due to advancing metastatic Lung Ca with bilateral Pleural effusion L>R Completed Abx course for recently diagnosed Pneumonia with Ceftin and Azithromycin. CTA - no PE, extensive metastatic disease, loculated L sided pleural effusion. s/p RTx - seen by Rad Onc - not a candidate for further RTx unless there is impending airway compromise. Seen by Pulmonary - s/p Thoracostomy tube for loculated L pleural effusion - drained 1300ml so far, exudative on biochemistry. Declines CPAP at night. continue Supplemental O2. On IV Decadron for now - transitioned to Solumedrol by Pulm (leukocytosis secondary to steroid) Continue Bronchodilator Nebs Follow Thoracentesis fluid Cx/Cytology Oncology following - for consideration of trial of Pembrolizumab if clinically improved and able to be discharged. Poor prognosis - Palliative Care consulted. 2. Smoker - Nicotine patch prescribed. 3. Low TSH - TSH 0.02. Will hold Synthroid. For repeat TSH levels as out- patient. 4. AAA - 3 x 2.1cm - Outpatient follow up 5. CKD 3 - Stable. 6. HTN - Continue Metoprolol 7. Parkinson's Disease - on cyclobenzaprine. 8. Dementia - on Donepezil. 9. Hx CVA/HLD - on ASA/Statin. DVT Px - Heparin SQ GI Px - on PPI and H2 sae. Code Status: DNR/DNI. Given advanced disease and poor prognosis, palliative care consulted.
[2019-07-26] MEDS: MELATONIN 1 MG TABLET PO SCH (22:37)
[2019-07-26] MEDS: ATORVASTATIN CA 10 MG TABLET (FP) PO SCH (22:37)
[2019-07-27] MEDS: methylPREDNISolone NA SUCC 40 MG/1 ML VIAL IVPUSH SCH ×3 (01:04→17:05)
[2019-07-27] MEDS ORDERED: MELATONIN 5 MG TABLETS PO ONE (02:20)
[2019-07-27] MEDS: HEPARIN NA (PORCINE) 5,000 UNITS/ML 1ML VIAL SQ SCH ×3 (05:10→21:46)
[2019-07-27 08:34] LABS: ALBUMIN 1.5 g/dl (3.4-5.0); BILIRUBIN,TOTAL 0.6 mg/dL (0.2-1); BLOOD UREA NITROGEN 18.9 mg/dL (7-18); CALCIUM 8.3 mg/dL (8.5-10.1); CREATININE 0.4 mg/dL (0.55-1.3); PHOSPHOROUS 3.2 mg/dL (2.5-4.9); POTASSIUM 4.3 mmol/L (3.5-5.1); TOT PROT 4.4 g/dl (6.4-8.2)
[2019-07-27] MEDS: ALBUTEROL SO4 2.5/IPRATROPIUM 0.5 INH SOL 3 ML VIAL.NEB. NEB SCH ×4 (08:40→20:36)
[2019-07-27 08:41] LABS: BASO % 0.1 % (0-2.0); EOS % 0.4 % (0-4.5); HEMATOCRIT 32.6 % (35.4-49); HEMOGLOBIN 10.7 GM/dL (11.7-16.9); LYMPH % 1.9 % (8-40); MCH 31.7 pg (25.7-33.7); MCHC 32.9 g/dl (32.0-35.9); MEAN CELL VOLUME 96.3 fl (80-96); MEAN PLT VOLUME 8.9 fl (7.5-11.1); MONO % 2.2 % (3.8-10.2); NEUT % 95.4 % (42.8-82.8); PLATELET COUNT 153 K/MM3 (134-434); RBC 3.39 M/mm3 (4.00-5.60); RDW 15.4 % (11.9-15.9); WHITE BLOOD COUNT 19.9 K/mm3 (4.0-10.0)
[2019-07-27] MEDS: FOLIC ACID 1 MG TABLET (FP) PO SCH (09:43)
[2019-07-27] MEDS: PANTOPRAZOLE 40 MG TABLET (FP) PO SCH (09:43)
[2019-07-27] MEDS: RANITIDINE HCL 150 MG TABLET (FP) PO SCH (09:43)
[2019-07-27] MEDS: NICOTINE 21 MG/24 HOURS TOPICAL PATCH TD SCH (09:43)
[2019-07-27] MEDS: DOCUSATE SODIUM 100 MG CAPSULE (FP) PO SCH (09:43)
[2019-07-27] MEDS: SENNOSIDES 8.6MG TABLET (FP) PO SCH ×2 (09:43→21:47)
[2019-07-27] MEDS: THIAMINE HCL 100 MG TABLET (FP) PO SCH (09:43)
[2019-07-27] MEDS: DONEPEZIL HCL 5 MG TABLET (FP) PO SCH (09:43)
[2019-07-27] MEDS: POLYETHYLENE GLYCOL 3350 119 GM BTL PO SCH (09:44)
--- NOTE | 2019-07-27 10:41 | PN ---
Progress Note (short form) - Note Progress Note: PULMONARY Still with shortness of breath, cough and wheezing. Still with significant chest tube output. Vital Signs Period Temp Pulse Resp BP Sys/Blair Pulse Ox Last 24 Hr 97.8 F-99 F 91-106 20-20 128-139/78-83 95-97 Gen: tachypneic at rest Heart: RRR Lung: bilateral rhonchi, wheezes Abd: soft, nontender Ext: no edema Chest tube: serosanguinous fluid, no air leak CBC, BMP 07/27/19 07:10 07/27/19 07:10 Active Medications Albuterol Sulfate (Ventolin 0.083% Nebulizer Soln -) 1 amp NEB Q4H PRN PRN Reason: SHORT OF BREATH/WHEEZING Albuterol/Ipratropium (Duoneb -) 1 amp NEB RQID [facility] Last Admin: 07/27/19 08:40 Dose: 1 amp Atorvastatin Calcium (Lipitor -) 10 mg PO HS [facility] Last Admin: 07/26/19 22:37 Dose: 10 mg Docusate Sodium (Colace -) 100 mg PO DAILY [facility] Last Admin: 07/27/19 09:43 Dose: 100 mg Donepezil HCl (Aricept -) 5 mg PO DAILY [facility] Last Admin: 07/27/19 09:43 Dose: 5 mg Folic Acid (Folic Acid -) 1 mg PO DAILY [facility] Last Admin: 07/27/19 09:43 Dose: 1 mg Heparin Sodium (Porcine) (Heparin -) 5,000 unit SQ TID [facility] Last Admin: 07/27/19 05:10 Dose: 5,000 unit Melatonin (Melatonin) 3 mg PO HS [facility] Last Admin: 07/26/19 22:37 Dose: 3 mg Methylprednisolone Sodium Succinate (Solu-Medrol -) 60 mg IVPUSH Q8H-IV [facility] Last Admin: 07/27/19 09:43 Dose: 60 mg Metoprolol Succinate (Toprol Xl -) 100 mg PO DAILY [facility] Last Admin: 07/27/19 09:42 Dose: 100 mg Morphine Sulfate (Morphine Sulfate) 4 mg IVPUSH Q4H PRN PRN Reason: PAIN LEVEL 7 - 10 Last Admin: 07/26/19 20:28 Dose: 4 mg Nicotine (Nicoderm Patch -) 21 mg TD DAILY [facility] Last Admin: 07/27/19 09:43 Dose: 21 mg Pantoprazole Sodium (Protonix -) 40 mg PO DAILY [facility] Last Admin: 07/27/19 09:43 Dose: 40 mg Polyethylene Glycol (Miralax (For Daily Use) -) 17 gm PO DAILY [facility] Last Admin: 07/27/19 09:44 Dose: 17 grams Ranitidine HCl (Zantac -) 150 mg PO DAILY [facility] Last Admin: 07/27/19 09:43 Dose: 150 mg Senna (Senna -) 1 tab PO BID [facility] Last Admin: 07/27/19 09:43 Dose: 1 tab Thiamine HCl (Vitamin B1 -) 100 mg PO DAILY [facility] Last Admin: 07/27/19 09:43 Dose: 100 mg A/P Acute COPD Exacerbation Metastatic NSCLC Pleural Effusions likely malignant CAD Parkinsons HTN Hyperlipidemia - continue medrol - inhaled bronchodilators standing and PRN - O2 to keep SpO2 >90% - monitor chest tube output, place on low wall suction - f/u pleural fluid cytology, may need a pleur-x catheter - BiPAP as needed to assist in work of breathing - DVT prophylaxis - agree with palliative placement Problem List - Problems (1) COPD exacerbation Code(s): J44.1 - CHRONIC OBSTRUCTIVE PULMONARY DISEASE W (ACUTE) EXACERBATION (2) Lung cancer Code(s): C34.90 - MALIGNANT NEOPLASM OF UNSP PART OF UNSP BRONCHUS OR LUNG (3) Pleural effusion Code(s): J90 - PLEURAL EFFUSION, NOT ELSEWHERE CLASSIFIED
[2019-07-27 11:06] LABS: ANISOCYTOSIS 1+; MACROCYTOSIS 1+; OVALOCYTE 1+; TEAR DROP CELLS 1+
[2019-07-27 11:31] LABS: PLATELET ESTIMATE ADEQUATE
--- NOTE | 2019-07-27 13:01 | PN ---
Physical Exam: SUBJECTIVE: 59 y/o M w PMH metastatic non-small cell lung cancer ( adenocarcinoma, metastasis to contralateral lung, brain, adrenals and bone), COPD, hypertension, hyperlipidemia, CVA, coronary artery disease, Parkinson's Disease presented to the hospital for progressive shortness of breath, chest pain and abdominal pain. Pt seen at bedside today. Thoracostomy in place on LEFT. Drained 200cc overnight , 1,300 total. Pt slept well, in pain, but no desat, and no acute events. Pt passed large BM. OBJECTIVE: Vital Signs Period Temp Pulse Resp BP Sys/Blair Pulse Ox Last 24 Hr 97.7 F-99 F 79-106 20-20 128-139/75-83 93-97 GENERAL: A&Ox3, in no acute distress, cachectic, chest tube in place, on humidified NC 5L o2. HEAD: NCAT Alopecic area over LEFT parietal region of scalp poss EYES: LEOLA, EOMI ENT: Moist mucus membranes NECK: No JVD, no lymphadenopathy palpated CHEST: Small, hard chest wall nodule noted just lateral to midline around 2nd L intercostal space, nontender. Chest tube in place on LEFT LUNGS: Decreased air entry to base. Left upper lobe and right lower lobe wheezing, no rales or rhonchi HEART: Mildly tachycardic, no murmurs auscultated ABDOMEN: Soft, nontender, bs present EXTREMITIES: 2+ pulses, no edema. NEUROLOGICAL: Cranial nerves II-XII grossly intact. mild diffuse weakness noted - 4/5 muscle strength throughout, sensation intact Laboratory Results - last 24 hr 07/25/19 07/27/19 07/27/19 13:30 07:10 07:10 WBC 19.9 H RBC 3.39 L Hgb 10.7 L Hct 32.6 L MCV 96.3 H MCH 31.7 MCHC 32.9 RDW 15.4 Plt Count 153 MPV 8.9 Absolute Neuts (auto) 19.0 H Neutrophils % 95.4 H Neutrophils % (Manual) 85.9 H Band Neutrophils % 2.0 Lymphocytes % 1.9 L Lymphocytes % (Manual) 2.0 L D Monocytes % 2.2 L Monocytes % (Manual) 1 L Eosinophils % 0.4 Eosinophils % (Manual) 0.0 Basophils % 0.1 Basophils % (Manual) 0.0 Myelocytes % (Man) 7 H D Promyelocytes % (Man) 0 Blast Cells % (Manual) 0 Nucleated RBC % 0 Metamyelocytes 1 D Hypochromia 0 Platelet Estimate Adequate Polychromasia 1+ Poikilocytosis 0 Anisocytosis 1+ Microcytosis 0 Macrocytosis 1+ Tear Drop Cells 1+ Ovalocytes 1+ Sodium 141 Potassium 4.3 Chloride 101 Carbon Dioxide 35 H Anion Gap 5 L BUN 18.9 H Creatinine 0.4 L Est GFR (CKD-EPI)AfAm 148.58 Est GFR (CKD-EPI)NonAf 128.19 Random Glucose 143 H Calcium 8.3 L Phosphorus 3.2 Magnesium 2.0 Total Bilirubin 0.6 AST 11 L ALT 26 Alkaline Phosphatase 72 Total Protein 4.4 L Albumin 1.5 L POC Fluid pH 8.3 Active Medications Albuterol Sulfate (Ventolin 0.083% Nebulizer Soln -) 1 amp NEB Q4H PRN PRN Reason: SHORT OF BREATH/WHEEZING Albuterol/Ipratropium (Duoneb -) 1 amp NEB RQID [facility] Last Admin: 07/29/19 16:19 Dose: 1 amp Atorvastatin Calcium (Lipitor -) 10 mg PO HS [facility] Last Admin: 07/29/19 21:45 Dose: 10 mg Docusate Sodium (Colace -) 100 mg PO DAILY [facility] Last Admin: 07/29/19 10:36 Dose: 100 mg Donepezil HCl (Aricept -) 5 mg PO DAILY [facility] Last Admin: 07/29/19 10:36 Dose: 5 mg Folic Acid (Folic Acid -) 1 mg PO DAILY [facility] Last Admin: 07/29/19 10:36 Dose: 1 mg Guaifenesin (Robitussin Dm -) 10 ml PO Q6H PRN PRN Reason: COUGH Last Admin: 07/29/19 02:22 Dose: 10 ml Melatonin (Melatonin) 3 mg PO HS [facility] Last Admin: 07/28/19 21:53 Dose: 3 mg Methylprednisolone Sodium Succinate (Solu-Medrol -) 60 mg IVPUSH Q8H-IV [facility] Last Admin: 07/29/19 17:05 Dose: 60 mg Metoprolol Succinate (Toprol Xl -) 100 mg PO DAILY [facility] Last Admin: 07/29/19 10:37 Dose: 100 mg Morphine Sulfate (Morphine Sulfate) 4 mg IVPUSH Q4H PRN PRN Reason: PAIN LEVEL 6-10 Last Admin: 07/29/19 18:57 Dose: 4 mg Nicotine (Nicoderm Patch -) 21 mg TD DAILY [facility] Last Admin: 07/29/19 10:35 Dose: 21 mg Pantoprazole Sodium (Protonix -) 40 mg PO DAILY [facility] Last Admin: 07/29/19 10:36 Dose: 40 mg Polyethylene Glycol (Miralax (For Daily Use) -) 17 gm PO DAILY [facility] Last Admin: 07/29/19 11:00 Dose: 17 grams Ranitidine HCl (Zantac -) 150 mg PO DAILY [facility] Last Admin: 07/29/19 10:36 Dose: 150 mg Senna (Senna -) 1 tab PO BID [facility] Last Admin: 07/29/19 21:45 Dose: 1 tab Thiamine HCl (Vitamin B1 -) 100 mg PO DAILY [facility] Last Admin: 07/29/19 10:37 Dose: 100 mg ASSESSMENT/PLAN: 59 y/o M w PMH metastatic non-small cell lung cancer (adenocarcinoma, metastasis to contralateral lung, brain, adrenals and bone), COPD, hypertension , hyperlipidemia, CVA, coronary artery disease, Parkinson's Disease. Recent hospitalization for PNA and was discharged on Jul 20, 2019 and returned due to dyspnea 2/2 non-compliance with medications. # Acute hypoxic respiratory failure d/t advancing metastatic lung ca with bilateral pleural effusion L>R - CTA: No PE, extensive metastatic disease, loculated LEFT sided pleural effusion. - S/p abx course for recently dx PNA with ceftin and azithromycin. - S/p RTx - Rad/onc consulted: Not a candidate for further RTx unless there is impending airway compromise. - Pulmonary consulted: Thoracostomy tube placed for loculated LEFT pleural effusion - Thoracentesis fluid: Exudative, f/u Cx/Cytology - CPAP at night. Needs Supplemental O2. - On IV solumedrol:Pulm/Oncology regarding taper (leukocytosis secondary to steroid) - Cont. bronchodilator nebs - Keytruda given high PDL1 expression - Pts primary oncologist, Dr. Tompkins, will follow-up re- [facility] discussions: consideration of trial of Pembrolizumab if clinically improved and able to be dc - Palliative Care. consulted - Pulm consulted # Low TSH - TSH 0.02 - Hold synthroid - Repeat TFT in 6 weeks # AAA - 3x2.1 cm aneurysm - Out-pt f/u # Nicotine dependence - Counselled on need for abstinence as contributing to symptoms - Pt agrees to quit. He will cont. with patches. # CVA - Cont. home meds # CKD - Cont. home meds # Parkinson's disease - Cont. home meds # F/E/N - No standing fluids - Cont. to monitor electrolytes - Low sodium diet # DVT prophylaxis - Heparin # Disposition - DNR/DNI. Next steps in goals of care pending family convo with oncology Earl Delacruz MD Visit type - Emergency Visit Emergency Visit: No - New Patient This patient is new to me today: No - Critical Care Critical Care patient: No - Discharge Referral Referred to [facility] No ATTENDING PHYSICIAN STATEMENT I saw and evaluated the patient. I reviewed the resident's note and discussed the case with the resident. I agree with the resident's findings and plan as documented. SUBJECTIVE: OBJECTIVE: ASSESSMENT AND PLAN:
[2019-07-27] MEDS: morphine SULFATE 4 MG/ML VIAL IVPUSH PRN ×2 (13:38→21:52)
--- NOTE | 2019-07-27 15:11 | PN ---
Teaching Attending Note Name of Resident: Earl Delacruz ATTENDING PHYSICIAN STATEMENT I saw and evaluated the patient. I reviewed the resident's note and discussed the case with the resident. I agree with the resident's findings and plan as documented. SUBJECTIVE: Feels some improvement in SOB s/p chest tube but still feels work of breathing. No fever/chills. Pain adequately controlled. OBJECTIVE: Afebrile, hemodynamically Stable. L chest tube drained 1550ml total ( 200ml overnight). Last Vital Signs Temp Pulse Resp BP Pulse Ox 97.7 F 91 H 20 130/75 95 07/27/19 09:00 07/27/19 09:21 07/27/19 09:00 07/27/19 09:00 07/27/19 09:21 Heart - S1 S2, RRR Lungs - bilateral crackles/wheeze. s/p Chest tube L Abdomen -Soft, non-tender. Bowel Sounds normal. Extremities - no edema, no calf tenderness. Laboratory Results - last 24 hr 07/25/19 07/27/19 07/27/19 13:30 07:10 07:10 WBC 19.9 H RBC 3.39 L Hgb 10.7 L Hct 32.6 L MCV 96.3 H MCH 31.7 MCHC 32.9 RDW 15.4 Plt Count 153 MPV 8.9 Absolute Neuts (auto) 19.0 H Neutrophils % 95.4 H Neutrophils % (Manual) 85.9 H Band Neutrophils % 2.0 Lymphocytes % 1.9 L Lymphocytes % (Manual) 2.0 L D Monocytes % 2.2 L Monocytes % (Manual) 1 L Eosinophils % 0.4 Eosinophils % (Manual) 0.0 Basophils % 0.1 Basophils % (Manual) 0.0 Myelocytes % (Man) 7 H D Promyelocytes % (Man) 0 Blast Cells % (Manual) 0 Nucleated RBC % 0 Metamyelocytes 1 D Hypochromia 0 Platelet Estimate Adequate Polychromasia 1+ Poikilocytosis 0 Anisocytosis 1+ Microcytosis 0 Macrocytosis 1+ Tear Drop Cells 1+ Ovalocytes 1+ Sodium 141 Potassium 4.3 Chloride 101 Carbon Dioxide 35 H Anion Gap 5 L BUN 18.9 H Creatinine 0.4 L Est GFR (CKD-EPI)AfAm 148.58 Est GFR (CKD-EPI)NonAf 128.19 Random Glucose 143 H Calcium 8.3 L Phosphorus 3.2 Magnesium 2.0 Total Bilirubin 0.6 AST 11 L ALT 26 Alkaline Phosphatase 72 Total Protein 4.4 L Albumin 1.5 L POC Fluid pH 8.3 Current Medications Generic Name Dose Route Start Last Admin Trade Name Freq PRN Reason Stop Dose Admin Albuterol Sulfate 1 amp 07/25/19 11:09 Ventolin 0.083% Nebulizer Soln - NEB Q4H PRN SHORT OF BREATH/WHEEZING Albuterol/Ipratropium 1 amp 07/25/19 12:00 07/27/19 12:00 Duoneb - NEB 1 amp RQID RONALDO Administration Atorvastatin Calcium 10 mg 07/21/19 22:00 07/26/19 22:37 Lipitor - PO 10 mg HS RONALDO Administration Docusate Sodium 100 mg 07/25/19 10:00 07/27/19 09:43 Colace - PO 100 mg DAILY RONALDO Administration Donepezil HCl 5 mg 07/22/19 10:00 07/27/19 09:43 Aricept - PO 5 mg DAILY RONALDO Administration Folic Acid 1 mg 07/22/19 10:00 07/27/19 09:43 Folic Acid - PO 1 mg DAILY RONALDO Administration Heparin Sodium (Porcine) 5,000 unit 07/21/19 22:00 07/27/19 13:16 Heparin - SQ 5,000 unit TID RONALDO Administration Melatonin 3 mg 07/24/19 22:00 07/26/19 22:37 Melatonin PO 3 mg HS RONALDO Administration Methylprednisolone Sodium Succinate 60 mg 07/26/19 13:00 07/27/19 09:43 Solu-Medrol - IVPUSH 60 mg Q8H-IV RONALDO Administration Metoprolol Succinate 100 mg 07/22/19 10:00 07/27/19 09:42 Toprol Xl - PO 100 mg DAILY RONALDO Administration Morphine Sulfate 4 mg 07/22/19 21:21 07/27/19 13:38 Morphine Sulfate IVPUSH 4 mg Q4H PRN Administration PAIN LEVEL 7 - 10 Nicotine 21 mg 07/22/19 16:00 07/27/19 09:43 Nicoderm Patch - TD 21 mg DAILY RONALDO Administration Pantoprazole Sodium 40 mg 07/22/19 10:00 07/27/19 09:43 Protonix - PO 40 mg DAILY RONALDO Administration Polyethylene Glycol 17 gm 07/26/19 11:00 07/27/19 09:44 Miralax (For Daily Use) - PO 17 grams DAILY RONALDO Administration Ranitidine HCl 150 mg 07/22/19 10:00 07/27/19 09:43 Zantac - PO 150 mg DAILY RONALDO Administration Senna 1 tab 07/25/19 10:00 07/27/19 09:43 Senna - PO 1 tab BID RONALDO Administration Thiamine HCl 100 mg 07/22/19 10:00 07/27/19 09:43 Vitamin B1 - PO 100 mg DAILY RONALDO Administration Home Medications Medication Instructions Recorded Folic Acid 1 mg PO DAILY #14 tablet 09/29/17 Ranitidine HCl [Zantac] 150 mg PO DAILY #14 tablet 09/29/17 Thiamine HCl [Vitamin B1 -] 100 mg PO DAILY #14 tablet 09/29/17 Atorvastatin Ca [Lipitor] 10 mg PO HS 12/14/18 Cholecalciferol (Vitamin D3) 1,000 mg PO DAILY 12/14/18 [Vitamin D -] Pantoprazole Sodium [Protonix -] 40 mg PO DAILY #120 tablet.ec 05/24/19 Acetaminophen [Tylenol] 650 mg PO Q4H #30 capsule 07/06/19 Cyclobenzaprine HCl 5 mg PO HS #10 tablet 07/06/19 Donepezil HCl 5 mg PO DAILY 07/06/19 Metoprolol Succinate [Toprol XL -] 100 mg PO DAILY 07/06/19 Aspirin [ASA -] 81 mg PO DAILY tab.chew 07/20/19 Azithromycin 500 mg PO DAILY 3 Days #3 tablet 07/20/19 Cefuroxime Axetil [Ceftin -] 500 mg PO Q12H 3 Days #6 tablet 07/20/19 Dexamethasone [Decadron -] See Taper PO Q6H 8 Days #64 tablet 07/20/19 Levothyroxine [Synthroid -] 25 mcg PO DAILY 30 Days #30 tablet 07/20/19 ASSESSMENT AND PLAN: 59 year old male with history of HTN, CVA, CKD 3, Parkinson's disease, Lung Ca with mets to bilateral lungs, adrenals, brain, bone, presents with SOB. he had recent hospitalization for PNA, discharged on 07/20 and returned due to dyspnea and hypoxia. 1. Acute Hypoxic Respiratory failure due to advancing metastatic Lung Ca with bilateral Pleural effusion L>R and Acute COPD Exacerbation Completed Abx course for recently diagnosed Pneumonia with Ceftin and Azithromycin. CTA - no PE, extensive metastatic disease, loculated L sided pleural effusion. s/p RTx - seen by Rad Onc - not a candidate for further RTx unless there is impending airway compromise. Seen by Pulmonary - s/p Thoracostomy tube for loculated L pleural effusion - drained 1550ml so far, exudative on biochemistry. CT to low wall suction as per Pulm Declines BiPAP at night. continue Supplemental O2. IV Decadron transitioned to Solumedrol by Pulm (leukocytosis secondary to steroid) Continue Bronchodilator Nebs Follow Thoracentesis Fluid Cx/Cytology Oncology following - for consideration of trial of Pembrolizumab if clinically improved and able to be discharged. Poor prognosis - Palliative Care consulted - for possible Hospice. 2. Smoker - Nicotine patch prescribed. 3. Low TSH - TSH 0.02. Synthroid held. For repeat TSH levels as out-patient in 3 weeks. 4. AAA - 3 x 2.1cm - Outpatient follow up 5. CKD 3 - Stable. 6. HTN - Continue Metoprolol 7. Parkinson's Disease - on Cyclobenzaprine. 8. Dementia - on Donepezil. 9. Hx CVA/HLD - on ASA/Statin. DVT Px - Heparin SQ GI Px - on PPI and H2 sae. Code Status: DNR/DNI. Given advanced disease and poor prognosis, palliative care consult requested for possible bridge to hospice.
--- NOTE | 2019-07-27 18:45 | PN ---
Progress Note (short form) - Note Progress Note: Patient seen and examined REMAINS DYSPNEIC AND TACHYPNEIC S/P THORACENTESISS WITH CONTINUING CHEST DRAINAGE Last Vital Signs Temp Pulse Resp BP Pulse Ox 98.9 F 109 H 20 128/74 95 07/27/19 15:03 07/27/19 15:03 07/27/19 15:03 07/27/19 15:03 07/27/19 09:21 HEENT: LEOLA, EOM INTACT Cor: RSR, No murmurs, No gallops Lungs: DIFFUSE WHEEZES cHEST TUBE DRAINAGE Abd: Soft, Normal bowel sounds, No organomegaly Ext:No significant edema Skin: No rashes, Integument intact CBC, BMP 07/27/19 07:10 07/27/19 07:10 Current Medications Generic Name Dose Route Start Last Admin Trade Name Freq PRN Reason Stop Dose Admin Albuterol Sulfate 1 amp 07/25/19 11:09 Ventolin 0.083% Nebulizer Soln - NEB Q4H PRN SHORT OF BREATH/WHEEZING Albuterol/Ipratropium 1 amp 07/25/19 12:00 07/27/19 16:20 Duoneb - NEB 1 amp RQID RONALDO Administration Atorvastatin Calcium 10 mg 07/21/19 22:00 07/26/19 22:37 Lipitor - PO 10 mg HS RONALDO Administration Docusate Sodium 100 mg 07/25/19 10:00 07/27/19 09:43 Colace - PO 100 mg DAILY RONALDO Administration Donepezil HCl 5 mg 07/22/19 10:00 07/27/19 09:43 Aricept - PO 5 mg DAILY RONALDO Administration Folic Acid 1 mg 07/22/19 10:00 07/27/19 09:43 Folic Acid - PO 1 mg DAILY RONALDO Administration Heparin Sodium (Porcine) 5,000 unit 07/21/19 22:00 07/27/19 13:16 Heparin - SQ 5,000 unit TID RONALDO Administration Melatonin 3 mg 07/24/19 22:00 07/26/19 22:37 Melatonin PO 3 mg HS RONALDO Administration Methylprednisolone Sodium Succinate 60 mg 07/26/19 13:00 07/27/19 17:05 Solu-Medrol - IVPUSH 60 mg Q8H-IV RONALDO Administration Metoprolol Succinate 100 mg 07/22/19 10:00 07/27/19 09:42 Toprol Xl - PO 100 mg DAILY RONALDO Administration Morphine Sulfate 4 mg 07/22/19 21:21 07/27/19 13:38 Morphine Sulfate IVPUSH 4 mg Q4H PRN Administration PAIN LEVEL 7 - 10 Nicotine 21 mg 07/22/19 16:00 07/27/19 09:43 Nicoderm Patch - TD 21 mg DAILY RONALDO Administration Pantoprazole Sodium 40 mg 07/22/19 10:00 07/27/19 09:43 Protonix - PO 40 mg DAILY RONALDO Administration Polyethylene Glycol 17 gm 07/26/19 11:00 07/27/19 09:44 Miralax (For Daily Use) - PO 17 grams DAILY RONALDO Administration Ranitidine HCl 150 mg 07/22/19 10:00 07/27/19 09:43 Zantac - PO 150 mg DAILY RONALDO Administration Senna 1 tab 07/25/19 10:00 07/27/19 09:43 Senna - PO 1 tab BID RONALDO Administration Thiamine HCl 100 mg 07/22/19 10:00 07/27/19 09:43 Vitamin B1 - PO 100 mg DAILY RONALDO Administration IMPRESSION M S/P THORACENTESIS METASTATIC SQUAMOUS CELL CA ACUTE HYPOXIC RESPIRATORY FAILURE REMAINS ON HIGH DOSE STEROIDS C MONITOR CHEST TUBE DRAINAGE CONSIDER TAPER OF STEROIDS ??PEMBROLIZUMAB IN FUTURE
[2019-07-27] MEDS: guaiFENesin/D-METHORPHAN HB 10 ML UNIT-DOSE CUPS PO PRN (18:51)
[2019-07-27] MEDS ORDERED: PT OWN MED DRAWER 7, Y5N ONE (20:36)
[2019-07-27] MEDS: ATORVASTATIN CA 10 MG TABLET (FP) PO SCH (21:47)
[2019-07-27] MEDS: MELATONIN 1 MG TABLET PO SCH (22:54)
[2019-07-28] MEDS: guaiFENesin/D-METHORPHAN HB 10 ML UNIT-DOSE CUPS PO PRN ×3 (01:59→17:11)
[2019-07-28] MEDS: methylPREDNISolone NA SUCC 40 MG/1 ML VIAL IVPUSH SCH ×3 (01:59→17:12)
[2019-07-28] MEDS: HEPARIN NA (PORCINE) 5,000 UNITS/ML 1ML VIAL SQ SCH ×3 (06:59→21:48)
[2019-07-28 08:13] LABS: BASO % 0.2 % (0-2.0); EOS % 0.3 % (0-4.5); HEMATOCRIT 31.9 % (35.4-49); HEMOGLOBIN 10.7 GM/dL (11.7-16.9); MCH 32.1 pg (25.7-33.7); MCHC 33.4 g/dl (32.0-35.9); MEAN CELL VOLUME 95.9 fl (80-96); MEAN PLT VOLUME 8.7 fl (7.5-11.1); MONO % 2.2 % (3.8-10.2); NEUT % 96.3 % (42.8-82.8); PLATELET COUNT 136 K/MM3 (134-434); RBC 3.32 M/mm3 (4.00-5.60); RDW 15.7 % (11.9-15.9); WHITE BLOOD COUNT 21.7 K/mm3 (4.0-10.0)
[2019-07-28] MEDS: ALBUTEROL SO4 2.5/IPRATROPIUM 0.5 INH SOL 3 ML VIAL.NEB. NEB SCH ×4 (08:23→20:14)
[2019-07-28 08:47] LABS: ALBUMIN 1.6 g/dl (3.4-5.0); BILIRUBIN,TOTAL 0.3 mg/dL (0.2-1); BLOOD UREA NITROGEN 17.9 mg/dL (7-18); CALCIUM 8.4 mg/dL (8.5-10.1); CREATININE 0.4 mg/dL (0.55-1.3); MAGNESIUM 1.8 mg/dL (1.8-2.4); TOT PROT 4.5 g/dl (6.4-8.2)
[2019-07-28] MEDS: SENNOSIDES 8.6MG TABLET (FP) PO SCH ×2 (09:22→21:48)
[2019-07-28] MEDS: FOLIC ACID 1 MG TABLET (FP) PO SCH (09:22)
[2019-07-28] MEDS: NICOTINE 21 MG/24 HOURS TOPICAL PATCH TD SCH (09:22)
[2019-07-28] MEDS: DOCUSATE SODIUM 100 MG CAPSULE (FP) PO SCH (09:22)
[2019-07-28] MEDS: PANTOPRAZOLE 40 MG TABLET (FP) PO SCH (09:22)
[2019-07-28] MEDS: morphine SULFATE 4 MG/ML VIAL IVPUSH PRN ×3 (09:22→21:48)
[2019-07-28] MEDS: RANITIDINE HCL 150 MG TABLET (FP) PO SCH (09:22)
[2019-07-28] MEDS: DONEPEZIL HCL 5 MG TABLET (FP) PO SCH (09:22)
[2019-07-28] MEDS: POLYETHYLENE GLYCOL 3350 119 GM BTL PO SCH (09:23)
[2019-07-28] MEDS: THIAMINE HCL 100 MG TABLET (FP) PO SCH (09:23)
[2019-07-28 11:58] LABS: ANISOCYTOSIS 2+; MACROCYTOSIS 1+; OVALOCYTE 1+; PLATELET ESTIMATE DECREASED; TEAR DROP CELLS 1+
--- NOTE | 2019-07-28 13:10 | PN ---
Progress Note (short form) - Note Progress Note: PULMONARY Awake/alert/tremors Gen: tachypneic at rest Heart: RRR Lung: bilateral rhonchi, wheezes/left chest tube in place Abd: soft, nontender Ext: no edema Chest tube: serosanguinous fluid, no air leak,output continues CXR less fluid Path called pleural fluid is suspicious/awaiting further stains Active Medications Albuterol Sulfate (Ventolin 0.083% Nebulizer Soln -) 1 amp NEB Q4H PRN PRN Reason: SHORT OF BREATH/WHEEZING Albuterol/Ipratropium (Duoneb -) 1 amp NEB RQID [facility] Last Admin: 07/27/19 08:40 Dose: 1 amp Atorvastatin Calcium (Lipitor -) 10 mg PO [facility] Last Admin: 07/26/19 22:37 Dose: 10 mg Docusate Sodium (Colace -) 100 mg PO DAILY [facility] Last Admin: 07/27/19 09:43 Dose: 100 mg Donepezil HCl (Aricept -) 5 mg PO DAILY [facility] Last Admin: 07/27/19 09:43 Dose: 5 mg Folic Acid (Folic Acid -) 1 mg PO DAILY [facility] Last Admin: 07/27/19 09:43 Dose: 1 mg Heparin Sodium (Porcine) (Heparin -) 5,000 unit SQ TID [facility] Last Admin: 07/27/19 05:10 Dose: 5,000 unit Melatonin (Melatonin) 3 mg PO HS [facility] Last Admin: 07/26/19 22:37 Dose: 3 mg Methylprednisolone Sodium Succinate (Solu-Medrol -) 60 mg IVPUSH Q8H-IV [facility] Last Admin: 07/27/19 09:43 Dose: 60 mg Metoprolol Succinate (Toprol Xl -) 100 mg PO DAILY [facility] Last Admin: 07/27/19 09:42 Dose: 100 mg Morphine Sulfate (Morphine Sulfate) 4 mg IVPUSH Q4H PRN PRN Reason: PAIN LEVEL 7 - 10 Last Admin: 07/26/19 20:28 Dose: 4 mg Nicotine (Nicoderm Patch -) 21 mg TD DAILY [facility] Last Admin: 07/27/19 09:43 Dose: 21 mg Pantoprazole Sodium (Protonix -) 40 mg PO DAILY [facility] Last Admin: 07/27/19 09:43 Dose: 40 mg Polyethylene Glycol (Miralax (For Daily Use) -) 17 gm PO DAILY [facility] Last Admin: 07/27/19 09:44 Dose: 17 grams Ranitidine HCl (Zantac -) 150 mg PO DAILY [facility] Last Admin: 07/27/19 09:43 Dose: 150 mg Senna (Senna -) 1 tab PO BID [facility] Last Admin: 07/27/19 09:43 Dose: 1 tab Thiamine HCl (Vitamin B1 -) 100 mg PO DAILY [facility] Last Admin: 07/27/19 09:43 Dose: 100 mg A/P Acute COPD Exacerbation Metastatic NSCLC/Brain Pleural Effusions likely malignant CAD Parkinsons HTN Hyperlipidemia - continue medrol - inhaled bronchodilators standing and PRN - O2 to keep SpO2 >90% - monitor chest tube output, on low wall suction - f/u pleural fluid cytology, may need a pleur-x catheter/pleurodeisis - BiPAP as needed to assist in work of breathing - DVT prophylaxis - agree with palliative placement Jairon ARNETT MD
[2019-07-28 13:17] VITALS: BMI 19.2
--- NOTE | 2019-07-28 14:30 | PN ---
Progress Note (short form) - Note Progress Note: Patient seen and examined Remains dyspneic and tachypneic Continues of chest tube drainage Last Vital Signs Temp Pulse Resp BP Pulse Ox 97.7 F 90 20 125/76 95 07/28/19 14:21 07/28/19 14:21 07/28/19 14:21 07/28/19 14:21 07/28/19 09:00 HEENT: LEOLA, EOM Intact Cor: RSR, No murmurs, No gallops Lungs: wheezes/rhonchi Abd: Soft, Normal bowel sounds, No organomegaly Ext:No significant edema Skin: No rashes, Integument intact CBC, BMP 07/28/19 06:58 07/28/19 06:58 Current Medications Generic Name Dose Route Start Last Admin Trade Name Freq PRN Reason Stop Dose Admin Albuterol Sulfate 1 amp 07/25/19 11:09 Ventolin 0.083% Nebulizer Soln - NEB Q4H PRN SHORT OF BREATH/WHEEZING Albuterol/Ipratropium 1 amp 07/25/19 12:00 07/28/19 11:45 Duoneb - NEB 1 amp RQID RONALDO Administration Atorvastatin Calcium 10 mg 07/21/19 22:00 07/27/19 21:47 Lipitor - PO 10 mg HS RONALDO Administration Docusate Sodium 100 mg 07/25/19 10:00 07/28/19 09:22 Colace - PO 100 mg DAILY RONALDO Administration Donepezil HCl 5 mg 07/22/19 10:00 07/28/19 09:22 Aricept - PO 5 mg DAILY RONALDO Administration Folic Acid 1 mg 07/22/19 10:00 07/28/19 09:22 Folic Acid - PO 1 mg DAILY RONALDO Administration Guaifenesin 10 ml 07/27/19 18:45 07/28/19 09:22 Robitussin Dm - PO 10 ml Q6H PRN Administration COUGH Heparin Sodium (Porcine) 5,000 unit 07/21/19 22:00 07/28/19 14:10 Heparin - SQ 5,000 unit TID RONALDO Administration Melatonin 3 mg 07/24/19 22:00 07/27/19 22:54 Melatonin PO 3 mg HS RONALDO Administration Methylprednisolone Sodium Succinate 60 mg 07/26/19 13:00 07/28/19 09:22 Solu-Medrol - IVPUSH 60 mg Q8H-IV RONALDO Administration Metoprolol Succinate 100 mg 07/22/19 10:00 07/28/19 09:22 Toprol Xl - PO 100 mg DAILY RONALDO Administration Morphine Sulfate 4 mg 07/22/19 21:21 07/28/19 09:22 Morphine Sulfate IVPUSH 4 mg Q4H PRN Administration PAIN LEVEL 7 - 10 Nicotine 21 mg 07/22/19 16:00 07/28/19 09:22 Nicoderm Patch - TD 21 mg DAILY RONALDO Administration Pantoprazole Sodium 40 mg 07/22/19 10:00 07/28/19 09:22 Protonix - PO 40 mg DAILY RONALDO Administration Polyethylene Glycol 17 gm 07/26/19 11:00 07/28/19 09:23 Miralax (For Daily Use) - PO 17 grams DAILY RONALDO Administration Ranitidine HCl 150 mg 07/22/19 10:00 07/28/19 09:22 Zantac - PO 150 mg DAILY RONALDO Administration Senna 1 tab 07/25/19 10:00 07/28/19 09:22 Senna - PO 1 tab BID RONALDO Administration Thiamine HCl 100 mg 07/22/19 10:00 07/28/19 09:23 Vitamin B1 - PO 100 mg DAILY RONALDO Administration Impression: Metastatic squamous cell ca [employer], bone , adrenal mets Chest tube drainage Consider pleurydesis Awaiting final pleural cytology.
--- NOTE | 2019-07-28 15:35 | PN ---
Teaching Attending Note Name of Resident: Earl Delacruz ATTENDING PHYSICIAN STATEMENT I saw and evaluated the patient. I reviewed the resident's note and discussed the case with the resident. I agree with the resident's findings and plan as documented. SUBJECTIVE: Feels some improvement in SOB s/p chest tube but still has some dyspnea. No fever/chills. Pain adequately controlled. OBJECTIVE: Afebrile, hemodynamically Stable. L chest tube still draining. Last Vital Signs Temp Pulse Resp BP Pulse Ox 97.7 F 90 20 125/76 95 07/28/19 14:21 07/28/19 14:21 07/28/19 14:21 07/28/19 14:07/28/19 09:00 Heart - S1 S2, RRR Lungs - bilateral crackles/wheeze. s/p Chest tube L Abdomen - Soft, non-tender. Bowel Sounds normal. Extremities - no edema, no calf tenderness. Laboratory Results - last 24 hr 07/28/19 07/28/19 06:58 06:58 WBC 21.7 H RBC 3.32 L Hgb 10.7 L Hct 31.9 L MCV 95.9 MCH 32.1 MCHC 33.4 RDW 15.7 Plt Count 136 MPV 8.7 Absolute Neuts (auto) 20.9 H Neutrophils % 96.3 H Neutrophils % (Manual) 80.0 Band Neutrophils % 12.0 Lymphocytes % 1.0 L D Lymphocytes % (Manual) 0.0 L Monocytes % 2.2 L Monocytes % (Manual) 0 L D Eosinophils % 0.3 Eosinophils % (Manual) 0.0 Basophils % 0.2 Basophils % (Manual) 0.0 Myelocytes % (Man) 0 D Promyelocytes % (Man) 0 Blast Cells % (Manual) 0 Nucleated RBC % 0 Metamyelocytes 1 Hypochromia 0 Platelet Estimate Decreased Platelet Comment Present Polychromasia 1+ Poikilocytosis 1+ Basophilic Stippling 1+ Anisocytosis 2+ Microcytosis 1+ Macrocytosis 1+ Spherocytes 1+ Tear Drop Cells 1+ Ovalocytes 1+ [place] Cells 1+ Sodium 143 Potassium 4.0 Chloride 103 Carbon Dioxide 35 H Anion Gap 5 L BUN 17.9 Creatinine 0.4 L Est GFR (CKD-EPI)AfAm 148.58 Est GFR (CKD-EPI)NonAf 128.19 Random Glucose 176 H Calcium 8.4 L Phosphorus 3.0 Magnesium 1.8 Total Bilirubin 0.3 AST 8 L ALT 30 Alkaline Phosphatase 78 Total Protein 4.5 L Albumin 1.6 L Current Medications Generic Name Dose Route Start Last Admin Trade Name Freq PRN Reason Stop Dose Admin Albuterol Sulfate 1 amp 07/25/19 11:09 Ventolin 0.083% Nebulizer Soln - NEB Q4H PRN SHORT OF BREATH/WHEEZING Albuterol/Ipratropium 1 amp 07/25/19 12:00 07/28/19 11:45 Duoneb - NEB 1 amp RQID RONALDO Administration Atorvastatin Calcium 10 mg 07/21/19 22:00 07/27/19 21:47 Lipitor - PO 10 mg HS RONALDO Administration Docusate Sodium 100 mg 07/25/19 10:00 07/28/19 09:22 Colace - PO 100 mg DAILY RONALDO Administration Donepezil HCl 5 mg 07/22/19 10:00 07/28/19 09:22 Aricept - PO 5 mg DAILY RONALDO Administration Folic Acid 1 mg 07/22/19 10:00 07/28/19 09:22 Folic Acid - PO 1 mg DAILY RONALDO Administration Guaifenesin 10 ml 07/27/19 18:45 07/28/19 09:22 Robitussin Dm - PO 10 ml Q6H PRN Administration COUGH Heparin Sodium (Porcine) 5,000 unit 07/21/19 22:00 07/28/19 14:10 Heparin - SQ 5,000 unit TID RONALDO Administration Melatonin 3 mg 07/24/19 22:00 07/27/19 22:54 Melatonin PO 3 mg HS RONALDO Administration Methylprednisolone Sodium Succinate 60 mg 07/26/19 13:00 07/28/19 09:22 Solu-Medrol - IVPUSH 60 mg Q8H-IV RONALDO Administration Metoprolol Succinate 100 mg 07/22/19 10:00 07/28/19 09:22 Toprol Xl - PO 100 mg DAILY RONALDO Administration Morphine Sulfate 4 mg 07/22/19 21:21 07/28/19 09:22 Morphine Sulfate IVPUSH 4 mg Q4H PRN Administration PAIN LEVEL 7 - 10 Nicotine 21 mg 07/22/19 16:00 07/28/19 09:22 Nicoderm Patch - TD 21 mg DAILY RONALDO Administration Pantoprazole Sodium 40 mg 07/22/19 10:00 07/28/19 09:22 Protonix - PO 40 mg DAILY RONALDO Administration Polyethylene Glycol 17 gm 07/26/19 11:00 07/28/19 09:23 Miralax (For Daily Use) - PO 17 grams DAILY RONALDO Administration Ranitidine HCl 150 mg 07/22/19 10:00 07/28/19 09:22 Zantac - PO 150 mg DAILY RONALDO Administration Senna 1 tab 07/25/19 10:00 07/28/19 09:22 Senna - PO 1 tab BID RONALDO Administration Thiamine HCl 100 mg 07/22/19 10:00 07/28/19 09:23 Vitamin B1 - PO 100 mg DAILY RONALDO Administration Home Medications Medication Instructions Recorded Folic Acid 1 mg PO DAILY #14 tablet 09/29/17 Ranitidine HCl [Zantac] 150 mg PO DAILY #14 tablet 09/29/17 Thiamine HCl [Vitamin B1 -] 100 mg PO DAILY #14 tablet 09/29/17 Atorvastatin Ca [Lipitor] 10 mg PO HS 12/14/18 Cholecalciferol (Vitamin D3) 1,000 mg PO DAILY 12/14/18 [Vitamin D -] Pantoprazole Sodium [Protonix -] 40 mg PO DAILY #120 tablet.ec 05/24/19 Acetaminophen [Tylenol] 650 mg PO Q4H #30 capsule 07/06/19 Cyclobenzaprine HCl 5 mg PO HS #10 tablet 07/06/19 Donepezil HCl 5 mg PO DAILY 07/06/19 Metoprolol Succinate [Toprol XL -] 100 mg PO DAILY 07/06/19 Aspirin [ASA -] 81 mg PO DAILY tab.chew 07/20/19 Azithromycin 500 mg PO DAILY 3 Days #3 tablet 07/20/19 Cefuroxime Axetil [Ceftin -] 500 mg PO Q12H 3 Days #6 tablet 07/20/19 Dexamethasone [Decadron -] See Taper PO Q6H 8 Days #64 tablet 07/20/19 Levothyroxine [Synthroid -] 25 mcg PO DAILY 30 Days #30 tablet 07/20/19 ASSESSMENT AND PLAN: 59 year old male with history of HTN, CVA, CKD 3, Parkinson's disease, Lung Ca ( Squamous Cell) with mets to bilateral lungs, adrenals, brain, bone, presents with SOB. he had recent hospitalization for PNA, discharged on 9/5 and returned due to dyspnea and hypoxia. 1. Acute Hypoxic Respiratory Failure due to advancing Metastatic Lung Ca with bilateral Pleural effusion L>R and Acute COPD Exacerbation Completed Abx course for recently diagnosed Pneumonia with Ceftin and Azithromycin. CTA - no PE, extensive metastatic disease, loculated L sided pleural effusion. s/p RTx - seen by Rad Onc - not a candidate for further RTx unless there is impending airway compromise. Seen by Pulmonary - s/p Thoracostomy tube for loculated L pleural effusion - still draining, exudative on biochemistry, awaiting final cytology report. CXR shows mild decrease in L pleural effusion. Declines BiPAP at night. continue Supplemental O2. IV Decadron transitioned to Solumedrol by Pulm (leukocytosis secondary to steroid) Continue Bronchodilator Nebs Follow Thoracentesis Fluid Cx/Cytology Oncology following - for consideration of trial of Pembrolizumab if clinically improved and able to be discharged. Poor prognosis - Palliative Care consulted - for possible Hospice/SNF. 2. Smoker - Nicotine patch prescribed. 3. Low TSH - TSH 0.02. Synthroid held. For repeat TSH levels as out-patient in 3 weeks. 4. AAA - 3 x 2.1cm - Outpatient follow up 5. CKD 3 - Stable. 6. HTN - Continue Metoprolol 7. Parkinson's Disease - on Cyclobenzaprine. 8. Dementia - on Donepezil. 9. Hx CVA/HLD - on ASA/Statin. DVT Px - Heparin SQ GI Px - on PPI and H2 sae. Code Status: DNR/DNI. Given advanced disease and poor prognosis, palliative care consult requested for possible bridge to hospice.
--- NOTE | 2019-07-28 17:22 | PN ---
Physical Exam: SUBJECTIVE: 59 y/o M w PMH metastatic non-small cell lung cancer (adenocarcinoma , metastasis to contralateral lung, brain, adrenals and bone), COPD, hypertension, hyperlipidemia, CVA, coronary artery disease, Parkinson's Disease presented to the hospital for progressive shortness of breath, chest pain and abdominal pain. Pt seen at bedside today. Thoracostomy in place on LEFT. Drained 200cc overnight , again. Pt slept well, still in pain, but relieved with morphine. Pt passed BM again successfully. OBJECTIVE: Vital Signs Period Temp Pulse Resp BP Sys/Blair Pulse Ox Last 24 Hr 97.6 F-99 F 82-109 20-24 125-140/76-89 92-97 GENERAL: A&Ox3, in no acute distress, cachectic, chest tube in place, on humidified NC 5L o2. HEAD: NCAT Alopecic area over LEFT parietal region of scalp poss EYES: LEOLA, EOMI ENT: Moist mucus membranes NECK: No JVD, no lymphadenopathy palpated CHEST: Small, hard chest wall nodule noted just lateral to midline around 2nd L intercostal space, nontender. Chest tube in place on LEFT LUNGS: Decreased air entry to base. Left upper lobe and right lower lobe wheezing, no rales or rhonchi HEART: Mildly tachycardic, no murmurs auscultated ABDOMEN: Soft, nontender, bs present EXTREMITIES: 2+ pulses, no edema. NEUROLOGICAL: Cranial nerves II-XII grossly intact. mild diffuse weakness noted - 4/5 muscle strength throughout, sensation intact Laboratory Results - last 24 hr 07/28/19 07/28/19 06:58 06:58 WBC 21.7 H RBC 3.32 L Hgb 10.7 L Hct 31.9 L MCV 95.9 MCH 32.1 MCHC 33.4 RDW 15.7 Plt Count 136 MPV 8.7 Absolute Neuts (auto) 20.9 H Neutrophils % 96.3 H Neutrophils % (Manual) 80.0 Band Neutrophils % 12.0 Lymphocytes % 1.0 L D Lymphocytes % (Manual) 0.0 L Monocytes % 2.2 L Monocytes % (Manual) 0 L D Eosinophils % 0.3 Eosinophils % (Manual) 0.0 Basophils % 0.2 Basophils % (Manual) 0.0 Myelocytes % (Man) 0 D Promyelocytes % (Man) 0 Blast Cells % (Manual) 0 Nucleated RBC % 0 Metamyelocytes 1 Hypochromia 0 Platelet Estimate Decreased Platelet Comment Present Polychromasia 1+ Poikilocytosis 1+ Basophilic Stippling 1+ Anisocytosis 2+ Microcytosis 1+ Macrocytosis 1+ Spherocytes 1+ Tear Drop Cells 1+ Ovalocytes 1+ Ben Cells 1+ Sodium 143 Potassium 4.0 Chloride 103 Carbon Dioxide 35 H Anion Gap 5 L BUN 17.9 Creatinine 0.4 L Est GFR (CKD-EPI)AfAm 148.58 Est GFR (CKD-EPI)NonAf 128.19 Random Glucose 176 H Calcium 8.4 L Phosphorus 3.0 Magnesium 1.8 Total Bilirubin 0.3 AST 8 L ALT 30 Alkaline Phosphatase 78 Total Protein 4.5 L Albumin 1.6 L Active Medications Albuterol Sulfate (Ventolin 0.083% Nebulizer Soln -) 1 amp NEB Q4H PRN PRN Reason: SHORT OF BREATH/WHEEZING Albuterol/Ipratropium (Duoneb -) 1 amp NEB RQID [facility] Last Admin: 07/29/19 16:19 Dose: 1 amp Atorvastatin Calcium (Lipitor -) 10 mg PO HS [facility] Last Admin: 07/29/19 21:45 Dose: 10 mg Docusate Sodium (Colace -) 100 mg PO DAILY [facility] Last Admin: 07/29/19 10:36 Dose: 100 mg Donepezil HCl (Aricept -) 5 mg PO DAILY [facility] Last Admin: 07/29/19 10:36 Dose: 5 mg Folic Acid (Folic Acid -) 1 mg PO DAILY [facility] Last Admin: 07/29/19 10:36 Dose: 1 mg Guaifenesin (Robitussin Dm -) 10 ml PO Q6H PRN PRN Reason: COUGH Last Admin: 07/29/19 02:22 Dose: 10 ml Melatonin (Melatonin) 3 mg PO [facility] Last Admin: 07/28/19 21:53 Dose: 3 mg Methylprednisolone Sodium Succinate (Solu-Medrol -) 60 mg IVPUSH Q8H-IV [facility] Last Admin: 07/29/19 17:05 Dose: 60 mg Metoprolol Succinate (Toprol Xl -) 100 mg PO DAILY [facility] Last Admin: 07/29/19 10:37 Dose: 100 mg Morphine Sulfate (Morphine Sulfate) 4 mg IVPUSH Q4H PRN PRN Reason: PAIN LEVEL 6-10 Last Admin: 07/29/19 18:57 Dose: 4 mg Nicotine (Nicoderm Patch -) 21 mg TD DAILY [facility] Last Admin: 07/29/19 10:35 Dose: 21 mg Pantoprazole Sodium (Protonix -) 40 mg PO DAILY [facility] Last Admin: 07/29/19 10:36 Dose: 40 mg Polyethylene Glycol (Miralax (For Daily Use) -) 17 gm PO DAILY [facility] Last Admin: 07/29/19 11:00 Dose: 17 grams Ranitidine HCl (Zantac -) 150 mg PO DAILY [facility] Last Admin: 07/29/19 10:36 Dose: 150 mg Senna (Senna -) 1 tab PO BID [facility] Last Admin: 07/29/19 21:45 Dose: 1 tab Thiamine HCl (Vitamin B1 -) 100 mg PO DAILY [facility] Last Admin: 07/29/19 10:37 Dose: 100 mg ASSESSMENT/PLAN: 59 y/o M w PMH metastatic non-small cell lung cancer (adenocarcinoma, metastasis to contralateral lung, brain, adrenals and bone), COPD, hypertension , hyperlipidemia, CVA, coronary artery disease, Parkinson's Disease. Recent hospitalization for PNA and was discharged on Jul 20, 2019 and returned due to dyspnea 2/2 non-compliance with medications. # Acute hypoxic respiratory failure d/t advancing metastatic lung ca with bilateral pleural effusion L>R - CTA: No PE, extensive metastatic disease, loculated LEFT sided pleural effusion. - S/p abx course for recently dx PNA with ceftin and azithromycin. - S/p RTx - Rad/onc consulted: Not a candidate for further RTx unless there is impending airway compromise. - Pulmonary consulted: Thoracostomy tube placed for loculated LEFT pleural effusion - Thoracentesis fluid: Exudative, f/u Cx/Cytology - CXR: Mild decrease in LEFT pleural effusion. - CPAP at night. Needs Supplemental O2. - On IV solumedrol:Pulm/Oncology regarding taper (leukocytosis secondary to steroid) - Cont. bronchodilator nebs - Keytruda given high PDL1 expression - Pts primary oncologist, Dr. Tompkins, will follow-up re- [facility] discussions: consideration of trial of Pembrolizumab if clinically improved and able to be dc - Palliative Care. consulted - Pulm consulted # Low TSH - TSH 0.02 - Hold synthroid - Repeat TFT in 6 weeks # AAA - 3x2.1 cm aneurysm - Out-pt f/u # Nicotine dependence - Counselled on need for abstinence as contributing to symptoms - Pt agrees to quit. He will cont. with patches. # CVA - Cont. home meds # CKD - Cont. home meds # Parkinson's disease - Cont. home meds # F/E/N - No standing fluids - Cont. to monitor electrolytes - Low sodium diet # DVT prophylaxis - Heparin # Disposition - DNR/DNI. - Palliative care: requested possible bridge to hospice Earl Delacruz MD Visit type - Emergency Visit Emergency Visit: No - New Patient This patient is new to me today: No - Critical Care Critical Care patient: No - Discharge Referral Referred to [facility] Med P.C.: No ATTENDING PHYSICIAN STATEMENT I saw and evaluated the patient. I reviewed the resident's note and discussed the case with the resident. I agree with the resident's findings and plan as documented. SUBJECTIVE: OBJECTIVE: ASSESSMENT AND PLAN:
[2019-07-28] MEDS ORDERED: PT OWN MED DRAWER 7, Y5N ONE (21:13)
[2019-07-28] MEDS: ATORVASTATIN CA 10 MG TABLET (FP) PO SCH (21:48)
[2019-07-28] MEDS: MELATONIN 1 MG TABLET PO SCH (21:53)
[2019-07-29] MEDS: guaiFENesin/D-METHORPHAN HB 10 ML UNIT-DOSE CUPS PO PRN (02:22)
[2019-07-29] MEDS: methylPREDNISolone NA SUCC 40 MG/1 ML VIAL IVPUSH SCH ×3 (02:22→17:05)
[2019-07-29] MEDS: morphine SULFATE 4 MG/ML VIAL IVPUSH PRN ×2 (04:31→18:57)
[2019-07-29] MEDS: HEPARIN NA (PORCINE) 5,000 UNITS/ML 1ML VIAL SQ SCH (06:47)
[2019-07-29] MEDS: ALBUTEROL SO4 2.5/IPRATROPIUM 0.5 INH SOL 3 ML VIAL.NEB. NEB SCH ×4 (08:00→20:35)
[2019-07-29 08:04] LABS: BASO % 0.2 % (0-2.0); EOS % 0.5 % (0-4.5); HEMATOCRIT 31.8 % (35.4-49); HEMOGLOBIN 10.6 GM/dL (11.7-16.9); MCH 31.8 pg (25.7-33.7); MCHC 33.2 g/dl (32.0-35.9); MEAN CELL VOLUME 95.9 fl (80-96); MEAN PLT VOLUME 8.8 fl (7.5-11.1); MONO % 2.2 % (3.8-10.2); NEUT % 96.1 % (42.8-82.8); PLATELET COUNT 121 K/MM3 (134-434); RBC 3.32 M/mm3 (4.00-5.60); RDW 16.2 % (11.9-15.9); WHITE BLOOD COUNT 24.6 K/mm3 (4.0-10.0)
[2019-07-29 08:45] LABS: ALBUMIN 1.5 g/dl (3.4-5.0); BILIRUBIN,TOTAL 0.5 mg/dL (0.2-1); BLOOD UREA NITROGEN 18.2 mg/dL (7-18); CALCIUM 8.3 mg/dL (8.5-10.1); CREATININE 0.4 mg/dL (0.55-1.3); MAGNESIUM 1.9 mg/dL (1.8-2.4); PHOSPHOROUS 3.2 mg/dL (2.5-4.9); POTASSIUM 4.6 mmol/L (3.5-5.1); TOT PROT 4.5 g/dl (6.4-8.2)
[2019-07-29 09:30] LABS: ANISOCYTOSIS 2+; MACROCYTOSIS 0; PLATELET ESTIMATE DECREASED
[2019-07-29] MEDS: NICOTINE 21 MG/24 HOURS TOPICAL PATCH TD SCH (10:35)
[2019-07-29] MEDS: SENNOSIDES 8.6MG TABLET (FP) PO SCH ×2 (10:36→21:45)
[2019-07-29] MEDS: PANTOPRAZOLE 40 MG TABLET (FP) PO SCH (10:36)
[2019-07-29] MEDS: FOLIC ACID 1 MG TABLET (FP) PO SCH (10:36)
[2019-07-29] MEDS: DONEPEZIL HCL 5 MG TABLET (FP) PO SCH (10:36)
[2019-07-29] MEDS: RANITIDINE HCL 150 MG TABLET (FP) PO SCH (10:36)
[2019-07-29] MEDS: DOCUSATE SODIUM 100 MG CAPSULE (FP) PO SCH (10:36)
[2019-07-29] MEDS: THIAMINE HCL 100 MG TABLET (FP) PO SCH (10:37)
[2019-07-29] MEDS: POLYETHYLENE GLYCOL 3350 119 GM BTL PO SCH (11:00)
--- NOTE | 2019-07-29 11:12 | PN ---
Progress Note (short form) - Note Progress Note: Seen in follow up. No new complaints this morning - reports his breathing is improved today. Pain at drain site. Denies cough. Meds reviewed. Current Medications Generic Name Dose Route Start Last Admin Trade Name Freq PRN Reason Stop Dose Admin Albuterol Sulfate 1 amp 07/25/19 11:09 Ventolin 0.083% Nebulizer Soln - NEB Q4H PRN SHORT OF BREATH/WHEEZING Albuterol/Ipratropium 1 amp 07/25/19 12:00 07/29/19 08:00 Duoneb - NEB 1 amp RQID [facility] Administration Atorvastatin Calcium 10 mg 07/21/19 22:00 07/28/19 21:48 Lipitor - PO 10 mg HS [facility] Administration Docusate Sodium 100 mg 07/25/19 10:00 07/29/19 10:36 Colace - PO 100 mg DAILY [facility] Administration Donepezil HCl 5 mg 07/22/19 10:00 07/29/19 10:36 Aricept - PO 5 mg DAILY [facility] Administration Folic Acid 1 mg 07/22/19 10:00 07/29/19 10:36 Folic Acid - PO 1 mg DAILY [facility] Administration Guaifenesin 10 ml 07/27/19 18:45 07/29/19 02:22 Robitussin Dm - PO 10 ml Q6H PRN Administration COUGH Heparin Sodium (Porcine) 5,000 unit 07/21/19 22:00 07/29/19 06:47 Heparin - SQ 5,000 unit TID [facility]ONALDO Administration Melatonin 3 mg 07/24/19 22:00 07/28/19 21:53 Melatonin PO 3 mg HS [facility] Administration Methylprednisolone Sodium Succinate 60 mg 07/26/19 13:00 07/29/19 10:35 Solu-Medrol - IVPUSH 60 mg Q8H-IV [facility] Administration Metoprolol Succinate 100 mg 07/22/19 10:00 07/29/19 10:37 Toprol Xl - PO 100 mg DAILY [facility] Administration Morphine Sulfate 4 mg 07/22/19 21:21 07/29/19 04:31 Morphine Sulfate IVPUSH 4 mg Q4H PRN Administration PAIN LEVEL 7 - 10 Nicotine 21 mg 07/22/19 16:00 07/29/19 10:35 Nicoderm Patch - TD 21 mg DAILY [facility] Administration Pantoprazole Sodium 40 mg 07/22/19 10:07/29/19 10:36 Protonix - PO 40 mg DAILY [facility] Administration Polyethylene Glycol 17 gm 07/26/19 11:00 07/28/19 09:23 Miralax (For Daily Use) - PO 17 grams DAILY [facility] Administration Ranitidine HCl 150 mg 07/22/19 10:00 07/29/19 10:36 Zantac - PO 150 mg DAILY [facility] Administration Senna 1 tab 07/25/19 10:00 07/29/19 10:36 Senna - PO 1 tab BID [facility] Administration Thiamine HCl 100 mg 07/22/19 10:07/29/19 10:37 Vitamin B1 - PO 100 mg DAILY [facility] Administration Examination: Last Vital Signs Temp Pulse Resp BP Pulse Ox 97.6 F 106 H 22 H 149/96 96 07/29/19 10:27 07/29/19 10:27 07/29/19 10:27 07/29/19 10:27 07/28/19 21:00 General: Sitting up in bed, dyspneic, NC Extremities: no swelling Chest: air entry bilaterally, diffuse crackles, ICD left side Abdomen: Soft, no organomegaly, no masses. Neuro: Alert, oriented, non-focal. CVS: Normal sinus rhythm, S1, S2, no gallop or murmur. Labs reviewed: CBC, BMP 07/29/19 06:45 07/29/19 06:45 Assessment. Metastatic NSCLC, with extensive lung involvement, admitted with hypoxic respiratory failure. L pleural effusion s/p ICD, and recent pneumonia. Performance status is poor - ongoing supportive care, in hope of improving PS to point that he can be discharged, and start immunotherapy - is a candidate for PDL1-sae. Situation tenuous.
--- NOTE | 2019-07-29 11:50 | PN ---
Progress Note (short form) - Note Progress Note: still with shortness of breath, cough, and wheezing with minimal movement. 195 cc 24 hour chest tube output, from midnight documented 100cc. Intake & Output 07/26/19 07/27/19 07/28/19 07/29/19 23:59 23:59 23:59 23:59 Intake Total 950 700 700 200 Output Total 550 1500 595 300 Balance 400 -800 105 -100 Last Vital Signs Temp Pulse Resp BP Pulse Ox 97.6 F 106 H 22 H 149/96 97 07/29/19 10:27 07/29/19 10:27 07/29/19 10:27 07/29/19 10:27 07/29/19 11:31 Active Medications Albuterol Sulfate (Ventolin 0.083% Nebulizer Soln -) 1 amp NEB Q4H PRN PRN Reason: SHORT OF BREATH/WHEEZING Albuterol/Ipratropium (Duoneb -) 1 amp NEB RQID [facility] Last Admin: 07/29/19 11:32 Dose: 1 amp Atorvastatin Calcium (Lipitor -) 10 mg PO HS [facility] Last Admin: 07/28/19 21:48 Dose: 10 mg Docusate Sodium (Colace -) 100 mg PO DAILY [facility] Last Admin: 07/29/19 10:36 Dose: 100 mg Donepezil HCl (Aricept -) 5 mg PO DAILY [facility] Last Admin: 07/29/19 10:36 Dose: 5 mg Folic Acid (Folic Acid -) 1 mg PO DAILY [facility] Last Admin: 07/29/19 10:36 Dose: 1 mg Guaifenesin (Robitussin Dm -) 10 ml PO Q6H PRN PRN Reason: COUGH Last Admin: 07/29/19 02:22 Dose: 10 ml Heparin Sodium (Porcine) (Heparin -) 5,000 unit SQ TID [facility] Last Admin: 07/29/19 06:47 Dose: 5,000 unit Melatonin (Melatonin) 3 mg PO HS [facility] Last Admin: 07/28/19 21:53 Dose: 3 mg Methylprednisolone Sodium Succinate (Solu-Medrol -) 60 mg IVPUSH Q8H-IV [facility] Last Admin: 07/29/19 10:35 Dose: 60 mg Metoprolol Succinate (Toprol Xl -) 100 mg PO DAILY [facility] Last Admin: 07/29/19 10:37 Dose: 100 mg Morphine Sulfate (Morphine Sulfate) 4 mg IVPUSH Q4H PRN PRN Reason: PAIN LEVEL 7 - 10 Last Admin: 07/29/19 04:31 Dose: 4 mg Nicotine (Nicoderm Patch -) 21 mg TD DAILY [facility] Last Admin: 07/29/19 10:35 Dose: 21 mg Pantoprazole Sodium (Protonix -) 40 mg PO DAILY [facility] Last Admin: 07/29/19 10:36 Dose: 40 mg Polyethylene Glycol (Miralax (For Daily Use) -) 17 gm PO DAILY [facility] Last Admin: 07/29/19 11:00 Dose: 17 grams Ranitidine HCl (Zantac -) 150 mg PO DAILY [facility] Last Admin: 07/29/19 10:36 Dose: 150 mg Senna (Senna -) 1 tab PO BID [facility] Last Admin: 07/29/19 10:36 Dose: 1 tab Thiamine HCl (Vitamin B1 -) 100 mg PO DAILY [facility] Last Admin: 07/29/19 10:37 Dose: 100 mg Gen: Awake and alert, tachypneic at rest Heart: RRR Lung: bilateral rhonchi, wheezes, Left pleural tube intact Abd: soft, nontender Ext: no edema Chest tube: serosanguinous fluid, no air leak Laboratory Results - last 24 hr 07/28/19 07/29/19 07/29/19 06:58 06:45 06:45 WBC 24.6 H RBC 3.32 L Hgb 10.6 L Hct 31.8 L MCV 95.9 MCH 31.8 MCHC 33.2 RDW 16.2 H Plt Count 121 L MPV 8.8 Absolute Neuts (auto) 23.7 H Neutrophils % 96.1 H Neutrophils % (Manual) 80.0 79.2 Band Neutrophils % 12.0 11.9 Lymphocytes % 1.0 L Lymphocytes % (Manual) 0.0 L 2.0 L D Monocytes % 2.2 L Monocytes % (Manual) 0 L D 1 L D Eosinophils % 0.5 Eosinophils % (Manual) 0.0 0.0 Basophils % 0.2 Basophils % (Manual) 0.0 0.0 Myelocytes % (Man) 0 D 3 H D Promyelocytes % (Man) 0 0 Blast Cells % (Manual) 0 0 Nucleated RBC % 2 H Metamyelocytes 1 2 D Hypochromia 0 0 Platelet Estimate Decreased Decreased Platelet Comment Present Polychromasia 1+ 0 Poikilocytosis 1+ 0 Basophilic Stippling 1+ 1+ Anisocytosis 2+ 2+ Microcytosis 1+ 2+ Macrocytosis 1+ 0 Spherocytes 1+ Tear Drop Cells 1+ Ovalocytes 1+ [place] Cells 1+ Sodium 144 Potassium 4.6 Chloride 103 Carbon Dioxide 36 H Anion Gap 6 L BUN 18.2 H Creatinine 0.4 L Est GFR (CKD-EPI)AfAm 148.58 Est GFR (CKD-EPI)NonAf 128.19 Random Glucose 134 H Calcium 8.3 L Phosphorus 3.2 Magnesium 1.9 Total Bilirubin 0.5 AST 18 ALT 45 Alkaline Phosphatase 80 Total Protein 4.5 L Albumin 1.5 L Problem List - Problems (1) COPD exacerbation Code(s): J44.1 - CHRONIC OBSTRUCTIVE PULMONARY DISEASE W (ACUTE) EXACERBATION (2) Lung cancer Code(s): C34.90 - MALIGNANT NEOPLASM OF UNSP PART OF UNSP BRONCHUS OR LUNG (3) Pleural effusion Code(s): J90 - PLEURAL EFFUSION, NOT ELSEWHERE CLASSIFIED A/P Acute COPD Exacerbation Metastatic NSCLC Pleural Effusions likely malignant CAD Parkinsons HTN Hyperlipidemia - continue medrol - inhaled bronchodilators standing and PRN - O2 to keep SpO2 >90% - monitor chest tube output, on low wall suction - CXR is pending - BiPAP as needed to assist in work of breathing - DVT prophylaxis - DNR/DNI - If continued significant pleural drainage can consider PleureX catheter insertion Dr Simmons
--- NOTE | 2019-07-29 14:22 | PN ---
Teaching Attending Note Name of Resident: Abbi Mccray ATTENDING PHYSICIAN STATEMENT I saw and evaluated the patient. I reviewed the resident's note and discussed the case with the resident. I agree with the resident's findings and plan as documented. SUBJECTIVE: Feels some improvement in SOB s/p chest tube but still dyspneic. No fever/chills. Pain adequately controlled. OBJECTIVE: Afebrile, hemodynamically Stable. L chest tube still draining - approx 100ml overnight. Last Vital Signs Temp Pulse Resp BP Pulse Ox 97.5 F L 101 H 20 137/87 97 07/29/19 13:34 07/29/19 13:34 07/29/19 13:34 07/29/19 13:34 07/29/19 11:31 Heart - S1 S2, RRR Lungs - bilateral crackles/wheeze. s/p Chest tube L Abdomen - Soft, mildl distended, mild generalized tenderness. Bowel Sounds normal. Extremities - no edema, no calf tenderness. Laboratory Results - last 24 hr 07/29/19 07/29/19 06:45 06:45 WBC 24.6 H RBC 3.32 L Hgb 10.6 L Hct 31.8 L MCV 95.9 MCH 31.8 MCHC 33.2 RDW 16.2 H Plt Count 121 L MPV 8.8 Absolute Neuts (auto) 23.7 H Neutrophils % 96.1 H Neutrophils % (Manual) 79.2 Band Neutrophils % 11.9 Lymphocytes % 1.0 L Lymphocytes % (Manual) 2.0 L D Monocytes % 2.2 L Monocytes % (Manual) 1 L D Eosinophils % 0.5 Eosinophils % (Manual) 0.0 Basophils % 0.2 Basophils % (Manual) 0.0 Myelocytes % (Man) 3 H D Promyelocytes % (Man) 0 Blast Cells % (Manual) 0 Nucleated RBC % 2 H Metamyelocytes 2 D Hypochromia 0 Platelet Estimate Decreased Polychromasia 0 Poikilocytosis 0 Basophilic Stippling 1+ Anisocytosis 2+ Microcytosis 2+ Macrocytosis 0 Sodium 144 Potassium 4.6 Chloride 103 Carbon Dioxide 36 H Anion Gap 6 L BUN 18.2 H Creatinine 0.4 L Est GFR (CKD-EPI)AfAm 148.58 Est GFR (CKD-EPI)NonAf 128.19 Random Glucose 134 H Calcium 8.3 L Phosphorus 3.2 Magnesium 1.9 Total Bilirubin 0.5 AST 18 ALT 45 Alkaline Phosphatase 80 Total Protein 4.5 L Albumin 1.5 L Current Medications Generic Name Dose Route Start Last Admin Trade Name Freq PRN Reason Stop Dose Admin Albuterol Sulfate 1 amp 07/25/19 11:09 Ventolin 0.083% Nebulizer Soln - NEB Q4H PRN SHORT OF BREATH/WHEEZING Albuterol/Ipratropium 1 amp 07/25/19 12:00 07/29/19 11:32 Duoneb - NEB 1 amp RQID [facility] Administration Atorvastatin Calcium 10 mg 07/21/19 22:00 07/28/19 21:48 Lipitor - PO 10 mg HS [facility] Administration Docusate Sodium 100 mg 07/25/19 10:00 07/29/19 10:36 Colace - PO 100 mg DAILY [facility] Administration Donepezil HCl 5 mg 07/22/19 10:00 07/29/19 10:36 Aricept - PO 5 mg DAILY [facility] Administration Folic Acid 1 mg 07/22/19 10:00 07/29/19 10:36 Folic Acid - PO 1 mg DAILY [facility] Administration Guaifenesin 10 ml 07/27/19 18:45 07/29/19 02:22 Robitussin Dm - PO 10 ml Q6H PRN Administration COUGH Melatonin 3 mg 07/24/19 22:00 07/28/19 21:53 Melatonin PO 3 mg HS [facility]ON[facility]DO Administration Methylprednisolone Sodium Succinate 60 mg 07/26/19 13:00 07/29/19 10:35 Solu-Medrol - IVPUSH 60 mg Q8H-IV [facility] Administration Metoprolol Succinate 100 mg 07/22/19 10:00 07/29/19 10:37 Toprol Xl - PO 100 mg DAILY [facility] Administration Nicotine 21 mg 07/22/19 16:00 07/29/19 10:35 Nicoderm Patch - TD 21 mg DAILY [facility] Administration Pantoprazole Sodium 40 mg 07/22/19 10:00 07/29/19 10:36 Protonix - PO 40 mg DAILY [facility] Administration Polyethylene Glycol 17 gm 07/26/19 11:00 07/29/19 11:00 Miralax (For Daily Use) - PO 17 grams DAILY [facility] Administration Ranitidine HCl 150 mg 07/22/19 10:00 07/29/19 10:36 Zantac - PO 150 mg DAILY [facility] Administration Senna 1 tab 07/25/19 10:00 07/29/19 10:36 Senna - PO 1 tab BID [facility] Administration Thiamine HCl 100 mg 07/22/19 10:00 07/29/19 10:37 Vitamin B1 - PO 100 mg DAILY [facility] Administration Home Medications Medication Instructions Recorded Folic Acid 1 mg PO DAILY #14 tablet 09/29/17 Ranitidine HCl [Zantac] 150 mg PO DAILY #14 tablet 09/29/17 Thiamine HCl [Vitamin B1 -] 100 mg PO DAILY #14 tablet 09/29/17 Atorvastatin Ca [Lipitor] 10 mg PO HS 12/14/18 Cholecalciferol (Vitamin D3) 1,000 mg PO DAILY 12/14/18 [Vitamin D -] Pantoprazole Sodium [Protonix -] 40 mg PO DAILY #120 tablet.ec 05/24/19 Acetaminophen [Tylenol] 650 mg PO Q4H #30 capsule 07/06/19 Cyclobenzaprine HCl 5 mg PO HS #10 tablet 07/06/19 Donepezil HCl 5 mg PO DAILY 07/06/19 Metoprolol Succinate [Toprol XL -] 100 mg PO DAILY 07/06/19 Aspirin [ASA -] 81 mg PO DAILY tab.chew 07/20/19 Azithromycin 500 mg PO DAILY 3 Days #3 tablet 07/20/19 Cefuroxime Axetil [Ceftin -] 500 mg PO Q12H 3 Days #6 tablet 07/20/19 Dexamethasone [Decadron -] See Taper PO Q6H 8 Days #64 tablet 07/20/19 Levothyroxine [Synthroid -] 25 mcg PO DAILY 30 Days #30 tablet 07/20/19 ASSESSMENT AND PLAN: 59 year old male with history of Dementia, HTN, CVA, CKD 3, Parkinson's disease , Lung Ca (Squamous Cell) with mets to bilateral lungs, adrenals, brain, bone, presents with SOB. he had recent hospitalization for PNA, discharged on 07/20 and returned due to dyspnea and hypoxia. 1. Acute Hypoxic Respiratory Failure due to advancing Metastatic Lung Ca with bilateral Pleural effusion L>R and Acute COPD Exacerbation Completed Abx course for recently diagnosed Pneumonia with Ceftin and Azithromycin. CTA - no PE, extensive metastatic disease, loculated L sided pleural effusion. s/p RTx - seen by Rad Onc - not a candidate for further RTx unless there is impending airway compromise. Seen by Pulmonary - s/p Thoracostomy tube for loculated L pleural effusion - still draining, exudative on biochemistry, awaiting final cytology report. Decision to transition to PleurX as per Pulm. CXR shows mild decrease in L pleural effusion. Declines BiPAP at night. continue Supplemental O2. IV Decadron transitioned to Solumedrol by Pulm (leukocytosis secondary to steroid) Continue Bronchodilator Nebs Thoracentesis Fluid Cx/Cytology pending Oncology following - for consideration of trial of Pembrolizumab if clinically improved and able to be discharged. Poor prognosis - Palliative Care following - for possible Hospice/SNF but patient is insistent on discharge home. 2. Mild Abdominal Distension No nausea/vomiting/diarrhea AXR requested. 3. Low TSH - TSH 0.02. Synthroid held. For repeat TSH levels as out-patient in 3 weeks. 4. AAA - 3 x 2.1cm - Outpatient follow up 5. CKD 3 - Stable. 6. HTN - Continue Metoprolol 7. Parkinson's Disease - on Cyclobenzaprine. 8. Dementia - on Donepezil. 9. Hx CVA/HLD - on ASA/Statin. DVT Px - Heparin SQ GI Px - on PPI and H2 sae. Code Status: DNR/DNI. Given advanced disease and poor prognosis, palliative care consult requested for bridge to hospice.
--- NOTE | 2019-07-29 14:24 | PN ---
Physical Exam: SUBJECTIVE: Patient seen and examined this AM. Did not tolerate Bipap overnight , prefers 5L Via NC. Chest tube in place. Continues to feel SOB. Complains of lower quadrant abdominal pain b/l. OBJECTIVE: Vital Signs Period Temp Pulse Resp BP Sys/Blair Pulse Ox Last 24 Hr 97.5 F-98.0 F 90-111 20-22 125-149/62-96 96-97 GENERAL: A&Ox3, NAD HEAD: NCAT EYES: PERRL, EOMI ENT: moist mucous membranes. NECK: Supple LUNGS: Tachypneic, Wheezing throughout. Left Chest tube in place draining serosanguinous fluid HEART: Regular rate and rhythm, S1, S2 without murmur ABDOMEN: Soft, nontender, nondistended, + bowel sounds, no guarding, no rebound EXTREMITIES: no edema. NEUROLOGICAL: Cranial nerves II through XII grossly intact. SKIN: Warm, dry Laboratory Results - last 24 hr 07/29/19 07/29/19 06:45 06:45 WBC 24.6 H RBC 3.32 L Hgb 10.6 L Hct 31.8 L MCV 95.9 MCH 31.8 MCHC 33.2 RDW 16.2 H Plt Count 121 L MPV 8.8 Absolute Neuts (auto) 23.7 H Neutrophils % 96.1 H Neutrophils % (Manual) 79.2 Band Neutrophils % 11.9 Lymphocytes % 1.0 L Lymphocytes % (Manual) 2.0 L D Monocytes % 2.2 L Monocytes % (Manual) 1 L D Eosinophils % 0.5 Eosinophils % (Manual) 0.0 Basophils % 0.2 Basophils % (Manual) 0.0 Myelocytes % (Man) 3 H D Promyelocytes % (Man) 0 Blast Cells % (Manual) 0 Nucleated RBC % 2 H Metamyelocytes 2 D Hypochromia 0 Platelet Estimate Decreased Polychromasia 0 Poikilocytosis 0 Basophilic Stippling 1+ Anisocytosis 2+ Microcytosis 2+ Macrocytosis 0 Sodium 144 Potassium 4.6 Chloride 103 Carbon Dioxide 36 H Anion Gap 6 L BUN 18.2 H Creatinine 0.4 L Est GFR (CKD-EPI)AfAm 148.58 Est GFR (CKD-EPI)NonAf 128.19 Random Glucose 134 H Calcium 8.3 L Phosphorus 3.2 Magnesium 1.9 Total Bilirubin 0.5 AST 18 ALT 45 Alkaline Phosphatase 80 Total Protein 4.5 L Albumin 1.5 L Microbiology 07/25/19 13:30 Pleural Fluid Gram Stain - Final 07/25/19 13:30 Pleural Fluid Body Fluid Culture - Final NO GROWTH OF AEROBIC ORGANISMS AFTER 48 HOURS INCUBATION 07/25/19 13:30 Pleural Fluid Anaerobic Culture - Final NO ANAEROBES WERE ISOLATED 07/25/19 13:30 Pleural Fluid AFB Smear Concentration - Preliminary 07/25/19 13:30 Pleural Fluid Mycobacterial Culture - Preliminary 07/25/19 13:30 Pleural Fluid SADIE Preparation - Preliminary 07/25/19 13:30 Pleural Fluid Fungal Culture - Preliminary Active Medications Albuterol Sulfate (Ventolin 0.083% Nebulizer Soln -) 1 amp NEB Q4H PRN PRN Reason: SHORT OF BREATH/WHEEZING Albuterol/Ipratropium (Duoneb -) 1 amp NEB RQID [facility] Last Admin: 07/29/19 11:32 Dose: 1 amp Atorvastatin Calcium (Lipitor -) 10 mg PO HS [facility] Last Admin: 07/28/19 21:48 Dose: 10 mg Docusate Sodium (Colace -) 100 mg PO DAILY [facility] Last Admin: 07/29/19 10:36 Dose: 100 mg Donepezil HCl (Aricept -) 5 mg PO DAILY [facility] Last Admin: 07/29/19 10:36 Dose: 5 mg Folic Acid (Folic Acid -) 1 mg PO DAILY [facility] Last Admin: 07/29/19 10:36 Dose: 1 mg Guaifenesin (Robitussin Dm -) 10 ml PO Q6H PRN PRN Reason: COUGH Last Admin: 07/29/19 02:22 Dose: 10 ml Melatonin (Melatonin) 3 mg PO HS [facility] Last Admin: 07/28/19 21:53 Dose: 3 mg Methylprednisolone Sodium Succinate (Solu-Medrol -) 60 mg IVPUSH Q8H-IV [facility] Last Admin: 07/29/19 10:35 Dose: 60 mg Metoprolol Succinate (Toprol Xl -) 100 mg PO DAILY [facility] Last Admin: 07/29/19 10:37 Dose: 100 mg Nicotine (Nicoderm Patch -) 21 mg TD DAILY [facility] Last Admin: 07/29/19 10:35 Dose: 21 mg Pantoprazole Sodium (Protonix -) 40 mg PO DAILY [facility] Last Admin: 07/29/19 10:36 Dose: 40 mg Polyethylene Glycol (Miralax (For Daily Use) -) 17 gm PO DAILY [facility] Last Admin: 07/29/19 11:00 Dose: 17 grams Ranitidine HCl (Zantac -) 150 mg PO DAILY [facility] Last Admin: 07/29/19 10:36 Dose: 150 mg Senna (Senna -) 1 tab PO BID [facility] Last Admin: 07/29/19 10:36 Dose: 1 tab Thiamine HCl (Vitamin B1 -) 100 mg PO DAILY [facility] Last Admin: 07/29/19 10:37 Dose: 100 mg ASSESSMENT/PLAN: 59 y/o M w PMHx metastatic NSCLC, COPD, HTN, HLD, CVA, CAD, Parkinson's Disease with recent hospitalization for PNA (Completed course of ABx) presents with SOB. #Acute hypoxic/hypercapneic respiratory failure -In the setting of advancing metastatic disease with B/L pleural effusion L>R and Acute COPD exacerbation with medication noncompliance -S/P Left Chest Tube Placement, 100ccs drained today so far -Imaging, Micro, labwork appreciated -F/U Final pleural fluid cytology report -Supplemental O2 to maintain SpO2 88-92% -Bilevel to assist in the work of breathing -Continue Methylprednisolone, Taper as tolerated -Bronchodilators -Pulmonology and Oncology consulted, appreciate rec's -Palliative Care consulted -Trial Pembrolizumab as per oncology #Abdominal Pain -Mild distension without TTP, No associated nausea, vomiting, diarrhea -KUB pending #Low TSH -Hold Synthroid until Repeat TFT in 6 weeks #AAA -Outpatient f/u #Nicotine dependence -Counselled, continue nicoderm patch #CVA -ASA, Statin #Parkinsons -Continue home dose cyclobenzaprine #FEN -PO Fluids -Replete Lytes PRN -Low sodium diet #PPx -DVT: Heparin Dispo: Med-Surg, Patient would like to go home once improved despite being offered SNF Code Status: DNR/DNI Visit type - Emergency Visit Emergency Visit: Yes ED Registration Date: 07/21/19 Care time: The patient presented to the Emergency Department on the above date and was hospitalized for further evaluation of their emergent condition. - New Patient This patient is new to me today: Yes Date on this admission: 07/29/19 - Critical Care Critical Care patient: No ATTENDING PHYSICIAN STATEMENT I saw and evaluated the patient. I reviewed the resident's note and discussed the case with the resident. I agree with the resident's findings and plan as documented. SUBJECTIVE: OBJECTIVE: ASSESSMENT AND PLAN:
[2019-07-29] MEDS ORDERED: SODIUM PHOSPHATE/NA BIPHOS 133 ML ENEMA PR ONE (16:06)
[2019-07-29] MEDS ORDERED: morphine CARPU-JECT 4 MG/1 ML DISP.SYRIN IVPUSH PRN (17:32)
[2019-07-29] MEDS: ATORVASTATIN CA 10 MG TABLET (FP) PO SCH (21:45)
[2019-07-29] MEDS: MELATONIN 1 MG TABLET PO SCH (22:48)
[2019-07-30] MEDS: methylPREDNISolone NA SUCC 40 MG/1 ML VIAL IVPUSH SCH ×3 (01:35→17:08)
[2019-07-30] MEDS: guaiFENesin/D-METHORPHAN HB 10 ML UNIT-DOSE CUPS PO PRN ×3 (05:22→18:55)
[2019-07-30] MEDS: ALBUTEROL SO4 2.5/IPRATROPIUM 0.5 INH SOL 3 ML VIAL.NEB. NEB SCH ×4 (07:37→19:50)
[2019-07-30 08:19] LABS: BASO % 0.3 % (0-2.0); EOS % 0.3 % (0-4.5); HEMATOCRIT 33.9 % (35.4-49); HEMOGLOBIN 11.2 GM/dL (11.7-16.9); MCH 31.5 pg (25.7-33.7); MEAN CELL VOLUME 95.4 fl (80-96); MEAN PLT VOLUME 8.9 fl (7.5-11.1); MONO % 2.3 % (3.8-10.2); NEUT % 96.1 % (42.8-82.8); PLATELET COUNT 118 K/MM3 (134-434); RBC 3.55 M/mm3 (4.00-5.60); WHITE BLOOD COUNT 27.3 K/mm3 (4.0-10.0)
[2019-07-30 08:29] LABS: ALBUMIN 1.6 g/dl (3.4-5.0); BILIRUBIN,TOTAL 0.6 mg/dL (0.2-1); BLOOD UREA NITROGEN 21.6 mg/dL (7-18); CALCIUM 8.4 mg/dL (8.5-10.1); CREATININE 0.4 mg/dL (0.55-1.3); MAGNESIUM 1.9 mg/dL (1.8-2.4); PHOSPHOROUS 4.2 mg/dL (2.5-4.9); POTASSIUM 4.4 mmol/L (3.5-5.1); TOT PROT 4.8 g/dl (6.4-8.2)
[2019-07-30] MEDS ORDERED: PT OWN MED DRAWER 7, Y5N ONE (11:46)
--- NOTE | 2019-07-30 12:18 | PN ---
Progress Note (short form) - Note Progress Note: Still with shortness of breath, cough, and wheezing with minimal movement but slightly better. 210 cc 24 hour chest tube output, from midnight documented only 10 to 15 cc. Intake & Output 07/27/19 07/28/19 07/29/19 07/30/19 23:59 23:59 23:59 23:59 Intake Total 497 398 8583 0 Output Total 1500 595 610 200 Balance -800 105 490 -200 Last Vital Signs Temp Pulse Resp BP Pulse Ox 98.2 F 98 H 20 163/98 98 07/30/19 03:00 07/30/19 03:00 07/30/19 03:00 07/30/19 03:00 07/30/19 07:36 Active Medications Albuterol Sulfate (Ventolin 0.083% Nebulizer Soln -) 1 amp NEB Q4H PRN PRN Reason: SHORT OF BREATH/WHEEZING Albuterol/Ipratropium (Duoneb -) 1 amp NEB RQID [facility] Last Admin: 07/30/19 07:37 Dose: 1 amp Atorvastatin Calcium (Lipitor -) 10 mg PO HS [facility] Last Admin: 07/29/19 21:45 Dose: 10 mg Docusate Sodium (Colace -) 100 mg PO BID [facility] Donepezil HCl (Aricept -) 5 mg PO DAILY [facility] Last Admin: 07/29/19 10:36 Dose: 5 mg Folic Acid (Folic Acid -) 1 mg PO DAILY [facility] Last Admin: 07/29/19 10:36 Dose: 1 mg Guaifenesin (Robitussin Dm -) 10 ml PO Q6H PRN PRN Reason: COUGH Last Admin: 07/30/19 10:57 Dose: 10 ml Melatonin (Melatonin) 3 mg PO HS [facility] Last Admin: 07/29/19 22:48 Dose: 3 mg Methylprednisolone Sodium Succinate (Solu-Medrol -) 60 mg IVPUSH Q8H-IV [facility] Last Admin: 07/30/19 01:35 Dose: 60 mg Metoprolol Succinate (Toprol Xl -) 100 mg PO DAILY [facility] Last Admin: 07/29/19 10:37 Dose: 100 mg Morphine Sulfate (Morphine Sulfate) 4 mg IVPUSH Q4H PRN PRN Reason: PAIN LEVEL 6-10 Last Admin: 07/29/19 18:57 Dose: 4 mg Nicotine (Nicoderm Patch -) 21 mg TD DAILY [facility] Last Admin: 07/29/19 10:35 Dose: 21 mg Pantoprazole Sodium (Protonix -) 40 mg PO DAILY [facility] Last Admin: 07/29/19 10:36 Dose: 40 mg Polyethylene Glycol (Miralax (For Daily Use) -) 17 gm PO DAILY [facility] Last Admin: 07/29/19 11:00 Dose: 17 grams Polyethylene Glycol (Miralax (For Daily Use) -) 17 gm PO DAILY [facility] Ranitidine HCl (Zantac -) 150 mg PO DAILY [facility] Last Admin: 07/29/19 10:36 Dose: 150 mg Senna (Senna -) 1 tab PO BID [facility] Last Admin: 07/29/19 21:45 Dose: 1 tab Thiamine HCl (Vitamin B1 -) 100 mg PO DAILY [facility] Last Admin: 07/29/19 10:37 Dose: 100 mg Gen: Awake and alert, tachypneic at rest Heart: RRR Lung: bilateral rhonchi, wheezes, Left pleural tube intact Abd: soft, nontender Ext: no edema Chest tube: serosanguinous fluid, no air leak Laboratory Results - last 24 hr 07/30/19 07/30/19 06:45 06:45 WBC 27.3 H RBC 3.55 L Hgb 11.2 L Hct 33.9 L MCV 95.4 MCH 31.5 MCHC 33.0 RDW 16.0 H Plt Count 118 L MPV 8.9 Absolute Neuts (auto) 26.2 H Neutrophils % 96.1 H Lymphocytes % 1.0 L Monocytes % 2.3 L Eosinophils % 0.3 Basophils % 0.3 Nucleated RBC % 0 Sodium 142 Potassium 4.4 Chloride 99 Carbon Dioxide 35 H Anion Gap 8 BUN 21.6 H Creatinine 0.4 L Est GFR (CKD-EPI)AfAm 148.58 Est GFR (CKD-EPI)NonAf 128.19 Random Glucose 129 H Calcium 8.4 L Phosphorus 4.2 Magnesium 1.9 Total Bilirubin 0.6 AST 15 ALT 43 Alkaline Phosphatase 81 Total Protein 4.8 L Albumin 1.6 L Problem List - Problems (1) COPD exacerbation Code(s): J44.1 - CHRONIC OBSTRUCTIVE PULMONARY DISEASE W (ACUTE) EXACERBATION (2) Lung cancer Code(s): C34.90 - MALIGNANT NEOPLASM OF UNSP PART OF UNSP BRONCHUS OR LUNG (3) Pleural effusion Code(s): J90 - PLEURAL EFFUSION, NOT ELSEWHERE CLASSIFIED A/P Acute COPD Exacerbation Metastatic NSCLC Pleural Effusions likely malignant CAD Parkinsons HTN Hyperlipidemia - Check CXR in AM: pleural catheter may be malpositioned - Pleural catheter to be flushed for patency - continue medrol - inhaled bronchodilators standing and PRN - O2 to keep SpO2 >90% - monitor chest tube output, on low wall suction - BiPAP as needed to assist in work of breathing - DVT prophylaxis - DNR/DNI - If further significant pleural drainage can consider PleureX catheter insertion Dr Simmons
[2019-07-30] MEDS: DONEPEZIL HCL 5 MG TABLET (FP) PO SCH (12:22)
[2019-07-30] MEDS: RANITIDINE HCL 150 MG TABLET (FP) PO SCH (12:22)
[2019-07-30] MEDS: PANTOPRAZOLE 40 MG TABLET (FP) PO SCH (12:24)
[2019-07-30] MEDS: FOLIC ACID 1 MG TABLET (FP) PO SCH (12:24)
[2019-07-30] MEDS: SENNOSIDES 8.6MG TABLET (FP) PO SCH ×2 (12:24→21:29)
[2019-07-30] MEDS: THIAMINE HCL 100 MG TABLET (FP) PO SCH (12:25)
[2019-07-30] MEDS: POLYETHYLENE GLYCOL 3350 119 GM BTL PO SCH ×2 (12:26→12:31)
[2019-07-30] MEDS: NICOTINE 21 MG/24 HOURS TOPICAL PATCH TD SCH (12:31)
[2019-07-30 13:00] LABS: ANISOCYTOSIS 1+; MACROCYTOSIS 0; OVALOCYTE 1+; PLATELET ESTIMATE DECREASED; TEAR DROP CELLS 1+
--- NOTE | 2019-07-30 13:45 | PN ---
Progress Note (short form) - Note Progress Note: Seen in follow up. No new complaints this morning - but reports ongoing dyspnea and pain at drain site. Denies cough. Meds reviewed. Current Medications Albuterol Sulfate (Ventolin 0.083% Nebulizer Soln -) 1 amp NEB Q4H PRN PRN Reason: SHORT OF BREATH/WHEEZING Albuterol/Ipratropium (Duoneb -) 1 amp NEB RQID [facility] Last Admin: 07/30/19 12:44 Dose: 1 amp Atorvastatin Calcium (Lipitor -) 10 mg PO HS [facility] Last Admin: 07/29/19 21:45 Dose: 10 mg Docusate Sodium (Colace -) 100 mg PO BID [facility] Donepezil HCl (Aricept -) 5 mg PO DAILY [facility] Last Admin: 07/30/19 12:22 Dose: 5 mg Folic Acid (Folic Acid -) 1 mg PO DAILY [facility] Last Admin: 07/30/19 12:24 Dose: 1 mg Guaifenesin (Robitussin Dm -) 10 ml PO Q4H PRN PRN Reason: COUGH Melatonin (Melatonin) 3 mg PO HS [facility] Last Admin: 07/29/19 22:48 Dose: 3 mg Methylprednisolone Sodium Succinate (Solu-Medrol -) 60 mg IVPUSH Q8H-IV [facility] Last Admin: 07/30/19 12:25 Dose: 60 mg Metoprolol Succinate (Toprol Xl -) 100 mg PO DAILY [facility] Last Admin: 07/30/19 12:25 Dose: 100 mg Morphine Sulfate (Morphine Sulfate) 4 mg IVPUSH Q4H PRN PRN Reason: PAIN LEVEL 6-10 Last Admin: 07/29/19 18:57 Dose: 4 mg Nicotine (Nicoderm Patch -) 21 mg TD DAILY [facility] Last Admin: 07/30/19 12:31 Dose: 21 mg Pantoprazole Sodium (Protonix -) 40 mg PO DAILY [facility] Last Admin: 07/30/19 12:24 Dose: 40 mg Polyethylene Glycol (Miralax (For Daily Use) -) 17 gm PO DAILY [facility] Last Admin: 07/30/19 12:26 Dose: 17 grams Polyethylene Glycol (Miralax (For Daily Use) -) 17 gm PO DAILY [facility] Last Admin: 07/30/19 12:31 Dose: Not Given Ranitidine HCl (Zantac -) 150 mg PO DAILY [facility] Last Admin: 07/30/19 12:22 Dose: 150 mg Senna (Senna -) 1 tab PO BID [facility] Last Admin: 07/30/19 12:24 Dose: 1 tab Thiamine HCl (Vitamin B1 -) 100 mg PO DAILY [facility] Last Admin: 07/30/19 12:25 Dose: 100 mg Examination: Last Vital Signs Temp Pulse Resp BP Pulse Ox 97.6 F 123 H 20 155/96 99 07/30/19 13:21 07/30/19 13:21 07/30/19 13:21 07/30/19 13:21 07/30/19 09:00 General: Sitting up in bed, dyspneic, NC Extremities: no swelling Chest: air entry bilaterally, diffuse crackles, ICD left side Abdomen: Soft, no organomegaly, no masses. Neuro: Alert, oriented, non-focal. CVS: Normal sinus rhythm, S1, S2, no gallop or murmur. Labs reviewed: CBC, BMP 07/30/19 06:45 07/30/19 06:45 Assessment. Metastatic NSCLC, with extensive lung involvement, admitted with hypoxic respiratory failure. L pleural effusion s/p ICD, and recent pneumonia. Performance status is poor - ongoing supportive care, in hope of improving PS to point that he can be discharged, and start immunotherapy - is a candidate for PDL1-sae. Situation tenuous.
--- NOTE | 2019-07-30 14:16 | PN ---
Progress Note (short form) - Note Progress Note: SUBJECTIVE: Intermittent dyspnea, generally improving s/p chest tube. No fever/ chills. Pain adequately controlled. Large BM yesterday. OBJECTIVE: Afebrile, hemodynamically Stable. L chest tube still draining - approx 210ml in 24 hrs. Last Vital Signs Temp Pulse Resp BP Pulse Ox 97.6 F 123 H 20 155/96 99 07/30/19 13:21 07/30/19 13:21 07/30/19 13:21 07/30/19 13:07/30/19 09:00 Heart - S1 S2, RRR Lungs - bilateral crackles/wheeze. s/p L Chest tube Abdomen - Soft, mild distended, mild generalized tenderness. Bowel Sounds normal. Extremities - no edema, no calf tenderness. Laboratory Results - last 24 hr 07/30/19 07/30/19 06:45 06:45 WBC 27.3 H RBC 3.55 L Hgb 11.2 L Hct 33.9 L MCV 95.4 MCH 31.5 MCHC 33.0 RDW 16.0 H Plt Count 118 L MPV 8.9 Absolute Neuts (auto) 26.2 H Neutrophils % 96.1 H Neutrophils % (Manual) 81.6 Band Neutrophils % 12.3 Lymphocytes % 1.0 L Lymphocytes % (Manual) 0.0 L Monocytes % 2.3 L Monocytes % (Manual) 1 L Eosinophils % 0.3 Eosinophils % (Manual) 0.0 Basophils % 0.3 Basophils % (Manual) 0.0 Myelocytes % (Man) 2 D Promyelocytes % (Man) 0 Blast Cells % (Manual) 0 Nucleated RBC % 0 Metamyelocytes 0 D Hypochromia 0 Platelet Estimate Decreased Platelet Comment Present Polychromasia 1+ Poikilocytosis 1+ Anisocytosis 1+ Microcytosis 1+ Macrocytosis 0 Spherocytes 1+ Tear Drop Cells 1+ Ovalocytes 1+ Ben Cells 1+ Acanthocytes (Spur) 1+ Sodium 142 Potassium 4.4 Chloride 99 Carbon Dioxide 35 H Anion Gap 8 BUN 21.6 H Creatinine 0.4 L Est GFR (CKD-EPI)AfAm 148.58 Est GFR (CKD-EPI)NonAf 128.19 Random Glucose 129 H Calcium 8.4 L Phosphorus 4.2 Magnesium 1.9 Total Bilirubin 0.6 AST 15 ALT 43 Alkaline Phosphatase 81 Total Protein 4.8 L Albumin 1.6 L Current Medications Generic Name Dose Route Start Last Admin Trade Name Freq PRN Reason Stop Dose Admin Albuterol Sulfate 1 amp 07/25/19 11:09 Ventolin 0.083% Nebulizer Soln - NEB Q4H PRN SHORT OF BREATH/WHEEZING Albuterol/Ipratropium 1 amp 07/25/19 12:00 07/30/19 12:44 Duoneb - NEB 1 amp RQID [facility] Administration Atorvastatin Calcium 10 mg 07/21/19 22:00 07/29/19 21:45 Lipitor - PO 10 mg HS [facility] Administration Docusate Sodium 100 mg 07/30/19 22:00 Colace - PO BID [facility] Donepezil HCl 5 mg 07/22/19 10:00 07/30/19 12:22 Aricept - PO 5 mg DAILY [facility] Administration Folic Acid 1 mg 07/22/19 10:00 07/30/19 12:24 Folic Acid - PO 1 mg DAILY [facility] Administration Guaifenesin 10 ml 07/30/19 13:08 Robitussin Dm - PO Q4H PRN COUGH Melatonin 3 mg 07/24/19 22:00 07/29/19 22:48 Melatonin PO 3 mg HS [facility] Administration Methylprednisolone Sodium Succinate 60 mg 07/26/19 13:00 07/30/19 12:25 Solu-Medrol - IVPUSH 60 mg Q8H-IV [facility] Administration Metoprolol Succinate 100 mg 07/22/19 10:00 07/30/19 12:25 Toprol Xl - PO 100 mg DAILY [facility] Administration Morphine Sulfate 4 mg 07/29/19 17:52 07/29/19 18:57 Morphine Sulfate IVPUSH 4 mg Q4H PRN Administration PAIN LEVEL 6-10 Nicotine 21 mg 07/22/19 16:00 07/30/19 12:31 Nicoderm Patch - TD 21 mg DAILY [facility] Administration Pantoprazole Sodium 40 mg 07/22/19 10:00 07/30/19 12:24 Protonix - PO 40 mg DAILY [facility] Administration Polyethylene Glycol 17 gm 07/26/19 11:00 07/30/19 12:26 Miralax (For Daily Use) - PO 17 grams DAILY [facility] Administration Polyethylene Glycol 17 gm 07/30/19 10:15 07/30/19 12:31 Miralax (For Daily Use) - PO Not Given DAILY [facility] Ranitidine HCl 150 mg 07/22/19 10:00 07/30/19 12:22 Zantac - PO 150 mg DAILY [facility] Administration Senna 1 tab 07/25/19 10:00 07/30/19 12:24 Senna - PO 1 tab BID [facility] Administration Thiamine HCl 100 mg 07/22/19 10:00 07/30/19 12:25 Vitamin B1 - PO 100 mg DAILY [facility] Administration Home Medications Medication Instructions Recorded Folic Acid 1 mg PO DAILY #14 tablet 09/29/17 Ranitidine HCl [Zantac] 150 mg PO DAILY #14 tablet 09/29/17 Thiamine HCl [Vitamin B1 -] 100 mg PO DAILY #14 tablet 09/29/17 Atorvastatin Ca [Lipitor] 10 mg PO HS 12/14/18 Cholecalciferol (Vitamin D3) 1,000 mg PO DAILY 12/14/18 [Vitamin D -] Pantoprazole Sodium [Protonix -] 40 mg PO DAILY #120 tablet.ec 05/24/19 Acetaminophen [Tylenol] 650 mg PO Q4H #30 capsule 07/06/19 Cyclobenzaprine HCl 5 mg PO HS #10 tablet 07/06/19 Donepezil HCl 5 mg PO DAILY 07/06/19 Metoprolol Succinate [Toprol XL -] 100 mg PO DAILY 07/06/19 Aspirin [ASA -] 81 mg PO DAILY tab.chew 07/20/19 Azithromycin 500 mg PO DAILY 3 Days #3 tablet 07/20/19 Cefuroxime Axetil [Ceftin -] 500 mg PO Q12H 3 Days #6 tablet 07/20/19 Dexamethasone [Decadron -] See Taper PO Q6H 8 Days #64 tablet 07/20/19 Levothyroxine [Synthroid -] 25 mcg PO DAILY 30 Days #30 tablet 07/20/19 ASSESSMENT AND PLAN: 59 year old male with history of Dementia, HTN, CVA, CKD 3, Parkinson's disease , Lung Ca (Squamous Cell) with mets to bilateral lungs, adrenals, brain, bone, presents with SOB. he had recent hospitalization for PNA, discharged on 07/20 and returned due to dyspnea and hypoxia. 1. Acute Hypoxic Respiratory Failure due to advancing Metastatic Lung Ca with bilateral Pleural effusion L>R and Acute COPD Exacerbation Completed Abx course for recently diagnosed Pneumonia with Ceftin and Azithromycin. CTA - no PE, extensive metastatic disease, loculated L sided pleural effusion. s/p RTx - seen by Rad Onc - not a candidate for further RTx unless there is impending airway compromise. Seen by Pulmonary - s/p Thoracostomy tube for loculated L pleural effusion - still draining, exudative on biochemistry, awaiting final cytology report. Decision to transition to PleurX as per Pulm. CXR shows mild decrease in L pleural effusion - for repeat in AM. Pulm to comment on utility of PleurX catheter. Declines/unable to tolerate BiPAP at night. Continue Supplemental O2. IV Decadron transitioned to Solumedrol by Pulm (leukocytosis secondary to steroid) Continue Bronchodilator Nebs Thoracentesis Fluid Cx negative, Cytology pending Oncology following - for consideration of trial of Pembrolizumab if clinically improved and able to be discharged. Poor prognosis - Palliative Care following - for possible Hospice/SNF but patient is insistent on discharge home. 2. constipation sec to Opiates No nausea/vomiting/diarrhea AXR confirmed retained stool Large bowel movement s/p enema Bowel regimen intensified - colace, Senna, Miralax and repeat enema today. 3. Low TSH - TSH 0.02. Synthroid held. For repeat TSH levels as out-patient in 3 weeks. 4. AAA - 3 x 2.1cm - for outpatient follow up 5. CKD 3 - Stable. 6. HTN - Continue Metoprolol 7. Parkinson's Disease - on Cyclobenzaprine. 8. Dementia - on Donepezil. 9. Hx CVA/HLD - on ASA/Statin. DVT Px - Heparin SQ GI Px - on PPI and H2 sae. Code Status: DNR/DNI. Given advanced disease and poor prognosis, palliative care consult requested for bridge to hospice. Visit type - Emergency Visit Emergency Visit: Yes ED Registration Date: 07/21/19 Care time: The patient presented to the Emergency Department on the above date and was hospitalized for further evaluation of their emergent condition. - New Patient This patient is new to me today: No - Critical Care Critical Care patient: No - Discharge Referral Referred to [facility] No
[2019-07-30] MEDS: morphine SULFATE 4 MG/ML VIAL IVPUSH PRN (19:04)
[2019-07-30] MEDS: ATORVASTATIN CA 10 MG TABLET (FP) PO SCH (21:28)
[2019-07-30] MEDS: MELATONIN 1 MG TABLET PO SCH (21:28)
[2019-07-30] MEDS: DOCUSATE SODIUM 100 MG CAPSULE (FP) PO SCH (21:29)
[2019-07-31] MEDS: methylPREDNISolone NA SUCC 40 MG/1 ML VIAL IVPUSH SCH ×2 (01:26→09:02)
[2019-07-31] MEDS: morphine SULFATE 4 MG/ML VIAL IVPUSH PRN ×2 (08:50→18:04)
[2019-07-31] MEDS: POLYETHYLENE GLYCOL 3350 119 GM BTL PO SCH (09:00)
[2019-07-31] MEDS: PANTOPRAZOLE 40 MG TABLET (FP) PO SCH (09:01)
[2019-07-31] MEDS: DONEPEZIL HCL 5 MG TABLET (FP) PO SCH (09:01)
[2019-07-31] MEDS: SENNOSIDES 8.6MG TABLET (FP) PO SCH ×2 (09:01→22:08)
[2019-07-31] MEDS: NICOTINE 21 MG/24 HOURS TOPICAL PATCH TD SCH (09:01)
[2019-07-31] MEDS: RANITIDINE HCL 150 MG TABLET (FP) PO SCH (09:01)
[2019-07-31] MEDS: FOLIC ACID 1 MG TABLET (FP) PO SCH (09:01)
[2019-07-31] MEDS: THIAMINE HCL 100 MG TABLET (FP) PO SCH (09:02)
[2019-07-31] MEDS: DOCUSATE SODIUM 100 MG CAPSULE (FP) PO SCH ×2 (09:02→22:08)
--- NOTE | 2019-07-31 10:22 | PN ---
Progress Note (short form) - Note Progress Note: Appears less tachypneic. Feels better is a little better but still with shortness of breath with minimal movement. 10 cc reported chest tube output. Catheter was flushed yesterday. Intake & Output 07/28/19 07/29/19 07/30/19 07/31/19 23:59 23:59 23:59 23:59 Intake Total 700 1100 0 0 Output Total 504 257 7937 Balance 105 490 -1010 0 Last Vital Signs Temp Pulse Resp BP Pulse Ox 98.2 F 115 H 20 104/64 98 07/31/19 08:55 07/31/19 08:55 07/31/19 08:55 07/31/19 08:55 07/30/19 21:00 Active Medications Albuterol Sulfate (Ventolin 0.083% Nebulizer Soln -) 1 amp NEB Q4H PRN PRN Reason: SHORT OF BREATH/WHEEZING Albuterol/Ipratropium (Duoneb -) 1 amp NEB RQID [facility] Last Admin: 07/30/19 19:50 Dose: 1 amp Atorvastatin Calcium (Lipitor -) 10 mg PO HS [facility] Last Admin: 07/30/19 21:28 Dose: 10 mg Docusate Sodium (Colace -) 100 mg PO BID [facility] Last Admin: 07/31/19 09:02 Dose: 100 mg Donepezil HCl (Aricept -) 5 mg PO DAILY [facility] Last Admin: 07/31/19 09:01 Dose: 5 mg Folic Acid (Folic Acid -) 1 mg PO DAILY [facility] Last Admin: 07/31/19 09:01 Dose: 1 mg Guaifenesin (Robitussin Dm -) 10 ml PO Q4H PRN PRN Reason: COUGH Last Admin: 07/30/19 18:55 Dose: 10 ml Melatonin (Melatonin) 3 mg PO [facility] Last Admin: 07/30/19 21:28 Dose: 3 mg Methylprednisolone Sodium Succinate (Solu-Medrol -) 60 mg IVPUSH Q8H-IV [facility] Last Admin: 07/31/19 09:02 Dose: 60 mg Metoprolol Succinate (Toprol Xl -) 100 mg PO DAILY [facility] Last Admin: 07/31/19 09:01 Dose: 100 mg Morphine Sulfate (Morphine Sulfate) 4 mg IVPUSH Q4H PRN PRN Reason: PAIN LEVEL 6-10 Last Admin: 07/31/19 08:50 Dose: 4 mg Nicotine (Nicoderm Patch -) 21 mg TD DAILY [facility] Last Admin: 07/31/19 09:01 Dose: 21 mg Pantoprazole Sodium (Protonix -) 40 mg PO DAILY [facility] Last Admin: 07/31/19 09:01 Dose: 40 mg Polyethylene Glycol (Miralax (For Daily Use) -) 17 gm PO DAILY [facility] Last Admin: 07/31/19 09:00 Dose: 17 grams Ranitidine HCl (Zantac -) 150 mg PO DAILY [facility] Last Admin: 07/31/19 09:01 Dose: 150 mg Senna (Senna -) 1 tab PO BID [facility] Last Admin: 07/31/19 09:01 Dose: 1 tab Thiamine HCl (Vitamin B1 -) 100 mg PO DAILY [facility] Last Admin: 07/31/19 09:02 Dose: 100 mg Gen: Awake and alert, Less tachypneic at rest Heart: RRR Lung: bilateral rhonchi, no wheezes, Left pleural tube intact Abd: soft, nontender Ext: no edema Chest tube: serosanguinous fluid, no air leak Laboratory Results - last 24 hr 07/30/19 06:45 Neutrophils % (Manual) 81.6 Band Neutrophils % 12.3 Lymphocytes % (Manual) 0.0 L Monocytes % (Manual) 1 L Eosinophils % (Manual) 0.0 Basophils % (Manual) 0.0 Myelocytes % (Man) 2 D Promyelocytes % (Man) 0 Blast Cells % (Manual) 0 Metamyelocytes 0 D Hypochromia 0 Platelet Estimate Decreased Platelet Comment Present Polychromasia 1+ Poikilocytosis 1+ Anisocytosis 1+ Microcytosis 1+ Macrocytosis 0 Spherocytes 1+ Tear Drop Cells 1+ Ovalocytes 1+ Toivola Cells 1+ Acanthocytes (Spur) 1+ Problem List - Problems (1) COPD exacerbation Code(s): J44.1 - CHRONIC OBSTRUCTIVE PULMONARY DISEASE W (ACUTE) EXACERBATION (2) Lung cancer Code(s): C34.90 - MALIGNANT NEOPLASM OF UNSP PART OF UNSP BRONCHUS OR LUNG (3) Pleural effusion Code(s): J90 - PLEURAL EFFUSION, NOT ELSEWHERE CLASSIFIED A/P Acute COPD Exacerbation Metastatic NSCLC Pleural Effusions likely malignant CAD Parkinsons HTN Hyperlipidemia - Check CXR: pleural catheter may be malpositioned so either needs to be re- positioned or removed - Can change medrol to Prednisone 40mg PO OD - inhaled bronchodilators standing and PRN - O2 to keep SpO2 >90% - BiPAP as needed to assist in work of breathing - DVT prophylaxis - DNR/DNI - If further significant pleural drainage can consider PleureX catheter insertion Dr Simmons
[2019-07-31] MEDS: ALBUTEROL SO4 2.5/IPRATROPIUM 0.5 INH SOL 3 ML VIAL.NEB. NEB SCH ×2 (11:05→20:30)
[2019-07-31] MEDS: predniSONE 20 MG TABLET (UD) PO SCH (13:42)
--- NOTE | 2019-07-31 15:52 | PN ---
Physical Exam: SUBJECTIVE: 59 y/o M w PMH metastatic non-small cell lung cancer (adenocarcinoma , metastasis to contralateral lung, brain, adrenals and bone), COPD, hypertension, hyperlipidemia, CVA, coronary artery disease, Parkinson's Disease presented to the hospital for progressive shortness of breath, chest pain and abdominal pain. Pt seen at bedside today. Thoracostomy in place on LEFT. 77cc in thoracostomy drain. Pt slept well, still in pain, but relieved with morphine. Pt passed BM again successfully. OBJECTIVE: Vital Signs Period Temp Pulse Resp BP Sys/Blair Pulse Ox Last 24 Hr 97.8 F-98.2 F 85-115 18-20 104-154/64-95 96-98 GENERAL: A&Ox3, in no acute distress, cachectic, chest tube in place, on humidified NC 5L o2. HEAD: NCAT Alopecic area over LEFT parietal region of scalp poss EYES: LEOLA, EOMI ENT: Moist mucus membranes NECK: No JVD, no lymphadenopathy palpated CHEST: Small, hard chest wall nodule noted just lateral to midline around 2nd L intercostal space, nontender. Chest tube in place on LEFT LUNGS: Decreased air entry to base. Left upper lobe and right lower lobe wheezing, no rales or rhonchi HEART: Mildly tachycardic, no murmurs auscultated ABDOMEN: Soft, nontender, bs present EXTREMITIES: 2+ pulses, no edema. NEUROLOGICAL: Cranial nerves II-XII grossly intact. mild diffuse weakness noted - 4/5 muscle strength throughout, sensation intact Active Medications Albuterol Sulfate (Ventolin 0.083% Nebulizer Soln -) 1 amp NEB Q4H PRN PRN Reason: SHORT OF BREATH/WHEEZING Albuterol/Ipratropium (Duoneb -) 1 amp NEB RQID [facility] Last Admin: 07/31/19 20:30 Dose: 1 amp Atorvastatin Calcium (Lipitor -) 10 mg PO HS [facility] Last Admin: 07/31/19 22:08 Dose: 10 mg Docusate Sodium (Colace -) 100 mg PO BID [facility] Last Admin: 07/31/19 22:08 Dose: 100 mg Donepezil HCl (Aricept -) 5 mg PO DAILY [facility] Last Admin: 07/31/19 09:01 Dose: 5 mg Folic Acid (Folic Acid -) 1 mg PO DAILY [facility] Last Admin: 07/31/19 09:01 Dose: 1 mg Guaifenesin (Robitussin Dm -) 10 ml PO Q4H PRN PRN Reason: COUGH Last Admin: 07/31/19 21:14 Dose: 10 ml Melatonin (Melatonin) 3 mg PO HS [facility] Last Admin: 07/31/19 22:08 Dose: 3 mg Metoprolol Succinate (Toprol Xl -) 100 mg PO DAILY [facility] Last Admin: 07/31/19 09:01 Dose: 100 mg Morphine Sulfate (Morphine Sulfate) 4 mg IVPUSH Q4H PRN PRN Reason: PAIN LEVEL 6-10 Last Admin: 07/31/19 18:04 Dose: 4 mg Nicotine (Nicoderm Patch -) 21 mg TD DAILY [facility] Last Admin: 07/31/19 09:01 Dose: 21 mg Pantoprazole Sodium (Protonix -) 40 mg PO DAILY [facility] Last Admin: 07/31/19 09:01 Dose: 40 mg Polyethylene Glycol (Miralax (For Daily Use) -) 17 gm PO DAILY [facility] Last Admin: 07/31/19 09:00 Dose: 17 grams Prednisone (Deltasone -) 40 mg PO DAILY [facility] Last Admin: 07/31/19 13:42 Dose: Not Given Ranitidine HCl (Zantac -) 150 mg PO DAILY [facility] Last Admin: 07/31/19 09:01 Dose: 150 mg Senna (Senna -) 1 tab PO BID [facility] Last Admin: 07/31/19 22:08 Dose: 1 tab Thiamine HCl (Vitamin B1 -) 100 mg PO DAILY [facility] Last Admin: 07/31/19 09:02 Dose: 100 mg ASSESSMENT/PLAN: 59 y/o M w PMH metastatic non-small cell lung cancer (adenocarcinoma, metastasis to contralateral lung, brain, adrenals and bone), COPD, hypertension , hyperlipidemia, CVA, coronary artery disease, Parkinson's Disease. Recent hospitalization for PNA and was discharged on Jul 20, 2019 and returned due to dyspnea 2/2 non-compliance with medications. # Acute hypoxic respiratory failure d/t advancing metastatic lung ca with bilateral pleural effusion L>R - CXR ordered to assess effussion and chest tube placement - F/u CXR: pleural catheter may be malpositioned so either needs to be re- positioned or removed - If further significant pleural drainage can consider PleureX catheter insertion - STOP IV solumedrol, START 40 mg prednisone as steroid for lymphatic support rather than treatment of pulmonary bronchospasm - CTA: No PE, extensive metastatic disease, loculated LEFT sided pleural effusion. - S/p abx course for recently dx PNA with ceftin and azithromycin. - S/p RTx - Rad/onc consulted: Not a candidate for further RTx unless there is impending airway compromise. - Pulmonary consulted: Thoracostomy tube placed for loculated LEFT pleural effusion - Thoracentesis fluid: Exudative, f/u Cx/Cytology - CXR: Mild decrease in LEFT pleural effusion. - BiPAP at night. Needs Supplemental O2. - Cont. bronchodilator nebs - Keytruda given high PDL1 expression - Pts primary oncologist, Dr. Tompkins, will follow-up re- GOC discussions: consideration of trial of Pembrolizumab if clinically improved and able to be dc - Palliative care consulted - Pulm consulted # Low TSH - TSH 0.02 - Hold synthroid - Repeat TFT in 6 weeks # AAA - 3x2.1 cm aneurysm - Out-pt f/u # Nicotine dependence - Counselled on need for abstinence as contributing to symptoms - Pt agrees to quit. He will cont. with patches. # CVA - Cont. home meds # CKD - Cont. home meds # Parkinson's disease - Cyclobenzaprine # Dementia - Donepezil # F/E/N - No standing fluids - Cont. to monitor electrolytes - Low sodium diet # DVT prophylaxis - Heparin # Disposition - DNR/DNI. - Possible Hospice/SNF but patient is insistent on discharge home Earl Delacruz MD Visit type - Emergency Visit Emergency Visit: No - New Patient This patient is new to me today: No - Critical Care Critical Care patient: No - Discharge Referral Referred to [facility] No ATTENDING PHYSICIAN STATEMENT I saw and evaluated the patient. I reviewed the resident's note and discussed the case with the resident. I agree with the resident's findings and plan as documented. SUBJECTIVE: OBJECTIVE: ASSESSMENT AND PLAN:
--- NOTE | 2019-07-31 17:55 | PN ---
Teaching Attending Note Name of Resident: Earl Delacruz ATTENDING PHYSICIAN STATEMENT I saw and evaluated the patient. I reviewed the resident's note and discussed the case with the resident. I agree with the resident's findings and plan as documented. SUBJECTIVE: Intermittent dyspnea, generally improving, less SOB. s/p Chest Tube. No fever/chills. Pain adequately controlled. Successful BM yesterday. OBJECTIVE: Afebrile, hemodynamically Stable. L chest tube draining minimal amounts. Last Vital Signs Temp Pulse Resp BP Pulse Ox 98.1 F 104 H 20 125/77 97 07/31/19 17:12 07/31/19 17:12 07/31/19 17:12 07/31/19 17:12 07/31/19 11:00 Heart - S1 S2, RRR Lungs - bilateral crackles/wheeze. s/p L Chest tube Abdomen - Soft, mild distended, mild generalized tenderness. Bowel Sounds normal. Extremities - no edema, no calf tenderness. Current Medications Generic Name Dose Route Start Last Admin Trade Name Freq PRN Reason Stop Dose Admin Albuterol Sulfate 1 amp 07/25/19 11:09 Ventolin 0.083% Nebulizer Soln - NEB Q4H PRN SHORT OF BREATH/WHEEZING Albuterol/Ipratropium 1 amp 07/25/19 12:00 07/31/19 11:05 Duoneb - NEB 1 amp RQID [facility] Administration Atorvastatin Calcium 10 mg 07/21/19 22:00 07/30/19 21:28 Lipitor - PO 10 mg HS [facility] Administration Docusate Sodium 100 mg 07/30/19 22:00 07/31/19 09:02 Colace - PO 100 mg BID [facility] Administration Donepezil HCl 5 mg 07/22/19 10:00 07/31/19 09:01 Aricept - PO 5 mg DAILY [facility] Administration Folic Acid 1 mg 07/22/19 10:00 07/31/19 09:01 Folic Acid - PO 1 mg DAILY [facility] Administration Guaifenesin 10 ml 07/30/19 13:08 07/30/19 18:55 Robitussin Dm - PO 10 ml Q4H PRN Administration COUGH Melatonin 3 mg 07/24/19 22:00 07/30/19 21:28 Melatonin PO 3 mg HS [facility] Administration Metoprolol Succinate 100 mg 07/22/19 10:00 07/31/19 09:01 Toprol Xl - PO 100 mg DAILY [facility] Administration Morphine Sulfate 4 mg 07/29/19 17:52 07/31/19 08:50 Morphine Sulfate IVPUSH 4 mg Q4H PRN Administration PAIN LEVEL 6-10 Nicotine 21 mg 07/22/19 16:00 07/31/19 09:01 Nicoderm Patch - TD 21 mg DAILY [facility] Administration Pantoprazole Sodium 40 mg 07/22/19 10:00 07/31/19 09:01 Protonix - PO 40 mg DAILY [facility] Administration Polyethylene Glycol 17 gm 07/30/19 10:15 07/31/19 09:00 Miralax (For Daily Use) - PO 17 grams DAILY [facility] Administration Prednisone 40 mg 07/31/19 10:30 07/31/19 13:42 Deltasone - PO Not Given DAILY [facility] Ranitidine HCl 150 mg 07/22/19 10:00 07/31/19 09:01 Zantac - PO 150 mg DAILY [facility] Administration Senna 1 tab 07/25/19 10:00 07/31/19 09:01 Senna - PO 1 tab BID [facility] Administration Thiamine HCl 100 mg 07/22/19 10:00 07/31/19 09:02 Vitamin B1 - PO 100 mg DAILY [facility] Administration ASSESSMENT AND PLAN: 59 year old male with history of Dementia, HTN, CVA, CKD 3, Parkinson's disease , Lung Ca (Squamous Cell) with mets to bilateral lungs, adrenals, brain, bone, presents with SOB. he had recent hospitalization for PNA, discharged on 07/20 and returned due to dyspnea and hypoxia. 1. Acute Hypoxic Respiratory Failure due to advancing Metastatic Lung Ca with bilateral Pleural effusion L>R and Acute COPD Exacerbation Completed Abx course for recently diagnosed Pneumonia with Ceftin and Azithromycin. CTA - no PE, extensive metastatic disease, loculated L sided pleural effusion. s/p RTx - seen by Rad Onc - not a candidate for further RTx unless there is impending airway compromise. Seen by Pulmonary - s/p Thoracostomy tube for loculated L pleural effusion - still draining, exudative on biochemistry, Cx negative, awaiting final cytology report. CXR shows mild decrease in L pleural effusion - for repeat CXR today. Pulm to comment on removal/repositioning of CT versus need for PleurX catheter. Declines/unable to tolerate BiPAP at night. Continue Supplemental O2. Steroids transitioned to oral Prednisone 40mg to continue chronically. Continue Bronchodilator Nebs Oncology following - for consideration of trial of Pembrolizumab if clinically improved and able to be discharged. Poor prognosis - Palliative Care following - for possible Hospice/SNF but patient is insistent on discharge home. 2. Constipation sec to Opiates - improving with current bowel regimen and s/p enema x 2. If continues, may be a candidate for relistor. 3. Low TSH - TSH 0.02. Synthroid held. For repeat TSH levels as out-patient in 3 weeks. 4. AAA - 3 x 2.1cm - for outpatient follow up 5. CKD 3 - Stable. 6. HTN - Continue Metoprolol 7. Parkinson's Disease - on Cyclobenzaprine. 8. Dementia - on Donepezil. 9. Hx CVA/HLD - on ASA/Statin. DVT Px - Heparin SQ GI Px - on PPI and H2 sae. Code Status: DNR/DNI. Given advanced disease and poor prognosis, palliative care consult requested for bridge to hospice.
--- NOTE | 2019-07-31 19:33 | PN ---
Progress Note (short form) - Note Progress Note: Patient seen and examined Denies any complaints Last Vital Signs Temp Pulse Resp BP Pulse Ox 98.1 F 104 H 20 125/77 97 07/31/19 17:12 07/31/19 17:12 07/31/19 17:12 07/31/19 17:12 07/31/19 11:00 Cor: RSR, No murmurs, No gallops Lungs: b/l rhonchi Abd: Soft, Normal bowel sounds, No organomegaly Ext:No significant edema Labs/Meds reviewed A/P 59 y/o patient with metastatic NSCLC, with extensive lung involvement, admitted with hypoxic respiratory failure. L pleural effusion s/p ICD, and recent pneumonia. Performance status is poor - ongoing supportive care, in hope of improving PS to point that he can be discharged, and start immunotherapy - is a candidate for PDL1-sae. Situation tenuous.
[2019-07-31] MEDS ORDERED: PT OWN MED DRAWER 7, Y5N ONE (20:29)
[2019-07-31] MEDS: guaiFENesin/D-METHORPHAN HB 10 ML UNIT-DOSE CUPS PO PRN (21:14)
[2019-07-31] MEDS: ATORVASTATIN CA 10 MG TABLET (FP) PO SCH (22:08)
[2019-07-31] MEDS: MELATONIN 1 MG TABLET PO SCH (22:08)
[2019-08-01] MEDS: morphine SULFATE 4 MG/ML VIAL IVPUSH PRN ×4 (01:03→20:34)
[2019-08-01] MEDS: guaiFENesin/D-METHORPHAN HB 10 ML UNIT-DOSE CUPS PO PRN ×4 (01:07→22:31)
[2019-08-01] MEDS: ALBUTEROL SO4 0.083% IH SOL 2.5 MG/3 ML VIAL.NEB. NEB PRN ×2 (05:19→21:55)
[2019-08-01 07:50] LABS: BASO % 0.9 % (0-2.0); EOS % 2.9 % (0-4.5); HEMATOCRIT 33.5 % (35.4-49); HEMOGLOBIN 11.2 GM/dL (11.7-16.9); LYMPH % 1.8 % (8-40); MCH 31.8 pg (25.7-33.7); MCHC 33.4 g/dl (32.0-35.9); MEAN PLT VOLUME 8.7 fl (7.5-11.1); MONO % 1.1 % (3.8-10.2); NEUT % 93.3 % (42.8-82.8); PLATELET COUNT 66 K/MM3 (134-434); RBC 3.53 M/mm3 (4.00-5.60); RDW 15.6 % (11.9-15.9); WHITE BLOOD COUNT 21.2 K/mm3 (4.0-10.0)
[2019-08-01] MEDS: ALBUTEROL SO4 2.5/IPRATROPIUM 0.5 INH SOL 3 ML VIAL.NEB. NEB SCH ×4 (08:00→20:40)
[2019-08-01] MEDS: PANTOPRAZOLE 40 MG TABLET (FP) PO SCH (09:24)
[2019-08-01] MEDS: NICOTINE 21 MG/24 HOURS TOPICAL PATCH TD SCH (09:24)
[2019-08-01] MEDS: DOCUSATE SODIUM 100 MG CAPSULE (FP) PO SCH ×2 (09:24→22:31)
[2019-08-01] MEDS: DONEPEZIL HCL 5 MG TABLET (FP) PO SCH (09:24)
[2019-08-01] MEDS: RANITIDINE HCL 150 MG TABLET (FP) PO SCH (09:24)
[2019-08-01] MEDS: predniSONE 20 MG TABLET (UD) PO SCH (09:24)
[2019-08-01] MEDS: SENNOSIDES 8.6MG TABLET (FP) PO SCH ×2 (09:24→22:31)
[2019-08-01] MEDS: BISACODYL 10 MG SUPP.RECT RC ONE ×2 (09:24→14:11)
[2019-08-01] MEDS: FOLIC ACID 1 MG TABLET (FP) PO SCH (09:24)
[2019-08-01] MEDS: THIAMINE HCL 100 MG TABLET (FP) PO SCH (09:25)
[2019-08-01] MEDS: POLYETHYLENE GLYCOL 3350 119 GM BTL PO SCH (09:29)
--- NOTE | 2019-08-01 10:05 | PN ---
Progress Note (short form) - Note Progress Note: Appears less tachypneic overall. Some mild subjective improvement from yesterday. Still with [place] with minimal movement. 22 cc reported chest tube output. Intake & Output 07/29/19 07/30/19 07/31/19 08/01/19 23:59 23:59 23:59 23:59 Intake Total 1100 0 500 200 Output Total 610 1010 221 22 Balance 490 -1010 279 178 Last Vital Signs Temp Pulse Resp BP Pulse Ox 98.2 F 127 H 20 116/78 95 08/01/19 05:29 08/01/19 05:29 08/01/19 05:29 08/01/19 05:29 07/31/19 21:00 Active Medications Albuterol Sulfate (Ventolin 0.083% Nebulizer Soln -) 1 amp NEB Q4H PRN PRN Reason: SHORT OF BREATH/WHEEZING Last Admin: 08/01/19 05:19 Dose: 1 amp Albuterol/Ipratropium (Duoneb -) 1 amp NEB RQID [facility] Last Admin: 08/01/19 08:00 Dose: 1 amp Atorvastatin Calcium (Lipitor -) 10 mg PO HS [facility] Last Admin: 07/31/19 22:08 Dose: 10 mg Docusate Sodium (Colace -) 100 mg PO BID [facility] Last Admin: 08/01/19 09:24 Dose: 100 mg Donepezil HCl (Aricept -) 5 mg PO DAILY [facility] Last Admin: 08/01/19 09:24 Dose: 5 mg Folic Acid (Folic Acid -) 1 mg PO DAILY [facility] Last Admin: 08/01/19 09:24 Dose: 1 mg Guaifenesin (Robitussin Dm -) 10 ml PO Q4H PRN PRN Reason: COUGH Last Admin: 08/01/19 09:24 Dose: 10 ml Melatonin (Melatonin) 3 mg PO HS [facility] Last Admin: 07/31/19 22:08 Dose: 3 mg Metoprolol Succinate (Toprol Xl -) 100 mg PO DAILY [facility] Last Admin: 08/01/19 09:24 Dose: 100 mg Morphine Sulfate (Morphine Sulfate) 4 mg IVPUSH Q4H PRN PRN Reason: PAIN LEVEL 6-10 Last Admin: 08/01/19 04:59 Dose: 4 mg Nicotine (Nicoderm Patch -) 21 mg TD DAILY [facility] Last Admin: 08/01/19 09:24 Dose: 21 mg Pantoprazole Sodium (Protonix -) 40 mg PO DAILY [facility] Last Admin: 08/01/19 09:24 Dose: 40 mg Polyethylene Glycol (Miralax (For Daily Use) -) 17 gm PO DAILY [facility] Last Admin: 08/01/19 09:29 Dose: 17 grams Prednisone (Deltasone -) 40 mg PO DAILY [facility] Last Admin: 08/01/19 09:24 Dose: 40 mg Ranitidine HCl (Zantac -) 150 mg PO DAILY [facility] Last Admin: 08/01/19 09:24 Dose: 150 mg Senna (Senna -) 1 tab PO BID [facility] Last Admin: 08/01/19 09:24 Dose: 1 tab Thiamine HCl (Vitamin B1 -) 100 mg PO DAILY [facility] Last Admin: 08/01/19 09:25 Dose: 100 mg Gen: Awake and alert, Less tachypneic at rest Heart: RRR Lung: bilateral rhonchi, no wheezes, Left pleural tube intact Abd: soft, nontender Ext: no edema Chest tube: serosanguinous fluid, no air leak Laboratory Results - last 24 hr 07/25/19 08/01/19 13:30 07:05 WBC 21.2 H RBC 3.53 L Hgb 11.2 L Hct 33.5 L MCV 95.0 MCH 31.8 MCHC 33.4 RDW 15.6 Plt Count 66 L D MPV 8.7 Absolute Neuts (auto) 19.8 H Neutrophils % 93.3 H Lymphocytes % 1.8 L D Monocytes % 1.1 L Eosinophils % 2.9 D Basophils % 0.9 Nucleated RBC % 0 Fluid Cholesterol 50 Problem List - Problems (1) COPD exacerbation Code(s): J44.1 - CHRONIC OBSTRUCTIVE PULMONARY DISEASE W (ACUTE) EXACERBATION (2) Lung cancer Code(s): C34.90 - MALIGNANT NEOPLASM OF UNSP PART OF UNSP BRONCHUS OR LUNG (3) Pleural effusion Code(s): J90 - PLEURAL EFFUSION, NOT ELSEWHERE CLASSIFIED A/P Acute COPD Exacerbation Metastatic NSCLC Pleural Effusions likely malignant CAD Parkinsons HTN Hyperlipidemia - Will remove pleural catheter due to minimal drainage over the past few days - Prednisone 40mg PO OD with taper over 7 to 10 days - inhaled bronchodilators standing and PRN - O2 to keep SpO2 >90% - BiPAP as needed to assist in work of breathing - DVT prophylaxis - DNR/DNI - DC planning: Should repeat CXR in about a week or sooner if he develops worsening symptoms Dr Simmons
[2019-08-01 12:16] LABS: ANISOCYTOSIS 1+; MACROCYTOSIS 1+; OVALOCYTE 1+
[2019-08-01 12:17] LABS: TOXIC GRANULATION 1+
--- NOTE | 2019-08-01 14:18 | PN ---
Teaching Attending Note Name of Resident: Earl Delacruz ATTENDING PHYSICIAN STATEMENT I saw and evaluated the patient. I reviewed the resident's note and discussed the case with the resident. I agree with the resident's findings and plan as documented. SUBJECTIVE:states pain is improved since chest tube was removed this AM. denies CP, SOB, fever, chills, N/V/C/D OBJECTIVE: Last Vital Signs Temp Pulse Resp BP Pulse Ox 98.4 F 117 H 24 H 108/72 95 08/01/19 09:00 08/01/19 09:00 08/01/19 09:00 08/01/19 09:00 08/01/19 09:00 General mildly tachypnic Lungs diffuse rhonchi ASSESSMENT AND PLAN: 59yo M wtih pmh HTN, CVA, CKD, parkinson, lung malignancy with mets presented to the ER with CP and SOB with recent hospitalization for PNA was discharged on 07/20 and returned due to dyspnea and did not take his medications and found to be hypoxic 1. Acute hypoxic respiratory failure due to progression of disease- s/p chest tube placement for loculated effusion with chest tube removal earlier today. f/ u CXr for PTX will need to be followed. not a candidate for pleurex at this time. can consider if effusion re-accumulates. transitioned medrol to pred 40mg. saturating well on 4L NC. not a candidate for RTx at this time. may benefit from immunotherapy for patient to follow up as outpatient. 2. Low TSH- LT4. will need repeat TFT in 6 weeks 3. AAA- 3x2.1cm aneurysm. will need outpatient follow up 4. Continuous nicotine dependence- nicotine patch. claims he is now quitting and that all his stuff has been removed from the house. verbalized understanding that he can NOT smoke in the home with oxygen tank and repercussion if does so 5. CVA 6. CKD 7. Parkinsons 8. DVT ppx- hep sq 9. DNR/DNI. wanting home hospice, awaiting evaluation to see if candidate. if not may benefit from [facility].
--- NOTE | 2019-08-01 18:06 | PN ---
Progress Note (short form) - Note Progress Note: Patient seen and examined Chest tube out Remains withsignificant SOB, dyspnea Last Vital Signs Temp Pulse Resp BP Pulse Ox 97.7 F 112 H 20 116/62 95 08/01/19 14:16 08/01/19 14:16 08/01/19 14:16 08/01/19 14:16 08/01/19 09:00 HEENT: LEOLA, EOM Intact Cor: RSR, No murmurs, No gallops Lungs: diffuse wheezes - anteriorly and posteriorly Abd: Soft, Normal bowel sounds, No organomegaly Ext:No significant edema Skin: No rashes, Integument intact CBC, BMP 08/01/19 07:05 07/30/19 06:45 Current Medications Generic Name Dose Route Start Last Admin Trade Name Freq PRN Reason Stop Dose Admin Albuterol Sulfate 1 amp 07/25/19 11:09 08/01/19 05:19 Ventolin 0.083% Nebulizer Soln - NEB 1 amp Q4H PRN Administration SHORT OF BREATH/WHEEZING Albuterol/Ipratropium 1 amp 07/25/19 12:00 08/01/19 16:00 Duoneb - NEB 1 amp RQID RONALDO Administration Atorvastatin Calcium 10 mg 07/21/19 22:00 07/31/19 22:08 Lipitor - PO 10 mg HS RONALDO Administration Docusate Sodium 100 mg 07/30/19 22:00 08/01/19 09:24 Colace - PO 100 mg BID RONALDO Administration Donepezil HCl 5 mg 07/22/19 10:00 08/01/19 09:24 Aricept - PO 5 mg DAILY RONALDO Administration Folic Acid 1 mg 07/22/19 10:00 08/01/19 09:24 Folic Acid - PO 1 mg DAILY RONALDO Administration Guaifenesin 10 ml 07/30/19 13:08 08/01/19 09:24 Robitussin Dm - PO 10 ml Q4H PRN Administration COUGH Melatonin 3 mg 07/24/19 22:00 07/31/19 22:08 Melatonin PO 3 mg HS RONALDO Administration Metoprolol Succinate 100 mg 07/22/19 10:00 08/01/19 09:24 Toprol Xl - PO 100 mg DAILY RONALDO Administration Morphine Sulfate 4 mg 07/29/19 17:52 09/17/19 10:10 Morphine Sulfate IVPUSH 4 mg Q4H PRN Administration PAIN LEVEL 6-10 Nicotine 21 mg 07/22/19 16:00 08/01/19 09:24 Nicoderm Patch - TD 21 mg DAILY RONALDO Administration Pantoprazole Sodium 40 mg 07/22/19 10:00 08/01/19 09:24 Protonix - PO 40 mg DAILY RONALDO Administration Polyethylene Glycol 17 gm 07/30/19 10:15 08/01/19 09:29 Miralax (For Daily Use) - PO 17 grams DAILY RONALDO Administration Prednisone 40 mg 07/31/19 10:30 08/01/19 09:24 Deltasone - PO 40 mg DAILY RONALDO Administration Ranitidine HCl 150 mg 07/22/19 10:00 08/01/19 09:24 Zantac - PO 150 mg DAILY RONALDO Administration Senna 1 tab 07/25/19 10:00 08/01/19 09:24 Senna - PO 1 tab BID RONALDO Administration Thiamine HCl 100 mg 07/22/19 10:00 08/01/19 09:25 Vitamin B1 - PO 100 mg DAILY RONALDO Administration Impression: Despite high dose steroids and recent chest tube drainage, patient remains with significant SOB and dyspnea with diffuse wheezing anteriorly and posteriorly on exam. Hope was to optimize patient for immunotherapy as PDl-1 is > 90% Unfortunately this has not been the case. ? whether patient will ever be a suitable candidate for therapy.
[2019-08-01] MEDS ORDERED: PT OWN MED DRAWER 7, Y5N ONE (21:00)
[2019-08-01 21:56] LABS: ARTERIAL BLD GAS O2 SATURATION 94.3 % (95-98); ARTERIAL BLOOD GAS BASE EXCESS 9.3 meq/l (-2-2); ARTERIAL BLOOD GAS PCO2 60.9 mmHg (35-45); ARTERIAL BLOOD GAS PO2 79.8 mmHg (80-100); ARTERIAL BLOOD GAS pH 7.39 (7.35-7.45)
[2019-08-01 22:01] LABS: ALLENS TEST POSITIVE
[2019-08-01] MEDS: ATORVASTATIN CA 10 MG TABLET (FP) PO SCH (22:31)
[2019-08-01] MEDS: MELATONIN 1 MG TABLET PO SCH (23:16)
--- NOTE | 2019-08-01 23:17 | PN ---
Progress Note (short form) - Note Progress Note: banquet server on call resident was paged regarding patient's respiratory status. The patient had been having increased work of breathing, was given scheduled Duoneb and placed on Venti-mask 40% with inadequate response. Resident came to bedside to evaluate. Patient had increased work of breathing and stated that this came on suddenly. Lungs: profound diffuse wheezing auscultated. Use of accessory muscles and using mouth to breath. Albuterol prn was ordered with minimal effect. ABG was ordered and showed CO2 retention. Patient placed on BiPAP settings IPAP 12, EPAP 6, FI02 40%, Rate 16 Patient was intermittently compliant with BiPAP, wearing it for up to 30 minutes at a time with frequent and long breaks. Repeat ABG ordered for 2AM showing improvement of hypercapneia and patient appearing to have less work of breathing. Encouraged to be compliant with BiPAP in acute setting. Will sign out to day team.
--- NOTE | 2019-08-01 23:19 | PN ---
Physical Exam: SUBJECTIVE: 59 y/o M w PMH metastatic non-small cell lung cancer ( adenocarcinoma, metastasis to contralateral lung, brain, adrenals and bone), COPD, hypertension, hyperlipidemia, CVA, coronary artery disease, Parkinson's Disease presented to the hospital for progressive shortness of breath, chest pain and abdominal pain. Pt seen at bedside today. Thoracostomy tube REMOVED. CXR NEG for pneumothorax. Pt slept well, still in pain, but relieved with morphine. He describes lower abd pain. Pt has not passed BM since Wednesday and refuses suppository. No NVFD. OBJECTIVE: Vital Signs Period Temp Pulse Resp BP Sys/Blair Pulse Ox Last 24 Hr 97.7 F-98.4 F 112-144 20-28 108-135/62-79 95-96 GENERAL: A&Ox3, in no acute distress, cachectic, on NC 5L o2. HEAD: NCAT Alopecic area over LEFT parietal region of scalp poss EYES: LEOLA, EOMI ENT: Moist mucus membranes NECK: No JVD, no lymphadenopathy palpated CHEST: Small, hard chest wall nodule noted just lateral to midline around 2nd L intercostal space, nontender. Chest tube in place on LEFT LUNGS: Decreased air entry to base. Left upper lobe and right lower lobe wheezing, no rales or rhonchi HEART: Mildly tachycardic, no murmurs auscultated ABDOMEN: Echymoses diffusely across panus. Soft, nontender, bs present EXTREMITIES: 2+ pulses, no edema. NEUROLOGICAL: Cranial nerves II-XII grossly intact. mild diffuse weakness noted - 4/5 muscle strength throughout, sensation intact Laboratory Results - last 24 hr 07/25/19 08/01/19 08/01/19 13:30 07:05 21:45 WBC 21.2 H RBC 3.53 L Hgb 11.2 L Hct 33.5 L MCV 95.0 MCH 31.8 MCHC 33.4 RDW 15.6 Plt Count 66 L D MPV 8.7 Absolute Neuts (auto) 19.8 H Total Counted 100 Neutrophils % 93.3 H Neutrophils % (Manual) 91.0 H Band Neutrophils % 2.0 Lymphocytes % 1.8 L D Lymphocytes % (Manual) 2.0 L D Monocytes % 1.1 L Monocytes % (Manual) 1 L Eosinophils % 2.9 D Eosinophils % (Manual) 4.0 D Basophils % 0.9 Nucleated RBC % 0 Toxic Granulation 1+ Anisocytosis 1+ Macrocytosis 1+ Ovalocytes 1+ Puncture Site Left radial ABG pH 7.39 ABG pCO2 at Pt Temp 60.9 H ABG pO2 at Pt Temp 79.8 L ABG HCO3 35.8 H ABG O2 Sat (Measured) 94.3 L ABG O2 Content 15.3 ABG Base Excess 9.3 H Aaron Test Positive O2 Delivery Device Ventimask Oxygen Flow Rate 50% Fluid Cholesterol 50 Active Medications Albuterol Sulfate (Ventolin 0.083% Nebulizer Soln -) 1 amp NEB Q4H PRN PRN Reason: SHORT OF BREATH/WHEEZING Last Admin: 08/01/19 21:55 Dose: 1 amp Albuterol/Ipratropium (Duoneb -) 1 amp NEB RQID [facility] Last Admin: 08/01/19 20:40 Dose: 1 amp Atorvastatin Calcium (Lipitor -) 10 mg PO HS [facility] Last Admin: 08/01/19 22:31 Dose: 10 mg Docusate Sodium (Colace -) 100 mg PO BID [facility] Last Admin: 08/01/19 22:31 Dose: 100 mg Donepezil HCl (Aricept -) 5 mg PO DAILY [facility] Last Admin: 08/01/19 09:24 Dose: 5 mg Folic Acid (Folic Acid -) 1 mg PO DAILY [facility] Last Admin: 08/01/19 09:24 Dose: 1 mg Guaifenesin (Robitussin Dm -) 10 ml PO Q4H PRN PRN Reason: COUGH Last Admin: 08/01/19 22:31 Dose: 10 ml Melatonin (Melatonin) 3 mg PO HS [facility] Last Admin: 07/31/19 22:08 Dose: 3 mg Metoprolol Succinate (Toprol Xl -) 100 mg PO DAILY [facility] Last Admin: 08/01/19 09:24 Dose: 100 mg Morphine Sulfate (Morphine Sulfate) 4 mg IVPUSH Q4H PRN PRN Reason: PAIN LEVEL 6-10 Last Admin: 08/01/19 20:34 Dose: 4 mg Nicotine (Nicoderm Patch -) 21 mg TD DAILY [facility] Last Admin: 08/01/19 09:24 Dose: 21 mg Pantoprazole Sodium (Protonix -) 40 mg PO DAILY [facility] Last Admin: 08/01/19 09:24 Dose: 40 mg Polyethylene Glycol (Miralax (For Daily Use) -) 17 gm PO DAILY [facility] Last Admin: 08/01/19 09:29 Dose: 17 grams Prednisone (Deltasone -) 40 mg PO DAILY [facility] Last Admin: 08/01/19 09:24 Dose: 40 mg Ranitidine HCl (Zantac -) 150 mg PO DAILY [facility] Last Admin: 08/01/19 09:24 Dose: 150 mg Senna (Senna -) 1 tab PO BID [facility] Last Admin: 08/01/19 22:31 Dose: 1 tab Thiamine HCl (Vitamin B1 -) 100 mg PO DAILY [facility] Last Admin: 08/01/19 09:25 Dose: 100 mg ASSESSMENT/PLAN: 59 y/o M w PMH metastatic non-small cell lung cancer (adenocarcinoma, metastasis to contralateral lung, brain, adrenals and bone), COPD, hypertension , hyperlipidemia, CVA, coronary artery disease, Parkinson's Disease. Recent hospitalization for PNA and was discharged on Jul 20, 2019 and returned due to dyspnea 2/2 non-compliance with medications. Goal to determine placement as pt is in need of hospice but would like to return home. # Acute hypoxic respiratory failure d/t advancing metastatic lung ca with bilateral pleural effusion L>R - CXR ordered to assess effussion and chest tube placement - F/u CXR: pleural catheter may be malpositioned so either needs to be re- positioned or removed - If further significant pleural drainage can consider PleureX catheter insertion - STOP IV solumedrol, START 40 mg prednisone as steroid for lymphatic support rather than treatment of pulmonary bronchospasm - CTA: No PE, extensive metastatic disease, loculated LEFT sided pleural effusion. - S/p abx course for recently dx PNA with ceftin and azithromycin. - S/p RTx - Rad/onc consulted: Not a candidate for further RTx unless there is impending airway compromise. - Pulmonary consulted: Thoracostomy tube placed for loculated LEFT pleural effusion. Chest tube now removed. - Thoracentesis fluid: Exudative, f/u Cx/Cytology - CXR: Mild decrease in LEFT pleural effusion. - BiPAP at night. Needs Supplemental O2. - Cont. bronchodilator nebs - Keytruda given high PDL1 expression - Pts primary oncologist, Dr. Tompkins, will follow-up re- GOC discussions: consideration of trial of Pembrolizumab if clinically improved and able to be dc - Palliative care consulted - Pulm consulted # Low TSH - TSH 0.02 - Hold synthroid - Repeat TFT in 6 weeks # AAA - 3x2.1 cm aneurysm - Out-pt f/u # Nicotine dependence - Counselled on need for abstinence as contributing to symptoms - Pt agrees to quit. He will cont. with patches. # CVA - Cont. home meds # CKD - Cont. home meds # Parkinson's disease - Cyclobenzaprine # Dementia - Donepezil # F/E/N - No standing fluids - Cont. to monitor electrolytes - Low sodium diet # DVT prophylaxis - Heparin # Disposition - DNR/DNI. - Possible Hospice/SNF but patient is insistent on discharge home - Heme/onc: Performance status is poor - ongoing supportive care, in hope of improving PS to point that he can be discharged, and start immunotherapy - is a candidate for PDL1-sae. Earl Delacruz MD Visit type - Emergency Visit Emergency Visit: No - New Patient This patient is new to me today: No - Critical Care Critical Care patient: No ATTENDING PHYSICIAN STATEMENT I saw and evaluated the patient. I reviewed the resident's note and discussed the case with the resident. I agree with the resident's findings and plan as documented. SUBJECTIVE: OBJECTIVE: ASSESSMENT AND PLAN:
[2019-08-02 02:30] LABS: ARTERIAL BLD GAS O2 SATURATION 94.2 % (95-98); ARTERIAL BLOOD GAS BASE EXCESS 10.4 meq/l (-2-2); ARTERIAL BLOOD GAS PCO2 51.7 mmHg (35-45); ARTERIAL BLOOD GAS pH 7.45 (7.35-7.45)
[2019-08-02 02:36] LABS: ALLENS TEST POSITIVE
[2019-08-02] MEDS: ALBUTEROL SO4 0.083% IH SOL 2.5 MG/3 ML VIAL.NEB. NEB PRN (06:20)
[2019-08-02] MEDS: ALBUTEROL SO4 2.5/IPRATROPIUM 0.5 INH SOL 3 ML VIAL.NEB. NEB SCH ×3 (07:40→15:30)
[2019-08-02 08:00] LABS: BASO % 0.2 % (0-2.0); EOS % 1.8 % (0-4.5); HEMATOCRIT 32.9 % (35.4-49); LYMPH % 2.4 % (8-40); MCH 31.6 pg (25.7-33.7); MCHC 33.5 g/dl (32.0-35.9); MEAN CELL VOLUME 94.4 fl (80-96); MEAN PLT VOLUME 9.2 fl (7.5-11.1); MONO % 2.2 % (3.8-10.2); NEUT % 93.4 % (42.8-82.8); PLATELET COUNT 52 K/MM3 (134-434); RBC 3.48 M/mm3 (4.00-5.60); WHITE BLOOD COUNT 17.9 K/mm3 (4.0-10.0)
[2019-08-02 08:35] LABS: ALBUMIN 1.6 g/dl (3.4-5.0); BILIRUBIN,TOTAL 0.7 mg/dL (0.2-1); BLOOD UREA NITROGEN 22.9 mg/dL (7-18); CALCIUM 8.8 mg/dL (8.5-10.1); CREATININE 0.4 mg/dL (0.55-1.3); POTASSIUM 4.5 mmol/L (3.5-5.1); TOT PROT 4.7 g/dl (6.4-8.2)
[2019-08-02] MEDS: PANTOPRAZOLE 40 MG TABLET (FP) PO SCH (09:12)
[2019-08-02] MEDS: NICOTINE 21 MG/24 HOURS TOPICAL PATCH TD SCH (09:12)
[2019-08-02] MEDS: FOLIC ACID 1 MG TABLET (FP) PO SCH (09:12)
[2019-08-02] MEDS: predniSONE 20 MG TABLET (UD) PO SCH (09:12)
[2019-08-02] MEDS: RANITIDINE HCL 150 MG TABLET (FP) PO SCH (09:12)
[2019-08-02] MEDS: DONEPEZIL HCL 5 MG TABLET (FP) PO SCH (09:13)
[2019-08-02] MEDS: DOCUSATE SODIUM 100 MG CAPSULE (FP) PO SCH ×2 (09:13→21:15)
[2019-08-02] MEDS: SENNOSIDES 8.6MG TABLET (FP) PO SCH ×2 (09:13→21:14)
[2019-08-02] MEDS: THIAMINE HCL 100 MG TABLET (FP) PO SCH (09:14)
[2019-08-02] MEDS: POLYETHYLENE GLYCOL 3350 119 GM BTL PO SCH (09:15)
[2019-08-02 10:08] LABS: ANISOCYTOSIS 1+; MACROCYTOSIS 1+; PLATELET ESTIMATE DECREASED; TOXIC GRANULATION 1+
[2019-08-02] MEDS: morphine SULFATE 4 MG/ML VIAL IVPUSH PRN (10:17)
[2019-08-02] MEDS: guaiFENesin/D-METHORPHAN HB 10 ML UNIT-DOSE CUPS PO PRN ×2 (10:17→23:54)
--- NOTE | 2019-08-02 13:05 | PN ---
Teaching Attending Note Name of Resident: Earl Delacruz ATTENDING PHYSICIAN STATEMENT I saw and evaluated the patient. I reviewed the resident's note and discussed the case with the resident. I agree with the resident's findings and plan as documented. SUBJECTIVE:currently asymptomatic. states he had sudden onset of SOB last night which was improved with oxygen. did not want to wear bipap that was recommended by night team. but agreed to do for a little bit. denies Cp, SOB, fever, chills , N/V/C/D OBJECTIVE: Last Vital Signs Temp Pulse Resp BP Pulse Ox 97.3 F L 127 H 20 94/69 90 L 08/02/19 10:00 08/02/19 10:00 08/02/19 10:00 08/02/19 10:08/02/19 07:40 General NAD Lungs diffuse rhonchi, scattered wheezes ASSESSMENT AND PLAN: 59yo M wtih pmh HTN, CVA, CKD, parkinson, lung malignancy with mets presented to the ER with CP and SOB with recent hospitalization for PNA was discharged on 07/20 and returned due to dyspnea and did not take his medications and found to be hypoxic 1. Acute hypoxic hypercapnic respiratory failure due to progression of disease- s/p chest tube and removal yesterday. likely disease progression. ABG showing some CO2 retention that did improved with Bipap. will get CXR to r/o PTX. on prednisone. pulmonary on board. 2. Low TSH- LT4. will need repeat TFT in 6 weeks 3. AAA- 3x2.1cm aneurysm. will need outpatient follow up 4. Continuous nicotine dependence- nicotine patch. claims he is now quitting and that all his stuff has been removed from the house. verbalized understanding that he can NOT smoke in the home with oxygen tank and repercussion if does so 5. CVA 6. CKD 7. Parkinsons 8. DVT ppx- hep sq 9. DNR/DNI. poor prognosis. wants home hospice which he was denied. does not want [place] and wants to go home without services. stressed concern about returning home with the amount of assistance he requires and oxygen needs. agreeable to speak with palliative care RN about specifics of [facility] and what it entails. Requests brother to be present to make informed decision. will await family decision
--- NOTE | 2019-08-02 14:53 | PN ---
Progress Note (short form) - Note Progress Note: PULMONARY Denies shortness of breath but visibly tachypneic. Chest tube removed yesterday. Vital Signs Period Temp Pulse Resp BP Sys/Blair Pulse Ox Last 24 Hr 97.3 F-98.4 F 100-144 20-28 94-135/67-79 90-96 Gen: tachypneic at rest Heart: RRR Lung: bilateral rhonchi, wheezes Abd: soft, nontender Ext: no edema CBC, BMP 08/02/19 07:15 08/02/19 07:15 Active Medications Albuterol Sulfate (Ventolin 0.083% Nebulizer Soln -) 1 amp NEB Q4H PRN PRN Reason: SHORT OF BREATH/WHEEZING Last Admin: 08/02/19 06:20 Dose: 1 amp Albuterol/Ipratropium (Duoneb -) 1 amp NEB RQID [facility] Last Admin: 08/02/19 11:25 Dose: 1 amp Atorvastatin Calcium (Lipitor -) 10 mg PO HS [facility] Last Admin: 08/01/19 22:31 Dose: 10 mg Docusate Sodium (Colace -) 100 mg PO BID [facility] Last Admin: 08/02/19 09:13 Dose: 100 mg Donepezil HCl (Aricept -) 5 mg PO DAILY [facility] Last Admin: 08/02/19 09:13 Dose: 5 mg Folic Acid (Folic Acid -) 1 mg PO DAILY [facility] Last Admin: 08/02/19 09:12 Dose: 1 mg Guaifenesin (Robitussin Dm -) 10 ml PO Q4H PRN PRN Reason: COUGH Last Admin: 08/02/19 10:17 Dose: 10 ml Melatonin (Melatonin) 3 mg PO HS [facility] Last Admin: 08/01/19 23:16 Dose: 3 mg Metoprolol Succinate (Toprol Xl -) 100 mg PO DAILY [facility] Last Admin: 08/02/19 09:13 Dose: 100 mg Morphine Sulfate (Morphine Sulfate) 4 mg IVPUSH Q4H PRN PRN Reason: PAIN LEVEL 6-10 Last Admin: 08/02/19 10:17 Dose: 4 mg Nicotine (Nicoderm Patch -) 21 mg TD DAILY [facility] Last Admin: 08/02/19 09:12 Dose: 21 mg Pantoprazole Sodium (Protonix -) 40 mg PO DAILY [facility] Last Admin: 08/02/19 09:12 Dose: 40 mg Polyethylene Glycol (Miralax (For Daily Use) -) 17 gm PO DAILY [facility] Last Admin: 08/02/19 09:15 Dose: 17 grams Prednisone (Deltasone -) 40 mg PO DAILY [facility] Last Admin: 08/02/19 09:12 Dose: 40 mg Ranitidine HCl (Zantac -) 150 mg PO DAILY [facility] Last Admin: 08/02/19 09:12 Dose: 150 mg Senna (Senna -) 1 tab PO BID [facility] Last Admin: 08/02/19 09:13 Dose: 1 tab Thiamine HCl (Vitamin B1 -) 100 mg PO DAILY [facility] Last Admin: 08/02/19 09:14 Dose: 100 mg A/P Acute COPD Exacerbation Metastatic NSCLC Pleural Effusions likely malignant CAD Parkinsons HTN Hyperlipidemia - continue prednisone - inhaled bronchodilators standing and PRN - O2 to keep SpO2 >90% - repeat CXR in AM, if significant reaccumulation may benefit from pleur-x - BiPAP as needed to assist in work of breathing - DVT prophylaxis - agree with palliative placement Problem List - Problems (1) COPD exacerbation Code(s): J44.1 - CHRONIC OBSTRUCTIVE PULMONARY DISEASE W (ACUTE) EXACERBATION (2) Lung cancer Code(s): C34.90 - MALIGNANT NEOPLASM OF UNSP PART OF UNSP BRONCHUS OR LUNG (3) Pleural effusion Code(s): J90 - PLEURAL EFFUSION, NOT ELSEWHERE CLASSIFIED
--- NOTE | 2019-08-02 15:07 | PATH ---
Cytology Non-Gynecological Report Patient Name: CHRISTIAN VASQUEZ Med. Rec. #: [id number] /Age/Gender: 1960 (Age: 59) / M Account: [id number] Location: [facility] MED/SURG Taken: 07/25/2019 Received: 07/26/2019 Reported: 08/02/2019 Physicians: Ernestine Lares M.D. Marline Villarreal M.D. Specimen(s) Received PLEURAL FLUID Clinical History Lung adenocarcinoma, Pleural effusion Final Diagnosis PLEURAL FLUID FOR CYTOLOGY: SATISFACTORY FOR EVALUATION. SUSPICIOUS FOR MALIGNANT CELLS. SUSPECT ADENOCARCINOMA, SCANT EVIDENCE. FEW ATYPICAL CELLS WITH NUCLEAR ENLARGEMENT AND IRREGULAR NUCLEAR CONTOURS DISPERSED SINGLE CELLS AND ISOLATED CLUSTERS IN A BACKGROUND OF MESOTHELIAL CELLS AND SCATTERED INFLAMMATORY CELLS PRESENT. SEE COMMENT. Comment: Findings are best represented in the cell block material. Immunohistochemical stains performed and interpreted at [facility] show few atypical cells are TTF-1 positive, while Claudio-Ep4 is non-contributory due to high background staining. Additional immunohistochemical stains performed at [place], [place] ([id number]) and interpreted at [facility] show few atypical cells are positive for MATTHIEU and CK-7; while negative for MOC-31 and Napsin-A. Scattered calretinin+ mesothelial cells are noted. Overall findings show atypical cells suspicious for adenocarcinoma, scant evidence. Prior history of lung adenocarcinoma is noted. Suggest clinical and radiologic correlation. Findings discussed with Dr. Joy and Turner. Case seen in intradepartmental review with consensus on diagnosis. Positive and negative controls (internal if applicable) show appropriate results. Electronically Signed Dede Montes M.D.
--- NOTE | 2019-08-02 18:26 | PN ---
Progress Note (short form) - Note Progress Note: Patient seen and examined Continues with respiratory distress Last Vital Signs Temp Pulse Resp BP Pulse Ox 98.4 F 100 H 20 102/67 92 L 08/02/19 14:22 08/02/19 14:22 08/02/19 14:22 08/02/19 14:22 08/02/19 09:00 Dyspneic and tachypneic Lungs - rhonchi/wheezes Cor-RSR Abd-soft Ext-neg CBC, BMP 08/02/19 07:15 08/02/19 07:15 Current Medications Generic Name Dose Route Start Last Admin Trade Name Freq PRN Reason Stop Dose Admin Albuterol Sulfate 1 amp 07/25/19 11:09 08/02/19 06:20 Ventolin 0.083% Nebulizer Soln - NEB 1 amp Q4H PRN Administration SHORT OF BREATH/WHEEZING Albuterol/Ipratropium 1 amp 07/25/19 12:00 08/02/19 15:30 Duoneb - NEB 1 amp RQID RONALDO Administration Atorvastatin Calcium 10 mg 07/21/19 22:00 08/01/19 22:31 Lipitor - PO 10 mg HS RONALDO Administration Docusate Sodium 100 mg 07/30/19 22:00 08/02/19 09:13 Colace - PO 100 mg BID RONALDO Administration Donepezil HCl 5 mg 07/22/19 10:00 08/02/19 09:13 Aricept - PO 5 mg DAILY RONALDO Administration Folic Acid 1 mg 07/22/19 10:00 08/02/19 09:12 Folic Acid - PO 1 mg DAILY RONALDO Administration Guaifenesin 10 ml 07/30/19 13:08 08/02/19 10:17 Robitussin Dm - PO 10 ml Q4H PRN Administration COUGH Melatonin 3 mg 07/24/19 22:00 08/01/19 23:16 Melatonin PO 3 mg HS RONALDO Administration Metoprolol Succinate 100 mg 07/22/19 10:00 08/02/19 09:13 Toprol Xl - PO 100 mg DAILY RONALDO Administration Morphine Sulfate 4 mg 07/29/19 17:52 08/02/19 10:17 Morphine Sulfate IVPUSH 4 mg Q4H PRN Administration PAIN LEVEL 6-10 Nicotine 21 mg 07/22/19 16:00 08/02/19 09:12 Nicoderm Patch - TD 21 mg DAILY RONALDO Administration Pantoprazole Sodium 40 mg 07/22/19 10:00 08/02/19 09:12 Protonix - PO 40 mg DAILY RONALDO Administration Polyethylene Glycol 17 gm 07/30/19 10:15 08/02/19 09:15 Miralax (For Daily Use) - PO 17 grams DAILY [facility] Administration Prednisone 40 mg 07/31/19 10:30 08/02/19 09:12 Deltasone - PO 40 mg DAILY RONALDO Administration Ranitidine HCl 150 mg 07/22/19 10:00 08/02/19 09:12 Zantac - PO 150 mg DAILY [facility] Administration Senna 1 tab 07/25/19 10:00 08/02/19 09:13 Senna - PO 1 tab BID RONALDO Administration Thiamine HCl 100 mg 07/22/19 10:00 08/02/19 09:14 Vitamin B1 - PO 100 mg DAILY RONALDO Administration Impression SCC - metastatic for [place] transfer To begin MS/xanax.
[2019-08-02] MEDS ORDERED: ALPRAZolam 0.25 MG TABLET PO PRN (18:28)
[2019-08-02] MEDS: MORPHINE SULFATE 2 MG/ML VIAL IVPUSH SCH ×2 (18:44→21:15)
[2019-08-02] MEDS: ATORVASTATIN CA 10 MG TABLET (FP) PO SCH (21:15)
--- NOTE | 2019-08-02 22:03 | PN ---
Physical Exam: SUBJECTIVE: 59 y/o M w PMH metastatic non-small cell lung cancer (adenocarcinoma , metastasis to contralateral lung, brain, adrenals and bone), COPD, hypertension, hyperlipidemia, CVA, coronary artery disease, Parkinson's Disease presented to the hospital for progressive shortness of breath, chest pain and abdominal pain. Overnight pt experienced difficulty breathing, which was relieved by use of the venti mask. Pt encouraged to use bipap but refusing when not symptomatic. Pt seen at bedside today. He is back to his present baseline. He states he does not feel short of breath. He denies chest pain. Pt seen by palliative care to discuss care at [facility]. Pt states further discussions regarding placement can be referred to his brother. OBJECTIVE: Vital Signs Period Temp Pulse Resp BP Sys/Blair Pulse Ox Last 24 Hr 97.3 F-98.4 F 100-144 20-28 94-135/67-79 90-96 GENERAL: A&Ox3, in no acute distress, cachectic, on NC 5L o2. HEAD: NCAT Alopecic area over LEFT parietal region of scalp poss EYES: LEOLA, EOMI ENT: Moist mucus membranes NECK: No JVD, no lymphadenopathy palpated CHEST: Small, hard chest wall nodule noted just lateral to midline around 2nd L intercostal space, nontender. Chest tube in place on LEFT LUNGS: Decreased air entry to base. Left upper lobe and right lower lobe wheezing, no rales or rhonchi. Increased work of breathing. HEART: Mildly tachycardic, no murmurs auscultated ABDOMEN: Echymoses diffusely across panus. Soft, nontender, bs present EXTREMITIES: 2+ pulses, no edema. NEUROLOGICAL: Cranial nerves II-XII grossly intact. mild diffuse weakness noted - 4/5 muscle strength throughout, sensation intact Laboratory Results - last 24 hr 08/01/19 08/02/19 08/02/19 21:45 02:15 07:15 WBC 17.9 H RBC 3.48 L Hgb 11.0 L Hct 32.9 L MCV 94.4 MCH 31.6 MCHC 33.5 RDW 16.0 H Plt Count 52 L D MPV 9.2 Absolute Neuts (auto) 16.7 H Neutrophils % 93.4 H Neutrophils % (Manual) 72.7 D Band Neutrophils % 13.1 Lymphocytes % 2.4 L D Lymphocytes % (Manual) 4.1 L D Monocytes % 2.2 L D Monocytes % (Manual) 3 L D Eosinophils % 1.8 Eosinophils % (Manual) 4.1 Basophils % 0.2 Basophils % (Manual) 0.0 Myelocytes % (Man) 3 H D Promyelocytes % (Man) 0 Blast Cells % (Manual) 0 Nucleated RBC % 0 Metamyelocytes 0 Hypochromia 0 Toxic Granulation 1+ Platelet Estimate Decreased Polychromasia 0 Poikilocytosis 0 Basophilic Stippling 1+ Anisocytosis 1+ Macrocytosis 1+ Anticoagulation Therapy No Result Required. Puncture Site Left radial Right radial ABG pH 7.39 7.45 ABG pCO2 at Pt Temp 60.9 H 51.7 H ABG pO2 at Pt Temp 79.8 L 73.0 L ABG HCO3 35.8 H 35.7 H ABG O2 Sat (Measured) 94.3 L 94.2 L ABG O2 Content 15.3 15.5 ABG Base Excess 9.3 H 10.4 H Aaron Test Positive Positive O2 Delivery Device Ventimask Bipap Oxygen Flow Rate 50% 45% Vent Mode S/t Vent Rate 16 Mechanical Rate No Result Required. Pressure Support Vent 12/6 Sodium Potassium Chloride Carbon Dioxide Anion Gap BUN Creatinine Est GFR (CKD-EPI)AfAm Est GFR (CKD-EPI)NonAf Random Glucose Calcium Total Bilirubin AST ALT Alkaline Phosphatase Total Protein Albumin 08/02/19 07:15 WBC RBC Hgb Hct MCV MCH MCHC RDW Plt Count MPV Absolute Neuts (auto) Neutrophils % Neutrophils % (Manual) Band Neutrophils % Lymphocytes % Lymphocytes % (Manual) Monocytes % Monocytes % (Manual) Eosinophils % Eosinophils % (Manual) Basophils % Basophils % (Manual) Myelocytes % (Man) Promyelocytes % (Man) Blast Cells % (Manual) Nucleated RBC % Metamyelocytes Hypochromia Toxic Granulation Platelet Estimate Polychromasia Poikilocytosis Basophilic Stippling Anisocytosis Macrocytosis Anticoagulation Therapy Puncture Site ABG pH ABG pCO2 at Pt Temp ABG pO2 at Pt Temp ABG HCO3 ABG O2 Sat (Measured) ABG O2 Content ABG Base Excess Aaron Test O2 Delivery Device Oxygen Flow Rate Vent Mode Vent Rate Mechanical Rate Pressure Support Vent Sodium 139 Potassium 4.5 Chloride 99 Carbon Dioxide 36 H Anion Gap 4 L BUN 22.9 H Creatinine 0.4 L Est GFR (CKD-EPI)AfAm 148.58 Est GFR (CKD-EPI)NonAf 128.19 Random Glucose 110 H Calcium 8.8 Total Bilirubin 0.7 AST 13 L ALT 31 Alkaline Phosphatase 85 Total Protein 4.7 L Albumin 1.6 L Active Medications Albuterol Sulfate (Ventolin 0.083% Nebulizer Soln -) 1 amp NEB Q4H PRN PRN Reason: SHORT OF BREATH/WHEEZING Last Admin: 08/02/19 06:20 Dose: 1 amp Albuterol/Ipratropium (Duoneb -) 1 amp NEB RQID [facility] Last Admin: 08/02/19 15:30 Dose: 1 amp Alprazolam (Xanax -) 0.25 mg PO Q8H PRN PRN Reason: ANXIETY Last Admin: 08/02/19 18:45 Dose: 0.25 mg Atorvastatin Calcium (Lipitor -) 10 mg PO HS [facility] Last Admin: 08/02/19 21:15 Dose: 10 mg Docusate Sodium (Colace -) 100 mg PO BID [facility] Last Admin: 08/02/19 21:15 Dose: 100 mg Donepezil HCl (Aricept -) 5 mg PO DAILY [facility] Last Admin: 08/02/19 09:13 Dose: 5 mg Folic Acid (Folic Acid -) 1 mg PO DAILY [facility] Last Admin: 08/02/19 09:12 Dose: 1 mg Guaifenesin (Robitussin Dm -) 10 ml PO Q4H PRN PRN Reason: COUGH Last Admin: 08/02/19 10:17 Dose: 10 ml Melatonin (Melatonin) 3 mg PO HS [facility] Last Admin: 08/01/19 23:16 Dose: 3 mg Metoprolol Succinate (Toprol Xl -) 100 mg PO DAILY [facility] Last Admin: 08/02/19 09:13 Dose: 100 mg Morphine Sulfate (Morphine Sulfate) 2 mg IVPUSH Q4H-IV [facility] Last Admin: 08/02/19 21:15 Dose: 2 mg Nicotine (Nicoderm Patch -) 21 mg TD DAILY [facility] Last Admin: 08/02/19 09:12 Dose: 21 mg Pantoprazole Sodium (Protonix -) 40 mg PO DAILY [facility] Last Admin: 08/02/19 09:12 Dose: 40 mg Polyethylene Glycol (Miralax (For Daily Use) -) 17 gm PO DAILY [facility] Last Admin: 08/02/19 09:15 Dose: 17 grams Prednisone (Deltasone -) 40 mg PO DAILY [facility] Last Admin: 08/02/19 09:12 Dose: 40 mg Ranitidine HCl (Zantac -) 150 mg PO DAILY [facility] Last Admin: 08/02/19 09:12 Dose: 150 mg Senna (Senna -) 1 tab PO BID [facility] Last Admin: 08/02/19 21:14 Dose: 1 tab Thiamine HCl (Vitamin B1 -) 100 mg PO DAILY [facility] Last Admin: 08/02/19 09:14 Dose: 100 mg ASSESSMENT/PLAN: 59 y/o M w PMH metastatic non-small cell lung cancer (adenocarcinoma, metastasis to contralateral lung, brain, adrenals and bone), COPD, hypertension , hyperlipidemia, CVA, coronary artery disease, Parkinson's Disease. Recent hospitalization for PNA and was discharged on Jul 20, 2019 and returned due to dyspnea 2/2 non-compliance with medications. Goal to determine placement as pt is in need of hospice but would like to return home. # Acute hypoxic respiratory failure d/t advancing metastatic lung ca with bilateral pleural effusion L>R - Bipap HS - If further significant pleural effusion can consider PleureX catheter insertion - STOP IV solumedrol, START 40 mg prednisone as steroid for lymphatic support rather than treatment of pulmonary bronchospasm - ABG showing some CO2 retention that did improved with Bipap. - CTA: No PE, extensive metastatic disease, loculated LEFT sided pleural effusion. - S/p abx course for recently dx PNA with ceftin and azithromycin. - S/p RTx - Rad/onc consulted: Not a candidate for further RTx unless there is impending airway compromise. - Pulmonary consulted: Thoracostomy tube placed for loculated LEFT pleural effusion. Chest tube now removed. - Thoracentesis fluid: Exudative, f/u Cx/Cytology - CXR: Mild decrease in LEFT pleural effusion. - BiPAP at night. Needs Supplemental O2. - Cont. bronchodilator nebs - Keytruda given high PDL1 expression - Pts primary oncologist, Dr. Tompkins consulted. Ongoing supportive care, in hope of improving PS to point that he can be discharged, and start immunotherapy - is a candidate for PDL1-sae. - Pulm consulted # Low TSH - TSH 0.02 - Hold synthroid - Repeat TFT in 6 weeks # AAA - 3x2.1 cm aneurysm - Out-pt f/u # Nicotine dependence - Counselled on need for abstinence as contributing to symptoms - Pt agrees to quit. He will cont. with patches. # CVA - Cont. home meds # CKD - Cont. home meds # Parkinson's disease - Cyclobenzaprine # Dementia - Donepezil # F/E/N - No standing fluids - Cont. to monitor electrolytes - Low sodium diet # DVT prophylaxis - Heparin # Disposition - DNR/DNI. - Possible Hospice/SNF but patient is insistent on discharge home. Home hospice not available. Earl Delacruz MD Visit type - Emergency Visit Emergency Visit: No - New Patient This patient is new to me today: No - Critical Care Critical Care patient: No - Discharge Referral Referred to [facility] Med P.C.: No ATTENDING PHYSICIAN STATEMENT I saw and evaluated the patient. I reviewed the resident's note and discussed the case with the resident. I agree with the resident's findings and plan as documented. SUBJECTIVE: OBJECTIVE: ASSESSMENT AND PLAN:
[2019-08-02] MEDS: MELATONIN 1 MG TABLET PO SCH (22:54)
[2019-08-03] MEDS: MORPHINE SULFATE 2 MG/ML VIAL IVPUSH SCH ×3 (01:38→09:18)
[2019-08-03] MEDS ORDERED: PT OWN MED DRAWER 7, Y5N ONE (06:41)
[2019-08-03] MEDS: RANITIDINE HCL 150 MG TABLET (FP) PO SCH (09:16)
[2019-08-03] MEDS: FOLIC ACID 1 MG TABLET (FP) PO SCH (09:16)
[2019-08-03] MEDS: NICOTINE 21 MG/24 HOURS TOPICAL PATCH TD SCH (09:16)
[2019-08-03] MEDS: PANTOPRAZOLE 40 MG TABLET (FP) PO SCH (09:16)
[2019-08-03] MEDS: predniSONE 20 MG TABLET (UD) PO SCH (09:16)
[2019-08-03] MEDS: SENNOSIDES 8.6MG TABLET (FP) PO SCH (09:16)
[2019-08-03] MEDS: THIAMINE HCL 100 MG TABLET (FP) PO SCH (09:17)
[2019-08-03] MEDS: POLYETHYLENE GLYCOL 3350 119 GM BTL PO SCH (09:17)
[2019-08-03] MEDS: DOCUSATE SODIUM 100 MG CAPSULE (FP) PO SCH (09:17)
[2019-08-03] MEDS: DONEPEZIL HCL 5 MG TABLET (FP) PO SCH (09:17)
--- NOTE | 2019-08-03 09:50 | PN ---
Progress Note (short form) - Note Progress Note: Appears less tachypneic overall. Some mild subjective improvement from yesterday. Still with [place] with minimal movement. Reports using NIPPV overnight. Intake & Output 07/31/19 08/01/19 08/02/19 08/03/19 23:59 23:59 23:59 23:59 Intake Total 500 1350 410 100 Output Total 221 422 400 200 Balance 279 928 10 -100 Last Vital Signs Temp Pulse Resp BP Pulse Ox 97.5 F L 118 H 24 H 109/88 96 08/03/19 06:13 08/03/19 06:13 08/03/19 06:13 08/03/19 06:13 08/02/19 21:00 Active Medications Albuterol Sulfate (Ventolin 0.083% Nebulizer Soln -) 1 amp NEB Q4H PRN PRN Reason: SHORT OF BREATH/WHEEZING Last Admin: 08/02/19 06:20 Dose: 1 amp Albuterol/Ipratropium (Duoneb -) 1 amp NEB RQID [facility] Last Admin: 08/02/19 15:30 Dose: 1 amp Alprazolam (Xanax -) 0.25 mg PO Q8H PRN PRN Reason: ANXIETY Last Admin: 08/02/19 18:45 Dose: 0.25 mg Atorvastatin Calcium (Lipitor -) 10 mg PO HS [facility] Last Admin: 08/02/19 21:15 Dose: 10 mg Docusate Sodium (Colace -) 100 mg PO BID [facility] Last Admin: 08/03/19 09:17 Dose: 100 mg Donepezil HCl (Aricept -) 5 mg PO DAILY [facility] Last Admin: 08/03/19 09:17 Dose: 5 mg Folic Acid (Folic Acid -) 1 mg PO DAILY [facility] Last Admin: 08/03/19 09:16 Dose: 1 mg Guaifenesin (Robitussin Dm -) 10 ml PO Q4H PRN PRN Reason: COUGH Last Admin: 08/02/19 23:54 Dose: 10 ml Melatonin (Melatonin) 3 mg PO HS [facility] Last Admin: 08/02/19 22:54 Dose: 3 mg Metoprolol Succinate (Toprol Xl -) 100 mg PO DAILY [facility] Last Admin: 08/03/19 09:16 Dose: 100 mg Morphine Sulfate (Morphine Sulfate) 2 mg IVPUSH Q4H-IV [facility] Last Admin: 08/03/19 09:18 Dose: 2 mg Nicotine (Nicoderm Patch -) 21 mg TD DAILY [facility] Last Admin: 08/03/19 09:16 Dose: 21 mg Pantoprazole Sodium (Protonix -) 40 mg PO DAILY [facility] Last Admin: 08/03/19 09:16 Dose: 40 mg Polyethylene Glycol (Miralax (For Daily Use) -) 17 gm PO DAILY [facility] Last Admin: 08/03/19 09:17 Dose: Not Given Prednisone (Deltasone -) 40 mg PO DAILY [facility] Last Admin: 08/03/19 09:16 Dose: 40 mg Ranitidine HCl (Zantac -) 150 mg PO DAILY [facility] Last Admin: 08/03/19 09:16 Dose: 150 mg Senna (Senna -) 1 tab PO BID [facility] Last Admin: 08/03/19 09:16 Dose: 1 tab Thiamine HCl (Vitamin B1 -) 100 mg PO DAILY [facility] Last Admin: 08/03/19 09:17 Dose: 100 mg Gen: Awake and alert, tachypneic at rest Heart: RRR Lung: bilateral rhonchi, scattered expiratory wheezes Abd: soft, nontender Ext: no edema Laboratory Results - last 24 hr 08/02/19 07:15 Neutrophils % (Manual) 72.7 D Band Neutrophils % 13.1 Lymphocytes % (Manual) 4.1 L D Monocytes % (Manual) 3 L D Eosinophils % (Manual) 4.1 Basophils % (Manual) 0.0 Myelocytes % (Man) 3 H D Promyelocytes % (Man) 0 Blast Cells % (Manual) 0 Metamyelocytes 0 Hypochromia 0 Toxic Granulation 1+ Platelet Estimate Decreased Polychromasia 0 Poikilocytosis 0 Basophilic Stippling 1+ Anisocytosis 1+ Macrocytosis 1+ Problem List - Problems (1) COPD exacerbation Code(s): J44.1 - CHRONIC OBSTRUCTIVE PULMONARY DISEASE W (ACUTE) EXACERBATION (2) Lung cancer Code(s): C34.90 - MALIGNANT NEOPLASM OF UNSP PART OF UNSP BRONCHUS OR LUNG (3) Pleural effusion Code(s): J90 - PLEURAL EFFUSION, NOT ELSEWHERE CLASSIFIED A/P Acute COPD Exacerbation Metastatic NSCLC Pleural Effusions likely malignant CAD Parkinsons HTN Hyperlipidemia - Prednisone 40mg PO OD with taper - inhaled bronchodilators standing and PRN - O2 to keep SpO2 >90% - BiPAP as needed to assist in work of breathing - DVT prophylaxis - DNR/DNI - DC planning: Should repeat CXR in about a week or sooner if he develops worsening symptoms Dr Simmons
[2019-08-03 10:19] VITALS: BP 114/73; PULSE 124; TEMP 98.3
--- NOTE | 2019-08-03 13:58 | PN ---
Teaching Attending Note Name of Resident: Earl Delacruz ATTENDING PHYSICIAN STATEMENT I saw and evaluated the patient. I reviewed the resident's note and discussed the case with the resident. I agree with the resident's findings and plan as documented. SUBJECTIVE:breathing same. no cpmplaints. OBJECTIVE: Last Vital Signs Temp Pulse Resp BP Pulse Ox 98.3 F 124 H 22 H 114/73 96 08/03/19 10:00 08/03/19 10:00 08/03/19 10:00 08/03/19 10:08/03/19 09:00 General NAD Lungs diffuse rhonchi, scattered wheezes ASSESSMENT AND PLAN: 59yo M wtih pmh HTN, CVA, CKD, parkinson, lung malignancy with mets presented to the ER with CP and SOB with recent hospitalization for PNA was discharged on 07/20 and returned due to dyspnea and did not take his medications and found to be hypoxic 1. Acute hypoxic hypercapnic respiratory failure due to progression of disease- s/p chest tube and removal. may need pleurex in future. repeat CXR show no change. plan to go to [facility] for hospice. encourage bipap use. pulmonary on board. 2. Low TSH- LT4. will need repeat TFT in 6 weeks 3. AAA- 3x2.1cm aneurysm. will need outpatient follow up 4. Continuous nicotine dependence- nicotine patch. advised cessation 5. CVA 6. CKD 7. Parkinsons 8. DVT ppx- hep sq 9. DNR/DNI. poor prognosis. will leave to [place] today for hospice
--- NOTE | 2019-08-22 05:21 | DS ---
Physical Exam: SUBJECTIVE: 59 y/o M w PMH metastatic non-small cell lung cancer ( adenocarcinoma, metastasis to contralateral lung, brain, adrenals and bone), COPD, hypertension, hyperlipidemia, CVA, coronary artery disease, Parkinson's Disease whom presented to the hospital for progressive shortness of breath, chest pain and abdominal pain. Overnight pt experienced NO difficulty breathing and utilized bipap only partly through the night. Pt seen at bedside today. He is back to his present baseline. He states he does not feel short of breath. He denies chest pain. Pt seen is agreeable to continue care at [facility] OBJECTIVE: PHYSICAL EXAM GENERAL: A&Ox3, in no acute distress, cachectic, on NC 5L o2. HEAD: NCAT Alopecic area over LEFT parietal region of scalp poss EYES: LEOLA, EOMI ENT: Moist mucus membranes NECK: No JVD, no lymphadenopathy palpated CHEST: Small, hard chest wall nodule noted just lateral to midline around 2nd L intercostal space, nontender. Chest tube in place on LEFT LUNGS: Decreased air entry to base. Left upper lobe and right lower lobe wheezing, no rales or rhonchi. Increased work of breathing. HEART: Mildly tachycardic, no murmurs auscultated ABDOMEN: Echymoses diffusely across panus. Soft, nontender, bs present EXTREMITIES: 2+ pulses, no edema. NEUROLOGICAL: Cranial nerves II-XII grossly intact. mild diffuse weakness noted - 4/5 muscle strength throughout, sensation intact HOSPITAL COURSE: Date of Admission:07/21/19 59 y/o M w H metastatic non-small cell lung cancer (adenocarcinoma, metastasis to contralateral lung, brain, adrenals and bone), COPD, hypertension , hyperlipidemia, CVA, coronary artery disease, Parkinson's Disease. Recent hospitalization for PNA and was discharged on Jul 20, 2019 and returned due to dyspnea 2/2 non-compliance with medications. Acute hypoxic respiratory failure d /t advancing metastatic lung ca with bilateral pleural effusion L>R. CTA demonstrated no PE, extensive metastatic disease, loculated LEFT sided pleural effusion. This was treated with thoracostomy tube, which was removed after draininged reduced to 100 cc. Pt experienced symptomatic relief and was seen by pulmonology whom described possible use of pleurex if effusion persists in future. Pt was initially on IV solumedrol but moved to prednisone as steroid goal was for lymphatic support rather than treatment of pulmonary bronchospasm. When dyspneic episodes occurred, bipap was offerred. ABG showing some CO2 retention that did improved with Bipap. Rad/onc consulted and pt is not a candidate for further radiotherapy unless there is impending airway compromise. Pts primary oncologist, Dr. Tompkins consulted. Ongoing supportive care recommended. Pt is a candidate for PDL1-sae, Keytruda given high PDL1 expression. During stay, low TSH 0.02 noted and synthroid held; repeat TFT in 6 weeks. Additionally, an AAA 3x2.1 cm aneurysm detected and out-pt f/u recommended. There was great effort put into educating the pt on the dangers of nicotine dependence/cont. cigarette use. Pt agreed to quit with help of patches and family support. Chronic diseases were treated with home regimen. Pt was transferred to [facility] for continued/hospice care. Date of Discharge: 08/03/19 Earl Delacruz MD Minutes to complete discharge: 40 Discharge Summary Problems reviewed: Yes Reason For Visit: SOB Condition: Improved - Instructions Diet, Activity, Other Instructions: YOUR VISIT You came to the hospital because you were experiencing chest pain and shortness of breath. You were admitted to the hospital for care of these symptoms. Imaging showed that you had worsening of your chronic illnesses. You were also seen by the oncologist. We recommend that you continue your care in a skilled facility. MEDICATIONS Please continue to take your home medications as prescribed. Continue DuoNebs, and BiLevel ventilation per faciltiy protocol. Maintain oxygen saturation above 90% Senna, Miralax, Colace PRN You have a *NEW* medication. - Prednisone taper: Prednisone 40mg PO daily Prednisone 35mg PO daily Prednisone 35mg PO daily Prednisone 30mg PO daily Prednisone 30mg PO daily Prednisone 25mg PO daily Prednisone 25mg PO daily Prednisone 20mg PO daily Prednisone 20mg PO daily Prednisone 15mg PO daily Prednisone 15mg PO daily Prednisone 10mg PO daily Prednisone 10mg PO daily Prednisone 5mg PO daily Prednisone 5mg PO daily ADDITIONAL CARE Please make an appointment to see your primary care provider, Dr. Eleni Carvalho, 1 week from today. You will need Thyroid studies within 6 weeks. Discuss further with your primary care physician. Please make an appointment to follow up with your oncologist, Dr. Tompkins, 1 week from today. 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 Michel has been provided. Please make an appointment to follow up with your cardiologst. A referral to Dr. Montoya has been provided. You were noted to have a dilation of your aorta which will require outpatient follow up. You are strongly encouraged to quit smoking. Discuss with your primary care physician regarding smoking cessation. ADDITIONAL INFORMATION Please call 911 or come directly to the emergency department if you experience unusual headache, vision change, shortness of breath, chest pain, numbness, tingling, loss of alertness/awareness, loss of function, unusual bleeding or any alarming symptoms. Referrals: Ronak Michel MD [Staff Physician] - Eleni Carvalho MD [Primary Care Provider] - Alireza Tompkins MD [Staff Physician] - Parveen Montoya MD [Staff Physician] - Disposition: DISCH TO [facility] - Home Medications Comprehensive Discharge Medication List: Ambulatory Orders Folic Acid 1 mg PO DAILY #14 tablet 09/29/17 Ranitidine HCl [Zantac] 150 mg PO DAILY #14 tablet 09/29/17 Thiamine HCl [Vitamin B1 -] 100 mg PO DAILY #14 tablet 09/29/17 Atorvastatin Ca [Lipitor] 10 mg PO HS 12/14/18 Cholecalciferol (Vitamin D3) [Vitamin D -] 1,000 mg PO DAILY 12/14/18 Pantoprazole Sodium [Protonix -] 40 mg PO DAILY #120 tablet.ec 05/24/19 Acetaminophen [Tylenol] 650 mg PO Q4H #30 capsule 07/06/19 Cyclobenzaprine HCl 5 mg PO HS #10 tablet 07/06/19 Donepezil HCl 5 mg PO DAILY 07/06/19 Metoprolol Succinate [Toprol XL -] 100 mg PO DAILY 07/06/19 Aspirin [ASA -] 81 mg PO DAILY tab.chew 07/20/19 Levothyroxine [Synthroid -] 25 mcg PO DAILY 30 Days #30 tablet 07/20/19 Albuterol 2.5/Ipratropium 0.5 [Duoneb -] 1 amp NEB RQID amp 08/03/19 Docusate Sodium [Colace -] 100 mg PO BID capsule 08/03/19 Guaifenesin Dm [Robitussin Dm -] 10 ml PO Q4H PRN cup 08/03/19 Nicotine Patch [Nicoderm Patch -] 21 mg TD DAILY patch 08/03/19 Polyethylene Glycol 3350 [Miralax 119 gm Btl -] 17 gm PO DAILY bottle 08/03/19 Sennosides [Senna -] 1 tab PO BID tablet 08/03/19 predniSONE [Deltasone -] 40 mg PO DAILY tablet 08/03/19 This patient is new to me today: No Emergency Visit: No Critical Care patient: No - Discharge Referral Referred to [facility] Med P.C.: No ATTENDING PHYSICIAN STATEMENT I saw and evaluated the patient. I reviewed the resident's note and discussed the case with the resident. I agree with the resident's findings and plan as documented. SUBJECTIVE: OBJECTIVE: ASSESSMENT AND PLAN:
== END 2019-08-03 10:40 | disposition hospice, inpatient (51) | DRG 180 ==
LOC: JER 11:55 → JERBED 18:48 → J7W 21:54
PROVIDERS: ADMIT Internal Medicine; ATTEND Internal Medicine
PROC: 0W9B30Z Drainage of Left Pleural Cavity with Drainage Device, Percutaneous Approach (ICD-10-PCS; principal; 2019-07-25)
PROC: 0WPBX0Z Removal of Drainage Device from Left Pleural Cavity, External Approach (ICD-10-PCS; 2019-08-01)
DX: C34.90 Malignant neoplasm of unspecified part of unspecified bronchus or lung (principal); J96.01 Acute respiratory failure with hypoxia; J96.02 Acute respiratory failure with hypercapnia; C78.7 Secondary malignant neoplasm of liver and intrahepatic bile duct; C79.51 Secondary malignant neoplasm of bone; C79.70 Secondary malignant neoplasm of unspecified adrenal gland; C79.31 Secondary malignant neoplasm of brain; J44.1 Chronic obstructive pulmonary disease with (acute) exacerbation; R64 Cachexia; Z68.1 Body mass index [BMI] 19.9 or less, adult; J91.0 Malignant pleural effusion; E87.2 Acidosis; G20 Parkinson's disease; I12.9 Hypertensive chronic kidney disease with stage 1 through stage 4 chronic kidney disease, or unspecified chronic kidney disease; I25.10 Atherosclerotic heart disease of native coronary artery without angina pectoris; E03.9 Hypothyroidism, unspecified; I71.4 Abdominal aortic aneurysm, without rupture; Z91.14 Patient's other noncompliance with medication regimen; F17.210 Nicotine dependence, cigarettes, uncomplicated; Z66 Do not resuscitate; F02.80 Dementia in other diseases classified elsewhere, unspecified severity, without behavioral disturbance, psychotic disturbance, mood disturbance, and anxiety; E78.5 Hyperlipidemia, unspecified; N18.3 Chronic kidney disease, stage 3 (moderate); K59.03 Drug induced constipation; T40.2X5A Adverse effect of other opioids, initial encounter
CPT/HCPCS: 32557; 36415; 36600; 71045-TC-FY; 71275-TC; 74018-TC-FY; 76098-TC-FY; 76998-TC; 80053; 82042; 82150; 82375; 82465; 82550; 82803; 82945; 83050; 83615; 83735; 83986; 84100; 84157; 84478; 84484; 85025; 85027; 85610; 87070; 87075; 87102; 87116; 87205; 87206; 87210; 87899; 88108; 88305-TC; 88341-TC; 93005; 93010; 94640; 94660; 94761; 97116-GP; 97162-GP; 99285-25; C1729; C1769; J0131; J1644; Q9967